=== PATIENT | male | born 1940 | race Caucasian/White ===

== ENCOUNTER 2017-07-26 19:54 | Inpatient (IN) | payer MEDICARE, BC ==
[~2017-07-26] VITALS: Ht 175.3 cm; Wt 64.1 kg
[2017-07-26] VITALS (17 sets, daily range): BP systolic 80–191; BP diastolic 50–84; PULSE 71–106; RESP 16; TEMP 97.5–99.3; O2SAT 94–100
[2017-07-26] MEDS ORDERED: PROPOFOL 500 MG/50 ML INJ 50 ML ONE (19:59)
--- NOTE | 2017-07-26 20:20 | PD ---
HPI Chief Complaint: STEMI Alert Time Seen by Provider: 20:06 Travel History International Travel<30 days: No Contact w/Intl Traveler<30days: No Traveled to known affect area: No History of Present Illness HPI pt is a 76-year-old male with history of Parkinson's on Sinemet. Patient was eating at a restaurant stood up choking like behavior . Tried to pull a shrimp out of his throat according to his who arrives after his initial eval in the ER and the patient was choking stopped breathing was laid on the ground CPR was initiated by bystanders . hemlick maneuver done and then realized he was in Asystole and CPR started .. Patient was found to be without respiratory effort intubated in the field by the paramedics who then gave 4 mg of Ativan and 10 of etomidate patient arrives fully obtunded intubated with cardiac activity on the ultrasound done bedside by this M.Olivier. point of care ultrasound shows cardiac activity paramedics it called said this was a left bundle-branch new onset M most likely could be a STEMI they had called a STEMI from the field. Upon me seeing the left bundle-branch. I call Dr. Dr. Lane sustainability consultant and he feels it is not needed to activate STEMI patient remains obtunded intubated he is not fighting the tube dopamine discontinued that had been started by the paramedics I continue it at 10 mics per acute per minute [facility] Social History Tobacco Use: No Allergies-Medications (Allergen,Severity, Reaction): Coded Allergies: No Allergy Information Available (Unverified , 07/26/17) pt intubateed Review of Systems ROS Limitations: Unresponsive Physical Exam Narrative GENERAL: Patient is intubated obtunded nonresponsive no respiratory effort. He is not of breathing above the vent SKIN: Warm and dry. HEAD: Atraumatic. Normocephalic. EYES: Pupils equal and round. No scleral icterus. No injection or drainage. Pupils are 3 mm equal and round ENT: No nasal bleeding or discharge. Mucous membranes pink and moist. ET tube in place NECK: Trachea midline. No JVD. CARDIOVASCULAR: Regular rate and rhythm. RESPIRATORY: No accessory muscle use. Clear to auscultation. Breath sounds equal bilaterally. Auscultation of the axillary areas bilateral coarse breath sounds heard GASTROINTESTINAL: Abdomen soft, non-tender, nondistended. Hepatic and splenic margins not palpable. MUSCULOSKELETAL: Extremities without clubbing, cyanosis, or edema. No obvious deformities. NEUROLOGICAL: obtunded , was sedated in the feild etomidat and ativan continues sedated Data Data Last Documented VS Vital Signs Date Time Temp Pulse Resp B/P (MAP) Pulse Ox O2 Delivery O2 Flow Rate FiO2 07/26/17 21:39 99.0 100 16 122/50 (74) 99 Ventilator 45 07/26/17 19:53 15.00 Orders Orders Propofol 500 Mg/50 Ml Inj (Diprivan 500 (07/26/17 19:59) Echo 2d Limited (07/26/17 20:06) Complete Blood Count With Diff (07/26/17 20:11) Comprehensive Metabolic Panel (07/26/17 20:11) Ckmb (Isoenzyme) Profile (07/26/17 20:11) Troponin I (07/26/17 20:11) Lipase (07/26/17 20:11) Ua Includes Microscopic (07/26/17 20:11) Magnesium (Mg) (07/26/17 20:11) Chest, Single Ap (07/26/17 20:11) Urinary Catheter Management KEILY.Q8H (07/26/17 20:25) Oscar-Gastric Tube Insert/Mon (07/26/17 20:25) Propofol 500 Mg/50 Ml Inj (Diprivan 500 (07/26/17 20:30) Dopamine Inj Premix (Dopamine Inj Premix (07/26/17 20:30) I-Stat Profile (07/26/17 20:05) Restraints Non-Violent KEILY.Q3H (07/26/17 20:29) Norepinephrine-Dextrose Drip (Levophed-D (07/26/17 22:00) Electrocardiogram (07/26/17 19:59) Urine Culture (07/26/17 20:05) Arterial Blood Gas (Abg) (07/26/17 21:01) CKMB (07/26/17 20:05) CKMB% (07/26/17 20:05) Admit Order (Ed Use Only) (07/26/17 21:39) Labs Laboratory Tests Test 07/26/17 20:05 07/26/17 21:01 White Blood Count 5.5 TH/MM3 Red Blood Count 4.31 MIL/MM3 Hemoglobin 14.5 GM/DL Bedside Hemoglobin 14.6 G/DL Hematocrit 43.4 % Bedside Hematocrit 43.0 % Mean Corpuscular Volume 100.7 FL Mean Corpuscular Hemoglobin 33.6 PG Mean Corpuscular Hemoglobin Concent 33.4 % Red Cell Distribution Width 13.7 % Platelet Count 146 TH/MM3 Mean Platelet Volume 8.1 FL Neutrophils (%) (Auto) 44.5 % Lymphocytes (%) (Auto) 44.7 % Monocytes (%) (Auto) 8.8 % Eosinophils (%) (Auto) 1.4 % Basophils (%) (Auto) 0.6 % Neutrophils # (Auto) 2.4 TH/MM3 Lymphocytes # (Auto) 2.4 TH/MM3 Monocytes # (Auto) 0.5 TH/MM3 Eosinophils # (Auto) 0.1 TH/MM3 Basophils # (Auto) 0.0 TH/MM3 CBC Comment DIFF FINAL Differential Comment Urine Color YELLOW Urine Turbidity HAZY Urine pH 6.0 Urine Specific Dawson 1.018 Urine Protein 100 mg/dL Urine Glucose (UA) NEG mg/dL Urine Ketones TRACE mg/dL Urine Occult Blood TRACE Urine Nitrite NEG Urine Bilirubin NEG Urine Urobilinogen 2.0 MG/DL Urine Leukocyte Esterase NEG Urine RBC 6 /hpf Urine WBC 12 /hpf Urine Squamous Epithelial Cells <1 /hpf Urine Bacteria RARE /hpf Urine Hyaline Casts 20 /lpf Urine Mucus FEW /lpf Microscopic Urinalysis Comment CULTURE INDICATED Bedside Sodium 143 MMOL/L Blood Urea Nitrogen 20 MG/DL Creatinine 1.01 MG/DL Random Glucose 148 MG/DL Total Protein 6.9 GM/DL Albumin 3.6 GM/DL Calcium Level 8.7 MG/DL Magnesium Level 1.9 MG/DL Alkaline Phosphatase 208 U/L Aspartate Amino Transf (AST/SGOT) 134 U/L Alanine Aminotransferase (ALT/SGPT) 15 U/L Total Bilirubin 0.7 MG/DL Sodium Level 143 MEQ/L Potassium Level 4.3 MEQ/L Chloride Level 107 MEQ/L Carbon Dioxide Level 23.5 MEQ/L Bedside Potassium 4.3 MMOL/L Bedside Chloride 105 MMOL/L Anion Gap 13 MEQ/L Bedside Blood Urea Nitrogen 21 MG/DL Bedside Creatinine 0.9 MG/DL Estimat Glomerular Filtration Rate 72 ML/MIN Bedside Glucose 151 MG/DL Total Creatine Kinase 233 U/L Creatine Kinase MB 6.4 NG/ML Troponin I 0.04 NG/ML Lipase 179 U/L Blood Gas Puncture Site RT RADIAL Blood Gas Patient Temperature 98.6 Blood Gas HCO3 22 mmol/L Blood Gas Base Excess -2.8 mmol/L Blood Gas Oxygen Saturation 99 % Arterial Blood pH 7.38 Arterial Blood Partial Pressure CO2 37 mmHg Arterial Blood Partial Pressure O2 445 mmHG Arterial Blood Oxygen Content 21.6 Vol % Arterial Blood Carboxyhemoglobin 0.5 % Arterial Blood Methemoglobin 0.7 % Blood Gas Hemoglobin 14.8 G/DL Oxygen Delivery Device VENTILATOR Blood Gas Ventilator Setting PRVC / AC / Blood Gas Inspired Oxygen 100 % MDM Medical Decision Making Medical Screen Exam Complete: Yes Emergency Medical Condition: Yes Medical Record Reviewed: Yes Differential Diagnosis Cardiac arrest secondary to respiratory arrest secondary to asystole secondary to acute coronary syndrome secondary to V. fib Narrative Course Patient spontaneous cardiac activity returns after CPR in the field and airway oxygenation is procured by paramedics in the field. Patient's dopamine is started his blood pressure registers at 114/60 and dopamine is 10-20 mics. Per minute his BP then increases and we're able to turn the dopamine down to 5 and then off and he maintains his own blood pressure ultrasound bedside shows good cardiac activity spoke with Dr. Lane he wanted a bedside echo nuclear reactor technician of the echo shows no areas of hypokinesis of the cardiac muscle which does not show any signs of an acute injury causing a left bundle block on the EKG Critical Care Narrative Critical care is 30 minutes on this patient I speak to Dr. Lane cardiology interventionalists I speak to Dr. Barnes to I manage medication and fluid recesses reassessing his cardiac activity the ultrasound reassessing his need for medications admitted ICU Diagnosis Primary Impression: Respiratory arrest Additional Impression: Cardiac arrest Nishant Munson MD Jul 26, 2017 20:20
--- NOTE | 2017-07-26 20:26 | RADRPT ---
EXAM DATE/TIME: 07/26/2017 20:03 [facility] COMPARISON: No previous studies available for comparison. INDICATIONS : Chest pain; Stemi alert; Post intubation. MEDICAL HISTORY : Unobtainable. SURGICAL HISTORY : Unobtainable. ENCOUNTER: Initial ACUITY: 1 day PAIN SCORE: Non-responsive. LOCATION: Bilateral chest FINDINGS: A single portable frontal view the chest shows the tip of the endotracheal tube 3 cm proximal to the abner. Nasogastric tube coiled in the fundus of the stomach. Lungs are clear. Heart is normal in siz e. Scoliotic and degenerative spine. Bilateral humeral head prostheses. CONCLUSION: No acute cardiopulmonary disease. Rocco Downey Jr., MD on July 26, 2017 at 20:23 Board Certified Radiologist. This report was verified electronically.
[2017-07-26] MEDS ORDERED: DOPamine INJ PREMIX 500 ML IV PRN (20:30)
[2017-07-26] MEDS ORDERED: PROPOFOL 500 MG/50 ML BTL IV ONE (20:30)
[2017-07-26 20:54] LABS: AUTOMATED NEUTROPHIL # 2.4 TH/MM3 (1.8-7.7); BASOPHIL % 0.6 % (0.0-2.0); EOSINOPHIL # 0.1 TH/MM3 (0-0.4); EOSINOPHIL % 1.4 % (0.0-4.0); HEMATOCRIT 43.4 % (39.0-51.0); HEMOGLOBIN 14.5 GM/DL (13.0-17.0); LYMPH % 44.7 % (9.0-44.0); LYMPHOCYTE # 2.4 TH/MM3 (1.0-4.8); MEAN CELL VOLUME 100.7 FL (80.0-100.0); MEAN CORPUSCULAR HEMOGLOBIN 33.6 PG (27.0-34.0); MEAN CORPUSCULAR HGB CONC 33.4 % (32.0-36.0); MEAN PLATELET VOLUME 8.1 FL (7.0-11.0); MONO % 8.8 % (0.0-8.0); MONOCYTE # 0.5 TH/MM3 (0-0.9); NEUT % 44.5 % (16.0-70.0); PLATELET COUNT 146 TH/MM3 (150-450); RED BLOOD COUNT 4.31 MIL/MM3 (4.50-5.90); RED CELL DISTRIBUTION WIDTH 13.7 % (11.6-17.2); WHITE BLOOD COUNT 5.5 TH/MM3 (4.0-11.0)
[2017-07-26 20:58] LABS: BACTERIA, URINE RARE /hpf; BILIRUBIN, URINE NEG (NEG); BLOOD, URINE TRACE (NEG); GLUCOSE,URINE NEG (NEG); HYALINE CAST, URINE 20 /lpf (RARE); KETONE, URINE TRACE mg/dL (NEG); MUCUS URINE FEW /lpf (OCC); NITRITE,URINE NEG (NEG); SQUAMOUS EPITHELIAL CELL URINE <1 /hpf (0-5); URINE COLOR YELLOW (YELLW/STRAW); URINE LEUKOCYTE ESTERASE NEG (NEG)
[2017-07-26 21:11] LABS: ALBUMIN 3.6 GM/DL (3.4-5.0); AST (GOT) 134 U/L (15-37); BICARBONATE 23.5 MEQ/L (21.0-32.0); BLOOD UREA NITROGEN 20 MG/DL (7-18); CALCIUM 8.7 MG/DL (8.5-10.1); CHLORIDE 107 MEQ/L (98-107); CREATININE 1.01 MG/DL (0.60-1.30); GLOMERULAR FILTRATION RATE 72 ML/MIN (>89); GLUCOSE,RANDOM 148 MG/DL (74-106); MAGNESIUM 1.9 MG/DL (1.5-2.5); SODIUM (NA) 143 MEQ/L (136-145)
[2017-07-26 21:12] LABS: ALT (GPT) 15 U/L (12-78)
[2017-07-26 21:16] LABS: ALKALINE PHOSPHATASE 208 U/L (45-117); TOTAL BILIRUBIN ADULT 0.7 MG/DL (0.2-1.0); TOTAL PROTEIN 6.9 GM/DL (6.4-8.2); TROPONIN I 0.04 NG/ML (0.02-0.05)
--- NOTE | 2017-07-26 21:50 | EKG ---
Date Performed: 07/26/2017 Time Performed: 19:59:07 PTAGE: 76 years EKG: Marked baseline artifact probable ATRIAL FIBRILLATION WITH ABERRANT CONDUCTION OR VENTRICUL AR PREMATURE COMPLEXES LEFT BUNDLE BRANCH BLOCK ABNORMAL ECG NO PREVIOUS TRACING DOCTOR: Duran Ortiz Interpretating Date/Time 07/26/2017 21:48:35
--- NOTE | 2017-07-26 21:52 | HHI.HP ---
HPI Service Critical Care Medicine Primary Care Physician Unknown Admission Diagnosis POST CARADIAC ARREST Diagnosis: Travel History International Travel<30 Days: No Contact w/Intl Traveler <30 Da: No Traveled to Known Affected Are: No History of Present Illness 76-year-old gentleman with unknown past medical history was eating at a restaurant stood up choking like behavior and fell to ground. Hemlick maneuver done by bystanders and then they realized he was in Asystole and CPR started. Patient is sedated and intubated and no further information is available. Review of Systems ROS Unobtainable patient is sedated and intubated Past Family Social History Allergies: Coded Allergies: No Allergy Information Available (Unverified , 07/26/17) pt intubateed Past Medical History Unobtainable Past Surgical History Unobtainable Reported Medications Unobtainable Active Ordered Medications Current Medications Medications (Trade) Dose Ordered Sig/Ventura Route PRN Reason Start Time Stop Time Status Last Admin Dose Admin Dopamine HCl/ Dextrose 500 ml @ 0 mls/hr TITRATE PRN IV Blood Pressure Management 07/26/17 20:30 07/26/17 20:02 Norepinephrine Bitartrate 250 ml @ 7.5 mls/hr TITRATE PRN IV Blood pressure management 07/26/17 22:00 Sodium Chloride 1,000 ml @ 84 mls/hr [id number] IV 07/26/17 21:52 07/26/17 23:19 Sodium Chloride (NS Flush) 2 ml UNSCH PRN IV FLUSH FLUSH AFTER USING IV ACCESS 07/26/17 22:00 Sodium Chloride (NS Flush) 2 ml BID IV FLUSH 07/27/17 09:00 Acetaminophen (Tylenol) 650 mg Q6H PRN PO PAIN 1-10 AND/OR FEVER >101F 07/26/17 22:00 Famotidine (Pepcid Inj) 20 mg Q12HR IV PUSH 07/27/17 09:00 Artificial Tears (Tears Naturale Opth Soln) 1 drop TID EACH EYE 07/27/17 09:00 Ondansetron HCl (Zofran Inj) 4 mg Q6H PRN IV PUSH NAUSEA OR VOMITING 07/26/17 22:00 Albuterol/ Ipratropium (Duoneb Neb) 1 ampule Q6HR NEB INH 07/26/17 22:00 07/26/17 22:43 Albuterol/ Ipratropium (Duoneb Neb) 1 ampule Q2HR NEB PRN INH WHEEZING 07/26/17 22:00 Heparin Sodium (Porcine) (Heparin Inj) 5,000 units Q12H SQ 07/26/17 22:00 07/26/17 22:48 Miscellaneous Information 1 [id number] XX 07/26/17 22:00 Chlorhexidine Gluconate (Chlorhexidine 2% Cloth) 3 pack Taper DAILY@04 TOP 07/27/17 04:00 07/23/18 03:59 Chlorhexidine Gluconate (Chlorhexidine 2% Cloth) 3 pack UNSCH PRN TOP HYGIENIC CARE 07/26/17 22:00 Senna/Docusate Sodium (Marcella-Colace) 1 tab BID PO 07/27/17 09:00 Magnesium Hydroxide (Milk Of Magnesia Liq) 30 ml Q12H PRN PO Mild constipation 07/26/17 22:00 Sennosides (Senokot) 17.2 mg Q12H PRN PO Moderate constipation 07/26/17 22:00 Bisacodyl (Dulcolax Supp) 10 mg DAILY PRN RECTAL SEVERE CONSITIPATION 07/26/17 22:00 Lactulose (Lactulose Liq) 30 ml DAILY PRN PO SEVERE CONSITIPATION 07/26/17 22:00 Chlorhexidine Gluconate (Peridex 0.12% Liq) 15 ml BID@08,20 MT 07/27/17 08:00 Propofol 100 ml @ 4.5 mls/hr TITRATE PRN IV Sedation 07/26/17 23:30 Labetalol HCl (Trandate Inj) 10 mg Q4H PRN IV PUSH SBP>160, DBP>90 07/27/17 02:30 07/27/17 02:31 Family History Unobtainable Social History Unobtainable Physical Exam Vital Signs Vital Signs Date Time Temp Pulse Resp B/P (MAP) Pulse Ox O2 Delivery O2 Flow Rate FiO2 07/26/17 21:14 100 45 07/26/17 21:03 102 174/80 07/26/17 20:55 92 142/64 07/26/17 20:54 99 Ventilator 100 07/26/17 20:48 94 129/82 07/26/17 20:43 94 107/65 07/26/17 20:36 90 160/66 07/26/17 20:33 88 161/124 07/26/17 20:21 97.5 87 16 114/55 (74) 100 Ventilator 100 07/26/17 20:19 100 07/26/17 20:15 87 114/55 07/26/17 20:02 88 80/60 07/26/17 20:00 98 100 07/26/17 19:59 78 16 80/60 (67) 98 07/26/17 19:53 98 15.00 100 Physical Exam GENERAL: Elderly gentleman sedated and intubated, unresponsive SKIN: Warm and dry. HEAD: Normocephalic. EYES: No scleral icterus. No injection or drainage. NECK: Supple, trachea midline. No JVD or lymphadenopathy. CARDIOVASCULAR: Regular rate and rhythm without murmurs, gallops, or rubs. RESPIRATORY: Breath sounds equal bilaterally. No accessory muscle use. GASTROINTESTINAL: Abdomen soft, non-tender, nondistended. MUSCULOSKELETAL: No cyanosis, or edema. BACK: Nontender without obvious deformity. NEURO EXAM: GCS: M 4 V t E 2 Mental Status: The patient is altered sedated and intubated. Pupils are 4 mm symmetrical and reactive to light. Laboratory Laboratory Tests Test 07/26/17 20:05 07/26/17 21:01 White Blood Count 5.5 Red Blood Count 4.31 Hemoglobin 14.5 Bedside Hemoglobin 14.6 Hematocrit 43.4 Bedside Hematocrit 43.0 Mean Corpuscular Volume 100.7 Mean Corpuscular Hemoglobin 33.6 Mean Corpuscular Hemoglobin Concent 33.4 Red Cell Distribution Width 13.7 Platelet Count 146 Mean Platelet Volume 8.1 Neutrophils (%) (Auto) 44.5 Lymphocytes (%) (Auto) 44.7 Monocytes (%) (Auto) 8.8 Eosinophils (%) (Auto) 1.4 Basophils (%) (Auto) 0.6 Neutrophils # (Auto) 2.4 Lymphocytes # (Auto) 2.4 Monocytes # (Auto) 0.5 Eosinophils # (Auto) 0.1 Basophils # (Auto) 0.0 CBC Comment DIFF FINAL Differential Comment Urine Color YELLOW Urine Turbidity HAZY Urine pH 6.0 Urine Specific Zillah 1.018 Urine Protein 100 Urine Glucose (UA) NEG Urine Ketones TRACE Urine Occult Blood TRACE Urine Nitrite NEG Urine Bilirubin NEG Urine Urobilinogen 2.0 Urine Leukocyte Esterase NEG Urine RBC 6 Urine WBC 12 Urine Squamous Epithelial Cells <1 Urine Bacteria RARE Urine Hyaline Casts 20 Urine Mucus FEW Microscopic Urinalysis Comment CULTURE INDICATED Bedside Sodium 143 Blood Urea Nitrogen 20 Creatinine 1.01 Random Glucose 148 Total Protein 6.9 Albumin 3.6 Calcium Level 8.7 Magnesium Level 1.9 Alkaline Phosphatase 208 Aspartate Amino Transf (AST/SGOT) 134 Alanine Aminotransferase (ALT/SGPT) 15 Total Bilirubin 0.7 Sodium Level 143 Potassium Level 4.3 Chloride Level 107 Carbon Dioxide Level 23.5 Bedside Potassium 4.3 Bedside Chloride 105 Anion Gap 13 Bedside Blood Urea Nitrogen 21 Bedside Creatinine 0.9 Estimat Glomerular Filtration Rate 72 Bedside Glucose 151 Total Creatine Kinase 233 Creatine Kinase MB 6.4 Troponin I 0.04 Lipase 179 Blood Gas Puncture Site RT RADIAL Blood Gas Patient Temperature 98.6 Blood Gas HCO3 22 Blood Gas Base Excess -2.8 Blood Gas Oxygen Saturation 99 Arterial Blood pH 7.38 Arterial Blood Partial Pressure CO2 37 Arterial Blood Partial Pressure O2 445 Arterial Blood Oxygen Content 21.6 Arterial Blood Carboxyhemoglobin 0.5 Arterial Blood Methemoglobin 0.7 Blood Gas Hemoglobin 14.8 Oxygen Delivery Device VENTILATOR Blood Gas Ventilator Setting PRVC / AC / Blood Gas Inspired Oxygen 100 Date/Time Source Procedure Growth Status 07/26/17 20:05 Urine Clean Catch Urine Culture Pending Received Result Diagram: 07/26/17200407/26/172004 Imaging Last 24 hours Impressions Chest X-Ray 07/26/172010 Signed Impressions: Service Date/Time: July 20:03 - CONCLUSION: No acute cardiopulmonary disease. Rocco Downey Jr., MD Septic Shock Reassessment Septic shock perfusion: reassessment completed Caprini VTE Risk Assessment Caprini VTE Risk Assessment: Mod/High Risk (score >= 2) Caprini Risk Assessment Model Point Value = 1 Point Value = 2 Point Value = 3 Point Value = 5 Age 41-60 Minor surgery BMI > 25 kg/m2 Swollen legs Varicose veins or History of unexplained or recurrent spontaneous Oral contraceptives or hormone replacement Sepsis (< 1 month) Serious lung disease, including pneumonia (< 1 month) Abnormal pulmonary function Acute myocardial infarction Congestive heart failure (< 1 month) History of inflammatory bowel disease Medical patient at bed rest Age 61-74 Arthroscopic surgery Major open surgery (> 45 min) Laparoscopic surgery (> 45 min) Malignancy Confined to bed (> 72 hours) Immobilizing plaster cast Central venous access Age >= 75 History of VTE Family history of VTE Factor V Leiden Prothrombin [id number] Lupus anticoagulant Anticardiolipin antibodies Elevated serum homocysteine Heparin-induced thrombocytopenia Other congenital or acquired thrombophilia Stroke (< 1 month) Elective arthroplasty Hip, pelvis, or leg fracture Acute spinal cord injury (< 1 month) Prophylaxis Regimen Total Risk Factor Score Risk Level Prophylaxis Regimen 0-1 Low Early ambulation 2 Moderate Order ONE of the following: *Sequential Compression Device (SCD) *Heparin 5000 units SQ BID 3-4 Higher Order ONE of the following medications: *Heparin 5000 units SQ TID *Enoxaparin/Lovenox 40 mg SQ daily (WT < 150 kg, CrCl > 30 mL/min) *Enoxaparin/Lovenox 30 mg SQ daily (WT < 150 kg, CrCl > 10-29 mL/min) *Enoxaparin/Lovenox 30 mg SQ BID (WT < 150 kg, CrCl > 30 mL/min) AND/OR *Sequential Compression Device (SCD) 5 or more Highest Order ONE of the following medications: *Heparin 5000 units SQ TID (Preferred with Epidurals) *Enoxaparin/Lovenox 40 mg SQ daily (WT < 150 kg, CrCl > 30 mL/min) *Enoxaparin/Lovenox 30 mg SQ daily (WT < 150 kg, CrCl > 10-29 mL/min) *Enoxaparin/Lovenox 30 mg SQ BID (WT < 150 kg, CrCl > 30 mL/min) AND *Sequential Compression Device (SCD) Assessment and Plan Assessment and Plan Respiratory failure - Intubated for airway protection - No weaning until neurologically improved - CXR and ABG daily Cardiac arrest - Non-ST elevation GA - Discussed with Dr. Lane/cardiology by ED attending - Normal echo, not a candidate for emergent cardiac catheterization - Heparin drip - Series of EKGs and troponins Altered mental status - Metabolic toxic - Status post cardiac arrest?? - EEG a.m. - Neurology consultation DVT GI prophylaxis - Teds SCDs - Heparin drip - Pepcid Critical Care: The total critical care time was 35 minutes. Time to perform other separately billable procedures was not included in the critical care time. Darren Infante MD Jul 26, 2017 9:52 pm
[2017-07-26] MEDS ORDERED: BISACODYL 10 MG SUPP RECTAL PRN (22:00)
[2017-07-26] MEDS ORDERED: NOREPINEPHRINE-DEXTROSE DRIP 250 ML IV PRN (22:00)
[2017-07-26] MEDS ORDERED: HEPARIN SODIUM - SQ 10,000 UNITS/ML VIAL SQ SCH (22:00)
[2017-07-26] MEDS ORDERED: SODIUM CHLORIDE 0.9% FLUSH 10 ML FLUSH IV FLUSH PRN (22:00)
[2017-07-26] MEDS ORDERED: LACTULOSE SYRUP 20 GM/30 ML CUP PO PRN (22:00)
[2017-07-26] MEDS ORDERED: MISCELLANEOUS NURSING INFORMATION XX SCH (22:00)
[2017-07-26] MEDS ORDERED: CHLORHEXIDINE GLUCONATE 2 % 1 PACK (2 CLOTHS) TOP PRN (22:00)
[2017-07-26] MEDS ORDERED: MAGNESIUM HYDROXIDE SUSP 30 ML CUP PO PRN (22:00)
[2017-07-26] MEDS ORDERED: ONDANSETRON HCL 4 MG/2 ML VIAL IV PUSH PRN (22:00)
[2017-07-26] MEDS ORDERED: ACETAMINOPHEN 325 MG TAB PO PRN (22:00)
[2017-07-26] MEDS ORDERED: SENNOSIDES 8.6 MG TAB PO PRN (22:00)
--- NOTE | 2017-07-26 22:10 | ECHRPT ---
Indication: S/P CARDIAC ARREST, ?PE CONCLUSIONS Poor echocardiographic windows Normal left ventricular size. Mild concentric left ventricular hypertrophy. The left ventricular systolic function is moderately reduced with an estimated ejection fraction in the range of 45%. There is abnormal septal motion consistent with an intraventricular conduction delay. The right ventriclar size is upper limits of normal. The left atrial size is mildly dilated. The right atrial size is mildly dilated. Trace mitral valve regurgitation. Mild mitral annular calcification. Aortic valve sclerosis is present. No tricuspid regurgitation. There is less than 50% respiratory change in dimension of the inferior vena cava (abnormal). There is no pericardial effusion. BP: 142 / 84 HR: Rhythm: Sinus MEASUREMENTS (Male / Female) Normal Values Technical Quality:Technically difficult study 2D ECHO LV Diastolic Diameter PLAX 3.5 cm 4.2 - 5.9 / 3.9 - 5.3 cm LV Systolic Diameter PLAX 3.0 cm IVS Diastolic Thickness 1.1 cm 0.6 - 1.0 / 0.6 - 0.9 cm LVPW Diastolic Thickness 1.1 cm 0.6 - 1.0 / 0.6 - 0.9 cm LV Relative Wall Thickness 0.6 RV Internal Dim ED PLAX 2.9 cm LVOT Diameter 2.0 cm Aortic Root Diameter 2.7 cm LA Systolic Diameter LX 3.4 cm 3.0 - 4.0 / 2.7 - 3.8 cm DOPPLER AV Peak Velocity 121.0 cm/s AV Peak Gradient 5.9 mmHg AV Mean Gradient 4.0 mmHg AV Velocity Time Integral 16.4 cm LVOT Peak Velocity 69.2 cm/s LVOT Peak Gradient 1.9 mmHg LVOT Velocity Time Integral 11.4 cm AV Area Cont Eq vti 2.2 cm AV Area Cont Eq pk 1.8 cm Mitral E Point Velocity 107.0 cm/s Mitral A Point Velocity 59.2 cm/s Mitral E to A Ratio 1.8 LV E' Lateral Velocity 7.3 cm/s Mitral E to LV E' Lateral Ratio 14.6 LV E' Septal Velocity 2.8 cm/s Mitral E to LV E' Septal Ratio 37.8 TR Peak Velocity 219.0 cm/s TR Peak Gradient 19.2 mmHg Right Atrial Pressure 10.0 mmHg Pulmonary Artery Systolic Pressu 29.2 mmHg Right Ventricular Systolic Press 29.2 mmHg FINDINGS LEFT VENTRICLE Normal left ventricular size. Mild concentric left ventricular hypertrophy. The left ventricular systolic function is moderately reduced with an estimated ejection fraction in the range of 40-45%. There is abnormal septal motion consistent with an intraventricular conduction delay. RIGHT VENTRICLE The right ventriclar size is upper limits of normal. LEFT ATRIUM The left atrial size is mildly dilated. RIGHT ATRIUM The right atrial size is mildly dilated. ATRIAL SEPTUM No atrial level shunt is demonstrated by color flow Doppler interrogation. AORTA The aortic root and proximal ascending aorta are normal in size on limited imaging. MITRAL VALVE Trace mitral valve regurgitation. Mild mitral annular calcification. AORTIC VALVE Aortic valve sclerosis is present. No aortic valve stenosis. TRICUSPID VALVE No tricuspid regurgitation. PULMONARY VALVE The pulmonary valve is not well visualized. VESSELS The inferior vena cava is normal in size. There is less than 50% respiratory change in dimension of the inferior vena cava (abnormal). PERICARDIUM There is no pericardial effusion. Manuel Martínez MD (Electronically Signed) Final Date:26 July 2017 22:09
[2017-07-26] MEDS: RESP: ALBUTEROL 2.5 MG/IPRATROPIUM 0.5 MG NEB (SCH) INH (22:43)
[2017-07-26] MEDS: SODIUM CHLOR 0.9% 1000 ML INJ 1,000 ML IV SCH (23:19)
[2017-07-26] MEDS ORDERED: PROPOFOL 1000 MG/100 ML IV PRN ×2 (23:30)
[2017-07-27] VITALS (21 sets, daily range): BP systolic 137–181; BP diastolic 67–104; PULSE 61–85; RESP 16–19; TEMP 98.9–99.7; O2SAT 94–100
[2017-07-27 02:22] LABS: AUTOMATED NEUTROPHIL # 6.1 TH/MM3 (1.8-7.7); BASOPHIL % 0.2 % (0.0-2.0); EOSINOPHIL % 0.3 % (0.0-4.0); HEMATOCRIT 40.3 % (39.0-51.0); HEMOGLOBIN 14.2 GM/DL (13.0-17.0); LYMPH % 15.5 % (9.0-44.0); LYMPHOCYTE # 1.3 TH/MM3 (1.0-4.8); MEAN CELL VOLUME 98.4 FL (80.0-100.0); MEAN CORPUSCULAR HEMOGLOBIN 34.6 PG (27.0-34.0); MEAN CORPUSCULAR HGB CONC 35.2 % (32.0-36.0); MEAN PLATELET VOLUME 8.1 FL (7.0-11.0); MONO % 12.1 % (0.0-8.0); NEUT % 71.9 % (16.0-70.0); PLATELET COUNT 164 TH/MM3 (150-450); RED CELL DISTRIBUTION WIDTH 13.5 % (11.6-17.2); WHITE BLOOD COUNT 8.6 TH/MM3 (4.0-11.0)
[2017-07-27] MEDS: LABETALOL HCL 100 MG/20 ML VIAL IV PUSH PRN ×2 (02:31→21:29)
[2017-07-27 02:34] LABS: INTERNATIONAL NORMALIZED RATIO 1.1 RATIO; PROTHROMBIN TIME - PATIENT 10.7 SEC (9.8-11.6)
[2017-07-27 02:36] LABS: ALBUMIN 3.6 GM/DL (3.4-5.0); AST (GOT) 110 U/L (15-37); BICARBONATE 24.9 MEQ/L (21.0-32.0); BLOOD UREA NITROGEN 22 MG/DL (7-18); CALCIUM 8.2 MG/DL (8.5-10.1); CHLORIDE 109 MEQ/L (98-107); CREATININE 0.72 MG/DL (0.60-1.30); GLOMERULAR FILTRATION RATE 106 ML/MIN (>89); GLUCOSE,RANDOM 107 MG/DL (74-106); SODIUM (NA) 144 MEQ/L (136-145)
[2017-07-27 02:43] LABS: ALKALINE PHOSPHATASE 195 U/L (45-117); ALT (GPT) 30 U/L (12-78); PHOSPHORUS 3.3 MG/DL (2.5-4.9); TOTAL BILIRUBIN ADULT 0.9 MG/DL (0.2-1.0); TOTAL PROTEIN 6.7 GM/DL (6.4-8.2)
[2017-07-27 02:45] LABS: TROPONIN I 2.19 NG/ML (0.02-0.05)
[2017-07-27] MEDS ORDERED: HEPARIN SODIUM - IV 10,000 UNITS/10 ML VIAL IV PUSH ONE (03:00)
[2017-07-27] MEDS: RESP: ALBUTEROL 2.5 MG/IPRATROPIUM 0.5 MG NEB (SCH) INH ×4 (03:29→19:38)
[2017-07-27] MEDS: HEPARIN-D5W 25,000 U/250 ML 250 ML IV PRN (03:38)
[2017-07-27] MEDS: CHLORHEXIDINE GLUCONATE 2 % 1 PACK (2 CLOTHS) TOP SCH (04:00)
--- NOTE | 2017-07-27 05:03 | RADRPT ---
EXAM DATE/TIME: 07/27/2017 03:25 [facility] COMPARISON: CHEST SINGLE AP, July 26, 2017, 20:03. INDICATIONS : Evaluate for respiratory failure. MEDICAL HISTORY : Unobtainable. SURGICAL HISTORY : Unobtainable. ENCOUNTER: Subsequent ACUITY: 2 days PAIN SCORE: Non-responsive. LOCATION: chest FINDINGS: Stable ETT, and NGT. No significant new focal pleural or parenchymal opacities. Cardiomediastinal con tours are stable. Remainder of the exam is unchanged. CONCLUSION: 1. No acute abnormality or significant interval change. Kanu Freitas MD on July 27, 2017 at 5:01 Board Certified Radiologist. This report was verified electronically.
[2017-07-27] MEDS: CHLORHEXIDINE 0.12% (ORAL KIT) 15 ML CUP MT SCH ×2 (08:00→20:00)
[2017-07-27] MEDS: DOCUSATE SODIUM 50 MG/SENNA 8.6 MG TAB PO SCH ×2 (08:56→21:28)
[2017-07-27] MEDS: ASPIRIN 300 MG SUPP RECTAL SCH (08:57)
[2017-07-27] MEDS: FAMOTIDINE 20 MG/2 ML VIAL IV PUSH SCH ×2 (08:57→21:28)
[2017-07-27] MEDS: SODIUM CHLORIDE 0.9% FLUSH 10 ML FLUSH IV FLUSH SCH ×2 (08:57→21:29)
[2017-07-27] MEDS ORDERED: HEPARIN SODIUM - IV 10,000 UNITS/10 ML VIAL IV PUSH PRN ×2 (09:00)
[2017-07-27] MEDS: SODIUM CHLOR 0.9% 1000 ML INJ 1,000 ML IV SCH ×3 (09:02→23:28)
--- NOTE | 2017-07-27 09:20 | MB ---
cc: YARELY GRANT M.D. DATE OF CONSULTATION 07/27/2017 REASON FOR CONSULTATION Abnormal cardiac enzymes. HISTORY OF PRESENT ILLNESS History is unobtainable from the patient who is intubated and unresponsive. History is obtained from the electronic medical records. He is a 76-year-old white male with a history of Parkinson's disease who while eating at a restaurant began choking. At some point he stopped breathing and lost pulse so CPR was administered by bystanders. At some point the Heimlich maneuver was also performed. Last night he apparently was felt not to be a candidate for emergency cardiac catheterization. He did demonstrate left bundle branch block on EKG. At the present time he is intubated and unresponsive, on Diprivan sedation. PAST MEDICAL HISTORY As above. No other details currently available. MEDICATIONS Medications at home: Unknown. ALLERGIES Unknown. FAMILY HISTORY/SOCIAL HISTORY/REVIEW OF SYSTEMS Currently unobtainable. PHYSICAL EXAMINATION VITAL SIGNS: On physical examination his blood pressure is 177/84 with a pulse 68, respirations 18. GENERAL: In general he is a well-developed, well-nourished white male, currently intubated and sedated. HEENT/NECK: Jugular venous pressure is normal. Carotid pulses are 2+ bilaterally and without bruits. CHEST: Examination of the chest reveals clear lung medley anteriorly. CARDIAC: On cardiac examination he has a regular rhythm and rate without S3, S4, or murmur. ABDOMEN: On abdominal examination he has a soft abdomen. Bowel sounds are present. There is no definite hepatosplenomegaly. EXTREMITIES: Examination of the extremities reveals no clubbing, cyanosis or edema. EKG EKG shows probable sinus rhythm with premature atrial complexes, left bundle branch block. LABORATORY Laboratory data includes WBC 8.6, hemoglobin 14.2, platelets 164, potassium 3.9, BUN 22, creatinine 0.72, CK 233, CK-MB 6.4, troponin 2.19. IMAGING Chest x-ray shows no acute disease. IMPRESSION Possible acute myocardial infarction in this 76-year-old white male with a history of Parkinson's disease. The second troponin level is more consistent with acute myocardial infarction. Apparently he was not felt to be a candidate for emergency cardiac catheterization last night. He has remained hemodynamically stable overnight. A repeat EKG is pending. Echocardiogram reportedly shows mildly reduced ejection fraction of 45%. RECOMMENDATIONS 1. Continued supportive care; will await his repeat EKG. 2. Continue serial cardiac enzymes. If CK-MB percentages are more consistent with myocardial infarction and there is a continued rise in CK levels, consider cardiac catheterization today. 3. Beta iesha and MECHE inhibitor therapy as his blood pressures allow. 4. Daily aspirin. 5. Continue heparin drip. MD KANIKA Haddad/VANESSA /7:06 AM /9:07 AM ANDRES
[2017-07-27] MEDS ORDERED: VITA100064 PO (09:58)
[2017-07-27] MEDS ORDERED: CETI10 PO (09:58)
[2017-07-27] MEDS ORDERED: ASPI81CH7 CHEW (09:58)
[2017-07-27] MEDS ORDERED: ESOM0.1C PO (09:58)
[2017-07-27] MEDS ORDERED: CYAN100025 SL (09:58)
[2017-07-27] MEDS ORDERED: DIPY50TA PO (09:58)
[2017-07-27] MEDS ORDERED: HYDR-3516 PO (09:58)
[2017-07-27] MEDS ORDERED: CARB25TA9 PO (09:58)
--- NOTE | 2017-07-27 11:17 | EKG ---
Date Performed: 07/27/2017 Time Performed: 07:43:04 PTAGE: 76 years EKG: Sinus rhythm MARKED LEFT AXIS DEVIATION LEFT BUNDLE BRANCH BLOCK ABNORMAL ECG No significant change from prior el ectrocardiogram. PREVIOUS TRACING : 07/27/2017 04.28 DOCTOR: Duran Ortiz Interpretating Date/Time 07/27/2017 11:17:23
[2017-07-27] MEDS: ARTIFICIAL TEARS OPTH SOLN 15 ML BTL EACH EYE SCH ×2 (13:00→16:52)
--- NOTE | 2017-07-27 14:00 | EKG ---
Date Performed: 07/27/2017 Time Performed: 04:28:06 PTAGE: 76 years EKG: Sinus rhythm . Left axis deviation Left bundle branch block Abnormal ECG Unfortunately, priority EKG has marked ar tifact and I cannot compare rhythm. PREVIOUS TRACING : 07/26/2017 19.59 DOCTOR: Duran Ortiz Interpretating Date/Time 07/27/2017 13:59:52
--- NOTE | 2017-07-27 14:37 | HHI.CCPN ---
Subjective Remarks/Hospital Course 76-year-old gentleman with unknown past medical history was eating at a restaurant stood up choking like behavior and fell to ground. Hemlick maneuver done by bystanders and then they realized he was in Asystole and CPR started. Patient is sedated and intubated and no further information is available. SUBJ remains intubated sedated with 20 mcg/m of propofol. Withdraws left upper extremity to pain. No purposeful movements noted. Troponin elevation to 2, now trending down to 0.9. Cardiology Dr. Charles. May need cardiac cath. Echo EF 45%. Off Dopamine, will start low-dose carvedilol Objective Vital Signs Date Time Temp Pulse Resp B/P (MAP) Pulse Ox O2 Delivery O2 Flow Rate FiO2 07/27/17 12:06 97 40 07/27/17 12:00 61 07/27/17 12:00 98.9 16 146/76 (99) 07/26/17 22:52 Ventilator 07/26/17 19:53 15.00 Intake and Output 07/27/17 07/27/17 07/28/17 08:00 16:00 00:00 Intake Total 375.0 ml 447 ml Output Total 840 ml 170 ml Balance -465.0 ml 277 ml Result Diagram: 07/27/17 0211 07/27/17 0211 Other Results Laboratory Tests Test 07/26/17 21:01 Blood Gas Puncture Site RT RADIAL Blood Gas Patient Temperature 98.6 Blood Gas HCO3 22 mmol/L (22-26) Blood Gas Base Excess -2.8 mmol/L (-2-2) Blood Gas Oxygen Saturation 99 % (90-100) Arterial Blood pH 7.38 (7.380-7.420) Arterial Blood Partial Pressure CO2 37 mmHg (38-42) Arterial Blood Partial Pressure O2 445 mmHG (61-120) Arterial Blood Oxygen Content 21.6 Vol % (12.0-20.0) Arterial Blood Carboxyhemoglobin 0.5 % (0-4) Arterial Blood Methemoglobin 0.7 % (0-2) Blood Gas Hemoglobin 14.8 G/DL (12.0-16.0) Oxygen Delivery Device VENTILATOR Blood Gas Ventilator Setting PRVC / AC / Blood Gas Inspired Oxygen 100 % Imaging Last 24 hours Impressions Chest X-Ray 07/26/172010 Signed Impressions: Service Date/Time: July 20:03 - CONCLUSION: No acute cardiopulmonary disease. Rocco Downey Jr., MD Objective Remarks GENERAL: Elderly gentleman sedated and intubated, unresponsive SKIN: Warm and dry. HEAD: Normocephalic. EYES: No scleral icterus. No injection or drainage. NECK: Supple, trachea midline. No JVD or lymphadenopathy. CARDIOVASCULAR: Regular rate and rhythm without murmurs, gallops, or rubs. RESPIRATORY: Breath sounds equal bilaterally. No accessory muscle use. GASTROINTESTINAL: Abdomen soft, non-tender, nondistended. MUSCULOSKELETAL: No cyanosis, or edema. BACK: Nontender without obvious deformity. NEURO EXAM: Mental Status: The patient is altered sedated and intubated. Pupils are 4 mm symmetrical and reactive to light. Withdraws right UE to pain while on sedation A/P Assessment and Plan Respiratory failure - Intubated for airway protection - No weaning until neurologically improved - CXR and ABG daily Cardiac arrest - Non-ST elevation [place] - Discussed with Dr. Lane/cardiology by ED attending. Normal echo, not a candidate for emergent cardiac catheterization - With troponin peaking at 2, EF 45%, Dr. Charles may cath - Heparin drip, aspirin - Series of EKGs and troponins - Coreg 3.25 ng PO BID Altered mental status - Metabolic toxic vs anoxic brain injury - EEG pending - Neurology consultation as needed DVT GI prophylaxis - Teds SCDs - Heparin drip - Pepcid Critical Care: The total critical care time was 35 minutes. Time to perform other separately billable procedures was not included in the critical care time. Jeremy Ribeiro MD Jul 27, 2017 14:37
[2017-07-27] MEDS: CARVEDILOL 3.125 MG TAB PO SCH ×2 (16:52→21:28)
--- NOTE | 2017-07-27 18:24 | MG ---
cc: JAMES CANALES M.D. Lab No: 18 Date: Age: Sex: M Race: Choked on a shrimp, asystole, obtunded, coded. Diffuse 6-7 Hz, 60 microvolt rhythm is noted. The recording overall is synchronous and symmetric. No hemisphere asymmetry is noted. No epileptiform or seizure activity is seen. Photic stimulation was performed without significant posterior driving. Hyperventilation was not performed. IMPRESSION: Mild diffuse theta slowing consistent with mild diffuse encephalopathy but no focal abnormality was noted. No seizure activity was seen. MD VIJAY Ferrari/KATYA /5:48 PM /6:00 PM
[2017-07-28] VITALS (22 sets, daily range): BP systolic 122–198; BP diastolic 63–101; PULSE 61–85; RESP 13–30; TEMP 99.7–100.5; O2SAT 98–100
[2017-07-28] MEDS: LABETALOL HCL 100 MG/20 ML VIAL IV PUSH PRN ×3 (00:31→20:13)
[2017-07-28] MEDS: RESP: ALBUTEROL 2.5 MG/IPRATROPIUM 0.5 MG NEB (SCH) INH ×4 (03:12→20:20)
[2017-07-28] MEDS: CHLORHEXIDINE GLUCONATE 2 % 1 PACK (2 CLOTHS) TOP SCH (04:00)
[2017-07-28] MEDS: HEPARIN-D5W 25,000 U/250 ML 250 ML IV PRN (05:06)
[2017-07-28] MEDS: FAMOTIDINE 20 MG/2 ML VIAL IV PUSH SCH ×2 (07:55→19:49)
[2017-07-28] MEDS: DOCUSATE SODIUM 50 MG/SENNA 8.6 MG TAB PO SCH ×2 (07:56→19:49)
[2017-07-28] MEDS: SODIUM CHLORIDE 0.9% FLUSH 10 ML FLUSH IV FLUSH SCH ×2 (07:56→19:49)
[2017-07-28] MEDS: ASPIRIN 300 MG SUPP RECTAL SCH (07:56)
[2017-07-28] MEDS: CARVEDILOL 3.125 MG TAB PO SCH ×2 (07:56→19:48)
[2017-07-28] MEDS: ARTIFICIAL TEARS OPTH SOLN 15 ML BTL EACH EYE SCH ×3 (07:57→17:20)
[2017-07-28] MEDS: CHLORHEXIDINE 0.12% (ORAL KIT) 15 ML CUP MT SCH ×2 (08:00→19:48)
--- NOTE | 2017-07-28 08:53 | PD.CARD.PN ---
Subjective Subjective Remarks Intubated. Sedated. Opens eyes slightly and briefly, seems to deny CP, SOB. Objective Medications Item Value Date Time Carvedilol 3.125 mg 07/27/17 1445 (Coreg) Q12HR/PO 07/28/17 0756 Aspirin 300 mg 07/27/17 0900 (Aspirin Supp) DAILY/RECTAL 07/28/17 0756 Heparin Sodium/ 250 ml @ 9 mls/hr 07/27/17 0300 Dextrose TITRATE PRN/IV 07/28/17 0506 Current Medications Medications (Trade) Dose Ordered Sig/Ventura Route Start Time Stop Time Status Last Admin Sodium Chloride 1,000 ml @ 84 mls/hr [id number] IV 07/26/17 21:52 07/27/17 23:28 (NS Flush) 2 ml UNSCH PRN IV FLUSH 07/26/17 22:00 (NS Flush) 2 ml BID IV FLUSH 07/27/17 09:00 07/28/17 07:56 (Tylenol) 650 mg Q6H PRN PO 07/26/17 22:00 (Pepcid Inj) 20 mg Q12HR IV PUSH 07/27/17 09:00 07/28/17 07:55 (Tears Naturale Opth Soln) 1 drop TID EACH EYE 07/27/17 09:00 (Zofran Inj) 4 mg Q6H PRN IV PUSH 07/26/17 22:00 (Duoneb Neb) 1 ampule Q6HR NEB INH 07/26/17 22:00 07/28/17 08:25 (Duoneb Neb) 1 ampule Q2HR NEB PRN INH 07/26/17 22:00 Miscellaneous Information 1 Q361D XX 07/26/17 22:00 07/26/17 22:00 (Chlorhexidine 2% Cloth) 3 pack Taper DAILY@04 TOP 07/27/17 04:00 07/23/18 03:59 07/28/17 04:00 (Chlorhexidine 2% Cloth) 3 pack UNSCH PRN TOP 07/26/17 22:00 (Marcella-Colace) 1 tab BID PO 07/27/17 09:00 07/28/17 07:56 (Milk Of Magnesia Liq) 30 ml Q12H PRN PO 07/26/17 22:00 (Senokot) 17.2 mg Q12H PRN PO 07/26/17 22:00 (Dulcolax Supp) 10 mg DAILY PRN RECTAL 07/26/17 22:00 (Lactulose Liq) 30 ml DAILY PRN PO 07/26/17 22:00 (Peridex 0.12% Liq) 15 ml BID@08,20 MT 07/27/17 08:00 07/27/17 08:00 Propofol 100 ml @ 4.5 mls/hr TITRATE PRN IV 07/26/17 23:30 07/27/17 05:00 (Trandate Inj) 10 mg Q4H PRN IV PUSH 07/27/17 02:30 07/28/17 00:31 (Heparin Inj) 5,000 units UNSCH PRN IV PUSH 07/27/17 09:00 (Heparin Inj) 2,500 units UNSCH PRN IV PUSH 07/27/17 09:00 Heparin Sodium/ Dextrose 250 ml @ 9 mls/hr TITRATE PRN IV 07/27/17 03:00 07/28/17 05:06 (Aspirin Supp) 300 mg DAILY RECTAL 07/27/17 09:00 07/28/17 07:56 (Coreg) 3.125 mg Q12HR PO 07/27/17 14:45 07/28/17 07:56 Vital Signs / I&O Vital Signs Date Time Temp Pulse Resp B/P (MAP) Pulse Ox O2 Delivery O2 Flow Rate FiO2 07/28/17 08:00 100.6 68 17 142/77 (98) 100 07/28/17 08:00 35 07/28/17 07:35 100 35 07/28/17 06:00 65 07/28/17 04:15 100 35 07/28/17 04:00 82 07/28/17 04:00 100.0 82 24 142/90 (107) 99 07/28/17 04:00 35 07/28/17 02:00 66 07/28/17 01:09 100 40 07/28/17 00:00 40 07/28/17 00:00 100.5 65 15 147/79 (101) 100 07/28/17 00:00 65 07/27/17 22:04 100 40 07/27/17 22:00 76 07/27/17 20:00 100.6 85 16 137/67 (90) 100 07/27/17 20:00 85 07/27/17 20:00 40 07/27/17 19:12 96 40 07/27/17 18:00 78 07/27/17 17:15 97 40 07/27/17 16:00 75 07/27/17 16:00 99.7 75 19 150/81 (104) 98 07/27/17 16:00 40 07/27/17 15:04 40 07/27/17 15:00 40 07/27/17 14:00 75 07/27/17 12:06 97 40 07/27/17 12:00 61 07/27/17 12:00 40 07/27/17 12:00 98.9 61 16 146/76 (99) 98 07/27/17 10:00 68 I/O 07/27/1718 07/27/17 07/28/17 07/28/17 07/28/17 07:00 15:00 23:00 07:00 15:00 23:00 Intake Total 375.0 ml 447 ml 1250 ml Output Total 800 ml 290 ml 660 ml 355 ml 60 ml Balance -425.0 ml 157 ml -660 ml 895 ml -60 ml Intake IV Total 375.0 ml 447 ml 1250 ml Output Urine Total 800 ml 290 ml 660 ml 355 ml 60 ml # Bowel Movements 0 0 0 Physical Exam GENERAL: Well developed, well nourished. Intubated. Sedated. HEENT: Jugular venous pressure is normal. CHEST: Lungs clear to auscultation anteriorly. CARDIAC: Regular rate and rhythm without S3, S4. I-II/ systolic murmur apex. ABDOMEN: Soft, nontender, no hepatosplenomegaly. Bowel sounds present. EXTREMITIES: No clubbing, cyanosis, or edema. Laboratory Laboratory Tests Test 07/27/17 12:20 07/27/17 12:51 07/27/17 17:06 07/27/17 18:30 Total Creatine Kinase 475 U/L 486 U/L Creatine Kinase MB 12.5 NG/ML Creatine Kinase MB % 2.6 % Activated Partial Thromboplast Time 67.2 SEC 51.9 SEC Troponin I 0.88 NG/ML 0.53 NG/ML Blood Gas Puncture Site RT RADIAL Blood Gas Patient Temperature 98.6 Blood Gas HCO3 21 mmol/L Blood Gas Base Excess -2.5 mmol/L Blood Gas Oxygen Saturation 97 % Arterial Blood pH 7.47 Arterial Blood Partial Pressure CO2 29 mmHg Arterial Blood Partial Pressure O2 186 mmHg Arterial Blood Oxygen Content 18.0 Vol % Arterial Blood Carboxyhemoglobin 0.7 % Arterial Blood Methemoglobin 1.4 % Blood Gas Hemoglobin 12.9 G/DL Oxygen Delivery Device VENTILATOR Blood Gas Ventilator Setting CPAP 5/5/40% Blood Gas Inspired Oxygen 40 % Test 07/28/17 04:50 Activated Partial Thromboplast Time 48.6 SEC Imaging Last 48 hours Impressions Chest X-Ray 07/27/17 0000 Signed Impressions: Service Date/Time: Thursday, July 27, 2017 03:25 - CONCLUSION: 1. No acute abnormality or significant interval change. Kanu Freitas MD Chest X-Ray 07/26/172010 Signed Impressions: Service Date/Time: July 20:03 - CONCLUSION: No acute cardiopulmonary disease. Rocco Downey Jr., MD Assessment and Plan Problem List: (1) Non-ST elevation [place] (NSTEMI) ICD Codes: I21.4 - Non-ST elevation (NSTEMI) myocardial infarction Status: Acute Plan: Stable overnight. Hemodynamically stable. Troponin levels trending downward. Echo reportedly shows EF 45%. No definite CHF. No arrhythmias so far. REC continue supportive care continue carvedilol, aspirin and heparin, add enalapril cath once extubated, awake and alert Code Status full code Alejandro Charles MD Jul 28, 2017 08:53
[2017-07-28] MEDS ORDERED: ASPIRIN 81 MG CHEW TAB CHEW SCH (09:45)
[2017-07-28] MEDS: CARBIDOPA/LEVODOPA 25 MG/100 MG TAB PO SCH ×5 (10:00→22:58)
--- NOTE | 2017-07-28 11:01 | HHI.CCPN ---
Subjective Remarks/Hospital Course 76-year-old gentleman with unknown past medical history was eating at a restaurant stood up choking like behavior and fell to ground. Hemlick maneuver done by bystanders and then they realized he was in Asystole and CPR started. Patient is sedated and intubated and no further information is available. SUBJ remains intubated sedated with 20 mcg/m of propofol. Withdraws left upper extremity to pain. No purposeful movements noted. Troponin elevation to 2, now trending down to 0.9. Cardiology Dr. Charles. May need cardiac cath. Echo EF 45%. Off Dopamine, will start low-dose carvedilol 07/28: Slightly more on the vent as follows commands still somnolent. Sinemet resumed. Possible cath Sunday per Dr. Charles. DC IV Heparin, and start Lovenox 40 qd Objective Vital Signs Date Time Temp Pulse Resp B/P (MAP) Pulse Ox O2 Delivery O2 Flow Rate FiO2 07/28/17 10:00 68 07/28/17 08:00 100.6 17 142/77 (98) 100 07/28/17 08:00 35 07/26/17 22:52 Ventilator 07/26/17 19:53 15.00 Intake and Output 07/28/17 07/28/17 07/29/17 08:00 16:00 00:00 Intake Total 250 ml Output Total 365 ml 50 ml Balance -115 ml -50 ml Result Diagram: 07/27/1721007/27/171 Other Results Laboratory Tests Test 07/27/17 17:06 Blood Gas Puncture Site RT RADIAL Blood Gas Patient Temperature 98.6 Blood Gas HCO3 21 mmol/L (22-26) Blood Gas Base Excess -2.5 mmol/L (-2-2) Blood Gas Oxygen Saturation 97 % (90-100) Arterial Blood pH 7.47 (7.380-7.420) Arterial Blood Partial Pressure CO2 29 mmHg (38-42) Arterial Blood Partial Pressure O2 186 mmHg (61-120) Arterial Blood Oxygen Content 18.0 Vol % (12.0-20.0) Arterial Blood Carboxyhemoglobin 0.7 % (0-4) Arterial Blood Methemoglobin 1.4 % (0-2) Blood Gas Hemoglobin 12.9 G/DL (12.0-16.0) Oxygen Delivery Device VENTILATOR Blood Gas Ventilator Setting CPAP 5/5/40% Blood Gas Inspired Oxygen 40 % Imaging Last 24 hours Impressions Chest X-Ray 07/26/172010 Signed Impressions: Service Date/Time: July 20:03 - CONCLUSION: No acute cardiopulmonary disease. Rocco Downey Jr., MD Objective Remarks GENERAL: Elderly gentleman intubated, somnolent, following commands SKIN: Warm and dry. HEAD: Normocephalic. EYES: No scleral icterus. No injection or drainage. NECK: Supple, trachea midline. No JVD or lymphadenopathy. CARDIOVASCULAR: Regular rate and rhythm without murmurs, gallops, or rubs. RESPIRATORY: Breath sounds equal bilaterally. No accessory muscle use. GASTROINTESTINAL: Abdomen soft, non-tender, nondistended. MUSCULOSKELETAL: No cyanosis, or edema. BACK: Nontender without obvious deformity. NEURO EXAM: The patient is somnolent, but wakes up easily follows commands. Pupils are 4 mm symmetrical and reactive to light. A/P Assessment and Plan Respiratory failure - Intubated for airway protection - SBT with possible extubation Cardiac arrest - Non-ST elevation [place] - Discussed with Dr. Cahrles, cardiac catheterization Sunday - With troponin peaking at 2, EF 45%, Dr. Charles may cath - Heparin drip, aspirin, coreg. DC IV heparin and start Lovenox 40 mg subcutaneous daily - Series of EKGs and troponins Altered mental status - Metabolic toxic -no evidence of significant anoxic injury - Sinemet restarted DVT GI prophylaxis - Teds SCDs - DC IV heparin and start Lovenox 40 mg subcutaneous daily - Pepcid Critical Care: level 3 Jeremy Ribeiro MD Jul 28, 2017 11:01
[2017-07-28] MEDS: SODIUM CHLOR 0.9% 1000 ML INJ 1,000 ML IV SCH ×2 (11:12→23:22)
[2017-07-28] MEDS ORDERED: DIPYRIDAMOLE 50 MG PO SCH (13:00)
[2017-07-28] MEDS: DIPYRIDAMOLE 25 MG TAB PO SCH ×3 (15:38→19:48)
[2017-07-28] MEDS: HALOPERIDOL LACTATE 5 MG/ML AMP IV PUSH PRN (16:30)
[2017-07-28] MEDS: LORazepam 2 MG/ML VIAL IV PUSH PRN (16:30)
[2017-07-29] VITALS (19 sets, daily range): BP systolic 122–168; BP diastolic 59–107; PULSE 59–72; RESP 18–32; TEMP 98–99.6; O2SAT 95–100
[2017-07-29] MEDS: LABETALOL HCL 100 MG/20 ML VIAL IV PUSH PRN ×3 (02:43→18:31)
[2017-07-29] MEDS: CARBIDOPA/LEVODOPA 25 MG/100 MG TAB PO SCH ×8 (02:43→22:28)
[2017-07-29] MEDS: HALOPERIDOL LACTATE 5 MG/ML AMP IV PUSH PRN ×4 (03:07→21:38)
[2017-07-29] MEDS: RESP: ALBUTEROL 2.5 MG/IPRATROPIUM 0.5 MG NEB (SCH) INH ×4 (03:29→19:57)
[2017-07-29] MEDS: CHLORHEXIDINE GLUCONATE 2 % 1 PACK (2 CLOTHS) TOP SCH (04:00)
[2017-07-29] MEDS: LORazepam 2 MG/ML VIAL IV PUSH PRN (07:06)
[2017-07-29] MEDS: DIPYRIDAMOLE 25 MG TAB PO SCH ×4 (07:32→19:59)
[2017-07-29] MEDS: SODIUM CHLORIDE 0.9% FLUSH 10 ML FLUSH IV FLUSH SCH ×2 (07:32→19:59)
[2017-07-29] MEDS: FAMOTIDINE 20 MG/2 ML VIAL IV PUSH SCH ×2 (07:32→19:59)
[2017-07-29] MEDS: CARVEDILOL 3.125 MG TAB PO SCH ×2 (07:32→19:59)
[2017-07-29] MEDS: ARTIFICIAL TEARS OPTH SOLN 15 ML BTL EACH EYE SCH ×3 (07:33→18:21)
[2017-07-29] MEDS: ASPIRIN 81 MG CHEW TAB CHEW SCH (07:33)
[2017-07-29] MEDS: CHLORHEXIDINE 0.12% (ORAL KIT) 15 ML CUP MT SCH ×2 (07:33→20:00)
[2017-07-29] MEDS: DOCUSATE SODIUM 50 MG/SENNA 8.6 MG TAB PO SCH ×2 (07:33→19:59)
--- NOTE | 2017-07-29 08:12 | PD.CARD.PN ---
Subjective Subjective Remarks Somnolent. Minimally responsive. Unable to answer any questions. Appears tachypneic. Objective Medications Item Value Date Time Aspirin 81 mg 07/29/17 0900 (Aspirin Chew) DAILY/CHEW 07/29/17 0733 Carvedilol 3.125 mg 07/27/17 1445 (Coreg) Q12HR/PO 07/29/17 0732 Current Medications Medications (Trade) Dose Ordered Sig/Ventura Route Start Time Stop Time Status Last Admin Sodium Chloride 1,000 ml @ 84 mls/hr [id number] IV 07/26/17 21:52 07/28/17 23:22 (NS Flush) 2 ml UNSCH PRN IV FLUSH 07/26/17 22:00 (NS Flush) 2 ml BID IV FLUSH 07/27/17 09:00 07/29/17 07:32 (Tylenol) 650 mg Q6H PRN PO 07/26/17 22:00 (Pepcid Inj) 20 mg Q12HR IV PUSH 07/27/17 09:00 07/29/17 07:32 (Tears Naturale Opth Soln) 1 drop TID EACH EYE 07/27/17 09:00 07/29/17 07:33 (Zofran Inj) 4 mg Q6H PRN IV PUSH 07/26/17 22:00 (Duoneb Neb) 1 ampule Q6HR NEB INH 07/26/17 22:00 07/29/17 08:03 (Duoneb Neb) 1 ampule Q2HR NEB PRN INH 07/26/17 22:00 Miscellaneous Information 1 Q361D XX 07/26/17 22:00 07/26/17 22:00 (Chlorhexidine 2% Cloth) 3 pack Taper DAILY@04 TOP 07/27/17 04:00 07/23/18 03:59 07/29/17 04:00 (Chlorhexidine 2% Cloth) 3 pack UNSCH PRN TOP 07/26/17 22:00 (Marcella-Colace) 1 tab BID PO 07/27/17 09:00 07/28/17 07:56 (Milk Of Magnesia Liq) 30 ml Q12H PRN PO 07/26/17 22:00 07/28/17 15:39 (Senokot) 17.2 mg Q12H PRN PO 07/26/17 22:00 (Dulcolax Supp) 10 mg DAILY PRN RECTAL 07/26/17 22:00 (Lactulose Liq) 30 ml DAILY PRN PO 07/26/17 22:00 (Peridex 0.12% Liq) 15 ml BID@08,20 MT 07/27/17 08:00 07/29/17 07:33 Propofol 100 ml @ 4.5 mls/hr TITRATE PRN IV 07/26/17 23:30 07/27/17 05:00 (Trandate Inj) 10 mg Q4H PRN IV PUSH 07/27/17 02:30 07/29/17 02:43 (Coreg) 3.125 mg Q12HR PO 07/27/17 14:45 07/29/17 07:32 (Sinemet 25-100 Mg) 1 tab Q3HR PO 07/28/17 11:00 07/29/17 07:33 (Aspirin Chew) 81 mg DAILY CHEW 07/29/17 09:00 07/29/17 07:33 (Persantine) 50 mg QID PO 07/28/17 13:00 07/29/17 07:32 (Ativan Inj) 2 mg Q2H PRN IV PUSH 07/28/17 16:30 07/29/17 07:06 (Haldol Inj) 4 mg Q4H PRN IV PUSH 07/28/17 16:30 07/29/17 03:07 Vital Signs / I&O Vital Signs Date Time Temp Pulse Resp B/P (MAP) Pulse Ox O2 Delivery O2 Flow Rate FiO2 07/29/17 08:06 97 Nasal Cannula 4.00 07/29/17 06:00 64 07/29/17 04:00 62 07/29/17 04:00 99.6 62 18 157/72 (100) 100 07/29/17 02:00 67 07/29/17 00:00 63 07/29/17 00:00 98.0 63 21 145/70 (95) 97 07/28/17 22:00 61 07/28/17 20:21 99 Nasal Cannula 4.00 07/28/17 20:00 99.7 65 21 167/84 (111) 100 07/28/17 20:00 65 07/28/17 18:00 73 07/28/17 16:00 99.3 81 21 198/92 (127) 98 07/28/17 16:00 81 07/28/17 15:00 99.3 75 20 178/101 (126) 100 07/28/17 14:00 67 07/28/17 14:00 99.3 67 15 175/89 (117) 99 07/28/17 13:00 99.5 72 18 166/83 (110) 99 07/28/17 12:00 99.9 65 18 146/78 (100) 100 07/28/17 12:00 65 07/28/17 11:11 100 Nasal Cannula 3.00 07/28/17 11:10 100 Nasal Cannula 3 07/28/17 11:00 100.0 65 30 122/70 (87) 100 07/28/17 10:00 68 07/28/17 10:00 100.2 68 17 126/63 (84) 100 07/28/17 09:00 100.4 85 13 130/67 (88) 100 I/O 07/28/17 07/28/17 07/28/17 07/29/17 07/29/17 07/29/17 07:00 15:00 23:00 07:00 15:00 23:00 Intake Total 1250 ml 900 ml 1000 ml Output Total 355 ml 315 ml 297 ml 315 ml Balance 895 ml 585 ml -297 ml 685 ml Intake IV Total 1250 ml 900 ml 1000 ml Output Urine Total 355 ml 315 ml 297 ml 315 ml # Bowel Movements 0 1 Physical Exam GENERAL: Well developed, well nourished. Tachypneic. HEENT: Jugular venous pressure is normal. CHEST: Diffuse rhonchi. No definite rales. CARDIAC: Regular rate and rhythm without S3, S4. ?I-II/ systolic murmur apex. ABDOMEN: Soft, nontender, no hepatosplenomegaly. Bowel sounds present. EXTREMITIES: No clubbing, cyanosis, or edema. Laboratory Laboratory Tests Test 07/29/17 04:40 Activated Partial Thromboplast Time 29.1 SEC Assessment and Plan Problem List: (1) Non-ST elevation [place] (NSTEMI) ICD Codes: I21.4 - Non-ST elevation (NSTEMI) myocardial infarction Status: Acute Plan: Stable overnight. Hemodynamically stable. Troponin levels trending downward. Echo reportedly shows EF 45%. No arrhythmias so far. Appears to be in increased respiratory distress this morning. REC continue current medical regimen cath when awake, alert, out of ICU repeat CXR Code Status full code Alejandro Charles MD Jul 29, 2017 08:12
--- NOTE | 2017-07-29 08:42 | RADRPT ---
EXAM DATE/TIME: 07/29/2017 08:14 [facility] COMPARISON: CHEST SINGLE AP, July 27, 2017, 3:25. INDICATIONS : Short of breath. MEDICAL HISTORY : Unobtinable. SURGICAL HISTORY : Unobtainable. ENCOUNTER: Subsequent ACUITY: 3 days PAIN SCORE: Non-responsive. LOCATION: Bilateral chest FINDINGS: NG tube is present with tip in the stomach. There is slight cardiomegaly and perivascular pulmonary e sabrina. Focal consolidation is not seen. The rest of the examination has not significantly changed. CONCLUSION: Slight CHF. K. Durga Estevez MD on July 29, 2017 at 8:39 Board Certified Radiologist. This report was verified electronically.
[2017-07-29] MEDS: ENALAPRIL MALEATE 10 MG TAB PO SCH ×2 (08:52→19:59)
--- NOTE | 2017-07-29 14:23 | HHI.CCPN ---
Subjective Remarks/Hospital Course 76-year-old gentleman with unknown past medical history was eating at a restaurant stood up choking like behavior and fell to ground. Hemlick maneuver done by bystanders and then they realized he was in Asystole and CPR started. Patient is sedated and intubated and no further information is available. SUBJ remains intubated sedated with 20 mcg/m of propofol. Withdraws left upper extremity to pain. No purposeful movements noted. Troponin elevation to 2, now trending down to 0.9. Cardiology Dr. Charles. May need cardiac cath. Echo EF 45%. Off Dopamine, will start low-dose carvedilol 07/28: Slightly more on the vent as follows commands still somnolent. Sinemet resumed. Possible cath Sunday per Dr. Charles. DC IV Heparin, and start Lovenox 40 qd 07/29: Extubated yesterday, became agitated in afternoon. Started on when necessary Ativan and Haldol. Currently sedated from members of Ativan and Haldol. Somnolent but protecting airway. Agitation is multifactorial. Confirms that he drinks 2 drinks of vodka daily (she does not know how much he pours into each drink). IV Thiamine also started. I will also start him on Precedex in case he needs it Objective Vital Signs Date Time Temp Pulse Resp B/P (MAP) Pulse Ox O2 Delivery O2 Flow Rate FiO2 07/29/17 12:00 59 07/29/17 12:00 18 124/74 (91) 96 07/29/17 08:06 Nasal Cannula 4.00 07/29/17 08:00 98.4 07/28/17 08:00 35 Intake and Output 07/29/17 07/29/17 07/30/17 08:00 16:00 00:00 Output Total 330 ml 285 ml Balance -330 ml -285 ml Result Diagram: 07/27/17 0211 07/27/17 0211 Other Results Microbiology Date/Time Source Procedure Growth Status 07/26/17 20:05 Urine Clean Catch Urine Culture - Final NO GROWTH IN 48 HOURS. Complete Imaging Last 24 hours Impressions Chest X-Ray 07/26/172010 Signed Impressions: Service Date/Time: July 20:03 - CONCLUSION: No acute cardiopulmonary disease. Rocco Downey Jr., MD Objective Remarks GENERAL: Elderly gentleman somnolent from Ativan and Haldol. Mumbles few words SKIN: Warm and dry. HEAD: Normocephalic. EYES: No scleral icterus. No injection or drainage. NECK: Supple, trachea midline. No JVD or lymphadenopathy. CARDIOVASCULAR: Regular rate and rhythm without murmurs, gallops, or rubs. RESPIRATORY: Breath sounds equal bilaterally. No accessory muscle use. Few conducted upper airway sounds GASTROINTESTINAL: Abdomen soft, non-tender, nondistended. MUSCULOSKELETAL: No cyanosis, or edema. NEURO EXAM: The patient is somnolent, mumbles words. Spontaneously moves extremities A/P Assessment and Plan Cardiac arrest secondary to choking Non-ST elevation [place] - Discussed with Dr. Charles, cardiac catheterization Sunday if clinically stable - With troponin peaking at 2, EF 45% - Heparin drip, aspirin, coreg. DCd IV heparin and start Lovenox 40 mg subcutaneous daily 07/29 - Series of EKGs and troponins Respiratory failure - Intubated for airway protection - Extubated 07/29/17 - Continue breathing treatments, aggressive pulmonary toilet Delirium/metabolic encephalopathy Alcohol withdrawal - Delirium is multifactorial - Use Tylenol and Ativan when necessary's, supplement thiamine - >2 vodka Daily - Sinemet restarted DVT GI prophylaxis - Teds SCDs - Start Lovenox 40 mg subcutaneous daily - Pepcid Critical Care: 32 MIN Extubated yesterday but later developed severe agitation requiring restraints, Ativan, Haldol when necessary. Severe delirium secondary to metabolic encephalopathy and possibly alcohol withdrawal also. Patient is at risk of decompensation and respiratory failure due to acute onset delirium and treatment with sedatives. Continue ICU monitoring Jeremy Ribeiro MD Jul 29, 2017 14:23
[2017-07-29] MEDS ORDERED: FUROSEMIDE 20 MG/2 ML VIAL IV PUSH ONE (14:30)
[2017-07-29] MEDS: ENOXAPARIN SODIUM 40 MG/0.4 ML SYRINGE SQ SCH (14:52)
[2017-07-29] MEDS: THIAMINE INJ 100 MG in SODIUM CHLORIDE 0.9% INJ 100 ML IV SCH (16:11)
[2017-07-29] MEDS: DEXMEDETOMIDINE INJ 200 MCG in SODIUM CHLORIDE 0.9% INJ 50 ML IV PRN (18:29)
[2017-07-29] MEDS ORDERED: hydrALAZINE HCL 20 MG/ML VIAL ONE (21:08)
[2017-07-30] VITALS (33 sets, daily range): BP systolic 97–172; BP diastolic 54–90; PULSE 61–96; RESP 16–36; TEMP 98.2–98.7; O2SAT 74–100
[2017-07-30] MEDS: CARBIDOPA/LEVODOPA 25 MG/100 MG TAB PO SCH ×8 (02:56→23:30)
[2017-07-30] MEDS: HALOPERIDOL LACTATE 5 MG/ML AMP IV PUSH PRN ×2 (02:56→11:13)
[2017-07-30] MEDS: CHLORHEXIDINE GLUCONATE 2 % 1 PACK (2 CLOTHS) TOP SCH (04:00)
[2017-07-30] MEDS: RESP: ALBUTEROL 2.5 MG/IPRATROPIUM 0.5 MG NEB (SCH) INH ×4 (04:31→20:19)
--- NOTE | 2017-07-30 05:31 | RADRPT ---
EXAM DATE/TIME: 07/30/2017 03:02 [facility] COMPARISON: CHEST SINGLE AP, July 29, 2017, 8:14. INDICATIONS : Shortness of breath, possible pulmonary disease. MEDICAL HISTORY : None. SURGICAL HISTORY : None. ENCOUNTER: Subsequent ACUITY: 4 - 6 days PAIN SCORE: Non-responsive. LOCATION: Bilateral chest FINDINGS: Mild hazy opacity in the right mid and lower lungs suggests possible pleural effusion. No focal area s of consolidation. Gastric tube tip and side-port project within the stomach. The heart is normal size. CONCLUSION: Possible right pleural effusion. Rocco Hurd MD on July 30, 2017 at 5:29 Board Certified Radiologist. This report was verified electronically.
[2017-07-30] MEDS: CHLORHEXIDINE 0.12% (ORAL KIT) 15 ML CUP MT SCH ×2 (08:00→20:00)
[2017-07-30] MEDS: THIAMINE INJ 100 MG in SODIUM CHLORIDE 0.9% INJ 100 ML IV SCH (08:20)
[2017-07-30] MEDS: DEXMEDETOMIDINE INJ 200 MCG in SODIUM CHLORIDE 0.9% INJ 50 ML IV PRN (08:20)
[2017-07-30] MEDS: CARVEDILOL 3.125 MG TAB PO SCH ×2 (08:20→20:16)
[2017-07-30] MEDS: DOCUSATE SODIUM 50 MG/SENNA 8.6 MG TAB PO SCH ×2 (08:21→20:17)
[2017-07-30] MEDS: ASPIRIN 81 MG CHEW TAB CHEW SCH (08:21)
[2017-07-30] MEDS: ENALAPRIL MALEATE 10 MG TAB PO SCH ×2 (08:21→20:16)
[2017-07-30] MEDS: DIPYRIDAMOLE 25 MG TAB PO SCH ×4 (08:21→20:16)
[2017-07-30] MEDS: FAMOTIDINE 20 MG/2 ML VIAL IV PUSH SCH ×2 (08:21→20:16)
[2017-07-30] MEDS: ARTIFICIAL TEARS OPTH SOLN 15 ML BTL EACH EYE SCH ×3 (08:21→17:27)
[2017-07-30] MEDS: SODIUM CHLORIDE 0.9% FLUSH 10 ML FLUSH IV FLUSH SCH ×2 (08:22→20:17)
--- NOTE | 2017-07-30 08:30 | PD.CARD.PN ---
Subjective Subjective Remarks Awake. Seems to deny CP, dyspnea, abdominal pain, nausea, dizziness. Objective Medications Item Value Date Time Hydralazine HCl 20 mg 07/29/172114 (Apresoline Inj) Q4H PRN/IV Enoxaparin Sodium 40 mg 07/29/17 1500 (Lovenox Inj) Q24H/SQ 07/29/17 1452 Aspirin 81 mg 07/29/17 0900 (Aspirin Chew) DAILY/CHEW 07/29/17 0733 Enalapril Maleate 10 mg 07/29/17 0900 (Vasotec) BID/PO 07/29/171958 Carvedilol 3.125 mg 07/27/17 1445 (Coreg) Q12HR/PO 07/29/171958 Current Medications Medications (Trade) Dose Ordered Sig/Ventura Route Start Time Stop Time Status Last Admin (NS Flush) 2 ml UNSCH PRN IV FLUSH 07/26/17 22:00 (NS Flush) 2 ml BID IV FLUSH 07/27/17 09:00 07/30/17 08:22 (Tylenol) 650 mg Q6H PRN PO 07/26/17 22:00 (Pepcid Inj) 20 mg Q12HR IV PUSH 07/27/17 09:00 07/30/17 08:21 (Tears Naturale Opth Soln) 1 drop TID EACH EYE 07/27/17 09:00 07/30/17 08:21 (Zofran Inj) 4 mg Q6H PRN IV PUSH 07/26/17 22:00 (Duoneb Neb) 1 ampule Q6HR NEB INH 07/26/17 22:00 07/30/17 07:48 (Duoneb Neb) 1 ampule Q2HR NEB PRN INH 07/26/17 22:00 Miscellaneous Information 1 Q361D XX 07/26/17 22:00 07/26/17 22:00 (Chlorhexidine 2% Cloth) 3 pack Taper DAILY@04 TOP 07/27/17 04:00 07/23/18 03:59 07/29/17 04:00 (Chlorhexidine 2% Cloth) 3 pack UNSCH PRN TOP 07/26/17 22:00 (Marcella-Colace) 1 tab BID PO 07/27/17 09:00 07/28/17 07:56 (Milk Of Magnesia Liq) 30 ml Q12H PRN PO 07/26/17 22:00 07/28/17 15:39 (Senokot) 17.2 mg Q12H PRN PO 07/26/17 22:00 (Dulcolax Supp) 10 mg DAILY PRN RECTAL 07/26/17 22:00 (Lactulose Liq) 30 ml DAILY PRN PO 07/26/17 22:00 (Peridex 0.12% Liq) 15 ml BID@08,20 MT 07/27/17 08:00 07/30/17 08:00 (Trandate Inj) 10 mg Q4H PRN IV PUSH 07/27/17 02:30 07/29/17 18:31 (Coreg) 3.125 mg Q12HR PO 07/27/17 14:45 07/30/17 08:20 (Sinemet 25-100 Mg) 1 tab Q3HR PO 07/28/17 11:00 07/30/17 08:21 (Aspirin Chew) 81 mg DAILY CHEW 07/29/17 09:00 07/30/17 08:21 (Persantine) 50 mg QID PO 07/28/17 13:00 07/30/17 08:21 (Vasotec) 10 mg BID PO 07/29/17 09:00 07/30/17 08:21 (Haldol Inj) 2 mg Q4H PRN IV PUSH 07/29/17 16:30 07/30/17 02:56 (Ativan Inj) 0.5 mg Q2H PRN IV PUSH 07/29/17 14:30 Thiamine HCl 100 mg/Sodium Chloride 101 ml @ 101 mls/hr DAILY IV 07/29/17 14:15 07/30/17 08:20 Dexmedetomidine HCl 200 mcg/ Sodium Chloride 52 ml @ 3.27 mls/hr TITRATE PRN IV 07/29/17 14:15 07/30/17 08:20 (Lovenox Inj) 40 mg Q24H SQ 07/29/17 15:00 07/29/17 14:52 (Apresoline Inj) 20 mg Q4H PRN IV 07/29/17 21:15 Vital Signs / I&O Vital Signs Date Time Temp Pulse Resp B/P (MAP) Pulse Ox O2 Delivery O2 Flow Rate FiO2 07/30/17 07:48 99 Nasal Cannula 3.00 07/30/17 06:00 70 07/30/17 04:33 96 Nasal Cannula 3.00 07/30/17 04:00 98.2 69 25 172/80 (110) 98 07/30/17 04:00 69 07/30/17 02:00 71 07/30/17 00:00 74 07/30/17 00:00 98.5 74 22 156/74 (101) 98 07/29/17 22:00 72 07/29/17 20:00 99.0 66 22 139/65 (89) 100 07/29/17 20:00 66 07/29/17 19:58 100 Nasal Cannula 3.00 07/29/17 18:00 60 07/29/17 17:00 66 23 122/62 (82) 100 07/29/17 16:00 98.7 69 32 166/77 (106) 100 07/29/17 16:00 69 07/29/17 15:00 72 26 148/107 (121) 100 07/29/17 14:00 67 21 168/86 (113) 99 07/29/17 14:00 67 07/29/17 13:00 67 19 143/82 (102) 100 07/29/17 12:00 59 07/29/17 12:00 59 18 124/74 (91) 96 07/29/17 11:00 60 24 122/59 (80) 100 07/29/17 10:00 63 07/29/17 10:00 63 21 137/71 (93) 95 07/29/17 09:00 62 18 149/67 (94) 99 I/O 07/29/17 07/29/17 07/29/17 07/30/17 07/30/17 07/30/17 07:00 15:00 23:00 07:00 15:00 23:00 Intake Total 1000 ml 750 ml 458 ml 401 ml Output Total 315 ml 500 ml 910 ml 520 ml Balance 685 ml 250 ml -452 ml -119 ml Intake IV Total 1000 ml 750 ml 101 ml Tube Feeding 57 ml 401 ml Other 300 ml Output Urine Total 315 ml 500 ml 910 ml 520 ml # Bowel Movements 1 1 Physical Exam GENERAL: Well developed, well nourished. Tachypneic. HEENT: Jugular venous pressure is normal. CHEST: Diffuse rhonchi. CARDIAC: Regular rate and rhythm without S3, S4. ?I-II/ systolic murmur apex. ABDOMEN: Soft, nontender, no hepatosplenomegaly. Bowel sounds present. EXTREMITIES: No clubbing, cyanosis, or edema. Imaging Last 24 hours Impressions Chest X-Ray 07/30/17 0600 Signed Impressions: Service Date/Time: Sunday, July 30, 2017 03:02 - CONCLUSION: Possible right pleural effusion. Rocco Hurd MD Assessment and Plan Problem List: (1) Non-ST elevation [place] (NSTEMI) ICD Codes: I21.4 - Non-ST elevation (NSTEMI) myocardial infarction Status: Acute Plan: (+) troponin levels suggestive of NSTEMI. Stable overnight. Hemodynamically stable. Echo reportedly shows EF 45%. No arrhythmias so far. Possible slight CHF by chest x-ray. REC continue current medical regimen, add amlodipine, oral nitrate to consider cath vs. check nuclear stress test to assess for extent of residual ischemia (2) Hypertension ICD Codes: I10 - Essential (primary) hypertension Status: Chronic Plan: Mostly hypertensive. Rec add amlodipine to beta iesha, MECHE-I. Code Status full code Discussed Condition With patient Problem Qualifiers (1) Hypertension: Qualified Codes: I10 - Essential (primary) hypertension Alejandro Charles MD Jul 30, 2017 08:29
[2017-07-30 08:39] LABS: AUTOMATED NEUTROPHIL # 5.3 TH/MM3 (1.8-7.7); BASOPHIL % 0.1 % (0.0-2.0); EOSINOPHIL % 0.3 % (0.0-4.0); HEMATOCRIT 40.5 % (39.0-51.0); HEMOGLOBIN 13.8 GM/DL (13.0-17.0); LYMPH % 15.3 % (9.0-44.0); LYMPHOCYTE # 1.2 TH/MM3 (1.0-4.8); MEAN CELL VOLUME 99.4 FL (80.0-100.0); MEAN CORPUSCULAR HEMOGLOBIN 33.8 PG (27.0-34.0); MEAN PLATELET VOLUME 8.5 FL (7.0-11.0); MONO % 15.7 % (0.0-8.0); MONOCYTE # 1.2 TH/MM3 (0-0.9); NEUT % 68.6 % (16.0-70.0); PLATELET COUNT 165 TH/MM3 (150-450); RED BLOOD COUNT 4.07 MIL/MM3 (4.50-5.90); RED CELL DISTRIBUTION WIDTH 13.2 % (11.6-17.2); WHITE BLOOD COUNT 7.7 TH/MM3 (4.0-11.0)
[2017-07-30] MEDS: ISOSORBIDE MONONITRATE 60 MG TAB PO SCH (09:00)
[2017-07-30] MEDS ORDERED: FUROSEMIDE 20 MG/2 ML VIAL IV PUSH ONE (09:45)
[2017-07-30] MEDS: amLODIPine BESYLATE 5 MG TAB PO SCH (10:02)
[2017-07-30 10:29] LABS: ALBUMIN 2.8 GM/DL (3.4-5.0); ALKALINE PHOSPHATASE 106 U/L (45-117); ALT (GPT) 16 U/L (12-78); AST (GOT) 44 U/L (15-37); BICARBONATE 27.2 MEQ/L (21.0-32.0); BLOOD UREA NITROGEN 22 MG/DL (7-18); CALCIUM 8.2 MG/DL (8.5-10.1); CHLORIDE 107 MEQ/L (98-107); CREATININE 0.47 MG/DL (0.60-1.30); GLOMERULAR FILTRATION RATE 174 ML/MIN (>89); GLUCOSE,RANDOM 138 MG/DL (74-106); MAGNESIUM 1.9 MG/DL (1.5-2.5); SODIUM (NA) 142 MEQ/L (136-145); TOTAL BILIRUBIN ADULT 0.7 MG/DL (0.2-1.0); TOTAL PROTEIN 6.4 GM/DL (6.4-8.2)
--- NOTE | 2017-07-30 10:31 | HHI.CCPN ---
Subjective Remarks/Hospital Course 76-year-old gentleman with unknown past medical history was eating at a restaurant stood up choking like behavior and fell to ground. Hemlick maneuver done by bystanders and then they realized he was in Asystole and CPR started. Patient is sedated and intubated and no further information is available. SUBJ remains intubated sedated with 20 mcg/m of propofol. Withdraws left upper extremity to pain. No purposeful movements noted. Troponin elevation to 2, now trending down to 0.9. Cardiology Dr. Charles. May need cardiac cath. Echo EF 45%. Off Dopamine, will start low-dose carvedilol 07/28: Slightly more on the vent as follows commands still somnolent. Sinemet resumed. Possible cath Sunday per Dr. Charles. DC IV Heparin, and start Lovenox 40 qd 07/29: Extubated yesterday, became agitated in afternoon. Started on when necessary Ativan and Haldol. Currently sedated from members of Ativan and Haldol. Somnolent but protecting airway. Agitation is multifactorial. Confirms that he drinks 2 drinks of vodka daily (she does not know how much he pours into each drink). IV Thiamine also started. I will also start him on Precedex in case he needs it 07/30: Requiring Precedex and intermittent Haldol for agitation, and possible alcohol withdrawal. Chest x-ray remains unchanged with mild pleural effusion on the right. No evidence of aspiration Objective Vital Signs Date Time Temp Pulse Resp B/P (MAP) Pulse Ox O2 Delivery O2 Flow Rate FiO2 07/30/17 09:00 61 26 117/56 (76) 100 07/30/17 08:00 98.5 07/30/17 07:48 Nasal Cannula 3.00 07/28/17 08:00 35 Intake and Output 07/30/17 07/30/17 07/31/17 08:00 16:00 00:00 Intake Total 401 ml 101 ml Output Total 490 ml 75 ml Balance -89 ml 26 ml Result Diagram: 07/30/17 0806 07/27/17 0211 Imaging Last 24 hours Impressions Chest X-Ray 07/26/172010 Signed Impressions: Service Date/Time: July 20:03 - CONCLUSION: No acute cardiopulmonary disease. Rocco Downey Jr., MD Objective Remarks GENERAL: Elderly gentleman slightly somnolent on Precedex. Wakes up and follows some commands SKIN: Warm and dry. HEAD: Normocephalic. EYES: No scleral icterus. No injection or drainage. NECK: Supple, trachea midline. No JVD or lymphadenopathy. CARDIOVASCULAR: Regular rate and rhythm without murmurs, gallops, or rubs. RESPIRATORY: Breath sounds equal bilaterally. No accessory muscle use. Few conducted upper airway sounds GASTROINTESTINAL: Abdomen soft, non-tender, nondistended. MUSCULOSKELETAL: No cyanosis, or edema. NEURO EXAM: The patient is somnolent. Spontaneously moves extremities. Following some commands Urinary Catheter: Yes Assessment to: Continue A/P Assessment and Plan Cardiac arrest secondary to choking Non-ST elevation [place] - Discussed with Dr. Charles, cardiac catheterization once clinically stable - Troponin peaked at 2, EF 45% - Aspirin, coreg. Lovenox 40 mg subcutaneous daily 07/29 - EKGs and troponins as needed Respiratory failure - Intubated for airway protection - Extubated 07/29/17 - Continue breathing treatments, aggressive pulmonary toilet Delirium/metabolic encephalopathy Alcohol withdrawal - Delirium is multifactorial - Use Haldol and Ativan when necessary's, supplement thiamine - Precedex started now on 0.2 g per KG per hour - Consumes >2 vodka Daily - Continue Sinemet DVT GI prophylaxis - Teds SCDs - Start Lovenox 40 mg subcutaneous daily - Pepcid - On tube feeds Critical Care: Level 3 Extubated 07/28/17 but later developed severe agitation requiring restraints, Ativan, Haldol when necessary. Severe delirium secondary to metabolic encephalopathy and possibly alcohol withdrawal also. Patient is at risk of decompensation and respiratory failure due to acute onset delirium and treatment with sedatives. Continue ICU monitoring Jeremy Ribeiro MD Jul 30, 2017 10:31
[2017-07-30] MEDS: ENOXAPARIN SODIUM 40 MG/0.4 ML SYRINGE SQ SCH (13:16)
[2017-07-30] MEDS ORDERED: POTASSIUM CHLORIDE 20 MEQ PWD PACKET NG ONE (14:15)
[2017-07-31] VITALS (20 sets, daily range): BP systolic 111–185; BP diastolic 56–108; PULSE 62–87; RESP 19–47; TEMP 97.6–98.5; O2SAT 90–100
[2017-07-31] MEDS: CARBIDOPA/LEVODOPA 25 MG/100 MG TAB PO SCH ×7 (03:41→18:00)
[2017-07-31] MEDS: CHLORHEXIDINE GLUCONATE 2 % 1 PACK (2 CLOTHS) TOP SCH (03:41)
--- NOTE | 2017-07-31 05:55 | RADRPT ---
EXAM DATE/TIME: 07/31/2017 04:27 [facility] COMPARISON: CHEST SINGLE AP, July 30, 2017, 3:02. INDICATIONS : Short of breath. MEDICAL HISTORY : None. SURGICAL HISTORY : None. ENCOUNTER: Subsequent ACUITY: 1 week PAIN SCORE: 0/10 LOCATION: Bilateral chest FINDINGS: Gastric tube tip and side-port project within the stomach. Persistent consolidation right infrahilar region. The right hemidiaphragm is well delineated and there is no blunting of the right costophren ic angle. Left lung is clear. CONCLUSION: Right infrahilar consolidation. No evidence of pleural effusion. Rocco Hurd MD on July 31, 2017 at 5:52 Board Certified Radiologist. This report was verified electronically.
[2017-07-31] MEDS: ISOSORBIDE MONONITRATE 60 MG TAB PO SCH (06:17)
[2017-07-31 06:23] LABS: ALBUMIN 2.7 GM/DL (3.4-5.0); ALT (GPT) 16 U/L (12-78); AST (GOT) 26 U/L (15-37); BICARBONATE 29.7 MEQ/L (21.0-32.0); BLOOD UREA NITROGEN 20 MG/DL (7-18); CALCIUM 8.4 MG/DL (8.5-10.1); CHLORIDE 107 MEQ/L (98-107); CREATININE 0.46 MG/DL (0.60-1.30); GLOMERULAR FILTRATION RATE 178 ML/MIN (>89); GLUCOSE,RANDOM 184 MG/DL (74-106); SODIUM (NA) 142 MEQ/L (136-145)
[2017-07-31 06:25] LABS: ALKALINE PHOSPHATASE 99 U/L (45-117); TOTAL BILIRUBIN ADULT 0.7 MG/DL (0.2-1.0); TOTAL PROTEIN 6.4 GM/DL (6.4-8.2)
[2017-07-31] MEDS: CHLORHEXIDINE 0.12% (ORAL KIT) 15 ML CUP MT SCH ×2 (08:00→20:00)
--- NOTE | 2017-07-31 08:19 | PD.CARD.PN ---
Subjective Subjective Remarks Awake. Denies CP, dyspnea, abdominal pain, nausea, dizziness. Objective Medications Item Value Date Time Isosorbide 60 mg 07/30/17 0900 Mononitrate DAILY@0700/PO (Imdur) Amlodipine 5 mg 07/30/17 0900 Besylate DAILY/PO 07/30/17 1002 (Norvasc) Enoxaparin Sodium 40 mg 07/29/17 1500 (Lovenox Inj) Q24H/SQ 07/30/17 1316 Hydralazine HCl 20 mg 07/29/17 2115 (Apresoline Inj) Q4H PRN/IV Aspirin 81 mg 07/29/17 0900 (Aspirin Chew) DAILY/CHEW 07/30/17 0821 Enalapril Maleate 10 mg 07/29/17 0900 (Vasotec) BID/PO 07/30/172015 Carvedilol 3.125 mg 07/27/17 1445 (Coreg) Q12HR/PO 07/30/172015 Labetalol HCl 10 mg 07/27/17 0230 (Trandate Inj) Q4H PRN/IV PUSH 07/29/17 1831 Current Medications Medications (Trade) Dose Ordered Sig/Ventura Route Start Time Stop Time Status Last Admin (NS Flush) 2 ml UNSCH PRN IV FLUSH 07/26/17 22:00 (NS Flush) 2 ml BID IV FLUSH 07/27/17 09:00 07/30/17 20:17 (Tylenol) 650 mg Q6H PRN PO 07/26/17 22:00 (Pepcid Inj) 20 mg Q12HR IV PUSH 07/27/17 09:00 07/30/17 20:16 (Tears Naturale Opth Soln) 1 drop TID EACH EYE 07/27/17 09:00 07/30/17 17:27 (Zofran Inj) 4 mg Q6H PRN IV PUSH 07/26/17 22:00 (Duoneb Neb) 1 ampule Q2HR NEB PRN INH 07/26/17 22:00 Miscellaneous Information 1 Q361D XX 07/26/17 22:00 07/26/17 22:00 (Chlorhexidine 2% Cloth) 3 pack Taper DAILY@04 TOP 07/27/17 04:00 07/23/18 03:59 07/31/17 03:41 (Chlorhexidine 2% Cloth) 3 pack UNSCH PRN TOP 07/26/17 22:00 (Marcella-Colace) 1 tab BID PO 07/27/17 09:00 07/28/17 07:56 (Milk Of Magnesia Liq) 30 ml Q12H PRN PO 07/26/17 22:00 07/28/17 15:39 (Senokot) 17.2 mg Q12H PRN PO 07/26/17 22:00 (Dulcolax Supp) 10 mg DAILY PRN RECTAL 07/26/17 22:00 (Lactulose Liq) 30 ml DAILY PRN PO 07/26/17 22:00 (Peridex 0.12% Liq) 15 ml BID@08,20 MT 07/27/17 08:00 07/30/17 08:00 (Trandate Inj) 10 mg Q4H PRN IV PUSH 07/27/17 02:30 07/29/17 18:31 (Coreg) 3.125 mg Q12HR PO 07/27/17 14:45 07/30/17 20:16 (Sinemet 25-100 Mg) 1 tab Q3HR PO 07/28/17 11:00 07/31/17 06:17 (Aspirin Chew) 81 mg DAILY CHEW 07/29/17 09:00 07/30/17 08:21 (Persantine) 50 mg QID PO 07/28/17 13:00 07/30/17 20:16 (Vasotec) 10 mg BID PO 07/29/17 09:00 07/30/17 20:16 (Haldol Inj) 2 mg Q4H PRN IV PUSH 07/29/17 16:30 07/30/17 11:13 (Ativan Inj) 0.5 mg Q2H PRN IV PUSH 07/29/17 14:30 Thiamine HCl 100 mg/Sodium Chloride 101 ml @ 101 mls/hr DAILY IV 07/29/17 14:15 07/30/17 08:20 Dexmedetomidine HCl 200 mcg/ Sodium Chloride 52 ml @ 3.27 mls/hr TITRATE PRN IV 07/29/17 14:15 07/30/17 08:20 (Lovenox Inj) 40 mg Q24H SQ 07/29/17 15:00 1/22/18 13:16 (Apresoline Inj) 20 mg Q4H PRN IV 07/29/17 21:15 (Imdur) 60 mg DAILY@0700 PO 07/30/17 09:00 (Norvasc) 5 mg DAILY PO 07/30/17 09:00 07/30/17 10:02 Vital Signs / I&O Vital Signs Date Time Temp Pulse Resp B/P (MAP) Pulse Ox O2 Delivery O2 Flow Rate FiO2 07/31/17 06:00 74 07/31/17 04:00 97.9 82 22 154/96 (115) 98 07/31/17 04:00 82 07/31/17 02:00 62 07/31/17 00:00 78 07/31/17 00:00 98.5 78 20 121/77 (92) 97 07/30/17 22:00 70 07/30/17 20:20 97 Nasal Cannula 3.00 07/30/17 20:00 70 07/30/17 20:00 98.2 70 21 148/81 (103) 97 07/30/17 18:00 94 07/30/17 16:00 66 19 97/54 (68) 95 07/30/17 16:00 66 07/30/17 14:00 79 07/30/17 13:00 63 21 164/74 (104) 97 07/30/17 12:00 98.7 67 21 149/82 (104) 07/30/17 12:00 67 07/30/17 11:00 91 22 153/84 (107) 74 07/30/17 10:01 64 20 136/64 (88) 100 07/30/17 10:00 61 07/30/17 09:00 61 26 117/56 (76) 100 07/30/17 08:45 65 20 150/81 (104) 100 07/30/17 08:30 66 22 155/77 (103) 100 I/O 07/30/17 07/30/17 07/30/17 07/31/17 07/31/17 07/31/17 07:00 15:00 23:00 07:00 15:00 23:00 Intake Total 401 ml 171 ml 434 ml 601 ml Output Total 520 ml 75 ml 1400 ml 425 ml Balance -119 ml 96 ml -966 ml 176 ml Intake IV Total 171 ml Tube Feeding 401 ml 434 ml 481 ml Tube Irrigant 120 ml Output Urine Total 520 ml 75 ml 1400 ml 425 ml # Bowel Movements 2 1 Physical Exam GENERAL: Well developed, well nourished. Tachypneic. HEENT: Jugular venous pressure is normal. CHEST: Diffuse rhonchi. CARDIAC: Regular rate and rhythm without S3, S4. ?I-II/ systolic murmur apex. ABDOMEN: Soft, nontender, no hepatosplenomegaly. Bowel sounds present. EXTREMITIES: No clubbing, cyanosis, or edema. Laboratory Laboratory Tests Test 07/31/17 04:17 Blood Urea Nitrogen 20 MG/DL Creatinine 0.46 MG/DL Random Glucose 184 MG/DL Total Protein 6.4 GM/DL Albumin 2.7 GM/DL Calcium Level 8.4 MG/DL Alkaline Phosphatase 99 U/L Aspartate Amino Transf (AST/SGOT) 26 U/L Alanine Aminotransferase (ALT/SGPT) 16 U/L Total Bilirubin 0.7 MG/DL Sodium Level 142 MEQ/L Potassium Level 3.6 MEQ/L Chloride Level 107 MEQ/L Carbon Dioxide Level 29.7 MEQ/L Anion Gap 5 MEQ/L Estimat Glomerular Filtration Rate 178 ML/MIN Imaging Last 24 hours Impressions Chest X-Ray 07/31/17 0600 Signed Impressions: Service Date/Time: Monday, July 31, 2017 04:27 - CONCLUSION: Right infrahilar consolidation. No evidence of pleural effusion. Rocco Hurd MD Assessment and Plan Problem List: (1) Non-ST elevation [place] (NSTEMI) ICD Codes: I21.4 - Non-ST elevation (NSTEMI) myocardial infarction Status: Acute Plan: (+) troponin levels suggestive of NSTEMI. Stable cardiac status. Hemodynamically stable. Echo reviewed. EF 60-65%, not 45% as reported. REC continue current medical regimen when out of ICU, check nuclear stress test to assess for extent of residual ischemia (2) Hypertension ICD Codes: I10 - Essential (primary) hypertension Status: Chronic Plan: Widely fluctuating BP's. Continue to monitor. Code Status full ocde Discussed Condition With patient Problem Qualifiers (1) Hypertension: Qualified Codes: I10 - Essential (primary) hypertension Alejandro Charles MD Jul 31, 2017 08:19
[2017-07-31] MEDS: DOCUSATE SODIUM 50 MG/SENNA 8.6 MG TAB PO SCH ×2 (09:00→21:00)
[2017-07-31] MEDS: ASPIRIN 81 MG CHEW TAB CHEW SCH (09:01)
[2017-07-31] MEDS: DIPYRIDAMOLE 25 MG TAB PO SCH ×4 (09:01→21:39)
[2017-07-31] MEDS: THIAMINE INJ 100 MG in SODIUM CHLORIDE 0.9% INJ 100 ML IV SCH (09:02)
[2017-07-31] MEDS: SODIUM CHLORIDE 0.9% FLUSH 10 ML FLUSH IV FLUSH SCH ×2 (09:02→21:40)
[2017-07-31] MEDS: CARVEDILOL 3.125 MG TAB PO SCH ×2 (09:02→21:39)
[2017-07-31] MEDS: amLODIPine BESYLATE 5 MG TAB PO SCH (09:02)
[2017-07-31] MEDS: ARTIFICIAL TEARS OPTH SOLN 15 ML BTL EACH EYE SCH ×3 (09:03→18:00)
[2017-07-31] MEDS: ENALAPRIL MALEATE 10 MG TAB PO SCH ×2 (09:05→21:39)
[2017-07-31] MEDS: FAMOTIDINE 20 MG/2 ML VIAL IV PUSH SCH ×2 (10:35→21:40)
--- NOTE | 2017-07-31 10:44 | HHI.CCPN ---
Subjective Remarks/Hospital Course 76-year-old gentleman with unknown past medical history was eating at a restaurant stood up choking like behavior and fell to ground. Hemlick maneuver done by bystanders and then they realized he was in Asystole and CPR started. Patient is sedated and intubated and no further information is available. SUBJ remains intubated sedated with 20 mcg/m of propofol. Withdraws left upper extremity to pain. No purposeful movements noted. Troponin elevation to 2, now trending down to 0.9. Cardiology Dr. Charles. May need cardiac cath. Echo EF 45%. Off Dopamine, will start low-dose carvedilol 07/28: Slightly more on the vent as follows commands still somnolent. Sinemet resumed. Possible cath Sunday per Dr. Charles. DC IV Heparin, and start Lovenox 40 qd 07/29: Extubated yesterday, became agitated in afternoon. Started on when necessary Ativan and Haldol. Currently sedated from members of Ativan and Haldol. Somnolent but protecting airway. Agitation is multifactorial. Confirms that he drinks 2 drinks of vodka daily (she does not know how much he pours into each drink). IV Thiamine also started. I will also start him on Precedex in case he needs it 07/30: Requiring Precedex and intermittent Haldol for agitation, and possible alcohol withdrawal. Chest x-ray remains unchanged with mild pleural effusion on the right. No evidence of aspiration 07/31: Remains off Precedex slightly more awake alert. Did not require any Haldol overnight. Chest x-ray essentially clear with mild infrahilar infiltrate. Opens eyes and follows commands but lethargic Objective Vital Signs Date Time Temp Pulse Resp B/P (MAP) Pulse Ox O2 Delivery O2 Flow Rate FiO2 07/31/17 06:00 74 07/31/17 04:00 97.9 22 154/96 (115) 98 07/30/17 20:20 Nasal Cannula 3.00 07/28/17 08:00 35 Intake and Output 07/31/17 07/31/17 08/01/17 08:00 16:00 00:00 Intake Total 601 ml Output Total 425 ml Balance 176 ml Result Diagram: 07/30/17 0807/31/17 0417 Imaging Last 24 hours Impressions Chest X-Ray 07/26/172010 Signed Impressions: Service Date/Time: July 20:03 - CONCLUSION: No acute cardiopulmonary disease. Rocco Downey Jr., MD Objective Remarks GENERAL: Elderly gentleman slightly somnolent. Wakes up and follows some commands SKIN: Warm and dry. HEAD: Normocephalic. EYES: No scleral icterus. No injection or drainage. NECK: Supple, trachea midline. No JVD or lymphadenopathy. CARDIOVASCULAR: Regular rate and rhythm without murmurs, gallops, or rubs. RESPIRATORY: Breath sounds equal bilaterally. No accessory muscle use. GASTROINTESTINAL: Abdomen soft, non-tender, nondistended. MUSCULOSKELETAL: No cyanosis, or edema. NEURO EXAM: The patient is somnolent. Spontaneously moves extremities. Following some commands A/P Assessment and Plan Cardiac arrest secondary to choking Non-ST elevation [place] - Discussed with Dr. Charles, cardiac catheterization once clinically stable - Troponin peaked at 2, EF 45% - Aspirin, coreg. Lovenox 40 mg subcutaneous daily 07/29 - EKGs and troponins as needed Respiratory failure - Intubated for airway protection, Extubated 07/29/17 - Continue breathing treatments, aggressive pulmonary toilet Delirium/metabolic encephalopathy Alcohol withdrawal - Delirium is multifactorial.Consumes >2 vodka Daily - Use Haldol and Ativan when necessary's, supplement thiamine - DC Precedex - Continue Sinemet DVT GI prophylaxis - Teds SCDs - Lovenox 40 mg subcutaneous daily - Pepcid - On tube feeds. Speech following - PT OOB. OT Critical Care: Level 2 Extubated 07/28/17 but later developed severe agitation requiring restraints, Ativan, Haldol when necessary. Severe delirium secondary to metabolic encephalopathy and possibly alcohol withdrawal also. Patient is at risk of decompensation and respiratory failure due to acute onset delirium and treatment with sedatives. Continue ICU monitoring Jeremy Ribeiro MD Jul 31, 2017 10:44
[2017-07-31] MEDS: ENOXAPARIN SODIUM 40 MG/0.4 ML SYRINGE SQ SCH (13:46)
--- NOTE | 2017-07-31 16:23 | PD.CONS ---
History of Present Illness Service Neurology Consult Requested By [facility] Reason for Consult parkinsons, confusion Primary Care Physician Unknown History of Present Illness History of Present Illness 76-year-old m admitted for cardiac arrest occurring after choking on food. now extubated. episodes of confusion/agitation requiring sedatives. pt has a hx of pd x 10 years. takes sinemet 2 tabs po q4 hrs at home. has been having mild dysphagia per spouse at home. no hx of dementia. ambulates with walker. Review of Systems ROS Unobtainable 2/2 pt's confusion Past Family Social History Allergies: Coded Allergies: No Allergy Information Available (Unverified , 07/26/17) Past Medical History pd Past Surgical History Unobtainable Reported Medications per mar Family History n/c retired. lives with spouse. has 1-2 vodka/night no tob/illicit drug use Review of Systems All other ROS: Unable to obtain Past Family Social History Allergies: Coded Allergies: No Allergy Information Available (Unverified , 07/26/17) pt intubateed Active Ordered Medications Current Medications Medications (Trade) Dose Ordered Sig/Ventura Route Start Time Stop Time Status Last Admin (NS Flush) 2 ml UNSCH PRN IV FLUSH 07/26/17 22:00 (NS Flush) 2 ml BID IV FLUSH 07/27/17 09:00 07/31/17 09:02 (Tylenol) 650 mg Q6H PRN PO 07/26/17 22:00 (Pepcid Inj) 20 mg Q12HR IV PUSH 07/27/17 09:00 07/31/17 10:35 (Tears Naturale Opth Soln) 1 drop TID EACH EYE 07/27/17 09:00 07/31/17 13:46 (Zofran Inj) 4 mg Q6H PRN IV PUSH 07/26/17 22:00 (Duoneb Neb) 1 ampule Q2HR NEB PRN INH 07/26/17 22:00 Miscellaneous Information 1 Q361D XX 07/26/17 22:00 07/26/17 22:00 (Chlorhexidine 2% Cloth) 3 pack Taper DAILY@04 TOP 07/27/17 04:00 07/23/18 03:59 07/31/17 03:41 (Chlorhexidine 2% Cloth) 3 pack UNSCH PRN TOP 07/26/17 22:00 (Marcella-Colace) 1 tab BID PO 07/27/17 09:00 07/28/17 07:56 (Milk Of Magnesia Liq) 30 ml Q12H PRN PO 07/26/17 22:00 07/28/17 15:39 (Senokot) 17.2 mg Q12H PRN PO 07/26/17 22:00 (Dulcolax Supp) 10 mg DAILY PRN RECTAL 07/26/17 22:00 (Lactulose Liq) 30 ml DAILY PRN PO 07/26/17 22:00 (Peridex 0.12% Liq) 15 ml BID@08,20 MT 07/27/17 08:00 07/30/17 08:00 (Trandate Inj) 10 mg Q4H PRN IV PUSH 07/27/17 02:30 07/29/17 18:31 (Coreg) 3.125 mg Q12HR PO 07/27/17 14:45 07/31/17 09:02 (Sinemet 25-100 Mg) 1 tab Q3HR PO 07/28/17 11:00 07/31/17 13:47 (Aspirin Chew) 81 mg DAILY CHEW 07/29/17 09:00 07/31/17 09:01 (Persantine) 50 mg QID PO 07/28/17 13:00 07/31/17 13:45 (Vasotec) 10 mg BID PO 07/29/17 09:00 07/31/17 09:05 (Haldol Inj) 2 mg Q4H PRN IV PUSH 07/29/17 16:30 07/30/17 11:13 (Ativan Inj) 0.5 mg Q2H PRN IV PUSH 07/29/17 14:30 Thiamine HCl 100 mg/Sodium Chloride 101 ml @ 101 mls/hr DAILY IV 07/29/17 14:15 07/31/17 09:02 (Lovenox Inj) 40 mg Q24H SQ 07/29/17 15:00 07/31/17 13:46 (Apresoline Inj) 20 mg Q4H PRN IV 07/29/17 21:15 (Imdur) 60 mg DAILY@0700 PO 07/30/17 09:00 (Norvasc) 5 mg DAILY PO 07/30/17 09:00 07/31/17 09:02 Exam I&O / VS Vital Signs Date Time Temp Pulse Resp B/P (MAP) Pulse Ox O2 Delivery O2 Flow Rate FiO2 07/31/17 14:00 70 46 142/67 (92) 91 07/31/17 14:00 70 07/31/17 13:00 67 41 129/60 (83) 97 07/31/17 12:00 98.3 74 22 159/70 (99) 98 07/31/17 12:00 74 07/31/17 11:00 73 41 172/90 (117) 98 07/31/17 10:00 70 28 111/60 (77) 96 07/31/17 10:00 70 07/31/17 09:00 72 22 154/69 (97) 96 07/31/17 08:00 98.5 87 22 178/108 (131) 90 07/31/17 08:00 87 07/31/17 07:01 69 19 112/57 (75) 95 07/31/17 06:03 74 47 169/84 (112) 94 07/31/17 06:00 74 07/31/17 06:00 74 32 185/101 (129) 95 07/31/17 05:00 69 24 111/64 (80) 93 07/31/17 04:00 97.9 82 22 154/96 (115) 98 07/31/17 04:00 82 07/31/17 02:00 62 07/31/17 00:00 78 07/31/17 00:00 98.5 78 20 121/77 (92) 97 07/30/17 22:00 70 07/30/17 20:20 97 Nasal Cannula 3.00 07/30/17 20:00 70 07/30/17 20:00 98.2 70 21 148/81 (103) 97 07/30/17 18:00 94 Exam Comments alerts, open mouth breathing, dysarthric/dysphonic speech, was able to close eyes on request but difficulty with further requests, ou 4-3mm, eomi, mild accessory muscle use, gargles, no tremors, minimal left ue rigidty, localizes with all 4 ext, planterflexor Review/Management Diagnosis/Plan: (1) Encephalopathy, metabolic ICD Codes: G93.41 - Metabolic encephalopathy Status: Acute Plan: etiology: hypoxic brain injury, hypoxia. dt's a possibility, mild resp distress recs mri brain iv thiamine check tsh, nh3 low dose ativan 0.5mg prn agitation trial of provigil follow exam (2) Parkinsons disease ICD Codes: G20 - Parkinson's disease Status: Chronic Plan: will change to 2 tabs po 6hrs d/w pt's spouse possibility of peg tube if he fails swallow, in light of pre- existing dysphagia from PD (3) Cardiac arrest ICD Codes: I46.9 - Cardiac arrest, cause unspecified Status: Acute (4) Hypertension ICD Codes: I10 - Essential (primary) hypertension Status: Chronic Problem Qualifiers (1) Hypertension: Qualified Codes: I10 - Essential (primary) hypertension Russell Xiao MD Jul 31, 2017 16:23
[2017-08-01] VITALS (14 sets, daily range): BP systolic 98–150; BP diastolic 58–74; PULSE 64–83; RESP 19–24; TEMP 98.1–100.9; O2SAT 92–99
[2017-08-01] MEDS: CARBIDOPA/LEVODOPA 25 MG/100 MG TAB PO SCH ×4 (00:55→17:12)
[2017-08-01] MEDS: RESP: ALBUTEROL 2.5 MG/IPRATROPIUM 0.5 MG NEB (PRN) INH (03:22)
[2017-08-01] MEDS: CHLORHEXIDINE GLUCONATE 2 % 1 PACK (2 CLOTHS) TOP SCH (04:00)
[2017-08-01] MEDS: ISOSORBIDE MONONITRATE 60 MG TAB PO SCH (05:36)
[2017-08-01] MEDS: CHLORHEXIDINE 0.12% (ORAL KIT) 15 ML CUP MT SCH ×2 (08:00→20:00)
--- NOTE | 2017-08-01 08:09 | PD.CARD.PN ---
Subjective Subjective Remarks Awake. Denies CP, dyspnea, abdominal pain, nausea, dizziness. Objective Medications Item Value Date Time Isosorbide 60 mg 07/30/17 0900 Mononitrate DAILY@0700/PO (Imdur) Amlodipine 5 mg 07/30/17 0900 Besylate DAILY/PO 07/31/17 0902 (Norvasc) Enoxaparin Sodium 40 mg 07/29/17 1500 (Lovenox Inj) Q24H/SQ 07/31/17 1346 Hydralazine HCl 20 mg 07/29/17 2115 (Apresoline Inj) Q4H PRN/IV Aspirin 81 mg 07/29/17 0900 (Aspirin Chew) DAILY/CHEW 07/31/17 09 Enalapril Maleate 10 mg 07/29/17 0900 (Vasotec) BID/PO 07/31/172138 Carvedilol 3.125 mg 07/27/17 1445 (Coreg) Q12HR/PO 07/31/172138 Current Medications Medications (Trade) Dose Ordered Sig/Ventura Route Start Time Stop Time Status Last Admin (NS Flush) 2 ml UNSCH PRN IV FLUSH 07/26/17 22:00 (NS Flush) 2 ml BID IV FLUSH 07/27/17 09:00 07/31/17 21:40 (Tylenol) 650 mg Q6H PRN PO 07/26/17 22:00 (Pepcid Inj) 20 mg Q12HR IV PUSH 07/27/17 09:00 07/31/17 21:40 (Tears Naturale Opth Soln) 1 drop TID EACH EYE 07/27/17 09:00 07/31/17 18:00 (Zofran Inj) 4 mg Q6H PRN IV PUSH 07/26/17 22:00 (Duoneb Neb) 1 ampule Q2HR NEB PRN INH 07/26/17 22:00 08/01/17 03:22 Miscellaneous Information 1 Q361D XX 07/26/17 22:00 07/26/17 22:00 (Chlorhexidine 2% Cloth) Taper DAILY@04 TOP 07/27/17 04:00 07/23/18 03:59 08/01/17 04:00 (Chlorhexidine 2% Cloth) 3 pack UNSCH PRN TOP 07/26/17 22:00 (Marcella-Colace) 1 tab BID PO 07/27/17 09:00 07/28/17 07:56 (Milk Of Magnesia Liq) 30 ml Q12H PRN PO 07/26/17 22:00 07/28/17 15:39 (Senokot) 17.2 mg Q12H PRN PO 07/26/17 22:00 (Dulcolax Supp) 10 mg DAILY PRN RECTAL 07/26/17 22:00 (Lactulose Liq) 30 ml DAILY PRN PO 07/26/17 22:00 (Peridex 0.12% Liq) 15 ml BID@08,20 MT 07/27/17 08:00 07/30/17 08:00 (Trandate Inj) 10 mg Q4H PRN IV PUSH 07/27/17 02:30 07/29/17 18:31 (Coreg) 3.125 mg Q12HR PO 07/27/17 14:45 07/31/17 21:39 (Aspirin Chew) 81 mg DAILY CHEW 07/29/17 09:00 07/31/17 09:01 (Persantine) 50 mg QID PO 07/28/17 13:00 07/31/17 21:39 (Vasotec) 10 mg BID PO 07/29/17 09:00 07/31/17 21:39 (Haldol Inj) 2 mg Q4H PRN IV PUSH 07/29/17 16:30 07/30/17 11:13 (Ativan Inj) 0.5 mg Q2H PRN IV PUSH 07/29/17 14:30 Thiamine HCl 100 mg/Sodium Chloride 101 ml @ 101 mls/hr DAILY IV 07/29/17 14:15 07/31/17 09:02 (Lovenox Inj) 40 mg Q24H SQ 07/29/17 15:00 07/31/17 13:46 (Apresoline Inj) 20 mg Q4H PRN IV 07/29/17 21:15 (Imdur) 60 mg DAILY@0700 PO 07/30/17 09:00 (Norvasc) 5 mg DAILY PO 07/30/17 09:00 07/31/17 09:02 (Sinemet 25-100 Mg) 2 tab Q6HR PO 07/31/17 18:00 08/01/17 05:36 (Provigil) 100 mg DAILY PO 08/01/17 09:00 Vital Signs / I&O Vital Signs Date Time Temp Pulse Resp B/P (MAP) Pulse Ox O2 Delivery O2 Flow Rate FiO2 08/01/17 06:00 78 08/01/17 04:00 83 08/01/17 04:00 98.1 83 24 124/59 (80) 95 08/01/17 02:00 74 08/01/17 00:00 98.7 66 21 129/65 (86) 98 08/01/17 00:00 66 07/31/17 22:00 68 07/31/17 20:00 97.8 84 23 167/92 (117) 95 07/31/17 20:00 84 07/31/17 18:00 74 07/31/17 18:00 74 38 136/65 (88) 100 07/31/17 17:00 68 23 111/56 (74) 96 07/31/17 16:00 98.0 66 36 136/67 (90) 93 07/31/17 16:00 66 07/31/17 15:00 74 24 158/74 (102) 100 07/31/17 14:00 70 46 142/67 (92) 91 07/31/17 14:00 70 07/31/17 13:00 67 41 129/60 (83) 97 07/31/17 12:00 98.3 74 22 159/70 (99) 98 07/31/17 12:00 74 07/31/17 11:00 73 41 172/90 (117) 98 07/31/17 10:00 70 28 111/60 (77) 96 07/31/17 10:00 70 07/31/17 09:00 72 22 154/69 (97) 96 I/O 07/31/17 07/31/17 07/31/17 08/01/17 08/01/17 08/01/17 07:00 15:00 23:00 07:00 15:00 23:00 Intake Total 601 ml 542 ml 575 ml Output Total 425 ml 400 ml 650 ml Balance 176 ml 142 ml -75 ml Tube Feeding 481 ml 482 ml 455 ml Tube Irrigant 120 ml 60 ml 120 ml Output Urine Total 425 ml 400 ml 650 ml # Bowel Movements 1 0 1 Physical Exam GENERAL: Well developed, well nourished. Tachypneic. HEENT: Jugular venous pressure is normal. CHEST: Coarse upper airway sounds. CARDIAC: Regular rate and rhythm without S3, S4. I-II/ systolic murmur apex. ABDOMEN: Soft, nontender, no hepatosplenomegaly. Bowel sounds present. EXTREMITIES: No clubbing, cyanosis, or edema. Laboratory Laboratory Tests Test 07/31/17 18:20 07/31/17 19:07 Blood Gas Puncture Site RT RADIAL Blood Gas Patient Temperature 98.6 Blood Gas HCO3 29 mmol/L Blood Gas Base Excess 5.3 mmol/L Blood Gas Oxygen Saturation 94 % Arterial Blood pH 7.51 Arterial Blood Partial Pressure CO2 36 mmHg Arterial Blood Partial Pressure O2 82 mmHg Arterial Blood Oxygen Content 17.9 Vol % Arterial Blood Carboxyhemoglobin 1.1 % Arterial Blood Methemoglobin 1.2 % Blood Gas Hemoglobin 13.5 G/DL Oxygen Delivery Device NASAL CANNULA Blood Gas Liter Flow 4 L/M Erythrocyte Sedimentation Rate 42 mm/hr Ammonia 40 MCMOL/L Assessment and Plan Problem List: (1) Non-ST elevation [place] (NSTEMI) ICD Codes: I21.4 - Non-ST elevation (NSTEMI) myocardial infarction Status: Acute Plan: (+) troponin levels suggestive of NSTEMI. Stable cardiac status. Hemodynamically stable. Echo reviewed. EF 60-65%, not 45% as reported. REC continue current medical regimen when out of ICU, will order nuclear stress test to assess for extent of residual ischemia (2) Hypertension ICD Codes: I10 - Essential (primary) hypertension Status: Chronic Plan: Continued widely fluctuating BP's. Continue to monitor. Code Status full code Discussed Condition With patient Problem Qualifiers (1) Hypertension: Qualified Codes: I10 - Essential (primary) hypertension Alejandro Charles MD Aug 01, 2017 08:08
[2017-08-01] MEDS ORDERED: MODAFINIL 100 MG TAB PO SCH (09:00)
[2017-08-01] MEDS: CARVEDILOL 3.125 MG TAB PO SCH ×2 (09:56→21:26)
[2017-08-01] MEDS: amLODIPine BESYLATE 5 MG TAB PO SCH (09:56)
[2017-08-01] MEDS: DOCUSATE SODIUM 50 MG/SENNA 8.6 MG TAB PO SCH ×2 (09:56→21:26)
[2017-08-01] MEDS: ASPIRIN 81 MG CHEW TAB CHEW SCH (09:56)
[2017-08-01] MEDS: ENALAPRIL MALEATE 10 MG TAB PO SCH ×2 (09:56→21:26)
[2017-08-01] MEDS: FAMOTIDINE 20 MG/2 ML VIAL IV PUSH SCH (09:57)
[2017-08-01] MEDS: THIAMINE INJ 100 MG in SODIUM CHLORIDE 0.9% INJ 100 ML IV SCH (09:57)
[2017-08-01] MEDS: DIPYRIDAMOLE 25 MG TAB PO SCH ×4 (09:57→21:26)
[2017-08-01] MEDS: SODIUM CHLORIDE 0.9% FLUSH 10 ML FLUSH IV FLUSH SCH ×2 (09:57→21:28)
[2017-08-01] MEDS: ARTIFICIAL TEARS OPTH SOLN 15 ML BTL EACH EYE SCH ×3 (09:58→17:12)
[2017-08-01] MEDS ORDERED: PILL SPLITTER OTHER PRN (10:00)
[2017-08-01] MEDS: MODAFINIL 200 MG TAB PO SCH (11:12)
[2017-08-01] MEDS: ENOXAPARIN SODIUM 40 MG/0.4 ML SYRINGE SQ SCH (14:57)
--- NOTE | 2017-08-01 15:25 | HHI.CCPN ---
Subjective Remarks/Hospital Course 76-year-old gentleman with unknown past medical history was eating at a restaurant stood up choking like behavior and fell to ground. Hemlick maneuver done by bystanders and then they realized he was in Asystole and CPR started. Patient is sedated and intubated and no further information is available. SUBJ remains intubated sedated with 20 mcg/m of propofol. Withdraws left upper extremity to pain. No purposeful movements noted. Troponin elevation to 2, now trending down to 0.9. Cardiology Dr. Charles. May need cardiac cath. Echo EF 45%. Off Dopamine, will start low-dose carvedilol 07/28: Slightly more on the vent as follows commands still somnolent. Sinemet resumed. Possible cath Sunday per Dr. Charles. DC IV Heparin, and start Lovenox 40 qd 07/29: Extubated yesterday, became agitated in afternoon. Started on when necessary Ativan and Haldol. Currently sedated from members of Ativan and Haldol. Somnolent but protecting airway. Agitation is multifactorial. Confirms that he drinks 2 drinks of vodka daily (she does not know how much he pours into each drink). IV Thiamine also started. I will also start him on Precedex in case he needs it 07/30: Requiring Precedex and intermittent Haldol for agitation, and possible alcohol withdrawal. Chest x-ray remains unchanged with mild pleural effusion on the right. No evidence of aspiration 07/31: Remains off Precedex slightly more awake alert. Did not require any Haldol overnight. Chest x-ray essentially clear with mild infrahilar infiltrate. Opens eyes and follows commands but lethargic 08/01: Intermittently agitated requiring restraints but overall steadily improving mentation. Maintaining oxygen saturation. Receiving tube feeds Objective Vital Signs Date Time Temp Pulse Resp B/P (MAP) Pulse Ox O2 Delivery O2 Flow Rate FiO2 08/01/17 14:00 78 08/01/17 12:00 98.9 24 98/74 (82) 93 08/01/17 08:50 Nasal Cannula 4.00 07/28/17 08:00 35 Intake and Output 08/01/17 08/01/17 08/02/17 08:00 16:00 00:00 Intake Total 575 ml Output Total 650 ml Balance -75 ml Result Diagram: 07/30/17 0806 07/31/17 0417 Other Results Laboratory Tests Test 07/31/17 18:20 Blood Gas Puncture Site RT RADIAL Blood Gas Patient Temperature 98.6 Blood Gas HCO3 29 mmol/L (22-26) Blood Gas Base Excess 5.3 mmol/L (-2-2) Blood Gas Oxygen Saturation 94 % (90-100) Arterial Blood pH 7.51 (7.380-7.420) Arterial Blood Partial Pressure CO2 36 mmHg (38-42) Arterial Blood Partial Pressure O2 82 mmHg (61-120) Arterial Blood Oxygen Content 17.9 Vol % (12.0-20.0) Arterial Blood Carboxyhemoglobin 1.1 % (0-4) Arterial Blood Methemoglobin 1.2 % (0-2) Blood Gas Hemoglobin 13.5 G/DL (12.0-16.0) Oxygen Delivery Device NASAL CANNULA Blood Gas Liter Flow 4 L/M Imaging Last 24 hours Impressions Chest X-Ray 07/26/172010 Signed Impressions: Service Date/Time: July 20:03 - CONCLUSION: No acute cardiopulmonary disease. Rocco Downey Jr., MD Objective Remarks GENERAL: Elderly gentleman slightly somnolent. Wakes up and follows some commands SKIN: Warm and dry. HEAD: Normocephalic. EYES: No scleral icterus. No injection or drainage. NECK: Supple, trachea midline. No JVD or lymphadenopathy. CARDIOVASCULAR: Regular rate and rhythm without murmurs, gallops, or rubs. RESPIRATORY: Breath sounds equal bilaterally. No accessory muscle use. GASTROINTESTINAL: Abdomen soft, non-tender, nondistended. MUSCULOSKELETAL: No cyanosis, or edema. NEURO EXAM: The patient is somnolent, intermittently agitated to the nurse. Oriented to person. Spontaneously moves extremities. Following some commands A/P Assessment and Plan Cardiac arrest secondary to choking Non-ST elevation [place] - Discussed with Dr. Charles, cardiac catheterization once clinically stable - Troponin peaked at 2, EF 45% - Continue Aspirin, coreg. Lovenox 40 mg subcutaneous daily 07/29 - EKGs and troponins as needed Respiratory failure - Intubated for airway protection, Extubated 07/29/17 - Continue breathing treatments, aggressive pulmonary toilet Delirium/metabolic encephalopathy Alcohol withdrawal - Delirium is multifactorial. - Use Haldol and Ativan when necessary's, supplement thiamine - DCd Precedex - Continue Sinemet - Consumes >2 vodka Daily, supplement thiamine - Neuro Dr. Xiao DVT GI prophylaxis - Teds SCDs - Lovenox 40 mg subcutaneous daily - Pepcid - On tube feeds. Speech following - PT OOB. OT Critical Care: Level 2 Extubated 07/28/17 but later developed severe agitation requiring restraints, Ativan, Haldol when necessary. Severe delirium secondary to metabolic encephalopathy and possibly alcohol withdrawal also. Patient is at risk of decompensation and respiratory failure due to acute onset delirium and treatment with sedatives. Continue ICU monitoring Jeremy Ribeiro MD Aug 01, 2017 15:25
[2017-08-01] MEDS: FAMOTIDINE 20 MG TAB PO SCH (21:26)
[2017-08-02] VITALS (15 sets, daily range): BP systolic 113–165; BP diastolic 59–91; PULSE 61–72; RESP 21–25; TEMP 97.9–98.8; O2SAT 94–100
[2017-08-02] MEDS: CARBIDOPA/LEVODOPA 25 MG/100 MG TAB PO SCH ×5 (01:25→23:44)
[2017-08-02] MEDS: RESP: ALBUTEROL 2.5 MG/IPRATROPIUM 0.5 MG NEB (PRN) INH (02:52)
[2017-08-02] MEDS: CHLORHEXIDINE GLUCONATE 2 % 1 PACK (2 CLOTHS) TOP SCH (04:00)
--- NOTE | 2017-08-02 04:53 | RADRPT ---
EXAM DATE/TIME: 08/02/2017 03:04 [place] COMPARISON: CHEST SINGLE AP, July 31, 2017, 4:27. INDICATIONS : Shortness of breath, possible pulmonary disease. MEDICAL HISTORY : None. SURGICAL HISTORY : None. ENCOUNTER: Subsequent ACUITY: 1 week PAIN SCORE: Non-responsive. LOCATION: Bilateral chest FINDINGS: There is persisting consolidation in the right perihilar region, slightly smaller than on prior exam. Left lung is clear. Mild curvature of the thoracolumbar spine towards the left. The heart is norm al in size. Gastric tube tip and side-port project within the stomach. CONCLUSION: Persistent right medial lung consolidation. Rocco Hurd MD on August 02, 2017 at 4:50 Board Certified Radiologist. This report was verified electronically.
[2017-08-02 05:20] LABS: AUTOMATED NEUTROPHIL # 3.3 TH/MM3 (1.8-7.7); BASOPHIL % 0.4 % (0.0-2.0); EOSINOPHIL % 0.4 % (0.0-4.0); HEMATOCRIT 36.7 % (39.0-51.0); HEMOGLOBIN 12.6 GM/DL (13.0-17.0); LYMPH % 21.9 % (9.0-44.0); LYMPHOCYTE # 1.2 TH/MM3 (1.0-4.8); MEAN CELL VOLUME 99.2 FL (80.0-100.0); MEAN CORPUSCULAR HEMOGLOBIN 34.1 PG (27.0-34.0); MEAN CORPUSCULAR HGB CONC 34.4 % (32.0-36.0); MEAN PLATELET VOLUME 8.8 FL (7.0-11.0); MONO % 18.3 % (0.0-8.0); PLATELET COUNT 190 TH/MM3 (150-450); RED CELL DISTRIBUTION WIDTH 13.3 % (11.6-17.2); WHITE BLOOD COUNT 5.5 TH/MM3 (4.0-11.0)
[2017-08-02 05:42] LABS: ALBUMIN 2.4 GM/DL (3.4-5.0); AST (GOT) 16 U/L (15-37); BICARBONATE 32.4 MEQ/L (21.0-32.0); BLOOD UREA NITROGEN 24 MG/DL (7-18); CALCIUM 8.4 MG/DL (8.5-10.1); CHLORIDE 108 MEQ/L (98-107); CREATININE 0.48 MG/DL (0.60-1.30); GLOMERULAR FILTRATION RATE 170 ML/MIN (>89); GLUCOSE,RANDOM 123 MG/DL (74-106); MAGNESIUM 2.1 MG/DL (1.5-2.5); SODIUM (NA) 146 MEQ/L (136-145)
[2017-08-02 05:46] LABS: ALKALINE PHOSPHATASE 81 U/L (45-117); ALT (GPT) 9 U/L (12-78); TOTAL BILIRUBIN ADULT 0.5 MG/DL (0.2-1.0); TOTAL PROTEIN 6.4 GM/DL (6.4-8.2)
[2017-08-02] MEDS: ISOSORBIDE MONONITRATE 60 MG TAB PO SCH (06:05)
[2017-08-02] MEDS: ENALAPRIL MALEATE 10 MG TAB PO SCH ×2 (07:53→21:00)
[2017-08-02] MEDS: DOCUSATE SODIUM 50 MG/SENNA 8.6 MG TAB PO SCH ×2 (07:54→21:00)
[2017-08-02] MEDS: FAMOTIDINE 20 MG TAB PO SCH ×2 (07:54→21:00)
[2017-08-02] MEDS: ASPIRIN 81 MG CHEW TAB CHEW SCH (07:54)
[2017-08-02] MEDS: amLODIPine BESYLATE 5 MG TAB PO SCH (07:54)
[2017-08-02] MEDS: CARVEDILOL 3.125 MG TAB PO SCH ×2 (07:54→21:00)
[2017-08-02] MEDS: MODAFINIL 200 MG TAB PO SCH (07:54)
[2017-08-02] MEDS: CHLORHEXIDINE 0.12% (ORAL KIT) 15 ML CUP MT SCH ×2 (07:55→20:00)
[2017-08-02] MEDS: SODIUM CHLORIDE 0.9% FLUSH 10 ML FLUSH IV FLUSH SCH ×2 (07:55→22:11)
[2017-08-02] MEDS: THIAMINE INJ 100 MG in SODIUM CHLORIDE 0.9% INJ 100 ML IV SCH (07:55)
[2017-08-02] MEDS: ARTIFICIAL TEARS OPTH SOLN 15 ML BTL EACH EYE SCH ×3 (07:55→18:00)
--- NOTE | 2017-08-02 08:37 | PD.CARD.PN ---
Subjective Subjective Remarks Somnolent. Denies CP, dyspnea, abdominal pain, nausea, dizziness. Objective Medications Item Value Date Time Isosorbide 60 mg 07/30/17 0900 Mononitrate DAILY@0700/PO (Imdur) Amlodipine 5 mg 07/30/17 0900 Besylate DAILY/PO 08/02/17 0754 (Norvasc) Enoxaparin Sodium 40 mg 07/29/17 1500 (Lovenox Inj) Q24H/SQ 08/01/17 1457 Aspirin 81 mg 07/29/17 0900 (Aspirin Chew) DAILY/CHEW 08/02/17 0754 Enalapril Maleate 10 mg 07/29/17 0900 (Vasotec) BID/PO 08/02/17 0753 Carvedilol 3.125 mg 07/27/17 1445 (Coreg) Q12HR/PO 08/02/17 0754 Current Medications Medications (Trade) Dose Ordered Sig/Ventura Route Start Time Stop Time Status Last Admin (NS Flush) 2 ml UNSCH PRN IV FLUSH 07/26/17 22:00 (NS Flush) 2 ml BID IV FLUSH 07/27/17 09:00 08/02/17 07:55 (Tylenol) 650 mg Q6H PRN PO 07/26/17 22:00 (Tears Naturale Opth Soln) 1 drop TID EACH EYE 07/27/17 09:00 08/02/17 07:55 (Zofran Inj) 4 mg Q6H PRN IV PUSH 07/26/17 22:00 (Duoneb Neb) 1 ampule Q2HR NEB PRN INH 07/26/17 22:00 08/02/17 02:52 Miscellaneous Information 1 Q361D XX 07/26/17 22:00 07/26/17 22:00 (Chlorhexidine 2% Cloth) Taper DAILY@04 TOP 07/27/17 04:00 07/23/18 03:59 08/01/17 04:00 (Chlorhexidine 2% Cloth) 3 pack UNSCH PRN TOP 07/26/17 22:00 (Marcella-Colace) 1 tab BID PO 07/27/17 09:00 08/02/17 07:54 (Milk Of Magnesia Liq) 30 ml Q12H PRN PO 07/26/17 22:00 07/28/17 15:39 (Senokot) 17.2 mg Q12H PRN PO 07/26/17 22:00 (Dulcolax Supp) 10 mg DAILY PRN RECTAL 07/26/17 22:00 (Lactulose Liq) 30 ml DAILY PRN PO 07/26/17 22:00 (Peridex 0.12% Liq) 15 ml BID@08,20 MT 07/27/17 08:00 07/30/17 08:00 (Trandate Inj) 10 mg Q4H PRN IV PUSH 07/27/17 02:30 07/29/17 18:31 (Coreg) 3.125 mg Q12HR PO 07/27/17 14:45 08/02/17 07:54 (Aspirin Chew) 81 mg DAILY CHEW 07/29/17 09:00 08/02/17 07:54 (Persantine) 50 mg QID PO 07/28/17 13:00 08/01/17 21:26 (Vasotec) 10 mg BID PO 07/29/17 09:00 08/02/17 07:53 (Haldol Inj) 2 mg Q4H PRN IV PUSH 07/29/17 16:30 07/30/17 11:13 (Ativan Inj) 0.5 mg Q2H PRN IV PUSH 07/29/17 14:30 Thiamine HCl 100 mg/Sodium Chloride 101 ml @ 101 mls/hr DAILY IV 07/29/17 14:15 08/02/17 07:55 (Lovenox Inj) 40 mg Q24H SQ 07/29/17 15:00 08/01/17 14:57 (Apresoline Inj) 20 mg Q4H PRN IV 07/29/17 21:15 (Imdur) 60 mg DAILY@0700 PO 07/30/17 09:00 (Norvasc) 5 mg DAILY PO 07/30/17 09:00 08/02/17 07:54 (Sinemet 25-100 Mg) 2 tab Q6HR PO 07/31/17 18:00 08/02/17 06:04 (Provigil) 100 mg DAILY PO 08/01/17 10:00 08/02/17 07:54 (Pill Splitter) 1 ea UNSCH PRN OTHER 08/01/17 10:00 (Pepcid) 20 mg BID PO 08/01/17 21:00 08/02/17 07:54 Vital Signs / I&O Vital Signs Date Time Temp Pulse Resp B/P (MAP) Pulse Ox O2 Delivery O2 Flow Rate FiO2 08/02/17 08:00 98.2 62 25 133/67 (89) 99 08/02/17 08:00 62 08/02/17 06:00 61 08/02/17 04:00 65 08/02/17 04:00 98.1 65 23 126/78 (94) 96 08/02/17 02:53 100 Nasal Cannula 5.00 08/02/17 02:00 72 08/02/17 00:00 97.9 61 21 113/59 (77) 94 08/02/17 00:00 61 08/01/17 22:07 97 Nasal Cannula 5.00 08/01/17 22:00 68 08/01/17 20:00 98.4 67 19 150/73 (98) 99 08/01/17 20:00 67 08/01/17 18:00 76 08/01/17 16:00 64 08/01/17 16:00 98.4 64 19 114/58 (76) 92 08/01/17 16:00 64 19 114/58 (76) 92 08/01/17 14:00 78 08/01/17 12:00 98.9 70 24 98/74 (82) 93 08/01/17 12:00 70 08/01/17 10:00 67 08/01/17 10:00 67 08/01/17 08:50 97 Nasal Cannula 4.00 I/O 08/01/17 08/01/17 08/01/17 08/02/17 08/02/17 08/02/17 07:00 15:00 23:00 07:00 15:00 23:00 Intake Total 575 ml 101 ml 645 ml 523 ml Output Total 650 ml 400 ml 765 ml Balance -75 ml 101 ml 245 ml -242 ml Intake IV Total 101 ml Tube Feeding 455 ml 525 ml 363 ml Tube Irrigant 120 ml 160 ml Other 120 ml Output Urine Total 650 ml 400 ml 765 ml # Bowel Movements 1 1 2 Physical Exam GENERAL: Well developed, well nourished. Tachypneic. HEENT: Jugular venous pressure is normal. CHEST: Coarse upper airway sounds. CARDIAC: Regular rate and rhythm without S3, S4. I-II/ systolic murmur apex. ABDOMEN: Soft, nontender, no hepatosplenomegaly. Bowel sounds present. EXTREMITIES: No clubbing, cyanosis, or edema. Laboratory Laboratory Tests Test 08/02/17 03:23 White Blood Count 5.5 TH/MM3 Red Blood Count 3.70 MIL/MM3 Hemoglobin 12.6 GM/DL Hematocrit 36.7 % Mean Corpuscular Volume 99.2 FL Mean Corpuscular Hemoglobin 34.1 PG Mean Corpuscular Hemoglobin Concent 34.4 % Red Cell Distribution Width 13.3 % Platelet Count 190 TH/MM3 Mean Platelet Volume 8.8 FL Neutrophils (%) (Auto) 59.0 % Lymphocytes (%) (Auto) 21.9 % Monocytes (%) (Auto) 18.3 % Eosinophils (%) (Auto) 0.4 % Basophils (%) (Auto) 0.4 % Neutrophils # (Auto) 3.3 TH/MM3 Lymphocytes # (Auto) 1.2 TH/MM3 Monocytes # (Auto) 1.0 TH/MM3 Eosinophils # (Auto) 0.0 TH/MM3 Basophils # (Auto) 0.0 TH/MM3 CBC Comment DIFF FINAL Differential Comment Blood Urea Nitrogen 24 MG/DL Creatinine 0.48 MG/DL Random Glucose 123 MG/DL Total Protein 6.4 GM/DL Albumin 2.4 GM/DL Calcium Level 8.4 MG/DL Magnesium Level 2.1 MG/DL Alkaline Phosphatase 81 U/L Aspartate Amino Transf (AST/SGOT) 16 U/L Alanine Aminotransferase (ALT/SGPT) 9 U/L Total Bilirubin 0.5 MG/DL Sodium Level 146 MEQ/L Potassium Level 3.5 MEQ/L Chloride Level 108 MEQ/L Carbon Dioxide Level 32.4 MEQ/L Anion Gap 6 MEQ/L Estimat Glomerular Filtration Rate 170 ML/MIN Imaging Last 24 hours Impressions Chest X-Ray 08/02/17 0600 Signed Impressions: Service Date/Time: July 03:04 - CONCLUSION: Persistent right medial lung consolidation. Rocco Hurd MD Assessment and Plan Problem List: (1) Non-ST elevation [place] (NSTEMI) ICD Codes: I21.4 - Non-ST elevation (NSTEMI) myocardial infarction Status: Acute Plan: (+) Initial troponin levels suggestive of NSTEMI. Stable cardiac status. No definite angina or CHF. Hemodynamically stable. Echo reviewed. EF 60-65%, not 45% as reported. REC continue current medical regimen when out of ICU, rec order nuclear stress test to assess for extent of residual ischemia; unless large area of ischemia demonstrated, rec medical therapy will f/u periodically (2) Hypertension ICD Codes: I10 - Essential (primary) hypertension Status: Chronic Plan: Continued fluctuating BP's. Continue to monitor. Code Status full code Discussed Condition With patient Problem Qualifiers (1) Hypertension: Qualified Codes: I10 - Essential (primary) hypertension Alejandro Charles MD Aug 02, 2017 08:37
--- NOTE | 2017-08-02 09:17 | HHI.PR ---
Review/Management Diagnosis/Plan: (1) Encephalopathy, metabolic ICD Codes: G93.41 - Metabolic encephalopathy Status: Acute Plan: etiology: hypoxic brain injury, hypoxia. dt's a possibility, mild resp distress mri brain- declines nh3 slightly elevated recs alerts but difficulty with conversation/following. gargles will increase provigil to 200mg qam trial of lactulose ? peg iv thiamine follow exam (2) Parkinsons disease ICD Codes: G20 - Parkinson's disease Status: Chronic Plan: will change to 2 tabs po 6hrs d/w pt's spouse possibility of peg tube if he fails swallow, in light of pre- existing dysphagia from PD (3) Cardiac arrest ICD Codes: I46.9 - Cardiac arrest, cause unspecified Status: Acute (4) Hypertension ICD Codes: I10 - Essential (primary) hypertension Status: Chronic Subjective Subjective Comments No acute events reported Active Medications Current Medications Medications (Trade) Dose Ordered Sig/Ventura Route Start Time Stop Time Status Last Admin (NS Flush) 2 ml UNSCH PRN IV FLUSH 07/26/17 22:00 (NS Flush) 2 ml BID IV FLUSH 07/27/17 09:00 08/02/17 07:55 (Tylenol) 650 mg Q6H PRN PO 07/26/17 22:00 (Tears Naturale Opth Soln) 1 drop TID EACH EYE 07/27/17 09:00 08/02/17 07:55 (Zofran Inj) 4 mg Q6H PRN IV PUSH 07/26/17 22:00 (Duoneb Neb) 1 ampule Q2HR NEB PRN INH 07/26/17 22:00 08/02/17 02:52 Miscellaneous Information 1 Q361D XX 07/26/17 22:00 07/26/17 22:00 (Chlorhexidine 2% Cloth) Taper DAILY@04 TOP 07/27/17 04:00 07/23/18 03:59 08/01/17 04:00 (Chlorhexidine 2% Cloth) 3 pack UNSCH PRN TOP 07/26/17 22:00 (Marcella-Colace) 1 tab BID PO 07/27/17 09:00 08/02/17 07:54 (Milk Of Magnesia Liq) 30 ml Q12H PRN PO 07/26/17 22:00 07/28/17 15:39 (Senokot) 17.2 mg Q12H PRN PO 07/26/17 22:00 (Dulcolax Supp) 10 mg DAILY PRN RECTAL 07/26/17 22:00 (Lactulose Liq) 30 ml DAILY PRN PO 07/26/17 22:00 (Peridex 0.12% Liq) 15 ml BID@08,20 MT 07/27/17 08:00 07/30/17 08:00 (Trandate Inj) 10 mg Q4H PRN IV PUSH 07/27/17 02:30 07/29/17 18:31 (Coreg) 3.125 mg Q12HR PO 07/27/17 14:45 08/02/17 07:54 (Aspirin Chew) 81 mg DAILY CHEW 07/29/17 09:00 08/02/17 07:54 (Persantine) 50 mg QID PO 07/28/17 13:00 08/01/17 21:26 (Vasotec) 10 mg BID PO 07/29/17 09:00 08/02/17 07:53 (Haldol Inj) 2 mg Q4H PRN IV PUSH 07/29/17 16:30 07/30/17 11:13 (Ativan Inj) 0.5 mg Q2H PRN IV PUSH 07/29/17 14:30 Thiamine HCl 100 mg/Sodium Chloride 101 ml @ 101 mls/hr DAILY IV 07/29/17 14:15 08/02/17 07:55 (Lovenox Inj) 40 mg Q24H SQ 07/29/17 15:00 08/01/17 14:57 (Apresoline Inj) 20 mg Q4H PRN IV 07/29/17 21:15 (Imdur) 60 mg DAILY@0700 PO 07/30/17 09:00 (Norvasc) 5 mg DAILY PO 07/30/17 09:00 08/02/17 07:54 (Sinemet 25-100 Mg) 2 tab Q6HR PO 07/31/17 18:00 08/02/17 06:04 (Provigil) 100 mg DAILY PO 08/01/17 10:00 08/02/17 07:54 (Pill Splitter) 1 ea UNSCH PRN OTHER 08/01/17 10:00 (Pepcid) 20 mg BID PO 08/01/17 21:00 08/02/17 07:54 Allergies Allergies Coded Allergies No Allergy Information Available (Unverified07/26/17) Review of Systems All other ROS: Unable to obtain Exam I&O / VS Vital Signs Date Time Temp Pulse Resp B/P (MAP) Pulse Ox O2 Delivery O2 Flow Rate FiO2 08/02/17 08:00 98.2 62 25 133/67 (89) 99 08/02/17 08:00 62 08/02/17 06:00 61 08/02/17 04:00 65 08/02/17 04:00 98.1 65 23 126/78 (94) 96 08/02/17 02:53 100 Nasal Cannula 5.00 08/02/17 02:00 72 08/02/17 00:00 97.9 61 21 113/59 (77) 94 08/02/17 00:00 61 08/01/17 22:07 97 Nasal Cannula 5.00 08/01/17 22:00 68 08/01/17 20:00 98.4 67 19 150/73 (98) 99 08/01/17 20:00 67 08/01/17 18:00 76 08/01/17 16:00 64 08/01/17 16:00 98.4 64 19 114/58 (76) 92 08/01/17 16:00 64 19 114/58 (76) 92 08/01/17 14:00 78 08/01/17 12:00 98.9 70 24 98/74 (82) 93 08/01/17 12:00 70 08/01/17 10:00 67 08/01/17 10:00 67 Exam Comments alerts, open mouth breathing, dysarthric/dysphonic speech, gargles, was able to close eyes on request but difficulty with further requests, ou 4-3mm, eomi, no tremors, minimal left ue rigidty, localizes with all 4 ext, planterflexor Objective Micro and Labs Laboratory Tests Test 08/02/17 03:23 White Blood Count 5.5 Red Blood Count 3.70 Hemoglobin 12.6 Hematocrit 36.7 Mean Corpuscular Volume 99.2 Mean Corpuscular Hemoglobin 34.1 Mean Corpuscular Hemoglobin Concent 34.4 Red Cell Distribution Width 13.3 Platelet Count 190 Mean Platelet Volume 8.8 Neutrophils (%) (Auto) 59.0 Lymphocytes (%) (Auto) 21.9 Monocytes (%) (Auto) 18.3 Eosinophils (%) (Auto) 0.4 Basophils (%) (Auto) 0.4 Neutrophils # (Auto) 3.3 Lymphocytes # (Auto) 1.2 Monocytes # (Auto) 1.0 Eosinophils # (Auto) 0.0 Basophils # (Auto) 0.0 CBC Comment DIFF FINAL Differential Comment Blood Urea Nitrogen 24 Creatinine 0.48 Random Glucose 123 Total Protein 6.4 Albumin 2.4 Calcium Level 8.4 Magnesium Level 2.1 Alkaline Phosphatase 81 Aspartate Amino Transf (AST/SGOT) 16 Alanine Aminotransferase (ALT/SGPT) 9 Total Bilirubin 0.5 Sodium Level 146 Potassium Level 3.5 Chloride Level 108 Carbon Dioxide Level 32.4 Anion Gap 6 Estimat Glomerular Filtration Rate 170 Date/Time Source Procedure Growth Status 07/26/17 20:05 Urine Clean Catch Urine Culture - Final NO GROWTH IN 48 HOURS. Complete Problem Qualifiers (1) Hypertension: Qualified Codes: I10 - Essential (primary) hypertension Russell Xiao MD Aug 02, 2017 09:17
[2017-08-02] MEDS: DIPYRIDAMOLE 25 MG TAB PO SCH ×4 (10:24→21:00)
[2017-08-02] MEDS: FREE WATER NG SCH ×3 (12:30→21:42)
--- NOTE | 2017-08-02 13:39 | HHI.CCPN ---
Subjective Remarks/Hospital Course 76-year-old gentleman with unknown past medical history was eating at a restaurant stood up choking like behavior and fell to ground. Hemlick maneuver done by bystanders and then they realized he was in Asystole and CPR started. Patient is sedated and intubated and no further information is available. SUBJ remains intubated sedated with 20 mcg/m of propofol. Withdraws left upper extremity to pain. No purposeful movements noted. Troponin elevation to 2, now trending down to 0.9. Cardiology Dr. Charles. May need cardiac cath. Echo EF 45%. Off Dopamine, will start low-dose carvedilol 07/28: Slightly more on the vent as follows commands still somnolent. Sinemet resumed. Possible cath Sunday per Dr. Charles. DC IV Heparin, and start Lovenox 40 qd 07/29: Extubated yesterday, became agitated in afternoon. Started on when necessary Ativan and Haldol. Currently sedated from members of Ativan and Haldol. Somnolent but protecting airway. Agitation is multifactorial. Confirms that he drinks 2 drinks of vodka daily (she does not know how much he pours into each drink). IV Thiamine also started. I will also start him on Precedex in case he needs it 07/30: Requiring Precedex and intermittent Haldol for agitation, and possible alcohol withdrawal. Chest x-ray remains unchanged with mild pleural effusion on the right. No evidence of aspiration 07/31: Remains off Precedex slightly more awake alert. Did not require any Haldol overnight. Chest x-ray essentially clear with mild infrahilar infiltrate. Opens eyes and follows commands but lethargic 08/01: Intermittently agitated requiring restraints but overall steadily improving mentation. Maintaining oxygen saturation. Receiving tube feeds 08/02: Improved mentation today. Breathing comfortably maintaining oxygen saturation. Oriented to person and place. Chest x-ray shows persistent midlung infiltrate without evidence of fever or leukocytosis Objective Vital Signs Date Time Temp Pulse Resp B/P (MAP) Pulse Ox O2 Delivery O2 Flow Rate FiO2 08/02/17 10:00 68 08/02/17 08:00 98.2 25 133/67 (89) 99 08/02/17 02:53 Nasal Cannula 5.00 Intake and Output 1/08/02/17 08/03/17 08:00 16:00 00:00 Intake Total 523 ml Output Total 765 ml Balance -242 ml Result Diagram: 08/02/17 0323 08/02/17 0323 Imaging Last 24 hours Impressions Chest X-Ray 07/26/172010 Signed Impressions: Service Date/Time: July 20:03 - CONCLUSION: No acute cardiopulmonary disease. Rocco Downey Jr., MD Objective Remarks GENERAL: Elderly gentleman more awake and alert today. SKIN: Warm and dry. HEAD: Normocephalic. EYES: No scleral icterus. No injection or drainage. ENT: NGT in place w NECK: Supple, trachea midline. No JVD or lymphadenopathy. CARDIOVASCULAR: Regular rate and rhythm without murmurs, gallops, or rubs. RESPIRATORY: Breath sounds equal bilaterally. No accessory muscle use. GASTROINTESTINAL: Abdomen soft, non-tender, nondistended. MUSCULOSKELETAL: No cyanosis, or edema. NEURO EXAM: The patient is awake alert oriented to person and place. Spontaneously moves extremities. Following commands A/P Assessment and Plan Cardiac arrest secondary to choking Non-ST elevation OR - Troponin peaked at 2, EF 45% - Continue Aspirin, coreg. Lovenox 40 mg subcutaneous daily 07/29 - EKGs and troponins as needed - Dr. Charles planning cardiac catheterization once clinically stable Respiratory failure - Intubated for airway protection, Extubated 07/29/17 - Continue breathing treatments, aggressive pulmonary toilet Delirium/metabolic encephalopathy Alcohol withdrawal - Delirium is multifactorial. - Use Haldol and Ativan when necessary's, supplement thiamine - Continue Sinemet - Consumes >2 vodka Daily, supplement thiamine, watch for alcohol withdrawal - Neuro Dr. Xiao DVT GI prophylaxis - Teds SCDs - Lovenox 40 mg subcutaneous daily - Pepcid - On tube feeds. Speech following - PT OOB. OT Critical Care: Level 2 Clinically improving, transfer to Med surg, hospitalist to assume care in am Jeremy Ribeiro MD Aug 02, 2017 13:39
[2017-08-02] MEDS: ENOXAPARIN SODIUM 40 MG/0.4 ML SYRINGE SQ SCH (15:44)
[2017-08-02] MEDS: HALOPERIDOL LACTATE 5 MG/ML AMP IV PUSH PRN (16:22)
--- NOTE | 2017-08-02 18:21 | RADRPT ---
EXAM DATE/TIME: 08/02/2017 17:51 [facility] COMPARISON: No previous studies available for comparison. INDICATIONS : NG tube placement. MEDICAL HISTORY : None. SURGICAL HISTORY : Right shoulder. ENCOUNTER: Initial ACUITY: 1 day PAIN SCORE: Non-responsive. LOCATION: Bilateral chest FINDINGS: Nasogastric tube is coiled in the esophagus and the tip is directed cephalad, actually not included o n the study. Upper limits of normal caliber small and large bowel suggesting a mild ileus. No broke caliber change s are demonstrated. No free air. Surgical and degenerative changes are seen of the spine. There are old right lower rib fractures. CONCLUSION: The nasogastric tube is coiled in the esophagus. Quintin Ji MD on August 02, 2017 at 18:17 Board Certified Radiologist. This report was verified electronically.
[2017-08-02] MEDS: LACTULOSE SYRUP 20 GM/30 ML CUP PO SCH (21:00)
[2017-08-03] VITALS (20 sets, daily range): BP systolic 125–201; BP diastolic 64–96; PULSE 59–75; RESP 16–26; TEMP 98.1–99.1; O2SAT 84–100
[2017-08-03] MEDS: CHLORHEXIDINE GLUCONATE 2 % 1 PACK (2 CLOTHS) TOP SCH (03:18)
[2017-08-03] MEDS: FREE WATER NG SCH ×4 (03:57→19:29)
[2017-08-03] MEDS: CARBIDOPA/LEVODOPA 25 MG/100 MG TAB PO SCH ×3 (03:57→17:40)
[2017-08-03] MEDS: LABETALOL HCL 100 MG/20 ML VIAL IV PUSH PRN (04:48)
[2017-08-03] MEDS: ISOSORBIDE MONONITRATE 60 MG TAB PO SCH (06:50)
--- NOTE | 2017-08-03 07:52 | HHI.PR ---
Review/Management Diagnosis/Plan: (1) Encephalopathy, metabolic ICD Codes: G93.41 - Metabolic encephalopathy Status: Acute Plan: etiology: hypoxic brain injury, hypoxia. dt's a possibility, mild resp distress/pneumonia mri brain- declines nh3 slightly elevated no fever, no leukocytosis recs looks better this am continue provigil to 200mg qam continue lactulose 1-2 more days ? peg iv thiamine floor with tele once cleared by ccm follow exam (2) Parkinsons disease ICD Codes: G20 - Parkinson's disease Status: Chronic Plan: will change to 2 tabs po 6hrs d/w pt's spouse possibility of peg tube if he fails swallow, in light of pre- existing dysphagia from PD (3) Cardiac arrest ICD Codes: I46.9 - Cardiac arrest, cause unspecified Status: Acute (4) Hypertension ICD Codes: I10 - Essential (primary) hypertension Status: Chronic Subjective Subjective Comments No acute events reported No headache No chest pain No dyspnea Active Medications Current Medications Medications (Trade) Dose Ordered Sig/Ventura Route Start Time Stop Time Status Last Admin (NS Flush) 2 ml UNSCH PRN IV FLUSH 07/26/17 22:00 (NS Flush) 2 ml BID IV FLUSH 07/27/17 09:00 08/02/17 22:11 (Tylenol) 650 mg Q6H PRN PO 07/26/17 22:00 (Tears Naturale Opth Soln) 1 drop TID EACH EYE 07/27/17 09:00 08/02/17 18:00 (Zofran Inj) 4 mg Q6H PRN IV PUSH 07/26/17 22:00 (Duoneb Neb) 1 ampule Q2HR NEB PRN INH 07/26/17 22:00 08/02/17 02:52 Miscellaneous Information 1 Q361D XX 07/26/17 22:00 07/26/17 22:00 (Chlorhexidine 2% Cloth) Taper DAILY@04 TOP 07/27/17 04:00 07/23/18 03:59 08/03/17 03:18 (Chlorhexidine 2% Cloth) 3 pack UNSCH PRN TOP 07/26/17 22:00 (Marcella-Colace) 1 tab BID PO 07/27/17 09:00 08/02/17 07:54 (Milk Of Magnesia Liq) 30 ml Q12H PRN PO 07/26/17 22:00 07/28/17 15:39 (Senokot) 17.2 mg Q12H PRN PO 07/26/17 22:00 (Dulcolax Supp) 10 mg DAILY PRN RECTAL 07/26/17 22:00 (Peridex 0.12% Liq) 15 ml BID@08,20 MT 07/27/17 08:00 07/30/17 08:00 (Trandate Inj) 10 mg Q4H PRN IV PUSH 07/27/17 02:30 08/03/17 04:48 (Coreg) 3.125 mg Q12HR PO 07/27/17 14:45 08/02/17 07:54 (Aspirin Chew) 81 mg DAILY CHEW 07/29/17 09:00 08/02/17 07:54 (Persantine) 50 mg QID PO 07/28/17 13:00 08/02/17 13:14 (Vasotec) 10 mg BID PO 07/29/17 09:00 08/02/17 07:53 (Haldol Inj) 2 mg Q4H PRN IV PUSH 07/29/17 16:30 08/02/17 16:22 (Ativan Inj) 0.5 mg Q2H PRN IV PUSH 07/29/17 14:30 Thiamine HCl 100 mg/Sodium Chloride 101 ml @ 101 mls/hr DAILY IV 07/29/17 14:15 08/02/17 07:55 (Lovenox Inj) 40 mg Q24H SQ 07/29/17 15:00 08/02/17 15:44 (Apresoline Inj) 20 mg Q4H PRN IV 07/29/17 21:15 (Imdur) 60 mg DAILY@0700 PO 07/30/17 09:00 (Norvasc) 5 mg DAILY PO 07/30/17 09:00 08/02/17 07:54 (Sinemet 25-100 Mg) 2 tab Q6HR PO 07/31/17 18:00 08/02/17 13:14 (Pill Splitter) 1 ea UNSCH PRN OTHER 08/01/17 10:00 (Pepcid) 20 mg BID PO 08/01/17 21:00 08/02/17 07:54 (Provigil) 200 mg DAILY PO 08/03/17 09:00 (Lactulose Liq) 30 ml BID PO 08/02/17 21:00 08/05/17 20:59 (Free Water) 200 ml Q6HR NG 08/02/17 12:30 08/02/17 12:30 Allergies Allergies Coded Allergies No Allergy Information Available (Unverified07/26/17) Review of Systems All other ROS: Unable to obtain Exam I&O / VS Vital Signs Date Time Temp Pulse Resp B/P (MAP) Pulse Ox O2 Delivery O2 Flow Rate FiO2 08/03/17 06:00 67 08/03/17 04:00 98.1 75 19 161/76 (104) 100 08/03/17 04:00 75 08/03/17 02:00 59 08/03/17 00:00 98.7 66 23 153/72 (99) 100 08/03/17 00:00 66 08/02/17 22:00 66 08/02/17 20:00 98.8 68 21 160/91 (114) 100 08/02/17 20:00 68 08/02/17 19:10 100 Nasal Cannula 4.00 08/02/17 18:19 99 Nasal Cannula 4.00 08/02/17 18:00 67 08/02/17 16:00 98.0 70 24 165/82 (109) 99 08/02/17 16:00 70 08/02/17 14:00 63 08/02/17 12:00 66 08/02/17 12:00 98.8 66 22 138/71 (93) 100 08/02/17 10:00 68 08/02/17 08:00 98.2 62 25 133/67 (89) 99 08/02/17 08:00 62 Exam Comments alerts, breathing more comfortably, dysarthric/dysphonic speech, one word answers, following commands more appropriately, ou 4-3mm, eomi, no tremors, minimal left ue rigidty, localizes with all 4 ext, planterflexor Objective Micro and Labs Date/Time Source Procedure Growth Status 07/26/17 20:05 Urine Clean Catch Urine Culture - Final NO GROWTH IN 48 HOURS. Complete Problem Qualifiers (1) Hypertension: Qualified Codes: I10 - Essential (primary) hypertension Russell Xiao MD Aug 03, 2017 07:51
[2017-08-03] MEDS: CHLORHEXIDINE 0.12% (ORAL KIT) 15 ML CUP MT SCH ×2 (08:00→19:32)
[2017-08-03] MEDS: ASPIRIN 81 MG CHEW TAB CHEW SCH ×2 (08:42→10:59)
[2017-08-03] MEDS: ARTIFICIAL TEARS OPTH SOLN 15 ML BTL EACH EYE SCH ×3 (08:42→17:40)
[2017-08-03] MEDS: CARVEDILOL 3.125 MG TAB PO SCH ×3 (08:46→19:28)
[2017-08-03] MEDS: amLODIPine BESYLATE 5 MG TAB PO SCH ×2 (08:46→10:59)
[2017-08-03] MEDS: LACTULOSE SYRUP 20 GM/30 ML CUP PO SCH ×2 (08:46→19:28)
[2017-08-03] MEDS: SODIUM CHLORIDE 0.9% FLUSH 10 ML FLUSH IV FLUSH SCH ×2 (08:46→19:28)
[2017-08-03] MEDS: ENALAPRIL MALEATE 10 MG TAB PO SCH ×3 (08:47→19:28)
[2017-08-03] MEDS: DIPYRIDAMOLE 25 MG TAB PO SCH ×4 (08:47→19:28)
[2017-08-03] MEDS: MODAFINIL 200 MG TAB PO SCH ×2 (08:47→11:01)
[2017-08-03] MEDS: DOCUSATE SODIUM 50 MG/SENNA 8.6 MG TAB PO SCH ×3 (08:47→19:29)
[2017-08-03] MEDS: FAMOTIDINE 20 MG TAB PO SCH ×3 (08:47→19:28)
[2017-08-03] MEDS: THIAMINE INJ 100 MG in SODIUM CHLORIDE 0.9% INJ 100 ML IV SCH (09:09)
[2017-08-03] MEDS: ENOXAPARIN SODIUM 40 MG/0.4 ML SYRINGE SQ SCH (15:58)
--- NOTE | 2017-08-03 17:37 | HHI.CCPN ---
Subjective Remarks/Hospital Course 76-year-old gentleman with unknown past medical history was eating at a restaurant stood up choking like behavior and fell to ground. Hemlick maneuver done by bystanders and then they realized he was in Asystole and CPR started. Patient is sedated and intubated and no further information is available. SUBJ remains intubated sedated with 20 mcg/m of propofol. Withdraws left upper extremity to pain. No purposeful movements noted. Troponin elevation to 2, now trending down to 0.9. Cardiology Dr. Charles. May need cardiac cath. Echo EF 45%. Off Dopamine, will start low-dose carvedilol 07/28: Slightly more on the vent as follows commands still somnolent. Sinemet resumed. Possible cath Sunday per Dr. Charles. DC IV Heparin, and start Lovenox 40 qd 07/29: Extubated yesterday, became agitated in afternoon. Started on when necessary Ativan and Haldol. Currently sedated from members of Ativan and Haldol. Somnolent but protecting airway. Agitation is multifactorial. Confirms that he drinks 2 drinks of vodka daily (she does not know how much he pours into each drink). IV Thiamine also started. I will also start him on Precedex in case he needs it 07/30: Requiring Precedex and intermittent Haldol for agitation, and possible alcohol withdrawal. Chest x-ray remains unchanged with mild pleural effusion on the right. No evidence of aspiration 07/31: Remains off Precedex slightly more awake alert. Did not require any Haldol overnight. Chest x-ray essentially clear with mild infrahilar infiltrate. Opens eyes and follows commands but lethargic 08/01: Intermittently agitated requiring restraints but overall steadily improving mentation. Maintaining oxygen saturation. Receiving tube feeds 08/02: Improved mentation today. Breathing comfortably maintaining oxygen saturation. Oriented to person and place. Chest x-ray shows persistent midlung infiltrate without evidence of fever or leukocytosis 08/03: delirium almost completely resolved today. continues to want to eat, but failing speech eval for dysphagia. oriented x 3. room air. per cardiology notes , needs myocardial perfusion scan "when out of ICU"- will order today since now hemodynamically stable. Objective Vital Signs Date Time Temp Pulse Resp B/P (MAP) Pulse Ox O2 Delivery O2 Flow Rate FiO2 1/26/18 17:00 64 08/03/17 17:00 26 151/69 (96) 100 08/03/17 16:00 98.6 08/03/17 08:52 21 08/02/17 19:10 Nasal Cannula 4.00 Intake and Output 08/03/17 08/03/17 08/04/17 08:00 16:00 00:00 Intake Total 0 ml Output Total 550 ml Balance -550 ml Result Diagram: 08/02/17 0323 08/02/17 0323 Imaging Last 24 hours Impressions Chest X-Ray 07/26/172010 Signed Impressions: Service Date/Time: July 20:03 - CONCLUSION: No acute cardiopulmonary disease. Rocco Downey Jr., MD Objective Remarks GENERAL: Elderly gentleman more awake and alert today. SKIN: Warm and dry. HEAD: Normocephalic. EYES: No scleral icterus. No injection or drainage. ENT: NGT in place w NECK: Supple, trachea midline. CARDIOVASCULAR: Regular rate and rhythm. RESPIRATORY: unlabored. room air. GASTROINTESTINAL: Abdomen soft, non-tender, nondistended. MUSCULOSKELETAL: No cyanosis, or edema. NEURO EXAM: The patient is awake alert oriented x 3. Spontaneously moves extremities. Following commands A/P Assessment and Plan assessment: 76yM s/p [id number] cardiac arrest secondary to choking. no clinically improving. course was complicated by NSTEMI which needs further cardiac work-up, but should not delay discharge: MPS and further cardiac intervention can be worked-up in inpatient rehab. will order MPS. stable for transfer to floor, and medically stable for transfer to inpatient rehab. Dr. Charles continues to follow, and appreciate his input. Cardiac arrest secondary to choking Non-ST elevation CA - Troponin peaked at 2, EF 45% - Continue Aspirin, coreg. Lovenox 40 mg subcutaneous daily 07/29 - EKGs and troponins as needed - Dr. Charles recommends further work-up once stable. - patient is stable. will obtain MPS. remainder of work-up can be done in inpatient rehab. Acute hypoxic and hypercarbic Respiratory failure- resolved. - secondary to choking - Extubated 07/29/17 - Continue breathing treatments, aggressive pulmonary toilet Delirium/metabolic encephalopathy- improving. Alcohol withdrawal- improving. - Delirium is multifactorial. - Use Haldol and Ativan when necessary's, supplement thiamine - Continue Sinemet - Consumes >2 vodka Daily, supplement thiamine, watch for alcohol withdrawal - Neuro Dr. Xiao DVT GI prophylaxis - Teds SCDs - Lovenox 40 mg subcutaneous daily - Pepcid - patient removed NGT last night. will await speech recommendations before replacing. - PT OOB. OT Dispo: transfer to floor. stable for transfer to inpatient rehab. remainder of cardiology work-up can be done in rehab. Fernando Espino MD Aug 03, 2017 17:37
[2017-08-04] VITALS (9 sets, daily range): BP systolic 135–152; BP diastolic 66–88; PULSE 60–72; RESP 18–20; TEMP 97–98.3; O2SAT 92–97
[2017-08-04] MEDS: CARBIDOPA/LEVODOPA 25 MG/100 MG TAB PO SCH ×4 (00:18→17:18)
[2017-08-04] MEDS: LORazepam 2 MG/ML VIAL IV PUSH PRN ×3 (02:59→17:26)
[2017-08-04] MEDS: CHLORHEXIDINE GLUCONATE 2 % 1 PACK (2 CLOTHS) TOP SCH (04:00)
[2017-08-04] MEDS: FREE WATER NG SCH ×3 (06:00→17:27)
[2017-08-04] MEDS: ISOSORBIDE MONONITRATE 60 MG TAB PO SCH (06:44)
[2017-08-04] MEDS: CHLORHEXIDINE 0.12% (ORAL KIT) 15 ML CUP MT SCH ×2 (08:00→20:00)
--- NOTE | 2017-08-04 08:36 | HHI.PR ---
Subjective Remarks Inker notes: 76-year-old gentleman with unknown past medical history was eating at a restaurant stood up choking like behavior and fell to ground. Heimlich maneuver done by bystanders and then they realized he was in Asystole and CPR started. Patient is sedated and intubated and no further information is available. SUBJ remains intubated sedated with 20 mcg/m of propofol. Withdraws left upper extremity to pain. No purposeful movements noted. Troponin elevation to 2, now trending down to 0.9. Cardiology Dr. Charles. May need cardiac cath. Echo EF 45%. Off Dopamine, will start low-dose carvedilol 07/28: Slightly more on the vent as follows commands still somnolent. Sinemet resumed. Possible cath Sunday per Dr. Charles. DC IV Heparin, and start Lovenox 40 qd 07/29: Extubated yesterday, became agitated in afternoon. Started on when necessary Ativan and Haldol. Currently sedated from members of Ativan and Haldol. Somnolent but protecting airway. Agitation is multifactorial. Confirms that he drinks 2 drinks of vodka daily (she does not know how much he pours into each drink). IV Thiamine also started. I will also start him on Precedex in case he needs it 07/30: Requiring Precedex and intermittent Haldol for agitation, and possible alcohol withdrawal. Chest x-ray remains unchanged with mild pleural effusion on the right. No evidence of aspiration 07/31: Remains off Precedex slightly more awake alert. Did not require any Haldol overnight. Chest x-ray essentially clear with mild infrahilar infiltrate. Opens eyes and follows commands but lethargic 08/01: Intermittently agitated requiring restraints but overall steadily improving mentation. Maintaining oxygen saturation. Receiving tube feeds 08/02: Improved mentation today. Breathing comfortably maintaining oxygen saturation. Oriented to person and place. Chest x-ray shows persistent midlung infiltrate without evidence of fever or leukocytosis 08/03: delirium almost completely resolved today. continues to want to eat, but failing speech eval for dysphagia. oriented x 3. room air. per cardiology notes , needs myocardial perfusion scan "when out of ICU"- will order today since now hemodynamically stable. Hospitalist Notes: 08/04: with Diagnosis of NSTEMI followed by sales enablement specialist Echocardiogram EF 60-65%, When out of ICU will have Stress Test for the extent of residual ischemia, unless large area of ischemia demonstrated recommended medical therapy, seen in his bedroom in the presence of his discussed about nutrition will place a new NG tube to continue tube feedings, he failed today the Swallow test performed by Speech therapy continue Haldol 1 mg every six hours as needed to avoid somnolence, Restraints to both hands to improve safety at least today, discussed with Charge Nurse Miss Meyers to try to find a bed near the Nurse station to supervise the patient properly, continue Bronchodilator, Mucolytic and incentive spirometry, consulted Dietitian for tube feedings, following Electrolytes and Lactulose to get control of his Ammonia level. now with an NG tube will be done. Objective Vital Signs Date Time Temp Pulse Resp B/P (MAP) Pulse Ox O2 Delivery O2 Flow Rate FiO2 08/04/17 04:00 98.3 64 20 143/66 (91) 93 08/04/17 01:10 62 08/04/17 00:00 98.3 63 20 151/67 (95) 94 08/03/17 20:00 99.1 66 22 140/64 (89) 99 08/03/17 20:00 98.3 60 16 137/65 (89) 97 08/03/17 20:00 66 08/03/17 20:00 96 21 08/03/17 18:00 64 08/03/17 17:00 64 08/03/17 17:00 64 26 151/69 (96) 100 08/03/17 16:00 64 08/03/17 16:00 98.6 64 23 155/81 (105) 100 08/03/17 14:00 66 08/03/17 14:00 66 19 135/93 (107) 92 08/03/17 13:00 67 23 133/73 (93) 93 08/03/17 13:00 67 08/03/17 12:00 98.4 63 21 125/82 (96) 100 08/03/17 12:00 63 08/03/17 10:21 69 08/03/17 10:10 69 08/03/17 10:00 71 08/03/17 09:44 69 08/03/17 09:44 69 20 171/82 (111) 99 08/03/17 09:09 69 08/03/17 09:09 69 22 172/96 (121) 93 08/03/17 09:00 70 21 84 08/03/17 09:00 70 08/03/17 08:52 100 21 I/O 08/03/17 08/03/17 08/03/17 08/04/17 08/04/17 08/04/17 07:00 15:00 23:00 07:00 15:00 23:00 Intake Total 0 ml 581 ml Output Total 550 ml 850 ml 625 ml Balance -550 ml -269 ml -625 ml Intake Oral 0 ml 480 ml IV Total 101 ml Output Urine Total 550 ml 850 ml 625 ml # Bowel Movements 1 1 Result Diagram: 08/02/17 0323 08/02/17 0323 Imaging Last Impressions Chest X-Ray 08/02/17 0600 Signed Impressions: Service Date/Time: July 03:04 - CONCLUSION: Persistent right medial lung consolidation. Rocco Hurd MD Abdomen X-Ray 08/02/17 0000 Signed Impressions: Service Date/Time: July 17:51 - CONCLUSION: The nasogastric tube is coiled in the esophagus. Quintin Ji MD Procedures Endotracheal Intubation and extubation Other Results Laboratory Tests Test 07/26/17 20:05 07/27/17 00:30 07/27/17 02:11 07/27/17 12:20 Bedside Hemoglobin 14.6 G/DL Bedside Hematocrit 43.0 % Urine Color YELLOW Urine Turbidity HAZY Urine pH 6.0 Urine Specific [place] 1.018 Urine Protein 100 mg/dL Urine Glucose (UA) NEG mg/dL Urine Ketones TRACE mg/dL Urine Occult Blood TRACE Urine Nitrite NEG Urine Bilirubin NEG Urine Urobilinogen 2.0 MG/DL Urine Leukocyte Esterase NEG Urine RBC 6 /hpf Urine WBC 12 /hpf Urine Squamous Epithelial Cells <1 /hpf Urine Bacteria RARE /hpf Urine Hyaline Casts 20 /lpf Urine Mucus FEW /lpf Microscopic Urinalysis Comment CULTURE INDICATED Bedside Sodium 143 MMOL/L Bedside Potassium 4.3 MMOL/L Bedside Chloride 105 MMOL/L Bedside Blood Urea Nitrogen 21 MG/DL Bedside Creatinine 0.9 MG/DL Bedside Glucose 151 MG/DL Lipase 179 U/L Nasal Screen MRSA (PCR) MRSA NOT DETECTED Prothrombin Time 10.7 SEC Prothromb Time International Ratio 1.1 RATIO Lactic Acid Level 1.5 mmol/L Blood Urea Nitrogen 22 MG/DL Creatinine 0.72 MG/DL Random Glucose 107 MG/DL Total Protein 6.7 GM/DL Albumin 3.6 GM/DL Calcium Level 8.2 MG/DL Phosphorus Level 3.3 MG/DL Magnesium Level 2.0 MG/DL Alkaline Phosphatase 195 U/L Aspartate Amino Transf (AST/SGOT) 110 U/L Alanine Aminotransferase (ALT/SGPT) 30 U/L Total Bilirubin 0.9 MG/DL Sodium Level 144 MEQ/L Potassium Level 3.9 MEQ/L Chloride Level 109 MEQ/L Carbon Dioxide Level 24.9 MEQ/L Creatine Kinase MB 12.5 NG/ML Creatine Kinase MB % 2.6 % Test 07/27/17 12:51 07/27/17 17:06 07/27/17 18:30 07/29/17 04:40 Total Creatine Kinase 486 U/L Blood Gas Ventilator Setting CPAP 5/5/40% Blood Gas Inspired Oxygen 40 % Troponin I 0.53 NG/ML Activated Partial Thromboplast Time 29.1 SEC Test 07/31/17 04:17 07/31/17 18:20 07/31/17 19:07 08/02/17 03:23 Vitamin B12 Level 1930 PG/ML Thyroid Stimulating Hormone 3rd Gen 1.070 uIU/ML Blood Gas Puncture Site RT RADIAL Blood Gas Patient Temperature 98.6 Blood Gas HCO3 29 mmol/L Blood Gas Base Excess 5.3 mmol/L Blood Gas Oxygen Saturation 94 % Arterial Blood pH 7.51 Arterial Blood Partial Pressure CO2 36 mmHg Arterial Blood Partial Pressure O2 82 mmHg Arterial Blood Oxygen Content 17.9 Vol % Arterial Blood Carboxyhemoglobin 1.1 % Arterial Blood Methemoglobin 1.2 % Blood Gas Hemoglobin 13.5 G/DL Oxygen Delivery Device NASAL CANNULA Blood Gas Liter Flow 4 L/M Erythrocyte Sedimentation Rate 42 mm/hr Ammonia 40 MCMOL/L White Blood Count 5.5 TH/MM3 Red Blood Count 3.70 MIL/MM3 Hemoglobin 12.6 GM/DL Hematocrit 36.7 % Mean Corpuscular Volume 99.2 FL Mean Corpuscular Hemoglobin 34.1 PG Mean Corpuscular Hemoglobin Concent 34.4 % Red Cell Distribution Width 13.3 % Platelet Count 190 TH/MM3 Mean Platelet Volume 8.8 FL Neutrophils (%) (Auto) 59.0 % Lymphocytes (%) (Auto) 21.9 % Monocytes (%) (Auto) 18.3 % Eosinophils (%) (Auto) 0.4 % Basophils (%) (Auto) 0.4 % Neutrophils # (Auto) 3.3 TH/MM3 Lymphocytes # (Auto) 1.2 TH/MM3 Monocytes # (Auto) 1.0 TH/MM3 Eosinophils # (Auto) 0.0 TH/MM3 Basophils # (Auto) 0.0 TH/MM3 CBC Comment DIFF FINAL Differential Comment Blood Urea Nitrogen 24 MG/DL Creatinine 0.48 MG/DL Random Glucose 123 MG/DL Total Protein 6.4 GM/DL Albumin 2.4 GM/DL Calcium Level 8.4 MG/DL Magnesium Level 2.1 MG/DL Alkaline Phosphatase 81 U/L Aspartate Amino Transf (AST/SGOT) 16 U/L Alanine Aminotransferase (ALT/SGPT) 9 U/L Total Bilirubin 0.5 MG/DL Sodium Level 146 MEQ/L Potassium Level 3.5 MEQ/L Chloride Level 108 MEQ/L Carbon Dioxide Level 32.4 MEQ/L Anion Gap 6 MEQ/L Estimat Glomerular Filtration Rate 170 ML/MIN Objective Remarks GENERAL: somnolent received Haldol, but awake easy. SKIN: Warm and dry. HEAD: Normocephalic. EYES: No scleral icterus. No injection or drainage. ENT: NGT in place w NECK: Supple, trachea midline. CARDIOVASCULAR: Regular rate and rhythm. RESPIRATORY: unlabored. room air. GASTROINTESTINAL: Abdomen soft, non-tender, nondistended. MUSCULOSKELETAL: No cyanosis, or edema. NEURO EXAM: somnolent initially but then awakes easy and follow commands. a Medications and IVs Current Medications Medications (Trade) Dose Ordered Sig/Ventura Route Start Time Stop Time Status Last Admin (NS Flush) 2 ml UNSCH PRN IV FLUSH 07/26/17 22:00 (NS Flush) 2 ml BID IV FLUSH 07/27/17 09:00 08/03/17 19:28 (Tylenol) 650 mg Q6H PRN PO 07/26/17 22:00 (Tears Naturale Opth Soln) 1 drop TID EACH EYE 07/27/17 09:00 08/03/17 17:40 (Zofran Inj) 4 mg Q6H PRN IV PUSH 07/26/17 22:00 (Duoneb Neb) 1 ampule Q2HR NEB PRN INH 07/26/17 22:00 08/02/17 02:52 Miscellaneous Information 1 Q361D XX 07/26/17 22:00 07/26/17 22:00 (Chlorhexidine 2% Cloth) Taper DAILY@04 TOP 07/27/17 04:00 07/23/18 03:59 08/03/17 03:18 (Chlorhexidine 2% Cloth) 3 pack UNSCH PRN TOP 07/26/17 22:00 (Marcella-Colace) 1 tab BID PO 07/27/17 09:00 08/03/17 10:59 (Milk Of Magnesia Liq) 30 ml Q12H PRN PO 07/26/17 22:00 07/28/17 15:39 (Senokot) 17.2 mg Q12H PRN PO 07/26/17 22:00 (Dulcolax Supp) 10 mg DAILY PRN RECTAL 07/26/17 22:00 (Peridex 0.12% Liq) 15 ml BID@08,20 MT 07/27/17 08:00 08/03/17 08:00 (Trandate Inj) 10 mg Q4H PRN IV PUSH 07/27/17 02:30 08/03/17 04:48 (Coreg) 3.125 mg Q12HR PO 07/27/17 14:45 08/03/17 19:28 (Aspirin Chew) 81 mg DAILY CHEW 07/29/17 09:00 08/03/17 10:59 (Persantine) 50 mg QID PO 07/28/17 13:00 08/03/17 19:28 (Vasotec) 10 mg BID PO 07/29/17 09:00 08/03/17 19:28 (Haldol Inj) 2 mg Q4H PRN IV PUSH 07/29/17 16:30 08/02/17 16:22 (Ativan Inj) 0.5 mg Q2H PRN IV PUSH 07/29/17 14:30 08/04/17 02:59 Thiamine HCl 100 mg/Sodium Chloride 101 ml @ 101 mls/hr DAILY IV 07/29/17 14:15 08/03/17 09:09 (Lovenox Inj) 40 mg Q24H SQ 07/29/17 15:00 08/03/17 15:58 (Apresoline Inj) 20 mg Q4H PRN IV 07/29/17 21:15 (Imdur) 60 mg DAILY@0700 PO 07/30/17 09:00 (Norvasc) 5 mg DAILY PO 07/30/17 09:00 08/03/17 10:59 (Sinemet 25-100 Mg) 2 tab Q6HR PO 07/31/17 18:00 08/04/17 00:18 (Pill Splitter) 1 ea UNSCH PRN OTHER 08/01/17 10:00 (Pepcid) 20 mg BID PO 08/01/17 21:00 08/03/17 19:28 (Provigil) 200 mg DAILY PO 08/03/17 09:00 08/03/17 11:01 (Lactulose Liq) 30 ml BID PO 08/02/17 21:00 08/05/17 20:59 (Free Water) 200 ml Q6HR NG 08/02/17 12:30 08/03/17 17:40 A/P Assessment and Plan ssessment: 76yM s/p [id number] cardiac arrest secondary to choking. no clinically improving. course was complicated by NSTEMI which needs further cardiac work-up, but should not delay discharge: MPS and further cardiac intervention can be worked-up in inpatient rehab. will order MPS. stable for transfer to floor, and medically stable for transfer to inpatient rehab. Dr. Charles continues to follow, and appreciate his input. Cardiac arrest secondary to choking Non-ST elevation KS - Troponin peaked at 2, EF 45% - Continue Aspirin, Coreg. Lovenox 40 mg subcutaneous daily 07/29 - EKGs and troponin as needed - Dr. Charles recommends further work-up once stable. discussed with doctor Jean Machado he will follow the case during the weekend. - at this time not able to go to Rehab. Acute hypoxic and hypercarbic Respiratory failure- resolved. - secondary to choking - Extubated 07/29/17 - Continue breathing treatments, aggressive pulmonary toilet Delirium/metabolic encephalopathy- improving. Alcohol withdrawal- improving. - Delirium is multifactorial. - CIWA protocol, decrease dose of Haldol to 1 mg every six hours to avoid somnolence. - Continue Sinemet - Consumes >2 vodka Daily, supplement thiamine, watch for alcohol withdrawal - Neuro Dr. Xiao DVT GI prophylaxis - Teds SCDs - Lovenox 40 mg subcutaneous daily - Pepcid - PT OOB. OT Discussed on multidisciplinary Meeting Discussed with nurse Miss Bailey and his in the room NG tube placed now Haldol decreased to 1 mg Restraints to bilateral hands discussed with Charge Nurse Miss Meyers to try to get a room nearest to the nurse station Bronchodilator, Mucolytic and Incentive spirometry Failed Swallow test following electrolytes lactulose no need for ammonia level daily follow clinically. Discharge Planning Not yet for discharge. Shalom Spence MD Aug 04, 2017 08:36
[2017-08-04] MEDS: CARVEDILOL 3.125 MG TAB PO SCH ×2 (09:00→20:45)
[2017-08-04] MEDS: FAMOTIDINE 20 MG TAB PO SCH ×2 (09:00→20:45)
[2017-08-04] MEDS: ENALAPRIL MALEATE 10 MG TAB PO SCH ×2 (09:00→20:45)
[2017-08-04] MEDS: DIPYRIDAMOLE 25 MG TAB PO SCH ×2 (09:00→12:53)
[2017-08-04] MEDS: DOCUSATE SODIUM 50 MG/SENNA 8.6 MG TAB PO SCH ×2 (09:00→20:45)
[2017-08-04] MEDS: LACTULOSE SYRUP 20 GM/30 ML CUP PO SCH ×2 (09:00→17:18)
[2017-08-04] MEDS: SODIUM CHLORIDE 0.9% FLUSH 10 ML FLUSH IV FLUSH SCH ×2 (09:00→20:45)
[2017-08-04] MEDS: THIAMINE INJ 100 MG in SODIUM CHLORIDE 0.9% INJ 100 ML IV SCH (09:00)
[2017-08-04] MEDS: MODAFINIL 200 MG TAB PO SCH (09:00)
[2017-08-04] MEDS: amLODIPine BESYLATE 5 MG TAB PO SCH (09:00)
[2017-08-04] MEDS: ASPIRIN 81 MG CHEW TAB CHEW SCH (09:00)
[2017-08-04] MEDS: ARTIFICIAL TEARS OPTH SOLN 15 ML BTL EACH EYE SCH ×3 (09:31→17:27)
[2017-08-04] MEDS: RESP: ALBUTEROL 2.5 MG/IPRATROPIUM 0.5 MG NEB (SCH) NEB ×3 (12:00→21:36)
[2017-08-04] MEDS ORDERED: HALOPERIDOL LACTATE 5 MG/ML AMP IV PUSH PRN (12:30)
[2017-08-04] MEDS ORDERED: LACTULOSE LIQ 300 ML in WATER STERILE FOR IRR BTL 700 ML RECTAL ONE (13:00)
[2017-08-04] MEDS: ENOXAPARIN SODIUM 40 MG/0.4 ML SYRINGE SQ SCH (14:31)
--- NOTE | 2017-08-04 16:58 | PD.CARD.PN ---
Subjective Subjective Remarks Follow up for Dr. Charles Patient on Aggrenox from previous CVA, needs stress testing so asked to see for further recommendations Patient somewhat confused, no other problems Objective Medications Current Medications Medications (Trade) Dose Ordered Sig/Ventura Route Start Time Stop Time Status Last Admin (NS Flush) 2 ml UNSCH PRN IV FLUSH 07/26/17 22:00 (NS Flush) 2 ml BID IV FLUSH 07/27/17 09:00 08/04/17 09:00 (Tylenol) 650 mg Q6H PRN PO 07/26/17 22:00 (Tears Naturale Opth Soln) 1 drop TID EACH EYE 07/27/17 09:00 08/04/17 12:53 (Zofran Inj) 4 mg Q6H PRN IV PUSH 07/26/17 22:00 (Duoneb Neb) 1 ampule Q2HR NEB PRN INH 07/26/17 22:00 08/02/17 02:52 Miscellaneous Information 1 Q361D XX 07/26/17 22:00 07/26/17 22:00 (Chlorhexidine 2% Cloth) Taper DAILY@04 TOP 07/27/17 04:00 07/23/18 03:59 08/03/17 03:18 (Chlorhexidine 2% Cloth) 3 pack UNSCH PRN TOP 07/26/17 22:00 (Marcella-Colace) 1 tab BID PO 07/27/17 09:00 08/03/17 10:59 (Milk Of Magnesia Liq) 30 ml Q12H PRN PO 07/26/17 22:00 07/28/17 15:39 (Senokot) 17.2 mg Q12H PRN PO 07/26/17 22:00 (Dulcolax Supp) 10 mg DAILY PRN RECTAL 07/26/17 22:00 (Peridex 0.12% Liq) 15 ml BID@08,20 MT 07/27/17 08:00 08/03/17 08:00 (Trandate Inj) 10 mg Q4H PRN IV PUSH 07/27/17 02:30 08/03/17 04:48 (Coreg) 3.125 mg Q12HR PO 07/27/17 14:45 08/03/17 19:28 (Aspirin Chew) 81 mg DAILY CHEW 07/29/17 09:00 08/03/17 10:59 (Persantine) 50 mg QID PO 07/28/17 13:00 08/03/17 19:28 (Vasotec) 10 mg BID PO 07/29/17 09:00 08/03/17 19:28 (Ativan Inj) 0.5 mg Q2H PRN IV PUSH 07/29/17 14:30 08/04/17 14:33 Thiamine HCl 100 mg/Sodium Chloride 101 ml @ 101 mls/hr DAILY IV 07/29/17 14:15 08/04/17 09:00 (Lovenox Inj) 40 mg Q24H SQ 07/29/17 15:00 08/03/17 15:58 (Apresoline Inj) 20 mg Q4H PRN IV 07/29/17 21:15 (Imdur) 60 mg DAILY@0700 PO 07/30/17 09:00 (Norvasc) 5 mg DAILY PO 07/30/17 09:00 08/03/17 10:59 (Sinemet 25-100 Mg) 2 tab Q6HR PO 07/31/17 18:00 08/04/17 12:53 (Pill Splitter) 1 ea UNSCH PRN OTHER 08/01/17 10:00 (Pepcid) 20 mg BID PO 08/01/17 21:00 08/03/17 19:28 (Provigil) 200 mg DAILY PO 08/03/17 09:00 08/03/17 11:01 (Free Water) 200 ml Q6HR NG 08/02/17 12:30 08/04/17 12:00 (Haldol Inj) 1 mg Q4H PRN IV PUSH 08/04/17 12:30 08/04/17 15:51 (Duoneb Neb) 1 ampule Q4HR NEB NEB 08/04/17 12:00 (Mucinex Er) 600 mg BID PO 08/04/17 21:00 (Lactulose Liq) 30 ml TID PO 08/04/17 18:00 Vital Signs / I&O Vital Signs Date Time Temp Pulse Resp B/P (MAP) Pulse Ox O2 Delivery O2 Flow Rate FiO2 08/04/17 16:00 70 08/04/17 14:10 67 08/04/17 12:00 97.8 61 20 135/78 (97) 95 08/04/17 12:00 65 08/04/17 08:00 98.0 60 20 152/77 (102) 96 08/04/17 04:00 98.3 64 20 143/66 (91) 93 08/04/17 03:42 61 08/04/17 01:10 62 08/04/17 00:00 98.3 63 20 151/67 (95) 94 08/03/17 20:00 99.1 66 22 140/64 (89) 99 08/03/17 20:00 98.3 60 16 137/65 (89) 97 08/03/17 20:00 66 08/03/17 20:00 96 21 08/03/17 18:00 64 08/03/17 17:00 64 08/03/17 17:00 64 26 151/69 (96) 100 I/O 08/03/17 08/03/17 08/03/17 08/04/17 08/04/17 08/04/17 07:00 15:00 23:00 07:00 15:00 23:00 Intake Total 0 ml 581 ml Output Total 550 ml 850 ml 625 ml Balance -550 ml -269 ml -625 ml Intake Oral 0 ml 480 ml IV Total 101 ml Output Urine Total 550 ml 850 ml 625 ml # Bowel Movements 1 1 Physical Exam GENERAL: Confused SKIN: Warm and dry. HEAD: Atraumatic. Normocephalic. EYES: Pupils equal and round. No scleral icterus. No injection or drainage. ENT: No nasal bleeding or discharge. Mucous membranes pink and moist. NECK: Trachea midline. No JVD. CARDIOVASCULAR: Regular rate and rhythm. RESPIRATORY: No accessory muscle use. Decreased breath sounds bilaterally GASTROINTESTINAL: Abdomen soft, non-tender, nondistended. Hepatic and splenic margins not palpable. MUSCULOSKELETAL: Extremities without clubbing, cyanosis, or edema. No obvious deformities. NEUROLOGICAL: Confused Assessment and Plan Problem List: (1) Non-ST elevation [place] (NSTEMI) ICD Codes: I21.4 - Non-ST elevation (NSTEMI) myocardial infarction Status: Acute (2) Hypertension ICD Codes: I10 - Essential (primary) hypertension Status: Chronic (3) Cardiac arrest ICD Codes: I46.9 - Cardiac arrest, cause unspecified Status: Acute (4) Respiratory arrest ICD Codes: R09.2 - Respiratory arrest Status: Acute (5) Parkinsons disease ICD Codes: G20 - Parkinson's disease Status: Chronic (6) Encephalopathy, metabolic ICD Codes: G93.41 - Metabolic encephalopathy Status: Acute Assessment and Plan 1) Per Dr. Charles, recommend stress testing once out of the ICU and stable 2) Patient on Aggrenox for very remote CVA He's been off Aggrenox multiple times for procedures without complication 3) Hold Aggrenox Stress test can be done Sunday morning (post 48 hours after last dose of Aggrenox) 4) Will see PRN, further questions, Dr. Charles will return on Sunday Problem Qualifiers (1) Hypertension: Qualified Codes: I10 - Essential (primary) hypertension Jean Machado DO Aug 04, 2017 16:58
[2017-08-04] MEDS ORDERED: LACTULOSE SYRUP 20 GM/30 ML CUP PO SCH (18:00)
[2017-08-04] MEDS: guaiFENesin E.R. 600 MG TAB PO SCH (20:45)
[2017-08-05] VITALS (8 sets, daily range): BP systolic 105–136; BP diastolic 49–88; PULSE 64–72; RESP 18–20; TEMP 97–98.2; O2SAT 93–99
[2017-08-05] MEDS: CARBIDOPA/LEVODOPA 25 MG/100 MG TAB PO SCH ×4 (00:28→18:39)
[2017-08-05] MEDS: RESP: ALBUTEROL 2.5 MG/IPRATROPIUM 0.5 MG NEB (SCH) NEB ×7 (00:51→20:10)
[2017-08-05] MEDS: CHLORHEXIDINE GLUCONATE 2 % 1 PACK (2 CLOTHS) TOP SCH (04:00)
--- NOTE | 2017-08-05 05:01 | RADRPT ---
EXAM DATE/TIME: 08/05/2017 04:37 [facility] COMPARISON: No previous studies available for comparison. INDICATIONS : Nasogastric tube placement. MEDICAL HISTORY : Myocardial infarction. SURGICAL HISTORY : Fusion, lumbar. Left hip arthroplasty ENCOUNTER: Subsequent ACUITY: 1 week PAIN SCORE: Non-responsive. LOCATION: Bilateral abdomen FINDINGS: Supine view of the abdomen was performed. The NG tube tip is in the upper stomach. The abdominal bow el gas pattern is normal. No abnormal masses, calcifications, or organomegaly is seen. There is surg ical hardware throughout the lumbar spine. There is a left hip prosthesis. There is degenerative montez ge in the lower thoracic spine.. CONCLUSION: NG tube tip in the upper stomach. Quintin Velazquez MD on August 05, 2017 at 4:58 Board Certified Radiologist. This report was verified electronically.
[2017-08-05] MEDS: FREE WATER NG SCH ×4 (06:00→18:40)
[2017-08-05] MEDS: ISOSORBIDE MONONITRATE 60 MG TAB PO SCH (06:35)
[2017-08-05] MEDS: CHLORHEXIDINE 0.12% (ORAL KIT) 15 ML CUP MT SCH ×2 (08:00→20:00)
[2017-08-05] MEDS: ENALAPRIL MALEATE 10 MG TAB PO SCH ×3 (09:00→21:26)
[2017-08-05] MEDS: THIAMINE INJ 100 MG in SODIUM CHLORIDE 0.9% INJ 100 ML IV SCH (09:00)
--- NOTE | 2017-08-05 09:22 | HHI.PR ---
Subjective Remarks Ceo Na notes: 76-year-old gentleman with unknown past medical history was eating at a restaurant stood up choking like behavior and fell to ground. Heimlich maneuver done by bystanders and then they realized he was in Asystole and CPR started. Patient is sedated and intubated and no further information is available. SUBJ remains intubated sedated with 20 mcg/m of propofol. Withdraws left upper extremity to pain. No purposeful movements noted. Troponin elevation to 2, now trending down to 0.9. Cardiology Dr. Charles. May need cardiac cath. Echo EF 45%. Off Dopamine, will start low-dose carvedilol 07/28: Slightly more on the vent as follows commands still somnolent. Sinemet resumed. Possible cath Sunday per Dr. Charles. DC IV Heparin, and start Lovenox 40 qd 07/29: Extubated yesterday, became agitated in afternoon. Started on when necessary Ativan and Haldol. Currently sedated from members of Ativan and Haldol. Somnolent but protecting airway. Agitation is multifactorial. Confirms that he drinks 2 drinks of vodka daily (she does not know how much he pours into each drink). IV Thiamine also started. I will also start him on Precedex in case he needs it 07/30: Requiring Precedex and intermittent Haldol for agitation, and possible alcohol withdrawal. Chest x-ray remains unchanged with mild pleural effusion on the right. No evidence of aspiration 07/31: Remains off Precedex slightly more awake alert. Did not require any Haldol overnight. Chest x-ray essentially clear with mild infrahilar infiltrate. Opens eyes and follows commands but lethargic 08/01: Intermittently agitated requiring restraints but overall steadily improving mentation. Maintaining oxygen saturation. Receiving tube feeds 08/02: Improved mentation today. Breathing comfortably maintaining oxygen saturation. Oriented to person and place. Chest x-ray shows persistent midlung infiltrate without evidence of fever or leukocytosis 08/03: delirium almost completely resolved today. continues to want to eat, but failing speech eval for dysphagia. oriented x 3. room air. per cardiology notes , needs myocardial perfusion scan "when out of ICU"- will order today since now hemodynamically stable. Hospitalist Notes: 08/04: with Diagnosis of NSTEMI followed by lighting specialist Echocardiogram EF 60-65%, When out of ICU will have Stress Test for the extent of residual ischemia, unless large area of ischemia demonstrated recommended medical therapy, seen in his bedroom in the presence of his discussed about nutrition will place a new NG tube to continue tube feedings, he failed today the Swallow test performed by Speech therapy continue Haldol 1 mg every six hours as needed to avoid somnolence, Restraints to both hands to improve safety at least today, discussed with Charge Nurse Miss Meyers to try to find a bed near the Nurse station to supervise the patient properly, continue Bronchodilator, Mucolytic and incentive spirometry, consulted Dietitian for tube feedings, following Electrolytes and Lactulose to get control of his Ammonia level. now with an NG tube will be done. 08/05: Stable in his bedroom, no nausea, vomit or diarrhea, receiving tube feedings, alert and awake and oriented, in place and person, his by his side. Objective Vital Signs Date Time Temp Pulse Resp B/P (MAP) Pulse Ox O2 Delivery O2 Flow Rate FiO2 08/05/17 04:00 72 08/05/17 04:00 97.0 67 18 106/73 (84) 99 08/05/17 00:00 97.0 66 20 136/88 (104) 93 08/05/17 00:00 64 08/04/17 20:00 67 08/04/17 20:00 97.0 72 18 137/86 (103) 97 08/04/17 16:00 97.8 67 20 138/88 (105) 92 08/04/17 16:00 70 08/04/17 14:10 67 08/04/17 12:00 97.8 61 20 135/78 (97) 95 08/04/17 12:00 65 I/O 08/04/17 08/04/17 08/04/17 08/05/17 08/05/17 08/05/17 07:00 15:00 23:00 07:00 15:00 23:00 Intake Total 0 ml Output Total 625 ml 1000 ml 1600 ml Balance -625 ml -1000 ml -1600 ml Intake Oral 0 ml Output Urine Total 625 ml 1000 ml 1600 ml # Bowel Movements 0 Result Diagram: 08/02/17 0323 08/02/17 0323 Imaging Last Impressions Abdomen X-Ray 08/05/17 0000 Signed Impressions: Service Date/Time: Saturday, August 05, 2017 04:37 - CONCLUSION: NG tube tip in the upper stomach. Quintin Velazquez MD Chest X-Ray 08/02/17 0600 Signed Impressions: Service Date/Time: July 03:04 - CONCLUSION: Persistent right medial lung consolidation. Rocco Hurd MD Procedures Endotracheal Intubation and extubation Other Results Laboratory Tests Test 07/26/17 20:05 07/27/17 00:30 07/27/17 02:11 07/27/17 12:20 Bedside Hemoglobin 14.6 G/DL Bedside Hematocrit 43.0 % Urine Color YELLOW Urine Turbidity HAZY Urine pH 6.0 Urine Specific Mcgrew 1.018 Urine Protein 100 mg/dL Urine Glucose (UA) NEG mg/dL Urine Ketones TRACE mg/dL Urine Occult Blood TRACE Urine Nitrite NEG Urine Bilirubin NEG Urine Urobilinogen 2.0 MG/DL Urine Leukocyte Esterase NEG Urine RBC 6 /hpf Urine WBC 12 /hpf Urine Squamous Epithelial Cells <1 /hpf Urine Bacteria RARE /hpf Urine Hyaline Casts 20 /lpf Urine Mucus FEW /lpf Microscopic Urinalysis Comment CULTURE INDICATED Bedside Sodium 143 MMOL/L Bedside Potassium 4.3 MMOL/L Bedside Chloride 105 MMOL/L Bedside Blood Urea Nitrogen 21 MG/DL Bedside Creatinine 0.9 MG/DL Bedside Glucose 151 MG/DL Lipase 179 U/L Nasal Screen MRSA (PCR) MRSA NOT DETECTED Prothrombin Time 10.7 SEC Prothromb Time International Ratio 1.1 RATIO Lactic Acid Level 1.5 mmol/L Blood Urea Nitrogen 22 MG/DL Creatinine 0.72 MG/DL Random Glucose 107 MG/DL Total Protein 6.7 GM/DL Albumin 3.6 GM/DL Calcium Level 8.2 MG/DL Phosphorus Level 3.3 MG/DL Magnesium Level 2.0 MG/DL Alkaline Phosphatase 195 U/L Aspartate Amino Transf (AST/SGOT) 110 U/L Alanine Aminotransferase (ALT/SGPT) 30 U/L Total Bilirubin 0.9 MG/DL Sodium Level 144 MEQ/L Potassium Level 3.9 MEQ/L Chloride Level 109 MEQ/L Carbon Dioxide Level 24.9 MEQ/L Creatine Kinase MB 12.5 NG/ML Creatine Kinase MB % 2.6 % Test 07/27/17 12:51 07/27/17 17:06 07/27/17 18:30 07/29/17 04:40 Total Creatine Kinase 486 U/L Blood Gas Ventilator Setting CPAP 11/11/39% Blood Gas Inspired Oxygen 40 % Troponin I 0.53 NG/ML Activated Partial Thromboplast Time 29.1 SEC Test 07/31/17 04:17 07/31/17 18:20 07/31/17 19:07 08/02/17 03:23 Vitamin B12 Level 1930 PG/ML Thyroid Stimulating Hormone 3rd Gen 1.070 uIU/ML Blood Gas Puncture Site RT RADIAL Blood Gas Patient Temperature 98.6 Blood Gas HCO3 29 mmol/L Blood Gas Base Excess 5.3 mmol/L Blood Gas Oxygen Saturation 94 % Arterial Blood pH 7.51 Arterial Blood Partial Pressure CO2 36 mmHg Arterial Blood Partial Pressure O2 82 mmHg Arterial Blood Oxygen Content 17.9 Vol % Arterial Blood Carboxyhemoglobin 1.1 % Arterial Blood Methemoglobin 1.2 % Blood Gas Hemoglobin 13.5 G/DL Oxygen Delivery Device NASAL CANNULA Blood Gas Liter Flow 4 L/M Erythrocyte Sedimentation Rate 42 mm/hr Ammonia 40 MCMOL/L White Blood Count 5.5 TH/MM3 Red Blood Count 3.70 MIL/MM3 Hemoglobin 12.6 GM/DL Hematocrit 36.7 % Mean Corpuscular Volume 99.2 FL Mean Corpuscular Hemoglobin 34.1 PG Mean Corpuscular Hemoglobin Concent 34.4 % Red Cell Distribution Width 13.3 % Platelet Count 190 TH/MM3 Mean Platelet Volume 8.8 FL Neutrophils (%) (Auto) 59.0 % Lymphocytes (%) (Auto) 21.9 % Monocytes (%) (Auto) 18.3 % Eosinophils (%) (Auto) 0.4 % Basophils (%) (Auto) 0.4 % Neutrophils # (Auto) 3.3 TH/MM3 Lymphocytes # (Auto) 1.2 TH/MM3 Monocytes # (Auto) 1.0 TH/MM3 Eosinophils # (Auto) 0.0 TH/MM3 Basophils # (Auto) 0.0 TH/MM3 CBC Comment DIFF FINAL Differential Comment Blood Urea Nitrogen 24 MG/DL Creatinine 0.48 MG/DL Random Glucose 123 MG/DL Total Protein 6.4 GM/DL Albumin 2.4 GM/DL Calcium Level 8.4 MG/DL Magnesium Level 2.1 MG/DL Alkaline Phosphatase 81 U/L Aspartate Amino Transf (AST/SGOT) 16 U/L Alanine Aminotransferase (ALT/SGPT) 9 U/L Total Bilirubin 0.5 MG/DL Sodium Level 146 MEQ/L Potassium Level 3.5 MEQ/L Chloride Level 108 MEQ/L Carbon Dioxide Level 32.4 MEQ/L Anion Gap 6 MEQ/L Estimat Glomerular Filtration Rate 170 ML/MIN Objective Remarks GENERAL: Alert and awake and oriented in place and person. SKIN: Warm and dry. HEAD: Normocephalic. EYES: No scleral icterus. No injection or drainage. ENT: NGT in place w NECK: Supple, trachea midline. CARDIOVASCULAR: Regular rate and rhythm. RESPIRATORY: unlabored. room air. GASTROINTESTINAL: Abdomen soft, non-tender, nondistended. MUSCULOSKELETAL: No cyanosis, or edema. NEURO EXAM: awake and alert and oriented in place and person. Medications and IVs Current Medications Medications (Trade) Dose Ordered Sig/Ventura Route Start Time Stop Time Status Last Admin (NS Flush) 2 ml UNSCH PRN IV FLUSH 07/26/17 22:00 (NS Flush) 2 ml BID IV FLUSH 07/27/17 09:00 08/04/17 20:45 (Tylenol) 650 mg Q6H PRN PO 07/26/17 22:00 (Tears Naturale Opth Soln) 1 drop TID EACH EYE 07/27/17 09:00 08/04/17 17:27 (Zofran Inj) 4 mg Q6H PRN IV PUSH 07/26/17 22:00 (Duoneb Neb) 1 ampule Q2HR NEB PRN INH 07/26/17 22:00 08/02/17 02:52 Miscellaneous Information 1 Q361D XX 07/26/17 22:00 07/26/17 22:00 (Chlorhexidine 2% Cloth) Taper DAILY@04 TOP 07/27/17 04:00 07/23/18 03:59 08/03/17 03:18 (Chlorhexidine 2% Cloth) 3 pack UNSCH PRN TOP 07/26/17 22:00 (Marcella-Colace) 1 tab BID PO 07/27/17 09:00 08/04/17 20:45 (Milk Of Magnesia Liq) 30 ml Q12H PRN PO 07/26/17 22:00 07/28/17 15:39 (Senokot) 17.2 mg Q12H PRN PO 07/26/17 22:00 (Dulcolax Supp) 10 mg DAILY PRN RECTAL 07/26/17 22:00 (Peridex 0.12% Liq) 15 ml BID@08,20 MT 07/27/17 08:00 08/03/17 08:00 (Trandate Inj) 10 mg Q4H PRN IV PUSH 07/27/17 02:30 08/03/17 04:48 (Coreg) 3.125 mg Q12HR PO 07/27/17 14:45 08/04/17 20:45 (Aspirin Chew) 81 mg DAILY CHEW 07/29/17 09:00 08/03/17 10:59 (Persantine) 50 mg QID PO 07/28/17 13:00 Future Hold 08/03/17 19:28 (Vasotec) 10 mg BID PO 07/29/17 09:00 08/04/17 20:45 (Ativan Inj) 0.5 mg Q2H PRN IV PUSH 07/29/17 14:30 08/04/17 17:26 Thiamine HCl 100 mg/Sodium Chloride 101 ml @ 101 mls/hr DAILY IV 07/29/17 14:15 08/04/17 09:00 (Lovenox Inj) 40 mg Q24H SQ 07/29/17 15:00 08/03/17 15:58 (Apresoline Inj) 20 mg Q4H PRN IV 07/29/17 21:15 (Imdur) 60 mg DAILY@0700 PO 07/30/17 09:00 08/05/17 06:35 (Norvasc) 5 mg DAILY PO 07/30/17 09:00 08/03/17 10:59 (Sinemet 25-100 Mg) 2 tab Q6HR PO 07/31/17 18:00 08/05/17 06:35 (Pill Splitter) 1 ea UNSCH PRN OTHER 08/01/17 10:00 (Pepcid) 20 mg BID PO 08/01/17 21:00 08/04/17 20:45 (Provigil) 200 mg DAILY PO 08/03/17 09:00 08/03/17 11:01 (Free Water) 200 ml Q6HR NG 08/02/17 12:30 08/05/17 06:00 (Haldol Inj) 1 mg Q4H PRN IV PUSH 08/04/17 12:30 08/04/17 15:51 (Duoneb Neb) 1 ampule Q4HR NEB NEB 08/04/17 12:00 08/05/17 08:12 (Mucinex Er) 600 mg BID PO 08/04/17 21:00 08/04/17 20:45 (Lactulose Liq) 30 ml TID PO 08/04/17 18:00 08/04/17 17:18 A/P Assessment and Plan ssessment: 76yM s/p [id number] cardiac arrest secondary to choking. no clinically improving. course was complicated by NSTEMI which needs further cardiac work-up, but should not delay discharge: MPS and further cardiac intervention can be worked-up in inpatient rehab. will order MPS. stable for transfer to floor, and medically stable for transfer to inpatient rehab. Dr. Charles continues to follow, and appreciate his input. Cardiac arrest secondary to choking Non-ST elevation AL - Troponin peaked at 2, EF 45% - Continue Aspirin, Coreg. Lovenox 40 mg subcutaneous daily 07/29 - EKGs and troponin as needed - Stress test for Sunday08/06/17, Doctor Melvin following will follow tomorrow. - at this time not able to go to Rehab. Acute hypoxic and hypercarbic Respiratory failure- resolved. - secondary to choking - Extubated 07/29/17 - Continue breathing treatments, aggressive pulmonary toilet Delirium/metabolic encephalopathy- improving. Alcohol withdrawal- improving. - Delirium is multifactorial. improving at this time. - CIWA protocol, decrease dose of Haldol to 1 mg every six hours to avoid somnolence. - Continue Sinemet - Consumes >2 vodka Daily, supplement thiamine, watch for alcohol withdrawal - Neuro Dr. Xiao DVT GI prophylaxis - Teds SCDs - Lovenox 40 mg subcutaneous daily - Pepcid - PT OOB. OT Discharge Planning Not yet for discharge. Shalom Spence MD Aug 05, 2017 09:22
[2017-08-05] MEDS: guaiFENesin E.R. 600 MG TAB PO SCH ×2 (11:06→21:26)
[2017-08-05] MEDS: MODAFINIL 200 MG TAB PO SCH (11:06)
[2017-08-05] MEDS: CARVEDILOL 3.125 MG TAB PO SCH ×2 (11:06→21:25)
[2017-08-05] MEDS: LACTULOSE SYRUP 20 GM/30 ML CUP PO SCH ×3 (11:06→18:39)
[2017-08-05] MEDS: FAMOTIDINE 20 MG TAB PO SCH ×2 (11:07→21:26)
[2017-08-05] MEDS: DOCUSATE SODIUM 50 MG/SENNA 8.6 MG TAB PO SCH ×2 (11:07→21:26)
[2017-08-05] MEDS: ASPIRIN 81 MG CHEW TAB CHEW SCH (11:07)
[2017-08-05] MEDS: amLODIPine BESYLATE 5 MG TAB PO SCH (11:07)
[2017-08-05 11:46] LABS: HEMATOCRIT 40.1 % (39.0-51.0); HEMOGLOBIN 13.9 GM/DL (13.0-17.0); MEAN CELL VOLUME 96.8 FL (80.0-100.0); MEAN CORPUSCULAR HEMOGLOBIN 33.5 PG (27.0-34.0); MEAN CORPUSCULAR HGB CONC 34.7 % (32.0-36.0); MEAN PLATELET VOLUME 7.9 FL (7.0-11.0); PLATELET COUNT 316 TH/MM3 (150-450); RED BLOOD COUNT 4.14 MIL/MM3 (4.50-5.90); RED CELL DISTRIBUTION WIDTH 12.9 % (11.6-17.2); WHITE BLOOD COUNT 7.5 TH/MM3 (4.0-11.0)
[2017-08-05 12:03] LABS: ALBUMIN 2.8 GM/DL (3.4-5.0); ALT (GPT) 7 U/L (12-78); AST (GOT) 16 U/L (15-37); BICARBONATE 31.9 MEQ/L (21.0-32.0); BLOOD UREA NITROGEN 23 MG/DL (7-18); CALCIUM 8.7 MG/DL (8.5-10.1); CHLORIDE 104 MEQ/L (98-107); CREATININE 0.61 MG/DL (0.60-1.30); GLOMERULAR FILTRATION RATE 129 ML/MIN (>89); GLUCOSE,RANDOM 112 MG/DL (74-106); MAGNESIUM 2.2 MG/DL (1.5-2.5); PHOSPHORUS 2.9 MG/DL (2.5-4.9); SODIUM (NA) 144 MEQ/L (136-145)
[2017-08-05 12:16] LABS: ALKALINE PHOSPHATASE 99 U/L (45-117); TOTAL BILIRUBIN ADULT 0.6 MG/DL (0.2-1.0); TOTAL PROTEIN 6.6 GM/DL (6.4-8.2)
[2017-08-05] MEDS: ARTIFICIAL TEARS OPTH SOLN 15 ML BTL EACH EYE SCH ×3 (13:12→18:55)
[2017-08-05] MEDS: SODIUM CHLORIDE 0.9% FLUSH 10 ML FLUSH IV FLUSH SCH ×2 (13:13→21:27)
[2017-08-05] MEDS ORDERED: POTASSIUM CHLORIDE 20 MEQ PWD PACKET NG ONE (16:00)
[2017-08-05] MEDS: ENOXAPARIN SODIUM 40 MG/0.4 ML SYRINGE SQ SCH (18:55)
[2017-08-06] VITALS (10 sets, daily range): BP systolic 129–174; BP diastolic 56–99; PULSE 64–70; RESP 18–22; TEMP 97.4–98.3; O2SAT 93–100
[2017-08-06] MEDS: RESP: ALBUTEROL 2.5 MG/IPRATROPIUM 0.5 MG NEB (SCH) NEB ×6 (00:10→23:37)
[2017-08-06] MEDS: CHLORHEXIDINE GLUCONATE 2 % 1 PACK (2 CLOTHS) TOP SCH (03:29)
--- NOTE | 2017-08-06 05:05 | RADRPT ---
EXAM DATE/TIME: 08/06/2017 03:45 [facility] COMPARISON: ABDOMEN KUB ONLY, August 05, 2017, 4:37. INDICATIONS : NG tube placement. MEDICAL HISTORY : Myocardial infarction. SURGICAL HISTORY : Fusion, lumbar. Left hip arthroplasty ENCOUNTER: Subsequent ACUITY: 1 week PAIN SCORE: 0/10 LOCATION: Bilateral chest FINDINGS: Supine view of the abdomen was performed. NG tip is in the stomach. Mild ileus. Previous fusion lumba r spine and previous left hip replacement. No free air. CONCLUSION: 1. Mild ileus. No free air. NG tip in stomach. Delta Lane MD on August 06, 2017 at 5:01 Board Certified Radiologist. This report was verified electronically.
[2017-08-06] MEDS: FREE WATER NG SCH ×5 (06:00→23:23)
[2017-08-06] MEDS: CARBIDOPA/LEVODOPA 25 MG/100 MG TAB PO SCH ×5 (06:00→23:23)
[2017-08-06] MEDS: ISOSORBIDE MONONITRATE 60 MG TAB PO SCH (07:00)
[2017-08-06] MEDS: CHLORHEXIDINE 0.12% (ORAL KIT) 15 ML CUP MT SCH ×2 (08:00→20:00)
--- NOTE | 2017-08-06 08:09 | PD.CARD.PN ---
Subjective Subjective Remarks Unintelligible speech. Seems to deny CP, dyspnea, abdominal pain, nausea, dizziness. Objective Medications Item Value Date Time Isosorbide 60 mg 07/30/17 0900 Mononitrate DAILY@0700/PO 08/05/17 0635 (Imdur) Amlodipine 5 mg 07/30/17 0900 Besylate DAILY/PO 08/05/17 1107 (Norvasc) Enoxaparin Sodium 40 mg 07/29/17 1500 (Lovenox Inj) Q24H/SQ 08/05/17 1855 Aspirin 81 mg 07/29/17 0900 (Aspirin Chew) DAILY/CHEW 08/05/17 1107 Enalapril Maleate 10 mg 07/29/17 0900 (Vasotec) BID/PO 08/05/172125 Carvedilol 3.125 mg 07/27/17 1445 (Coreg) Q12HR/PO 08/05/172124 Current Medications Medications (Trade) Dose Ordered Sig/Ventura Route Start Time Stop Time Status Last Admin (NS Flush) 2 ml UNSCH PRN IV FLUSH 07/26/17 22:00 (NS Flush) 2 ml BID IV FLUSH 07/27/17 09:00 08/05/17 21:27 (Tylenol) 650 mg Q6H PRN PO 07/26/17 22:00 (Tears Naturale Opth Soln) 1 drop TID EACH EYE 07/27/17 09:00 08/05/17 18:55 (Zofran Inj) 4 mg Q6H PRN IV PUSH 07/26/17 22:00 (Duoneb Neb) 1 ampule Q2HR NEB PRN INH 07/26/17 22:00 08/02/17 02:52 Miscellaneous Information 1 Q361D XX 07/26/17 22:00 07/26/17 22:00 (Chlorhexidine 2% Cloth) Taper DAILY@04 TOP 07/27/17 04:00 07/23/18 03:59 08/03/17 03:18 (Chlorhexidine 2% Cloth) 3 pack UNSCH PRN TOP 07/26/17 22:00 (Marcella-Colace) 1 tab BID PO 07/27/17 09:00 08/05/17 21:26 (Milk Of Magnesia Liq) 30 ml Q12H PRN PO 07/26/17 22:00 07/28/17 15:39 (Senokot) 17.2 mg Q12H PRN PO 07/26/17 22:00 (Dulcolax Supp) 10 mg DAILY PRN RECTAL 07/26/17 22:00 (Peridex 0.12% Liq) 15 ml BID@08,20 MT 07/27/17 08:00 08/03/17 08:00 (Trandate Inj) 10 mg Q4H PRN IV PUSH 07/27/17 02:30 08/03/17 04:48 (Coreg) 3.125 mg Q12HR PO 07/27/17 14:45 08/05/17 21:25 (Aspirin Chew) 81 mg DAILY CHEW 07/29/17 09:00 08/05/17 11:07 (Persantine) 50 mg QID PO 07/28/17 13:00 Future Hold 08/03/17 19:28 (Vasotec) 10 mg BID PO 07/29/17 09:00 08/05/17 21:26 (Ativan Inj) 0.5 mg Q2H PRN IV PUSH 07/29/17 14:30 08/04/17 17:26 Thiamine HCl 100 mg/Sodium Chloride 101 ml @ 101 mls/hr DAILY IV 07/29/17 14:15 08/04/17 09:00 (Lovenox Inj) 40 mg Q24H SQ 07/29/17 15:00 08/05/17 18:55 (Apresoline Inj) 20 mg Q4H PRN IV 07/29/17 21:15 (Imdur) 60 mg DAILY@0700 PO 07/30/17 09:00 08/05/17 06:35 (Norvasc) 5 mg DAILY PO 07/30/17 09:00 08/05/17 11:07 (Sinemet 25-100 Mg) 2 tab Q6HR PO 07/31/17 18:00 08/06/17 06:00 (Pill Splitter) 1 ea UNSCH PRN OTHER 08/01/17 10:00 (Pepcid) 20 mg BID PO 08/01/17 21:00 08/05/17 21:26 (Provigil) 200 mg DAILY PO 08/03/17 09:00 08/05/17 11:06 (Free Water) 200 ml Q6HR NG 08/02/17 12:30 08/06/17 06:00 (Haldol Inj) 1 mg Q4H PRN IV PUSH 08/04/17 12:30 08/04/17 15:51 (Duoneb Neb) 1 ampule Q4HR NEB NEB 08/04/17 12:00 08/06/17 03:42 (Mucinex Er) 600 mg BID PO 08/04/17 21:00 08/05/17 21:26 (Lactulose Liq) 30 ml TID PO 08/04/17 18:00 08/05/17 18:39 Vital Signs / I&O Vital Signs Date Time Temp Pulse Resp B/P (MAP) Pulse Ox O2 Delivery O2 Flow Rate FiO2 08/06/17 04:00 Room Air 08/06/17 04:00 98.3 66 22 170/74 (106) 95 08/06/17 00:10 98 21 08/06/17 00:00 64 08/06/17 00:00 98.2 68 18 137/56 (83) 93 08/05/17 20:12 98 21 08/05/17 20:00 67 08/05/17 16:01 98.0 64 20 109/65 (80) 96 08/05/17 12:00 69 08/05/17 12:00 97.6 69 20 105/49 (67) 95 08/05/17 11:21 69 105/49 (67) I/O 08/05/17 08/05/17 08/05/17 08/06/17 08/06/17 08/06/17 07:00 15:00 23:00 07:00 15:00 23:00 Intake Total 1140 ml Output Total 1600 ml 375 ml 400 ml Balance -1600 ml 765 ml -400 ml Intake Oral 0 ml Tube Feeding 540 ml Other 600 ml Output Urine Total 1600 ml 375 ml 400 ml # Bowel Movements 1 2 Physical Exam GENERAL: Well developed, well nourished. No acute distress. HEENT: Jugular venous pressure is normal. CHEST: Coarse upper airway sounds. CARDIAC: Regular rate and rhythm without S3, S4. I-II/ systolic murmur apex. ABDOMEN: Soft, nontender, no hepatosplenomegaly. Bowel sounds present. EXTREMITIES: No clubbing, cyanosis, or edema. Laboratory Laboratory Tests Test 1/28/18 09:54 White Blood Count 7.5 TH/MM3 Red Blood Count 4.14 MIL/MM3 Hemoglobin 13.9 GM/DL Hematocrit 40.1 % Mean Corpuscular Volume 96.8 FL Mean Corpuscular Hemoglobin 33.5 PG Mean Corpuscular Hemoglobin Concent 34.7 % Red Cell Distribution Width 12.9 % Platelet Count 316 TH/MM3 Mean Platelet Volume 7.9 FL Blood Urea Nitrogen 23 MG/DL Creatinine 0.61 MG/DL Random Glucose 112 MG/DL Total Protein 6.6 GM/DL Albumin 2.8 GM/DL Calcium Level 8.7 MG/DL Phosphorus Level 2.9 MG/DL Magnesium Level 2.2 MG/DL Alkaline Phosphatase 99 U/L Aspartate Amino Transf (AST/SGOT) 16 U/L Alanine Aminotransferase (ALT/SGPT) 7 U/L Total Bilirubin 0.6 MG/DL Sodium Level 144 MEQ/L Potassium Level 3.5 MEQ/L Chloride Level 104 MEQ/L Carbon Dioxide Level 31.9 MEQ/L Anion Gap 8 MEQ/L Estimat Glomerular Filtration Rate 129 ML/MIN Imaging Last 24 hours Impressions Abdomen X-Ray 08/06/17 0000 Signed Impressions: Service Date/Time: Sunday, August 06, 2017 03:45 - CONCLUSION: 1. Mild ileus. No free air. NG tip in stomach. Delta Lane MD Assessment and Plan Problem List: (1) Non-ST elevation ND (NSTEMI) ICD Codes: I21.4 - Non-ST elevation (NSTEMI) myocardial infarction Status: Acute Plan: (+) Initial troponin levels suggestive of NSTEMI. Stable cardiac status. No definite angina or CHF. Hemodynamically stable. Echo reviewed. EF 60-65%, not 45% as reported. REC medical therapy of CAD; patient at this point likely would not be able to lie still for nuclear stress testing continue current medical regimen, will f/u as needed (2) Hypertension ICD Codes: I10 - Essential (primary) hypertension Status: Chronic Plan: Still with fluctuating BP's. Rec no changes. Code Status full code Problem Qualifiers (1) Hypertension: Qualified Codes: I10 - Essential (primary) hypertension Alejandro Charles MD Aug 06, 2017 08:09
[2017-08-06] MEDS: LACTULOSE SYRUP 20 GM/30 ML CUP PO SCH ×3 (09:00→17:39)
[2017-08-06] MEDS: THIAMINE INJ 100 MG in SODIUM CHLORIDE 0.9% INJ 100 ML IV SCH (09:00)
[2017-08-06] MEDS: ENALAPRIL MALEATE 10 MG TAB PO SCH ×2 (09:00→21:00)
[2017-08-06] MEDS: FAMOTIDINE 20 MG TAB PO SCH (09:00)
[2017-08-06] MEDS: SODIUM CHLORIDE 0.9% FLUSH 10 ML FLUSH IV FLUSH SCH ×2 (09:00→21:00)
[2017-08-06] MEDS: DOCUSATE SODIUM 50 MG/SENNA 8.6 MG TAB PO SCH ×2 (09:00→21:00)
[2017-08-06] MEDS: ASPIRIN 81 MG CHEW TAB CHEW SCH (09:00)
[2017-08-06] MEDS: amLODIPine BESYLATE 5 MG TAB PO SCH (09:00)
[2017-08-06] MEDS: ARTIFICIAL TEARS OPTH SOLN 15 ML BTL EACH EYE SCH ×3 (09:00→17:39)
[2017-08-06] MEDS: guaiFENesin E.R. 600 MG TAB PO SCH ×2 (09:00→21:00)
[2017-08-06] MEDS: CARVEDILOL 3.125 MG TAB PO SCH ×2 (09:00→21:00)
[2017-08-06] MEDS: MODAFINIL 200 MG TAB PO SCH (09:00)
--- NOTE | 2017-08-06 09:24 | HHI.PR ---
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 Heimlich maneuver done by bystanders and then they realized he was in Asystole and CPR started. Patient is sedated and intubated and no further information is available. SUBJ remains intubated sedated with 20 mcg/m of propofol. Withdraws left upper extremity to pain. No purposeful movements noted. Troponin elevation to 2, now trending down to 0.9. Cardiology Dr. Charles. May need cardiac cath. Echo EF 45%. Off Dopamine, will start low-dose carvedilol 07/28: Slightly more on the vent as follows commands still somnolent. Sinemet resumed. Possible cath Sunday per Dr. Charles. DC IV Heparin, and start Lovenox 40 qd 07/29: Extubated yesterday, became agitated in afternoon. Started on when necessary Ativan and Haldol. Currently sedated from members of Ativan and Haldol. Somnolent but protecting airway. Agitation is multifactorial. Confirms that he drinks 2 drinks of vodka daily (she does not know how much he pours into each drink). IV Thiamine also started. I will also start him on Precedex in case he needs it 07/30: Requiring Precedex and intermittent Haldol for agitation, and possible alcohol withdrawal. Chest x-ray remains unchanged with mild pleural effusion on the right. No evidence of aspiration 07/31: Remains off Precedex slightly more awake alert. Did not require any Haldol overnight. Chest x-ray essentially clear with mild infrahilar infiltrate. Opens eyes and follows commands but lethargic 08/01: Intermittently agitated requiring restraints but overall steadily improving mentation. Maintaining oxygen saturation. Receiving tube feeds 08/02: Improved mentation today. Breathing comfortably maintaining oxygen saturation. Oriented to person and place. Chest x-ray shows persistent midlung infiltrate without evidence of fever or leukocytosis 08/03: delirium almost completely resolved today. continues to want to eat, but failing speech eval for dysphagia. oriented x 3. room air. per cardiology notes , needs myocardial perfusion scan "when out of ICU"- will order today since now hemodynamically stable. Hospitalist Notes: 08/04: with Diagnosis of NSTEMI followed by documentation specialist Echocardiogram EF 60-65%, When out of ICU will have Stress Test for the extent of residual ischemia, unless large area of ischemia demonstrated recommended medical therapy, seen in his bedroom in the presence of his discussed about nutrition will place a new NG tube to continue tube feedings, he failed today the Swallow test performed by Speech therapy continue Haldol 1 mg every six hours as needed to avoid somnolence, Restraints to both hands to improve safety at least today, discussed with Charge Nurse Miss Meyers to try to find a bed near the Nurse station to supervise the patient properly, continue Bronchodilator, Mucolytic and incentive spirometry, consulted Dietitian for tube feedings, following Electrolytes and Lactulose to get control of his Ammonia level. now with an NG tube will be done. 08/05: Stable in his bedroom, no nausea, vomit or diarrhea, receiving tube feedings, alert and awake and oriented, in place and person, his by his side. 08/06: Discussed with nurse Miss Shelley, with patient and his in the room, the patient dislodged his NG tube, and has some blood in his mouth, she is asking for PEG tube I agree will be the next step asked for GI specialist consult, I think his blood came from his nose and that preclude NG tubes placement through his nasal windows, no nausea, vomit or diarrhea, but failed swallow test, Objective Vital Signs Date Time Temp Pulse Resp B/P (MAP) Pulse Ox O2 Delivery O2 Flow Rate FiO2 08/06/17 08:25 95 21 08/06/17 08:08 97.8 68 18 129/79 (96) 100 08/06/17 04:00 Room Air 08/06/17 04:00 98.3 66 22 170/74 (106) 95 08/06/17 00:10 98 21 08/06/17 00:00 64 08/06/17 00:00 98.2 68 18 137/56 (83) 93 08/05/17 20:12 98 21 08/05/17 20:00 67 08/05/17 16:01 98.0 64 20 109/65 (80) 96 08/05/17 12:00 69 08/05/17 12:00 97.6 69 20 105/49 (67) 95 08/05/17 11:21 69 105/49 (67) I/O 08/05/17 08/05/17 08/05/17 08/06/17 08/06/17 08/06/17 07:00 15:00 23:00 07:00 15:00 23:00 Intake Total 1140 ml Output Total 1600 ml 375 ml 400 ml Balance -1600 ml 765 ml -400 ml Intake Oral 0 ml Tube Feeding 540 ml Other 600 ml Output Urine Total 1600 ml 375 ml 400 ml # Bowel Movements 1 2 Result Diagram: 08/05/17 0954 08/05/17 0954 Imaging Last Impressions Abdomen X-Ray 08/06/17 0000 Signed Impressions: Service Date/Time: Sunday, August 06, 2017 03:45 - CONCLUSION: 1. Mild ileus. No free air. NG tip in stomach. Delta Lane MD Chest X-Ray 08/02/17 0600 Signed Impressions: Service Date/Time: July 03:04 - CONCLUSION: Persistent right medial lung consolidation. Rocco Hurd MD Procedures Endotracheal Intubation and extubation Other Results Laboratory Tests Test 07/26/17 20:05 07/27/17 00:30 07/27/17 02:11 07/27/17 12:20 Bedside Hemoglobin 14.6 G/DL Bedside Hematocrit 43.0 % Urine Color YELLOW Urine Turbidity HAZY Urine pH 6.0 Urine Specific [place] 1.018 Urine Protein 100 mg/dL Urine Glucose (UA) NEG mg/dL Urine Ketones TRACE mg/dL Urine Occult Blood TRACE Urine Nitrite NEG Urine Bilirubin NEG Urine Urobilinogen 2.0 MG/DL Urine Leukocyte Esterase NEG Urine RBC 6 /hpf Urine WBC 12 /hpf Urine Squamous Epithelial Cells <1 /hpf Urine Bacteria RARE /hpf Urine Hyaline Casts 20 /lpf Urine Mucus FEW /lpf Microscopic Urinalysis Comment CULTURE INDICATED Bedside Sodium 143 MMOL/L Bedside Potassium 4.3 MMOL/L Bedside Chloride 105 MMOL/L Bedside Blood Urea Nitrogen 21 MG/DL Bedside Creatinine 0.9 MG/DL Bedside Glucose 151 MG/DL Lipase 179 U/L Nasal Screen MRSA (PCR) MRSA NOT DETECTED Prothrombin Time 10.7 SEC Prothromb Time International Ratio 1.1 RATIO Lactic Acid Level 1.5 mmol/L Creatine Kinase MB 12.5 NG/ML Creatine Kinase MB % 2.6 % Test 07/27/17 12:51 07/27/17 17:06 07/27/17 18:30 07/29/17 04:40 Total Creatine Kinase 486 U/L Blood Gas Ventilator Setting CPAP 11/11/39% Blood Gas Inspired Oxygen 40 % Troponin I 0.53 NG/ML Activated Partial Thromboplast Time 29.1 SEC Test 07/31/17 04:17 07/31/17 18:20 07/31/17 19:07 08/02/17 03:23 Vitamin B12 Level 1930 PG/ML Thyroid Stimulating Hormone 3rd Gen 1.070 uIU/ML Blood Gas Puncture Site RT RADIAL Blood Gas Patient Temperature 98.6 Blood Gas HCO3 29 mmol/L Blood Gas Base Excess 5.3 mmol/L Blood Gas Oxygen Saturation 94 % Arterial Blood pH 7.51 Arterial Blood Partial Pressure CO2 36 mmHg Arterial Blood Partial Pressure O2 82 mmHg Arterial Blood Oxygen Content 17.9 Vol % Arterial Blood Carboxyhemoglobin 1.1 % Arterial Blood Methemoglobin 1.2 % Blood Gas Hemoglobin 13.5 G/DL Oxygen Delivery Device NASAL CANNULA Blood Gas Liter Flow 4 L/M Erythrocyte Sedimentation Rate 42 mm/hr Ammonia 40 MCMOL/L Neutrophils (%) (Auto) 59.0 % Lymphocytes (%) (Auto) 21.9 % Monocytes (%) (Auto) 18.3 % Eosinophils (%) (Auto) 0.4 % Basophils (%) (Auto) 0.4 % Neutrophils # (Auto) 3.3 TH/MM3 Lymphocytes # (Auto) 1.2 TH/MM3 Monocytes # (Auto) 1.0 TH/MM3 Eosinophils # (Auto) 0.0 TH/MM3 Basophils # (Auto) 0.0 TH/MM3 CBC Comment DIFF FINAL Differential Comment Test 08/05/17 09:54 White Blood Count 7.5 TH/MM3 Red Blood Count 4.14 MIL/MM3 Hemoglobin 13.9 GM/DL Hematocrit 40.1 % Mean Corpuscular Volume 96.8 FL Mean Corpuscular Hemoglobin 33.5 PG Mean Corpuscular Hemoglobin Concent 34.7 % Red Cell Distribution Width 12.9 % Platelet Count 316 TH/MM3 Mean Platelet Volume 7.9 FL Blood Urea Nitrogen 23 MG/DL Creatinine 0.61 MG/DL Random Glucose 112 MG/DL Total Protein 6.6 GM/DL Albumin 2.8 GM/DL Calcium Level 8.7 MG/DL Phosphorus Level 2.9 MG/DL Magnesium Level 2.2 MG/DL Alkaline Phosphatase 99 U/L Aspartate Amino Transf (AST/SGOT) 16 U/L Alanine Aminotransferase (ALT/SGPT) 7 U/L Total Bilirubin 0.6 MG/DL Sodium Level 144 MEQ/L Potassium Level 3.5 MEQ/L Chloride Level 104 MEQ/L Carbon Dioxide Level 31.9 MEQ/L Anion Gap 8 MEQ/L Estimat Glomerular Filtration Rate 129 ML/MIN Objective Remarks GENERAL: Alert and awake, confused at this time. SKIN: Warm and dry. HEAD: Normocephalic. EYES: No scleral icterus. No injection or drainage. ENT: supple, no JVD no lymphadenopathy. NECK: Supple, trachea midline. CARDIOVASCULAR: Regular rate and rhythm. RESPIRATORY: unlabored. room air. GASTROINTESTINAL: Abdomen soft, non-tender, nondistended. MUSCULOSKELETAL: No cyanosis, or edema. NEURO EXAM: awake and alert, confused at this time. Medications and IVs Current Medications Medications (Trade) Dose Ordered Sig/Ventura Route Start Time Stop Time Status Last Admin (NS Flush) 2 ml UNSCH PRN IV FLUSH 07/26/17 22:00 (NS Flush) 2 ml BID IV FLUSH 07/27/17 09:00 08/05/17 21:27 (Tylenol) 650 mg Q6H PRN PO 07/26/17 22:00 (Tears Naturale Opth Soln) 1 drop TID EACH EYE 07/27/17 09:00 08/05/17 18:55 (Zofran Inj) 4 mg Q6H PRN IV PUSH 07/26/17 22:00 (Duoneb Neb) 1 ampule Q2HR NEB PRN INH 07/26/17 22:00 08/02/17 02:52 Miscellaneous Information 1 Q361D XX 07/26/17 22:00 07/26/17 22:00 (Chlorhexidine 2% Cloth) Taper DAILY@04 TOP 07/27/17 04:00 07/23/18 03:59 08/03/17 03:18 (Chlorhexidine 2% Cloth) 3 pack UNSCH PRN TOP 07/26/17 22:00 (Marcella-Colace) 1 tab BID PO 07/27/17 09:00 08/05/17 21:26 (Milk Of Magnesia Liq) 30 ml Q12H PRN PO 07/26/17 22:00 07/28/17 15:39 (Senokot) 17.2 mg Q12H PRN PO 07/26/17 22:00 (Dulcolax Supp) 10 mg DAILY PRN RECTAL 07/26/17 22:00 (Peridex 0.12% Liq) 15 ml BID@08,20 MT 07/27/17 08:00 08/03/17 08:00 (Trandate Inj) 10 mg Q4H PRN IV PUSH 07/27/17 02:30 08/03/17 04:48 (Coreg) 3.125 mg Q12HR PO 07/27/17 14:45 08/05/17 21:25 (Aspirin Chew) 81 mg DAILY CHEW 07/29/17 09:00 08/05/17 11:07 (Persantine) 50 mg QID PO 07/28/17 13:00 Future Hold 08/03/17 19:28 (Vasotec) 10 mg BID PO 07/29/17 09:00 08/05/17 21:26 (Ativan Inj) 0.5 mg Q2H PRN IV PUSH 07/29/17 14:30 08/04/17 17:26 Thiamine HCl 100 mg/Sodium Chloride 101 ml @ 101 mls/hr DAILY IV 07/29/17 14:15 08/04/17 09:00 (Lovenox Inj) 40 mg Q24H SQ 07/29/17 15:00 08/05/17 18:55 (Apresoline Inj) 20 mg Q4H PRN IV 07/29/17 21:15 (Imdur) 60 mg DAILY@0700 PO 07/30/17 09:00 08/05/17 06:35 (Norvasc) 5 mg DAILY PO 07/30/17 09:00 08/05/17 11:07 (Sinemet 25-100 Mg) 2 tab Q6HR PO 07/31/17 18:00 08/06/17 06:00 (Pill Splitter) 1 ea UNSCH PRN OTHER 08/01/17 10:00 (Pepcid) 20 mg BID PO 08/01/17 21:00 08/05/17 21:26 (Provigil) 200 mg DAILY PO 08/03/17 09:00 08/05/17 11:06 (Free Water) 200 ml Q6HR NG 08/02/17 12:30 08/06/17 06:00 (Haldol Inj) 1 mg Q4H PRN IV PUSH 08/04/17 12:30 08/04/17 15:51 (Duoneb Neb) 1 ampule Q4HR NEB NEB 08/04/17 12:00 08/06/17 08:25 (Mucinex Er) 600 mg BID PO 08/04/17 21:00 08/05/17 21:26 (Lactulose Liq) 30 ml TID PO 08/04/17 18:00 08/05/17 18:39 A/P Assessment and Plan 76yM s/p [id number] cardiac arrest secondary to choking. no clinically improving. course was complicated by NSTEMI which needs further cardiac work-up , but should not delay discharge: MPS and further cardiac intervention can be worked-up in inpatient rehab. will order MPS. stable for transfer to floor, and medically stable for transfer to inpatient rehab. Dr. Charles continues to follow, and appreciate his input. Cardiac arrest secondary to choking Non-ST elevation CO - Troponin peaked at 2, EF 45% - Continue Aspirin, Coreg. Lovenox 40 mg subcutaneous daily 07/29 - EKGs and troponin as needed - Stress test for Sunday08/06/17, Doctor Melvin saw the patient today, not possible to perform Stress test to follow PRN. Acute hypoxic and hypercarbic Respiratory failure- resolved. - secondary to choking - Extubated 07/29/17 - Continue breathing treatments, aggressive pulmonary toilet Delirium/metabolic encephalopathy- improving. Alcohol withdrawal- improving. - Delirium is multifactorial. improving at this time. - CIWA protocol, decrease dose of Haldol to 1 mg every six hours to avoid somnolence. - Continue Sinemet - Consumes >2 vodka Daily, supplement thiamine, watch for alcohol withdrawal - Neuro Dr. Xiao, stable his laboratory and electrolytes Dysphagia asked for NG tube but the patient had traumatic dislodge of his NG tube asked for PEG tube GI specialist consult. DVT GI prophylaxis - Teds SCDs - Lovenox 40 mg subcutaneous daily - Pepcid - PT OOB. OT Discharge Planning Not yet for discharge. Shalom Spence MD Aug 06, 2017 09:24
[2017-08-06] MEDS ORDERED: PROPOFOL 200 MG/20 ML AMP IV ONE (12:00)
[2017-08-06] MEDS ORDERED: LIDOCAINE HCL 1% PF 5 ML SYRINGE OTHER ONE (12:00)
[2017-08-06] MEDS: ENOXAPARIN SODIUM 40 MG/0.4 ML SYRINGE SQ SCH (15:00)
[2017-08-06] MEDS ORDERED: VANCOMYCIN HCL 1000 MG VIAL ONE (16:06)
[2017-08-06] MEDS ORDERED: METOPROLOL TARTRATE 25 MG TAB PO PRN (16:15)
[2017-08-06] MEDS ORDERED: SODIUM CHLORID 0.9% 500 ML IV PRN (16:15)
[2017-08-06] MEDS ORDERED: LACTATED RINGER'S 1000 ML IV PRN (16:15)
[2017-08-06] MEDS ORDERED: POVIDONE IODINE 5% (ANTISEPSIS KIT) 4 APPLICATIONS EACH NARE PRN (16:15)
[2017-08-06] MEDS ORDERED: CHLORHEXIDINE GLUCONATE 2 % 1 PACK (2 CLOTHS) TOPICAL PRN (16:15)
[2017-08-06] MEDS ORDERED: *RESP: ALBUTEROL 2.5 MG/3 ML NEB (PRN) PERIprocedural Use ONLY NEB ONE (16:32)
[2017-08-06] MEDS ORDERED: DO NOT ADM ANY ANTICOAGULANT DRUGS PRN (17:15)
--- NOTE | 2017-08-06 17:27 | PD.PROCEDR ---
GI Procedure PROCEDURE PERFORMED Endoscopy with biopsy, attempted PEG tube placement INDICATION FOR PROCEDURE Dysphagia PROCEDURE: The procedure, risks and benefits were discussed with Mr. Campoverde and informed consent was obtained. Anesthesia sedated him with Diprivan. He was placed in the left lateral decubitus position. EGD: The Pentax videoscope was introduced through the oropharynx and advanced to the second portion of the duodenum under direct visualization. Retroflexion was performed in the stomach. Biopsy from the antrum, I was not able to find a clear area where I have cleared indentation or illumination to place the PEG tube I tried with left upper quadrant with sterilization with Betadine and injected with lidocaine but there was no clear window so the procedure was terminated at that time without attempting to pass the catheter a cause of fear of possible perforation or damage to internal organs FINDINGS: Severe gastritis Small hiatal hernia PEG tube was not placed ESTIMATED BLOOD LOSS: None SPECIMENS REMOVED: Antrum COMPLICATIONS: None IMPRESSION: Severe gastritis Small hiatal hernia PEG tube was not placed PLAN: Follow up biopsy Protonix 40 mg daily PEG tube per interventional radiology Chris Cuello MD Aug 06, 2017 17:27
[2017-08-06] MEDS ORDERED: HALOPERIDOL LACTATE 5 MG/ML AMP IV PUSH PRN (22:00)
[2017-08-06] MEDS ORDERED: diphenhydrAMINE HCL 50 MG/ML VIAL IV PUSH ONE (22:30)
--- NOTE | 2017-08-06 23:08 | MB ---
cc: CHRIS CUELLO DATE OF CONSULTATION: 08/06/2017 DATE OF : 1940 REASON FOR REFERRAL Dysphagia. Thank you for the consultation. HISTORY OF PRESENT ILLNESS: The patient is a 76-year-old gentleman who had choking while he was sitting in the restaurant ended up with CPR. The patient had been resusciated. He had since then some confusion and he had swallowing evaluation where he was not able to swallow without aspiration. Recommendation was requested for PEG tube. ALLERGIES PENICILLIN. SULFA PAST MEDICAL HISTORY Reviewed in the chart. SOCIAL HISTORY Unable to obtain from the patient. REVIEW OF SYSTEMS Unobtainable. PHYSICAL EXAMINATION The patient is alert and oriented to place and person only. HEENT: Pupils are round, reactive to light. Neck: Supple. Chest: Bilateral crackles. Cardiac: Regular rate and rhythm. Abdomen: Soft, nondistended. Large surgical scar in the mid abdomen. Extremities: No clubbing, cyanosis or edema. Neurologic: Alert, oriented x2. LABORATORY DATA White count 7.5, hemoglobin 13.9, platelet 360, INR 1.1, about a week ago. Liver function tests normal yesterday. Abdominal x-ray, mild ileus. ASSESSMENT/PLAN 76-year-old gentleman with dysphagia, failed swallow evaluation, needs PEG tube placement. The patient has midline surgical scar and we will give the patient vancomycin because the patient is ALLERGIC TO SULFA AND PENICILLIN. Consent was obtained. Will proceed with the procedure today. Chris Cuello MD /STUART /5:28 PM /10:59 PM
[2017-08-07] VITALS (11 sets, daily range): BP systolic 137–189; BP diastolic 60–88; PULSE 66–80; RESP 18–23; TEMP 97.6–98.6; O2SAT 92–100
[2017-08-07] MEDS: SODIUM CHLOR 0.9% 1000 ML INJ 1,000 ML IV SCH ×3 (01:33→15:30)
[2017-08-07] MEDS: hydrALAZINE HCL 20 MG/ML VIAL IV PRN ×2 (01:56→16:12)
[2017-08-07] MEDS: RESP: ALBUTEROL 2.5 MG/IPRATROPIUM 0.5 MG NEB (SCH) NEB ×6 (03:34→23:26)
[2017-08-07] MEDS: CHLORHEXIDINE GLUCONATE 2 % 1 PACK (2 CLOTHS) TOP SCH (04:00)
[2017-08-07] MEDS: FREE WATER NG SCH ×4 (06:00→23:19)
[2017-08-07] MEDS: CARBIDOPA/LEVODOPA 25 MG/100 MG TAB PO SCH ×4 (06:00→23:19)
[2017-08-07] MEDS: ISOSORBIDE MONONITRATE 60 MG TAB PO SCH (06:43)
[2017-08-07] MEDS: CHLORHEXIDINE 0.12% (ORAL KIT) 15 ML CUP MT SCH ×2 (08:00→20:00)
--- NOTE | 2017-08-07 08:20 | HHI.PR ---
Subjective Remarks Turner Machine notes: 76-year-old gentleman with unknown past medical history was eating at a restaurant stood up choking like behavior and fell to ground. Heimlich maneuver done by bystanders and then they realized he was in Asystole and CPR started. Patient is sedated and intubated and no further information is available. SUBJ remains intubated sedated with 20 mcg/m of propofol. Withdraws left upper extremity to pain. No purposeful movements noted. Troponin elevation to 2, now trending down to 0.9. Cardiology Dr. Charles. May need cardiac cath. Echo EF 45%. Off Dopamine, will start low-dose carvedilol 07/28: Slightly more on the vent as follows commands still somnolent. Sinemet resumed. Possible cath Sunday per Dr. Charles. DC IV Heparin, and start Lovenox 40 qd 07/29: Extubated yesterday, became agitated in afternoon. Started on when necessary Ativan and Haldol. Currently sedated from members of Ativan and Haldol. Somnolent but protecting airway. Agitation is multifactorial. Confirms that he drinks 2 drinks of vodka daily (she does not know how much he pours into each drink). IV Thiamine also started. I will also start him on Precedex in case he needs it 07/30: Requiring Precedex and intermittent Haldol for agitation, and possible alcohol withdrawal. Chest x-ray remains unchanged with mild pleural effusion on the right. No evidence of aspiration 07/31: Remains off Precedex slightly more awake alert. Did not require any Haldol overnight. Chest x-ray essentially clear with mild infrahilar infiltrate. Opens eyes and follows commands but lethargic 08/01: Intermittently agitated requiring restraints but overall steadily improving mentation. Maintaining oxygen saturation. Receiving tube feeds 08/02: Improved mentation today. Breathing comfortably maintaining oxygen saturation. Oriented to person and place. Chest x-ray shows persistent midlung infiltrate without evidence of fever or leukocytosis 08/03: delirium almost completely resolved today. continues to want to eat, but failing speech eval for dysphagia. oriented x 3. room air. per cardiology notes , needs myocardial perfusion scan "when out of ICU"- will order today since now hemodynamically stable. Hospitalist Notes: 08/04: with Diagnosis of NSTEMI followed by instructional design specialist Echocardiogram EF 60-65%, When out of ICU will have Stress Test for the extent of residual ischemia, unless large area of ischemia demonstrated recommended medical therapy, seen in his bedroom in the presence of his discussed about nutrition will place a new NG tube to continue tube feedings, he failed today the Swallow test performed by Speech therapy continue Haldol 1 mg every six hours as needed to avoid somnolence, Restraints to both hands to improve safety at least today, discussed with Charge Nurse Miss Meyers to try to find a bed near the Nurse station to supervise the patient properly, continue Bronchodilator, Mucolytic and incentive spirometry, consulted Dietitian for tube feedings, following Electrolytes and Lactulose to get control of his Ammonia level. now with an NG tube will be done. 08/05: Stable in his bedroom, no nausea, vomit or diarrhea, receiving tube feedings, alert and awake and oriented, in place and person, his by his side. 08/06: Discussed with nurse Karsten, with patient and his in the room, the patient dislodged his NG tube, and has some blood in his mouth, she is asking for PEG tube I agree will be the next step asked for GI specialist consult, I think his blood came from his nose and that preclude NG tubes placement through his nasal windows, but failed swallow test. 08/07: Seen in his bedroom in the presence of nurse, speech therapy and his , patient failed swallow test he is been followed by Neurology specialist recommended Provigil to 200 mg, continue Lactulose for 1 to 2 more days, the patient is improving mentation with actual management, had Dysphagia previous to actual admission, for PEG tube will be placed tomorrow, for today asked for TPN versus PPN to be evaluated by [employer], he will have PEG tomorrow by Interventional Radiology. No Nausea, vomit or diarrhea. Objective Vital Signs Date Time Temp Pulse Resp B/P (MAP) Pulse Ox O2 Delivery O2 Flow Rate FiO2 08/07/17 04:00 97.6 77 23 161/75 (103) 100 08/07/17 04:00 69 08/07/17 00:00 66 08/07/17 00:00 97.8 74 22 189/86 (120) 97 08/06/17 20:00 Room Air 08/06/17 20:00 97.4 66 22 153/99 (117) 96 08/06/17 20:00 66 08/06/17 18:54 65 08/06/17 17:15 98.0 65 20 156/73 (100) 97 Nasal Cannula 2 08/06/17 17:00 69 23 164/76 (105) 97 Nasal Cannula 2 08/06/17 16:45 65 23 166/70 (102) 99 Simple Mask 8 08/06/17 16:41 98.1 66 21 132/68 (89) 100 Simple Mask 8 08/06/17 15:58 94 Room Air 08/06/17 12:26 98.1 66 18 174/85 (114) 98 08/06/17 12:00 66 08/06/17 08:25 95 21 I/O 08/06/17 08/06/17 08/06/17 08/07/17 08/07/17 08/07/17 07:00 15:00 23:00 07:00 15:00 23:00 Intake Total 100 ml 0 ml Output Total 400 ml 100 ml Balance -400 ml 0 ml 0 ml Intake Oral 0 ml IV Total 0 ml Other 100 ml Output Urine Total 400 ml 100 ml # Voids 2 3 # Bowel Movements 2 1 1 Result Diagram: 08/05/17 0954 08/05/17 0954 Imaging Last Impressions Abdomen X-Ray 08/06/17 0000 Signed Impressions: Service Date/Time: Sunday, August 06, 2017 03:45 - CONCLUSION: 1. Mild ileus. No free air. NG tip in stomach. Delta Lane MD Chest X-Ray 08/02/17 0600 Signed Impressions: Service Date/Time: July 03:04 - CONCLUSION: Persistent right medial lung consolidation. Rocco Hurd MD Procedures Endotracheal Intubation and extubation Other Results Laboratory Tests Test 07/26/17 20:05 07/27/17 00:30 07/27/17 02:11 07/27/17 12:20 Bedside Hemoglobin 14.6 G/DL Bedside Hematocrit 43.0 % Urine Color YELLOW Urine Turbidity HAZY Urine pH 6.0 Urine Specific [place] 1.018 Urine Protein 100 mg/dL Urine Glucose (UA) NEG mg/dL Urine Ketones TRACE mg/dL Urine Occult Blood TRACE Urine Nitrite NEG Urine Bilirubin NEG Urine Urobilinogen 2.0 MG/DL Urine Leukocyte Esterase NEG Urine RBC 6 /hpf Urine WBC 12 /hpf Urine Squamous Epithelial Cells <1 /hpf Urine Bacteria RARE /hpf Urine Hyaline Casts 20 /lpf Urine Mucus FEW /lpf Microscopic Urinalysis Comment CULTURE INDICATED Bedside Sodium 143 MMOL/L Bedside Potassium 4.3 MMOL/L Bedside Chloride 105 MMOL/L Bedside Blood Urea Nitrogen 21 MG/DL Bedside Creatinine 0.9 MG/DL Bedside Glucose 151 MG/DL Lipase 179 U/L Nasal Screen MRSA (PCR) MRSA NOT DETECTED Prothrombin Time 10.7 SEC Prothromb Time International Ratio 1.1 RATIO Lactic Acid Level 1.5 mmol/L Creatine Kinase MB 12.5 NG/ML Creatine Kinase MB % 2.6 % Test 07/27/17 12:51 07/27/17 17:06 07/27/17 18:30 07/29/17 04:40 Total Creatine Kinase 486 U/L Blood Gas Ventilator Setting CPAP 5/5/40% Blood Gas Inspired Oxygen 40 % Troponin I 0.53 NG/ML Activated Partial Thromboplast Time 29.1 SEC Test 07/31/17 04:17 07/31/17 18:20 07/31/17 19:07 08/02/17 03:23 Vitamin B12 Level 1930 PG/ML Thyroid Stimulating Hormone 3rd Gen 1.070 uIU/ML Blood Gas Puncture Site RT RADIAL Blood Gas Patient Temperature 98.6 Blood Gas HCO3 29 mmol/L Blood Gas Base Excess 5.3 mmol/L Blood Gas Oxygen Saturation 94 % Arterial Blood pH 7.51 Arterial Blood Partial Pressure CO2 36 mmHg Arterial Blood Partial Pressure O2 82 mmHg Arterial Blood Oxygen Content 17.9 Vol % Arterial Blood Carboxyhemoglobin 1.1 % Arterial Blood Methemoglobin 1.2 % Blood Gas Hemoglobin 13.5 G/DL Oxygen Delivery Device NASAL CANNULA Blood Gas Liter Flow 4 L/M Erythrocyte Sedimentation Rate 42 mm/hr Ammonia 40 MCMOL/L Neutrophils (%) (Auto) 59.0 % Lymphocytes (%) (Auto) 21.9 % Monocytes (%) (Auto) 18.3 % Eosinophils (%) (Auto) 0.4 % Basophils (%) (Auto) 0.4 % Neutrophils # (Auto) 3.3 TH/MM3 Lymphocytes # (Auto) 1.2 TH/MM3 Monocytes # (Auto) 1.0 TH/MM3 Eosinophils # (Auto) 0.0 TH/MM3 Basophils # (Auto) 0.0 TH/MM3 CBC Comment DIFF FINAL Differential Comment Test 08/05/17 09:54 White Blood Count 7.5 TH/MM3 Red Blood Count 4.14 MIL/MM3 Hemoglobin 13.9 GM/DL Hematocrit 40.1 % Mean Corpuscular Volume 96.8 FL Mean Corpuscular Hemoglobin 33.5 PG Mean Corpuscular Hemoglobin Concent 34.7 % Red Cell Distribution Width 12.9 % Platelet Count 316 TH/MM3 Mean Platelet Volume 7.9 FL Blood Urea Nitrogen 23 MG/DL Creatinine 0.61 MG/DL Random Glucose 112 MG/DL Total Protein 6.6 GM/DL Albumin 2.8 GM/DL Calcium Level 8.7 MG/DL Phosphorus Level 2.9 MG/DL Magnesium Level 2.2 MG/DL Alkaline Phosphatase 99 U/L Aspartate Amino Transf (AST/SGOT) 16 U/L Alanine Aminotransferase (ALT/SGPT) 7 U/L Total Bilirubin 0.6 MG/DL Sodium Level 144 MEQ/L Potassium Level 3.5 MEQ/L Chloride Level 104 MEQ/L Carbon Dioxide Level 31.9 MEQ/L Anion Gap 8 MEQ/L Estimat Glomerular Filtration Rate 129 ML/MIN Objective Remarks GENERAL: Alert and awake, oriented in place and person. SKIN: Warm and dry. HEAD: Normocephalic. EYES: No scleral icterus. No injection or drainage. ENT: supple, no JVD no lymphadenopathy. NECK: Supple, trachea midline. CARDIOVASCULAR: Regular rate and rhythm. RESPIRATORY: unlabored. room air. GASTROINTESTINAL: Abdomen soft, non-tender, nondistended. MUSCULOSKELETAL: No cyanosis, or edema. NEURO EXAM: awake and alert, oriented in place and person. Medications and IVs Current Medications Medications (Trade) Dose Ordered Sig/Ventura Route Start Time Stop Time Status Last Admin (NS Flush) 2 ml UNSCH PRN IV FLUSH 07/26/17 22:00 (NS Flush) 2 ml BID IV FLUSH 07/27/17 09:00 08/06/17 09:00 (Tylenol) 650 mg Q6H PRN PO 07/26/17 22:00 (Tears Naturale Opth Soln) 1 drop TID EACH EYE 07/27/17 09:00 08/06/17 17:39 (Zofran Inj) 4 mg Q6H PRN IV PUSH 07/26/17 22:00 (Duoneb Neb) 1 ampule Q2HR NEB PRN INH 07/26/17 22:00 08/02/17 02:52 Miscellaneous Information 1 Q361D XX 07/26/17 22:00 07/26/17 22:00 (Chlorhexidine 2% Cloth) Taper DAILY@04 TOP 07/27/17 04:00 07/23/18 03:59 08/03/17 03:18 (Chlorhexidine 2% Cloth) 3 pack UNSCH PRN TOP 07/26/17 22:00 (Marcella-Colace) 1 tab BID PO 07/27/17 09:00 08/05/17 21:26 (Milk Of Magnesia Liq) 30 ml Q12H PRN PO 07/26/17 22:00 07/28/17 15:39 (Senokot) 17.2 mg Q12H PRN PO 07/26/17 22:00 (Dulcolax Supp) 10 mg DAILY PRN RECTAL 07/26/17 22:00 (Peridex 0.12% Liq) 15 ml BID@08,20 MT 07/27/17 08:00 08/06/17 08:00 (Trandate Inj) 10 mg Q4H PRN IV PUSH 07/27/17 02:30 08/03/17 04:48 (Coreg) 3.125 mg Q12HR PO 07/27/17 14:45 08/05/17 21:25 (Aspirin Chew) 81 mg DAILY CHEW 07/29/17 09:00 08/05/17 11:07 (Persantine) 50 mg QID PO 07/28/17 13:00 Future Hold 08/03/17 19:28 (Vasotec) 10 mg BID PO 07/29/17 09:00 08/05/17 21:26 (Ativan Inj) 0.5 mg Q2H PRN IV PUSH 07/29/17 14:30 08/04/17 17:26 Thiamine HCl 100 mg/Sodium Chloride 101 ml @ 101 mls/hr DAILY IV 07/29/17 14:15 08/06/17 09:00 (Lovenox Inj) 40 mg Q24H SQ 07/29/17 15:00 08/05/17 18:55 (Apresoline Inj) 20 mg Q4H PRN IV 07/29/17 21:15 08/07/17 01:56 (Imdur) 60 mg DAILY@0700 PO 07/30/17 09:00 08/05/17 06:35 (Norvasc) 5 mg DAILY PO 07/30/17 09:00 08/05/17 11:07 (Sinemet 25-100 Mg) 2 tab Q6HR PO 07/31/17 18:00 08/06/17 06:00 (Pill Splitter) 1 ea UNSCH PRN OTHER 08/01/17 10:00 (Provigil) 200 mg DAILY PO 08/03/17 09:00 08/05/17 11:06 (Free Water) 200 ml Q6HR NG 08/02/17 12:30 08/06/17 06:00 (Duoneb Neb) 1 ampule Q4HR NEB NEB 08/04/17 12:00 08/06/17 23:37 (Mucinex Er) 600 mg BID PO 08/04/17 21:00 08/05/17 21:26 (Lactulose Liq) 30 ml TID PO 08/04/17 18:00 08/05/17 18:39 (Haldol Inj) 1 mg Q6HR PRN IV PUSH 08/06/17 22:00 09/05/17 21:59 Miscellaneous Information ALL NURSING DEPARTME... UNSCH PRN .XX 08/06/17 17:15 08/07/17 17:14 (Protonix Inj) 40 mg Q24H IV PUSH 08/06/17 18:00 Sodium Chloride 1,000 ml @ 100 mls/hr Q10H IV 08/06/17 19:30 08/07/17 06:42 A/P Assessment and Plan 76yM s/p [id number] cardiac arrest secondary to choking. no clinically improving. course was complicated by NSTEMI which needs further cardiac work-up , but should not delay discharge: MPS and further cardiac intervention can be worked-up in inpatient rehab. will order MPS. stable for transfer to floor, and medically stable for transfer to inpatient rehab. Dr. Charles continues to follow, and appreciate his input. Cardiac arrest secondary to choking Non-ST elevation WA - Troponin peaked at 2, EF 45% - Continue Aspirin, Coreg. Lovenox 40 mg subcutaneous daily 07/29 - EKGs and troponin as needed - not possible to perform Stress test to follow PRN by Cardiology no further recommendations. Acute hypoxic and hypercarbic Respiratory failure- resolved. - secondary to choking - Extubated 07/29/17 - Continue breathing treatments, aggressive pulmonary toilet, stable Delirium/metabolic encephalopathy- improving. Alcohol withdrawal- improving. - Delirium is multifactorial. improving at this time. - CIWA protocol, decrease dose of Haldol to 1 mg every six hours to avoid somnolence. - Continue Sinemet, Provigil increased to 200 mg - Consumes >2 vodka Daily, supplement thiamine, watch for alcohol withdrawal - Neurology specialist following, appreciated. Dysphagia asked for NG tube but the patient had traumatic dislodge of his NG tube asked for PEG tube as per Neurology his Dysphagia was previous to this admission, he had GI specialist consult and was performed an attempt to place PEG tube, was not possible, seen Severe Gastritis, Small Hiatal Hernia, recommended PPIs and Pepcid, PEG tube by interventional Radiology to be done tomorrow. DVT GI prophylaxis - Teds SCDs - Lovenox 40 mg subcutaneous daily - Pepcid - PT OOB. OT Discharge Planning Not yet for discharge. Shaolm Spence MD Aug 07, 2017 08:20
[2017-08-07] MEDS: THIAMINE INJ 100 MG in SODIUM CHLORIDE 0.9% INJ 100 ML IV SCH (08:55)
[2017-08-07] MEDS: CARVEDILOL 3.125 MG TAB PO SCH ×2 (09:00→20:05)
[2017-08-07] MEDS: DOCUSATE SODIUM 50 MG/SENNA 8.6 MG TAB PO SCH ×2 (09:00→20:05)
[2017-08-07] MEDS: LACTULOSE SYRUP 20 GM/30 ML CUP PO SCH ×3 (09:00→17:11)
[2017-08-07] MEDS: guaiFENesin E.R. 600 MG TAB PO SCH ×2 (09:00→20:05)
[2017-08-07] MEDS: ENALAPRIL MALEATE 10 MG TAB PO SCH ×2 (09:00→20:05)
[2017-08-07] MEDS: MODAFINIL 200 MG TAB PO SCH (09:00)
[2017-08-07] MEDS: amLODIPine BESYLATE 5 MG TAB PO SCH (09:00)
[2017-08-07] MEDS: ASPIRIN 81 MG CHEW TAB CHEW SCH (09:00)
[2017-08-07] MEDS: ARTIFICIAL TEARS OPTH SOLN 15 ML BTL EACH EYE SCH ×3 (09:00→17:10)
[2017-08-07] MEDS: SODIUM CHLORIDE 0.9% FLUSH 10 ML FLUSH IV FLUSH SCH ×2 (09:00→20:05)
--- NOTE | 2017-08-07 09:57 | HHI.PR ---
Review/Management Diagnosis/Plan: (1) Encephalopathy, metabolic ICD Codes: G93.41 - Metabolic encephalopathy Status: Acute Plan: etiology: hypoxic brain injury, hypoxia. dt's a possibility, mild resp distress/pneumonia nh3 slightly elevated last week no fever, no leukocytosis recs neuro stable continue provigil to 200mg qam recheck ammonia level and consider d/c lactulose pending peg tomorrow iv thiamine follow exam (2) Parkinsons disease ICD Codes: G20 - Parkinson's disease Status: Chronic Plan: 2 tabs po 6hrs when possible peg tube pending due to pre-existing dysphagia from PD (3) Cardiac arrest ICD Codes: I46.9 - Cardiac arrest, cause unspecified Status: Acute (4) Hypertension ICD Codes: I10 - Essential (primary) hypertension Status: Chronic Subjective Subjective Comments No acute events reported No headache No chest pain No dyspnea Still with difficulty swallowing Active Medications Current Medications Medications (Trade) Dose Ordered Sig/Ventura Route Start Time Stop Time Status Last Admin (NS Flush) 2 ml UNSCH PRN IV FLUSH 07/26/17 22:00 (NS Flush) 2 ml BID IV FLUSH 07/27/17 09:00 08/07/17 09:00 (Tylenol) 650 mg Q6H PRN PO 07/26/17 22:00 (Tears Naturale Opth Soln) 1 drop TID EACH EYE 07/27/17 09:00 08/07/17 09:00 (Zofran Inj) 4 mg Q6H PRN IV PUSH 07/26/17 22:00 (Duoneb Neb) 1 ampule Q2HR NEB PRN INH 07/26/17 22:00 08/02/17 02:52 Miscellaneous Information 1 Q361D XX 07/26/17 22:00 07/26/17 22:00 (Chlorhexidine 2% Cloth) Taper DAILY@04 TOP 07/27/17 04:00 07/23/18 03:59 08/03/17 03:18 (Chlorhexidine 2% Cloth) 3 pack UNSCH PRN TOP 07/26/17 22:00 (Marcella-Colace) 1 tab BID PO 07/27/17 09:00 08/05/17 21:26 (Milk Of Magnesia Liq) 30 ml Q12H PRN PO 07/26/17 22:00 07/28/17 15:39 (Senokot) 17.2 mg Q12H PRN PO 07/26/17 22:00 (Dulcolax Supp) 10 mg DAILY PRN RECTAL 07/26/17 22:00 (Peridex 0.12% Liq) 15 ml BID@08,20 MT 07/27/17 08:00 08/07/17 08:00 (Trandate Inj) 10 mg Q4H PRN IV PUSH 07/27/17 02:30 08/03/17 04:48 (Coreg) 3.125 mg Q12HR PO 07/27/17 14:45 08/05/17 21:25 (Aspirin Chew) 81 mg DAILY CHEW 07/29/17 09:00 08/05/17 11:07 (Persantine) 50 mg QID PO 07/28/17 13:00 Future Hold 08/03/17 19:28 (Vasotec) 10 mg BID PO 07/29/17 09:00 08/05/17 21:26 (Ativan Inj) 0.5 mg Q2H PRN IV PUSH 07/29/17 14:30 08/04/17 17:26 Thiamine HCl 100 mg/Sodium Chloride 101 ml @ 101 mls/hr DAILY IV 07/29/17 14:15 08/07/17 08:55 (Lovenox Inj) 40 mg Q24H SQ 07/29/17 15:00 08/05/17 18:55 (Apresoline Inj) 20 mg Q4H PRN IV 07/29/17 21:15 08/07/17 01:56 (Imdur) 60 mg DAILY@0700 PO 07/30/17 09:00 08/05/17 06:35 (Norvasc) 5 mg DAILY PO 07/30/17 09:00 08/05/17 11:07 (Sinemet 25-100 Mg) 2 tab Q6HR PO 07/31/17 18:00 08/06/17 06:00 (Pill Splitter) 1 ea UNSCH PRN OTHER 08/01/17 10:00 (Provigil) 200 mg DAILY PO 08/03/17 09:00 08/05/17 11:06 (Free Water) 200 ml Q6HR NG 08/02/17 12:30 08/06/17 06:00 (Duoneb Neb) 1 ampule Q4HR NEB NEB 08/04/17 12:00 08/06/17 23:37 (Mucinex Er) 600 mg BID PO 08/04/17 21:00 08/05/17 21:26 (Lactulose Liq) 30 ml TID PO 08/04/17 18:00 08/05/17 18:39 (Haldol Inj) 1 mg Q6HR PRN IV PUSH 08/06/17 22:00 09/05/17 21:59 Miscellaneous Information ALL NURSING DEPARTME... UNSCH PRN .XX 08/06/17 17:15 08/07/17 17:14 (Protonix Inj) 40 mg Q24H IV PUSH 08/06/17 18:00 Sodium Chloride 1,000 ml @ 100 mls/hr Q10H IV 08/06/17 19:30 08/07/17 06:42 Allergies Allergies Coded Allergies penicillin G (Verified Allergy, Severe, ANAPHILAXIS, 08/06/17) Sulfa (Sulfonamide Antibiotics) (Verified Allergy, Intermediate, UNKNOWN, 08/06) Review of Systems All other ROS: ROS reviewed as documented in chart Exam I&O / VS Vital Signs Date Time Temp Pulse Resp B/P (MAP) Pulse Ox O2 Delivery O2 Flow Rate FiO2 08/07/17 09:15 98.6 73 20 137/67 (90) 95 08/07/17 04:00 97.6 77 23 161/75 (103) 100 08/07/17 04:00 69 08/07/17 00:00 66 08/07/17 00:00 97.8 74 22 189/86 (120) 97 08/06/17 20:00 Room Air 08/06/17 20:00 97.4 66 22 153/99 (117) 96 08/06/17 20:00 66 08/06/17 18:54 65 08/06/17 17:15 98.0 65 20 156/73 (100) 97 Nasal Cannula 2 08/06/17 17:00 69 23 164/76 (105) 97 Nasal Cannula 2 08/06/17 16:45 65 23 166/70 (102) 99 Simple Mask 8 08/06/17 16:41 98.1 66 21 132/68 (89) 100 Simple Mask 8 08/06/17 15:58 94 Room Air 08/06/17 12:26 98.1 66 18 174/85 (114) 98 08/06/17 12:00 66 Exam Comments alerts, breathing comfortably, dysarthric/dysphonic speech, one word answers, following commands, ou 3mm, eomi, no tremors, minimal left ue rigidty, localizes with all 4 ext, plantar flexor Objective Micro and Labs Date/Time Source Procedure Growth Status 07/26/17 20:05 Urine Clean Catch Urine Culture - Final NO GROWTH IN 48 HOURS. Complete Problem Qualifiers (1) Hypertension: Qualified Codes: I10 - Essential (primary) hypertension Jose Alejandro El Aug 07, 2017 09:57
[2017-08-07] MEDS ORDERED: POTASSIUM CHLORIDE 20 MEQ CONTROLLED RELEASE TAB PO ONE (12:15)
[2017-08-07] MEDS: PANTOPRAZOLE SODIUM 40 MG VIAL IV PUSH SCH (16:02)
[2017-08-07] MEDS: ENOXAPARIN SODIUM 40 MG/0.4 ML SYRINGE SQ SCH (16:06)
[2017-08-08] VITALS (10 sets, daily range): BP systolic 140–176; BP diastolic 70–98; PULSE 70–83; RESP 16–22; TEMP 97.2–98.5; O2SAT 96–98
[2017-08-08] MEDS: RESP: ALBUTEROL 2.5 MG/IPRATROPIUM 0.5 MG NEB (SCH) NEB ×2 (03:23→07:43)
[2017-08-08] MEDS: CHLORHEXIDINE GLUCONATE 2 % 1 PACK (2 CLOTHS) TOP SCH (03:48)
[2017-08-08] MEDS: SODIUM CHLOR 0.9% 1000 ML INJ 1,000 ML IV SCH ×2 (03:48→15:19)
[2017-08-08] MEDS: CARBIDOPA/LEVODOPA 25 MG/100 MG TAB PO SCH ×4 (05:45→23:43)
[2017-08-08] MEDS: ISOSORBIDE MONONITRATE 60 MG TAB PO SCH (05:45)
[2017-08-08] MEDS: FREE WATER NG SCH ×2 (05:45→12:00)
[2017-08-08] MEDS: CHLORHEXIDINE 0.12% (ORAL KIT) 15 ML CUP MT SCH ×2 (08:00→20:00)
--- NOTE | 2017-08-08 08:36 | HHI.PR ---
Review/Management Diagnosis/Plan: (1) Encephalopathy, metabolic ICD Codes: G93.41 - Metabolic encephalopathy Status: Acute Plan: etiology: hypoxic brain injury, hypoxia. dt's a possibility, mild resp distress/pneumonia improved recs neuro status improved plans for peg continue sinemet rehab placement d/w pt and spouse at bedside (2) Parkinsons disease ICD Codes: G20 - Parkinson's disease Status: Chronic Plan: 2 tabs po 6hrs when possible peg tube pending due to pre-existing dysphagia from PD (3) Cardiac arrest ICD Codes: I46.9 - Cardiac arrest, cause unspecified Status: Acute (4) Hypertension ICD Codes: I10 - Essential (primary) hypertension Status: Chronic Subjective Subjective Comments No acute events reported No headache No chest pain No dyspnea Active Medications Current Medications Medications (Trade) Dose Ordered Sig/Ventura Route Start Time Stop Time Status Last Admin (NS Flush) 2 ml UNSCH PRN IV FLUSH 07/26/17 22:00 (NS Flush) 2 ml BID IV FLUSH 07/27/17 09:00 08/07/17 09:00 (Tylenol) 650 mg Q6H PRN PO 07/26/17 22:00 (Tears Naturale Opth Soln) 1 drop TID EACH EYE 07/27/17 09:00 08/07/17 17:10 (Zofran Inj) 4 mg Q6H PRN IV PUSH 07/26/17 22:00 (Duoneb Neb) 1 ampule Q2HR NEB PRN INH 07/26/17 22:00 08/02/17 02:52 Miscellaneous Information 1 Q361D XX 07/26/17 22:00 07/26/17 22:00 (Chlorhexidine 2% Cloth) Taper DAILY@04 TOP 07/27/17 04:00 07/23/18 03:59 08/03/17 03:18 (Chlorhexidine 2% Cloth) 3 pack UNSCH PRN TOP 07/26/17 22:00 (Marcella-Colace) 1 tab BID PO 07/27/17 09:00 08/05/17 21:26 (Milk Of Magnesia Liq) 30 ml Q12H PRN PO 07/26/17 22:00 07/28/17 15:39 (Senokot) 17.2 mg Q12H PRN PO 07/26/17 22:00 (Dulcolax Supp) 10 mg DAILY PRN RECTAL 07/26/17 22:00 (Peridex 0.12% Liq) 15 ml BID@08,20 MT 07/27/17 08:00 08/07/17 20:00 (Trandate Inj) 10 mg Q4H PRN IV PUSH 07/27/17 02:30 08/03/17 04:48 (Coreg) 3.125 mg Q12HR PO 07/27/17 14:45 08/05/17 21:25 (Aspirin Chew) 81 mg DAILY CHEW 07/29/17 09:00 08/05/17 11:07 (Persantine) 50 mg QID PO 07/28/17 13:00 Future Hold 08/03/17 19:28 (Vasotec) 10 mg BID PO 07/29/17 09:00 08/05/17 21:26 (Ativan Inj) 0.5 mg Q2H PRN IV PUSH 07/29/17 14:30 08/04/17 17:26 Thiamine HCl 100 mg/Sodium Chloride 101 ml @ 101 mls/hr DAILY IV 07/29/17 14:15 08/07/17 08:55 (Lovenox Inj) 40 mg Q24H SQ 07/29/17 15:00 08/07/17 16:06 (Apresoline Inj) 20 mg Q4H PRN IV 07/29/17 21:15 08/07/17 16:12 (Imdur) 60 mg DAILY@0700 PO 07/30/17 09:00 08/05/17 06:35 (Norvasc) 5 mg DAILY PO 07/30/17 09:00 08/05/17 11:07 (Sinemet 25-100 Mg) 2 tab Q6HR PO 07/31/17 18:00 08/06/17 06:00 (Pill Splitter) 1 ea UNSCH PRN OTHER 08/01/17 10:00 (Provigil) 200 mg DAILY PO 08/03/17 09:00 08/05/17 11:06 (Free Water) 200 ml Q6HR NG 08/02/17 12:30 08/06/17 06:00 (Duoneb Neb) 1 ampule Q4HR NEB NEB 08/04/17 12:00 08/06/17 23:37 (Mucinex Er) 600 mg BID PO 08/04/17 21:00 08/05/17 21:26 (Lactulose Liq) 30 ml TID PO 08/04/17 18:00 08/05/17 18:39 (Haldol Inj) 1 mg Q6HR PRN IV PUSH 08/06/17 22:00 09/05/17 21:59 (Protonix Inj) 40 mg Q24H IV PUSH 08/06/17 18:00 08/07/17 16:02 Sodium Chloride 1,000 ml @ 100 mls/hr Q10H IV 08/06/17 19:30 08/08/17 03:48 Allergies Allergies Coded Allergies penicillin G (Verified Allergy, Severe, ANAPHILAXIS, 08/06/17) Sulfa (Sulfonamide Antibiotics) (Verified Allergy, Intermediate, UNKNOWN, 08/06) Review of Systems All other ROS: ROS reviewed as documented in chart Exam I&O / VS Vital Signs Date Time Temp Pulse Resp B/P (MAP) Pulse Ox O2 Delivery O2 Flow Rate FiO2 08/08/17 08:00 97.5 78 18 176/98 (124) 98 08/08/17 04:00 97.5 80 17 150/89 (109) 98 08/08/17 03:58 76 08/08/17 00:00 83 08/08/17 00:00 98.5 70 17 140/70 (93) 98 08/07/17 22:00 98.5 77 18 137/60 (85) 98 08/07/17 20:06 Room Air 08/07/17 19:55 80 08/07/17 17:07 98.5 75 20 167/80 (109) 92 08/07/17 16:23 72 08/07/17 12:59 97.6 72 20 159/88 (111) 97 08/07/17 12:00 77 08/07/17 11:39 Room Air 08/07/17 11:39 72 08/07/17 09:15 98.6 73 20 137/67 (90) 95 Exam Comments alert, ox 2, not to date, speech improved but still hypophonic, facial hypomimia , follows, no tremors, minimal rigidity, marquez to gravity Objective Micro and Labs Laboratory Tests Test 08/07/17 15:01 Ammonia 26 Date/Time Source Procedure Growth Status 07/26/17 20:05 Urine Clean Catch Urine Culture - Final NO GROWTH IN 48 HOURS. Complete Problem Qualifiers (1) Hypertension: Qualified Codes: I10 - Essential (primary) hypertension Russell Xiao MD Aug 08, 2017 08:36
[2017-08-08] MEDS: ASPIRIN 81 MG CHEW TAB CHEW SCH (09:00)
[2017-08-08] MEDS: amLODIPine BESYLATE 5 MG TAB PO SCH (09:00)
[2017-08-08] MEDS: DOCUSATE SODIUM 50 MG/SENNA 8.6 MG TAB PO SCH ×2 (09:00→21:32)
[2017-08-08] MEDS: LACTULOSE SYRUP 20 GM/30 ML CUP PO SCH ×3 (09:00→18:35)
[2017-08-08] MEDS: guaiFENesin E.R. 600 MG TAB PO SCH ×2 (09:00→21:32)
[2017-08-08] MEDS: MODAFINIL 200 MG TAB PO SCH (09:00)
[2017-08-08] MEDS: SODIUM CHLORIDE 0.9% FLUSH 10 ML FLUSH IV FLUSH SCH ×2 (09:00→21:00)
[2017-08-08] MEDS: CARVEDILOL 3.125 MG TAB PO SCH ×2 (09:00→21:32)
[2017-08-08] MEDS: ARTIFICIAL TEARS OPTH SOLN 15 ML BTL EACH EYE SCH ×3 (09:00→17:21)
[2017-08-08] MEDS: ENALAPRIL MALEATE 10 MG TAB PO SCH ×2 (09:00→21:31)
[2017-08-08] MEDS ORDERED: fentaNYL CITRATE 250 MCG/5 ML AMP ONE (12:18)
[2017-08-08] MEDS ORDERED: MIDAZOLAM HCL 2 MG/2 ML VIAL ONE (12:18)
[2017-08-08] MEDS ORDERED: GLUCAGON 1 MG/ML VIAL ONE ×2 (12:54→12:59)
--- NOTE | 2017-08-08 13:30 | PD.RAD ---
Post Procedure Progress Note Pre Procedure Diagnosis: (1) Parkinsons disease Post Procedure Diagnosis: (1) Parkinsons disease Procedure Date: Aug 08, 2017 Supervising Radiologist: Kanu Freitas Proceduralist/Assist: RT Joanna(R), RT Kaye(R) Anesthesia: Conscious Sedation Plan of Activity Patient to Unit: ROPU Patient Condition: Good See PACS Report for procedural detail/treatment Kanu Freitas MD Aug 08, 2017 13:30
[2017-08-08] MEDS ORDERED: IOHEXOL 350 MG/ML 50 ML BTL (for RAD DIAG) G-TUBE ONE (13:37)
[2017-08-08] MEDS: THIAMINE INJ 100 MG in SODIUM CHLORIDE 0.9% INJ 100 ML IV SCH (15:19)
--- NOTE | 2017-08-08 15:56 | RADRPT ---
EXAM DATE/TIME: 08/08/2017 12:15 [facility] COMPARISON: No previous studies available for comparison. INDICATIONS : Patient with dysphagia in need of G-tube placement for nutrition. MEDICAL HISTORY : Unknown SURGICAL HISTORY : Unknown ENCOUNTER: Initial ACUITY: 2 weeks PAIN SCORE: 0/10 FLUORO TIME: 5.9 minutes IMAGE SERIES: 0 SEDATION TIME: 30 minutes CONTRAST: 15 cc Omnipaque (iohexol) 350 MEDICATION(S): 1.) 2 mg midazolam (Versed) IV 2.) 100 mcg Fentanyl (Sublimaze) IV DEVICE(S): 1.) 18 Fr gastrostomy tube PROCEDURE : 1. Limited abdominal ultrasound. 2. Fluoroscopically guided gastrostomy tube placement. 3. Conscious sedation with continuous EKG and oximetry monitoring. The risks, benefits and alternatives to the procedure were explained and verbal and written consent w as obtained. The site was prepped in sterile fashion. Full sterile technique was used, including ca p, mask, sterile gloves and gown and a large sterile sheet. Hand hygiene and 2% chlorhexidine and/or betadine/alcohol prep was utilized per protocol for cutaneous antisepsis. The skin and subcutaneous tissues were infiltrated with local anesthetic solution. Sterile gel and sterile probe cover were u tilized for ultrasound guidance. Ultrasound was used to kizzy the position of the liver. The stomach was insufflated with room air. Th ree percutaneous fasteners were placed to secure the anterior gastric wall. A small incision was made between the fasteners. The stomach was accessed with an 18 gauge needle. A n 0.035 wire was advanced into the small bowel. The tract was dilated. The gastrostomy tube was int roduced through a peel-away sheath. The position was confirmed with an injection of contrast. Conscious sedation was performed with the prescribed dosages and duration as above in the presence of an independent trained radiology nurse to assist in the monitoring of the patient. EKG and oximetry remained stable throughout the procedure. The patient tolerated the procedure well and there were n o complications. The patient was sent to post anesthesia recovery in stable condition. CONCLUSION: Uncomplicated gastrostomy tube placement as above. Kanu Freitas MD on August 08, 2017 at 15:53 Board Certified Radiologist. This report was verified electronically.
--- NOTE | 2017-08-08 15:58 | HHI.PR ---
Subjective Remarks The pt was seen following PEG tube placement. The pt requested soda. Discussed with at the bedside. She was hopeful the pt would go to [place] upon discharge. Discussed with nursing. Objective Vitals Vital Signs Date Time Temp Pulse Resp B/P (MAP) Pulse Ox O2 Delivery O2 Flow Rate FiO2 08/08/17 13:40 97.9 74 16 155/89 (111) 97 08/08/17 08:00 97.5 78 18 176/98 (124) 98 08/08/17 08:00 76 08/08/17 04:00 97.5 80 17 150/89 (109) 98 08/08/17 03:58 76 08/08/17 00:00 83 08/08/17 00:00 98.5 70 17 140/70 (93) 98 08/07/17 22:00 98.5 77 18 137/60 (85) 98 08/07/17 20:06 Room Air 08/07/17 19:55 80 08/07/17 17:07 98.5 75 20 167/80 (109) 92 08/07/17 16:23 72 I/O 08/07/17 08/07/17 08/07/17 08/08/17 08/08/17 08/08/17 07:00 15:00 23:00 07:00 15:00 23:00 Intake Total 0 ml 101 ml 1000 ml 256 ml Output Total 200 ml Balance 0 ml -99 ml 1000 ml 256 ml Intake Oral 0 ml 0 ml IV Total 101 ml 1000 ml 256 ml Output Urine Total 200 ml # Voids 3 1 1 1 # Bowel Movements 1 1 Result Diagram: 08/05/17 0954 08/05/17 0954 Imaging Last Impressions Gastrostomy Tube Placement 08/08/17 0000 Signed Impressions: Service Date/Time: Tuesday, August 08, 2017 12:15 - CONCLUSION: Uncomplicated gastrostomy tube placement as above. Kanu Freitas MD Abdomen X-Ray 08/06/17 0000 Signed Impressions: Service Date/Time: Sunday, August 06, 2017 03:45 - CONCLUSION: 1. Mild ileus. No free air. NG tip in stomach. Delta Lane MD Chest X-Ray 08/02/17 0600 Signed Impressions: Service Date/Time: July 03:04 - CONCLUSION: Persistent right medial lung consolidation. Rocco Hurd MD Objective Remarks GENERAL: Appears comfortable. SKIN: Warm and dry. HEAD: Normocephalic. EYES: No scleral icterus. No injection or drainage. ENT: supple, no JVD no lymphadenopathy. NECK: Supple, trachea midline. CARDIOVASCULAR: Regular rate and rhythm. RESPIRATORY: unlabored, breathing comfortably. GASTROINTESTINAL: Abdomen soft, non-tender, nondistended. Binder in place. MUSCULOSKELETAL: No cyanosis, or edema. NEURO EXAM: awake and alert, oriented in place and person. Procedures PEG tube placement Medications and IVs Current Medications Medications (Trade) Dose Ordered Sig/Ventura Route Start Time Stop Time Status Last Admin (NS Flush) 2 ml UNSCH PRN IV FLUSH 07/26/17 22:00 (NS Flush) 2 ml BID IV FLUSH 07/27/17 09:00 08/07/17 09:00 (Tylenol) 650 mg Q6H PRN PO 07/26/17 22:00 (Tears Naturale Opth Soln) 1 drop TID EACH EYE 07/27/17 09:00 08/07/17 17:10 (Zofran Inj) 4 mg Q6H PRN IV PUSH 07/26/17 22:00 (Duoneb Neb) 1 ampule Q2HR NEB PRN INH 07/26/17 22:00 08/02/17 02:52 Miscellaneous Information 1 Q361D XX 07/26/17 22:00 07/26/17 22:00 (Chlorhexidine 2% Cloth) Taper DAILY@04 TOP 07/27/17 04:00 07/23/18 03:59 08/03/17 03:18 (Chlorhexidine 2% Cloth) 3 pack UNSCH PRN TOP 07/26/17 22:00 (Marcella-Colace) 1 tab BID PO 07/27/17 09:00 08/05/17 21:26 (Milk Of Magnesia Liq) 30 ml Q12H PRN PO 07/26/17 22:00 07/28/17 15:39 (Senokot) 17.2 mg Q12H PRN PO 07/26/17 22:00 (Dulcolax Supp) 10 mg DAILY PRN RECTAL 07/26/17 22:00 (Peridex 0.12% Liq) 15 ml BID@08,20 MT 07/27/17 08:00 08/07/17 20:00 (Trandate Inj) 10 mg Q4H PRN IV PUSH 07/27/17 02:30 08/03/17 04:48 (Coreg) 3.125 mg Q12HR PO 07/27/17 14:45 08/05/17 21:25 (Aspirin Chew) 81 mg DAILY CHEW 07/29/17 09:00 08/05/17 11:07 (Persantine) 50 mg QID PO 07/28/17 13:00 Future hold 08/03/17 19:28 (Vasotec) 10 mg BID PO 07/29/17 09:00 08/05/17 21:26 (Ativan Inj) 0.5 mg Q2H PRN IV PUSH 07/29/17 14:30 08/04/17 17:26 Thiamine HCl 100 mg/Sodium Chloride 101 ml @ 101 mls/hr DAILY IV 07/29/17 14:15 08/08/17 15:19 (Lovenox Inj) 40 mg Q24H SQ 07/29/17 15:00 08/07/17 16:06 (Apresoline Inj) 20 mg Q4H PRN IV 07/29/17 21:15 08/07/17 16:12 (Imdur) 60 mg DAILY@0700 PO 07/30/17 09:00 08/05/17 06:35 (Norvasc) 5 mg DAILY PO 07/30/17 09:00 08/05/17 11:07 (Sinemet 25-100 Mg) 2 tab Q6HR PO 07/31/17 18:00 08/06/17 06:00 (Pill Splitter) 1 ea UNSCH PRN OTHER 08/01/17 10:00 (Provigil) 200 mg DAILY PO 08/03/17 09:00 08/05/17 11:06 (Free Water) 200 ml Q6HR NG 08/02/17 12:30 08/06/17 06:00 (Mucinex Er) 600 mg BID PO 08/04/17 21:00 08/05/17 21:26 (Lactulose Liq) 30 ml TID PO 08/04/17 18:00 08/05/17 18:39 (Haldol Inj) 1 mg Q6HR PRN IV PUSH 08/06/17 22:00 09/05/17 21:59 (Protonix Inj) 40 mg Q24H IV PUSH 08/06/17 18:00 08/07/17 16:02 (Morphine Inj) 2 mg Q4H PRN IV PUSH 08/08/17 16:00 A/P Assessment and Plan 76yM s/p [id number] cardiac arrest secondary to choking. Course was complicated by NSTEMI which needs further cardiac work-up, but should not delay discharge. MPS and further cardiac intervention can be worked-up in inpatient rehab. Cardiac arrest secondary to choking Non-ST elevation GA. Troponin peaked at 2, EF 45%. - Continue Aspirin, Coreg. Lovenox 40 mg subcutaneous daily. - - outpt follow-up with cardiology. Medical management recommended. Acute hypoxic and hypercarbic respiratory failure Secondary to choking. Extubated 07/29/17. - Continue breathing treatments, aggressive pulmonary toilet. Delirium/ metabolic encephalopathy/ Alcohol withdrawal Delirium is multifactorial. improving at this time. Neurology consult appreciated. - [facility] protocol, decrease dose of Haldol to 1 mg every six hours to avoid somnolence. - Continue Sinemet, Provigil increased to 200 mg - Consumes >2 vodka Daily, supplement thiamine. - PT/ OT. Dysphagia GI specialist consulted and attempted to place PEG tube, was not possible. Severe Gastritis, Small Hiatal Hernia were noted. - PEG tube by Interventional Radiology 08/08. - PPI. - free water. Parkinson's/ Deconditioning The pt is weak. - continue home meds. - inpt rehab recommended. - PT/ OT/ ST. PPx: Alfredo Luciano DO Aug 08, 2017 15:58
[2017-08-08] MEDS: ENOXAPARIN SODIUM 40 MG/0.4 ML SYRINGE SQ SCH (17:21)
[2017-08-08] MEDS: PANTOPRAZOLE SODIUM 40 MG VIAL IV PUSH SCH (17:22)
[2017-08-08] MEDS: FREE WATER G-TUBE SCH ×2 (18:34→23:43)
[2017-08-08] MEDS: MORPHINE SULFATE 2 MG/ML INJ IV PUSH PRN (19:07)
[2017-08-08] MEDS ORDERED: IBUPROFEN 400 MG TAB PO PRN (21:00)
[2017-08-08 21:29] LABS: HEMATOCRIT 41.6 % (39.0-51.0); HEMOGLOBIN 14.1 GM/DL (13.0-17.0); MEAN CORPUSCULAR HEMOGLOBIN 32.9 PG (27.0-34.0); MEAN CORPUSCULAR HGB CONC 33.9 % (32.0-36.0); MEAN PLATELET VOLUME 7.9 FL (7.0-11.0); PLATELET COUNT 341 TH/MM3 (150-450); RED BLOOD COUNT 4.29 MIL/MM3 (4.50-5.90); WHITE BLOOD COUNT 13.3 TH/MM3 (4.0-11.0)
[2017-08-09] VITALS (11 sets, daily range): BP systolic 84–161; BP diastolic 54–88; PULSE 67–90; RESP 18–27; TEMP 97.3–99.7; O2SAT 93–96
[2017-08-09] MEDS: MORPHINE SULFATE 2 MG/ML INJ IV PUSH PRN (00:25)
[2017-08-09] MEDS ORDERED: ACETAMINOPHEN/HYDROcodone 325 MG/5 MG TAB PO ONE (03:30)
[2017-08-09] MEDS: CHLORHEXIDINE GLUCONATE 2 % 1 PACK (2 CLOTHS) TOP SCH (04:00)
[2017-08-09] MEDS: CARBIDOPA/LEVODOPA 25 MG/100 MG TAB PO SCH ×4 (06:00→23:37)
[2017-08-09] MEDS: FREE WATER G-TUBE SCH ×4 (06:00→22:00)
[2017-08-09] MEDS: ISOSORBIDE MONONITRATE 60 MG TAB PO SCH (06:17)
[2017-08-09] MEDS: CHLORHEXIDINE 0.12% (ORAL KIT) 15 ML CUP MT SCH ×2 (08:00→19:46)
--- NOTE | 2017-08-09 08:09 | HHI.PR ---
Review/Management Diagnosis/Plan: (1) Encephalopathy, metabolic ICD Codes: G93.41 - Metabolic encephalopathy Status: Acute Plan: etiology: hypoxic brain injury, hypoxia. dt's a possibility, mild resp distress/pneumonia s/p peg tube a little lethargic this am- possibly 2/2 mso4 recs d/c morphine. start norco 5/326 prn pain continue sinemet rehab placement d/w pt and spouse at bedside (2) Parkinsons disease ICD Codes: G20 - Parkinson's disease Status: Chronic Plan: 2 tabs po 6hrs when possible peg tube pending due to pre-existing dysphagia from PD (3) Cardiac arrest ICD Codes: I46.9 - Cardiac arrest, cause unspecified Status: Acute (4) Hypertension ICD Codes: I10 - Essential (primary) hypertension Status: Chronic Subjective Subjective Comments No acute events reported No headache No chest pain No dyspnea Active Medications Current Medications Medications (Trade) Dose Ordered Sig/Ventura Route Start Time Stop Time Status Last Admin (NS Flush) 2 ml UNSCH PRN IV FLUSH 07/26/17 22:00 (NS Flush) 2 ml BID IV FLUSH 07/27/17 09:00 08/08/17 21:00 (Tylenol) 650 mg Q6H PRN PO 07/26/17 22:00 (Tears Naturale Opth Soln) 1 drop TID EACH EYE 07/27/17 09:00 08/08/17 17:21 (Zofran Inj) 4 mg Q6H PRN IV PUSH 07/26/17 22:00 (Duoneb Neb) 1 ampule Q2HR NEB PRN INH 07/26/17 22:00 08/02/17 02:52 Miscellaneous Information 1 Q361D XX 07/26/17 22:00 07/26/17 22:00 (Chlorhexidine 2% Cloth) Taper DAILY@04 TOP 07/27/17 04:00 07/23/18 03:59 08/03/17 03:18 (Chlorhexidine 2% Cloth) 3 pack UNSCH PRN TOP 07/26/17 22:00 (Marcella-Colace) 1 tab BID PO 07/27/17 09:00 08/08/17 21:32 (Milk Of Magnesia Liq) 30 ml Q12H PRN PO 07/26/17 22:00 07/28/17 15:39 (Senokot) 17.2 mg Q12H PRN PO 07/26/17 22:00 (Dulcolax Supp) 10 mg DAILY PRN RECTAL 07/26/17 22:00 (Peridex 0.12% Liq) 15 ml BID@08,20 MT 07/27/17 08:00 08/08/17 20:00 (Trandate Inj) 10 mg Q4H PRN IV PUSH 07/27/17 02:30 08/03/17 04:48 (Coreg) 3.125 mg Q12HR PO 07/27/17 14:45 08/08/17 21:32 (Aspirin Chew) 81 mg DAILY CHEW 07/29/17 09:00 08/05/17 11:07 (Persantine) 50 mg QID PO 07/28/17 13:00 Future hold 08/03/17 19:28 (Vasotec) 10 mg BID PO 07/29/17 09:00 08/08/17 21:31 (Ativan Inj) 0.5 mg Q2H PRN IV PUSH 07/29/17 14:30 08/04/17 17:26 Thiamine HCl 100 mg/Sodium Chloride 101 ml @ 101 mls/hr DAILY IV 07/29/17 14:15 08/08/17 15:19 (Lovenox Inj) 40 mg Q24H SQ 07/29/17 15:00 08/08/17 17:21 (Apresoline Inj) 20 mg Q4H PRN IV 07/29/17 21:15 08/07/17 16:12 (Imdur) 60 mg DAILY@0700 PO 07/30/17 09:00 08/09/17 06:17 (Norvasc) 5 mg DAILY PO 07/30/17 09:00 08/05/17 11:07 (Sinemet 25-100 Mg) 2 tab Q6HR PO 07/31/17 18:00 08/09/17 06:00 (Pill Splitter) 1 ea UNSCH PRN OTHER 08/01/17 10:00 (Provigil) 200 mg DAILY PO 08/03/17 09:00 08/05/17 11:06 (Mucinex Er) 600 mg BID PO 08/04/17 21:00 08/08/17 21:32 (Lactulose Liq) 30 ml TID PO 08/04/17 18:00 08/08/17 18:35 (Haldol Inj) 1 mg Q6HR PRN IV PUSH 08/06/17 22:00 09/05/17 21:59 (Protonix Inj) 40 mg Q24H IV PUSH 08/06/17 18:00 08/08/17 17:22 (Morphine Inj) 2 mg Q4H PRN IV PUSH 08/08/17 16:00 08/09/17 00:25 (Free Water) 200 ml Q6HR G-TUBE 08/08/17 18:00 08/09/17 06:00 (Motrin) 400 mg Q6HR PRN PO 08/08/17 21:00 08/08/17 21:32 Allergies Allergies Coded Allergies penicillin G (Verified Allergy, Severe, ANAPHILAXIS, 08/06/17) Sulfa (Sulfonamide Antibiotics) (Verified Allergy, Intermediate, UNKNOWN, 08/06) Review of Systems All other ROS: ROS reviewed as documented in chart Exam I&O / VS Vital Signs Date Time Temp Pulse Resp B/P (MAP) Pulse Ox O2 Delivery O2 Flow Rate FiO2 08/09/17 04:00 98.6 70 18 124/71 (88) 95 08/09/17 00:00 98.0 73 18 137/77 (97) 94 08/09/17 00:00 67 08/08/17 20:49 Room Air 08/08/17 20:24 98.1 75 20 159/72 (101) 97 08/08/17 16:16 97.2 72 22 152/74 (100) 96 08/08/17 14:25 70 18 147/76 (99) 97 08/08/17 14:10 72 16 160/96 (117) 97 08/08/17 13:55 71 16 148/89 (108) 96 08/08/17 13:40 97.9 74 16 155/89 (111) 97 Exam Comments drowsy, but alerts, severe hypophonic speech, facial hypomimia, follows, no tremors, minimal rigidity, marquez to gravity, withdraws to tactile Objective Micro and Labs Laboratory Tests Test 08/08/17 20:33 White Blood Count 13.3 Red Blood Count 4.29 Hemoglobin 14.1 Hematocrit 41.6 Mean Corpuscular Volume 97.0 Mean Corpuscular Hemoglobin 32.9 Mean Corpuscular Hemoglobin Concent 33.9 Red Cell Distribution Width 13.0 Platelet Count 341 Mean Platelet Volume 7.9 Date/Time Source Procedure Growth Status 07/26/17 20:05 Urine Clean Catch Urine Culture - Final NO GROWTH IN 48 HOURS. Complete Problem Qualifiers (1) Hypertension: Qualified Codes: I10 - Essential (primary) hypertension Russell Xiao MD Aug 09, 2017 08:09
[2017-08-09 08:27] LABS: HEMATOCRIT 45.3 % (39.0-51.0); HEMOGLOBIN 15.3 GM/DL (13.0-17.0); MEAN CELL VOLUME 97.5 FL (80.0-100.0); MEAN CORPUSCULAR HEMOGLOBIN 32.8 PG (27.0-34.0); MEAN CORPUSCULAR HGB CONC 33.6 % (32.0-36.0); MEAN PLATELET VOLUME 8.5 FL (7.0-11.0); PLATELET COUNT 321 TH/MM3 (150-450); RED BLOOD COUNT 4.65 MIL/MM3 (4.50-5.90); RED CELL DISTRIBUTION WIDTH 13.2 % (11.6-17.2); WHITE BLOOD COUNT 19.5 TH/MM3 (4.0-11.0)
[2017-08-09 09:00] LABS: BICARBONATE 25.6 MEQ/L (21.0-32.0); CALCIUM 8.6 MG/DL (8.5-10.1); CREATININE 0.55 MG/DL (0.60-1.30)
[2017-08-09] MEDS: ARTIFICIAL TEARS OPTH SOLN 15 ML BTL EACH EYE SCH ×2 (09:00→19:00)
[2017-08-09] MEDS: SODIUM CHLORIDE 0.9% FLUSH 10 ML FLUSH IV FLUSH SCH ×2 (09:00→20:29)
[2017-08-09] MEDS: DIPYRIDAMOLE 25 MG TAB PO SCH ×4 (09:00→22:00)
[2017-08-09] MEDS: CARVEDILOL 3.125 MG TAB PO SCH ×2 (09:46→22:00)
[2017-08-09] MEDS: MODAFINIL 200 MG TAB PO SCH (09:46)
[2017-08-09] MEDS: guaiFENesin E.R. 600 MG TAB PO SCH ×2 (09:46→22:00)
[2017-08-09] MEDS: amLODIPine BESYLATE 5 MG TAB PO SCH (09:46)
[2017-08-09] MEDS: DOCUSATE SODIUM 50 MG/SENNA 8.6 MG TAB PO SCH ×2 (09:46→22:07)
[2017-08-09] MEDS: LACTULOSE SYRUP 20 GM/30 ML CUP PO SCH ×3 (09:47→18:34)
[2017-08-09] MEDS: ENALAPRIL MALEATE 10 MG TAB PO SCH ×2 (09:47→22:00)
[2017-08-09] MEDS: ASPIRIN 81 MG CHEW TAB CHEW SCH (09:48)
[2017-08-09] MEDS: THIAMINE INJ 100 MG in SODIUM CHLORIDE 0.9% INJ 100 ML IV SCH (09:48)
--- NOTE | 2017-08-09 11:43 | HHI.PR ---
Subjective Remarks The pt was complaining of abdominal pain. He mentioned that he wanted to drink some water. He complained of mid to upper back pain. Discussed with nursing and family at the bedside. Objective Vitals Vital Signs Date Time Temp Pulse Resp B/P (MAP) Pulse Ox O2 Delivery O2 Flow Rate FiO2 08/09/17 08:00 97.3 90 18 161/83 (109) 93 08/09/17 08:00 82 08/09/17 04:00 98.6 70 18 124/71 (88) 95 08/09/17 00:00 98.0 73 18 137/77 (97) 94 08/09/17 00:00 67 08/08/17 20:49 Room Air 08/08/17 20:24 98.1 75 20 159/72 (101) 97 08/08/17 16:16 97.2 72 22 152/74 (100) 96 08/08/17 14:25 70 18 147/76 (99) 97 08/08/17 14:10 72 16 160/96 (117) 97 08/08/17 13:55 71 16 148/89 (108) 96 08/08/17 13:40 97.9 74 16 155/89 (111) 97 I/O 08/08/17 08/08/17 08/08/17 08/09/17 08/09/17 08/09/17 07:00 15:00 23:00 07:00 15:00 23:00 Intake Total 256 ml 475 ml Output Total 300 ml 400 ml Balance 256 ml -300 ml 75 ml Intake Oral 0 ml 240 ml IV Total 256 ml Tube Feeding 235 ml Output Urine Total 300 ml 400 ml # Voids 1 2 # Bowel Movements 0 Result Diagram: 08/09/17 0748 08/09/17 0748 Imaging Last Impressions Gastrostomy Tube Placement 08/08/17 0000 Signed Impressions: Service Date/Time: Tuesday, August 08, 2017 12:15 - CONCLUSION: Uncomplicated gastrostomy tube placement as above. Kanu Freitas MD Abdomen X-Ray 08/06/17 0000 Signed Impressions: Service Date/Time: Sunday, August 06, 2017 03:45 - CONCLUSION: 1. Mild ileus. No free air. NG tip in stomach. Delta Lane MD Chest X-Ray 08/02/17 0600 Signed Impressions: Service Date/Time: July 03:04 - CONCLUSION: Persistent right medial lung consolidation. Rocco Hurd MD Objective Remarks GENERAL: Appears uncomfortable. SKIN: Warm and dry. HEAD: Normocephalic. EYES: No scleral icterus. No injection or drainage. ENT: supple, no JVD no lymphadenopathy. NECK: Supple, trachea midline. CARDIOVASCULAR: Tachycardic. RESPIRATORY: Poor respiratory effort. GASTROINTESTINAL: Abdomen soft, tender in the lower quadrants, nondistended. PEG tube site looks clean. MUSCULOSKELETAL: No cyanosis, or edema. NEURO EXAM: Awake and alert, oriented to place and person. Procedures PEG tube placement Medications and IVs Current Medications Medications (Trade) Dose Ordered Sig/Ventura Route Start Time Stop Time Status Last Admin (NS Flush) 2 ml UNSCH PRN IV FLUSH 07/26/17 22:00 (NS Flush) 2 ml BID IV FLUSH 07/27/17 09:00 08/08/17 21:00 (Tylenol) 650 mg Q6H PRN PO 07/26/17 22:00 (Tears Naturale Opth Soln) 1 drop TID EACH EYE 07/27/17 09:00 08/08/17 17:21 (Zofran Inj) 4 mg Q6H PRN IV PUSH 07/26/17 22:00 (Duoneb Neb) 1 ampule Q2HR NEB PRN INH 07/26/17 22:00 08/02/17 02:52 Miscellaneous Information 1 Q361D XX 07/26/17 22:00 07/26/17 22:00 (Chlorhexidine 2% Cloth) Taper DAILY@04 TOP 07/27/17 04:00 07/23/18 03:59 08/03/17 03:18 (Chlorhexidine 2% Cloth) 3 pack UNSCH PRN TOP 07/26/17 22:00 (Marcella-Colace) 1 tab BID PO 07/27/17 09:00 08/09/17 09:46 (Milk Of Magnesia Liq) 30 ml Q12H PRN PO 07/26/17 22:00 07/28/17 15:39 (Senokot) 17.2 mg Q12H PRN PO 07/26/17 22:00 (Dulcolax Supp) 10 mg DAILY PRN RECTAL 07/26/17 22:00 (Peridex 0.12% Liq) 15 ml BID@08,20 MT 07/27/17 08:00 08/08/17 20:00 (Trandate Inj) 10 mg Q4H PRN IV PUSH 07/27/17 02:30 08/03/17 04:48 (Coreg) 3.125 mg Q12HR PO 07/27/17 14:45 08/09/17 09:46 (Aspirin Chew) 81 mg DAILY CHEW 07/29/17 09:00 08/09/17 09:48 (Persantine) 50 mg QID PO 07/28/17 13:00 Future hold 08/03/17 19:28 (Vasotec) 10 mg BID PO 07/29/17 09:00 08/09/17 09:47 (Ativan Inj) 0.5 mg Q2H PRN IV PUSH 07/29/17 14:30 08/04/17 17:26 Thiamine HCl 100 mg/Sodium Chloride 101 ml @ 101 mls/hr DAILY IV 07/29/17 14:15 08/09/17 09:48 (Lovenox Inj) 40 mg Q24H SQ 07/29/17 15:00 08/08/17 17:21 (Apresoline Inj) 20 mg Q4H PRN IV 07/29/17 21:15 08/07/17 16:12 (Imdur) 60 mg DAILY@0700 PO 07/30/17 09:00 08/09/17 06:17 (Norvasc) 5 mg DAILY PO 07/30/17 09:00 08/09/17 09:46 (Sinemet 25-100 Mg) 2 tab Q6HR PO 07/31/17 18:00 08/09/17 06:00 (Pill Splitter) 1 ea UNSCH PRN OTHER 08/01/17 10:00 (Provigil) 200 mg DAILY PO 08/03/17 09:00 08/09/17 09:46 (Mucinex Er) 600 mg BID PO 08/04/17 21:00 08/09/17 09:46 (Lactulose Liq) 30 ml TID PO 08/04/17 18:00 08/09/17 09:47 (Haldol Inj) 1 mg Q6HR PRN IV PUSH 08/06/17 22:00 09/05/17 21:59 (Protonix Inj) 40 mg Q24H IV PUSH 08/06/17 18:00 08/08/17 17:22 (Free Water) 200 ml Q6HR G-TUBE 08/08/17 18:00 08/09/17 06:00 (Motrin) 400 mg Q6HR PRN PO 08/08/17 21:00 08/08/17 21:32 (Eugene 5-325 Mg) 1 tab Q6H PRN PO 08/09/17 08:45 Levofloxacin/ Dextrose 150 ml @ 100 mls/hr Q24H IV 08/09/17 12:00 Metronidazole 100 ml @ 100 mls/hr Q8H IV 08/09/17 12:00 A/P Assessment and Plan 76yM s/p [id number] cardiac arrest secondary to choking. Course was complicated by NSTEMI which needs further cardiac work-up, but should not delay discharge. MPS and further cardiac intervention can be worked-up in inpatient rehab. Sepsis The pt has been hypotensive, tachycardic, has had low grade fever and with leukocytosis. Suspect abdominal infection. - 1L NS bolus. - start IV Levaquin and IV Flagyl. - CT abdomen pending. - check CXR, UA, blood cultures, sputum culture. Cardiac arrest secondary to choking Non-ST elevation IN. Troponin peaked at 2, EF 45%. - Continue Aspirin, Coreg. Lovenox 40 mg subcutaneous daily. - outpt follow-up with cardiology. Medical management recommended. Acute hypoxic and hypercarbic respiratory failure Secondary to choking. Extubated 07/29/17. - Continue breathing treatments, aggressive pulmonary toilet. - repeat CXR. Delirium/ metabolic encephalopathy/ Alcohol withdrawal Delirium is multifactorial. improving at this time. Neurology consult appreciated. - [facility] protocol. - Continue Sinemet, Provigil increased to 200 mg - Consumes >2 vodka Daily, supplement thiamine. - PT/ OT. Dysphagia GI specialist consulted and attempted to place PEG tube, was not possible. Severe Gastritis, Small Hiatal Hernia were noted. - PEG tube by Interventional Radiology 08/08. - PPI. - free water. Tube feeds. Parkinson's/ Deconditioning The pt is weak. - continue home meds. - inpt rehab recommended. - PT/ OT/ ST. PPx: Alfredo Luciano DO Aug 09, 2017 11:43
[2017-08-09] MEDS ORDERED: LEVOFLOXACIN 750 MG PREMIX INJ 150 ML IV SCH (12:00)
[2017-08-09] MEDS ORDERED: DIATRIZOATE MEGLUM/DIATRIZOATE SOD 9 ML CUP PO ONE (12:30)
--- NOTE | 2017-08-09 12:35 | RADRPT ---
EXAM DATE/TIME: 08/09/2017 12:00 [facility] COMPARISON: CHEST SINGLE AP, August 02, 2017, 3:04. INDICATIONS : Dyspena. MEDICAL HISTORY : Myocardial infarction. Parkinson's SURGICAL HISTORY : Fusion, lumbar. ENCOUNTER: Subsequent ACUITY: 2 weeks PAIN SCORE: 0/10 LOCATION: Bilateral chest FINDINGS: There appears to be free air in the left upper quadrant inferior to left hemidiaphragm. The heart size is normal. The lungs are grossly clear. There are bilateral shoulder prostheses in tia ce. Surgical hardware is seen in the lumbar spine. CONCLUSION: 1. Suspected pneumoperitoneum with air in the left upper quadrant. The patient is scheduled for CT of the abdomen and pelvis. 2. No acute abnormality is seen within the chest. Quintin Velazquez MD on August 09, 2017 at 12:24 Board Certified Radiologist. This report was verified electronically.
[2017-08-09] MEDS ORDERED: IOHEXOL 350 MG/ML 10 ML VIAL (for RAD DIAG) IVCONTRAST ONE (13:16)
--- NOTE | 2017-08-09 13:38 | RADRPT ---
EXAM DATE/TIME: 08/09/2017 13:08 [facility] COMPARISON: GASTROSTOMY TUBE PLCMT W/US, August 08, 2017, 12:15. CHEST SINGLE AP, August 09, 2017, 12:00. INDICATIONS : Abdominal pain Abnormal chest x-ray demonstrating pneumoperitoneum. By report the patient is status p ost gastrostomy tube placement on 08/08/2017. IV CONTRAST: 94 cc Omnipaque 350 (iohexol) IV ORAL CONTRAST: No oral contrast ingested. RADIATION DOSE: 9.78 CTDIvol (mGy) MEDICAL HISTORY : Cardiovascular disease. SURGICAL HISTORY : Non-responsive. ENCOUNTER: Initial ACUITY: 1 day PAIN SCALE: 5/10 LOCATION: abdomen TECHNIQUE: Volumetric scanning of the abdomen and pelvis was performed. Using automated exposure control and ad justment of the mA and/or kV according to patient size, radiation dose was kept as low as reasonably achievable to obtain optimal diagnostic quality images. DICOM format image data is available electro nically for review and comparison. FINDINGS: The study is degraded by motion artifact and streak artifact from metallic hardware in the spine. LOWER LUNGS: There are small bilateral pleural effusions. There is mild consolidation in the posterior lung base o n the right. LIVER: Homogeneous density with a simple cyst noted in the right lobe of the liver. There is no dilation of the biliary tree. No calcified gallstones. SPLEEN: Normal size without lesion. PANCREAS: Within normal limits. KIDNEYS: Normal in size and shape. There is no mass, stone or hydronephrosis. ADRENAL GLANDS: Within normal limits. VASCULAR: There is no aortic aneurysm. BOWEL/MESENTERY: There is a moderate amount of free air noted in the upper abdomen. A gastrostomy tube is present in t he upper abdomen but it is unclear to the exact location since no oral contrast was given. This likel y is located in the stomach. There are multiple loops of nondilated small bowel with several small ai r-fluid levels. No definite free fluid is identified. Residual contrast is noted in the distal small bowel and portions of the colon. There is a moderate amount of stool throughout the colon with mild g aseous distention of portions of the transverse colon ABDOMINAL WALL: Within normal limits. RETROPERITONEUM: There is no lymphadenopathy. BLADDER: No wall thickening or mass. REPRODUCTIVE: Within normal limits. INGUINAL: There is no lymphadenopathy or hernia. MUSCULOSKELETAL: Osteopenia, degenerative change and scoliosis are noted with postsurgical changes in the spine and le ft hip streak artifact. CONCLUSION: 1. Moderate amount of free air in the upper abdomen. Patient appears status post recent gastrostomy p lacement which could account for this. 2. Gastrostomy tube in the upper abdomen the exact location is not certain since no oral contrast was given a likely resides in the stomach. 3. Nonspecific, nonobstructive bowel gas pattern likely representing an ileus. 4. Small pleural effusions with consolidation in the right lower lobe. 5. Simple appearing cyst in the liver. Alfredo Booth MD on August 09, 2017 at 13:29 Board Certified Radiologist. This report was verified electronically.
[2017-08-09] MEDS ORDERED: ceFAZolin INJ 1,000 MG VIAL ONE (13:52)
[2017-08-09 14:10] LABS: AMORPHOUS SEDIMENT, URINE FEW; BACTERIA, URINE MOD /hpf; BILIRUBIN, URINE NEG (NEG); BLOOD, URINE NEG (NEG); GLUCOSE,URINE NEG (NEG); HYALINE CAST, URINE 2 /lpf (RARE); KETONE, URINE TRACE mg/dL (NEG); MUCUS URINE MANY /lpf (OCC); NITRITE,URINE NEG (NEG); TRANSITIONAL EPI CELLS, URINE <1 /hpf; URINE COLOR DARK-YELLOW (YELLW/STRAW); URINE LEUKOCYTE ESTERASE NEG (NEG)
[2017-08-09 15:19] LABS: ALBUMIN 2.7 GM/DL (3.4-5.0); DIRECT BILIRUBIN ADULT 0.2 MG/DL (0.0-0.2)
[2017-08-09 15:21] LABS: INDIRECT BILIRUBIN 0.5 MG/DL (0.0-0.8); TOTAL BILIRUBIN ADULT 0.7 MG/DL (0.2-1.0); TOTAL PROTEIN 6.4 GM/DL (6.4-8.2)
[2017-08-09] MEDS ORDERED: IOHEXOL 350 MG/ML 50 ML BTL (for RAD DIAG) G-TUBE ONE (15:31)
[2017-08-09] MEDS ORDERED: SODIUM CHLOR 0.45% 500 ML INJ 500 ML IV ONE (16:00)
--- NOTE | 2017-08-09 16:08 | RADRPT ---
EXAM DATE/TIME: 08/09/2017 14:29 [facility] COMPARISON: No previous studies available for comparison. INDICATIONS : Status post gastrostomy catheter replacement. There is clinical concern for possible catheter dislodg ment. MEDICAL HISTORY : Unknown SURGICAL HISTORY : Unknown ENCOUNTER: Subsequent ACUITY: 1 day PAIN SCORE: 0/10 LOCATION: N/A FLUORO TIME: 0.5 minutes IMAGE SERIES: CONTRAST: 16 cc Omnipaque (iohexol) 350 PROCEDURE : 1. Fluoroscopically guided tube injection. The risks, benefits and alternatives to the procedure were explained and verbal and written consent w as obtained. The site was prepped in sterile fashion. Full sterile technique was used, including ca p, mask, sterile gloves and gown and a large sterile sheet. Hand hygiene and 2% chlorhexidine and/or betadine/alcohol prep was utilized per protocol for cutaneous antisepsis. With fluoroscopic guidance the previously placed tube was injected demonstrating well-positioned good rostomy catheter. No evidence for contrast extravasation. CONCLUSION: 1. Gastrostomy catheter is well positioned in the stomach. No evidence for extravasation. Kanu Freitas MD on August 09, 2017 at 16:04 Board Certified Radiologist. This report was verified electronically.
[2017-08-09] MEDS: metroNIDAZOLE 500 MG INJ 100 ML IV SCH ×2 (16:15→22:00)
[2017-08-09] MEDS: LEVOFLOXACIN 750 MG PREMIX INJ 150 ML IV SCH (16:15)
[2017-08-09] MEDS: ACETAMINOPHEN/HYDROcodone 325 MG/5 MG TAB PO PRN ×2 (17:18→23:37)
[2017-08-09] MEDS: SODIUM CHLOR 0.45% 1000 ML INJ 1,000 ML IV SCH ×2 (17:19→21:59)
[2017-08-09] MEDS: PANTOPRAZOLE SODIUM 40 MG VIAL IV PUSH SCH (18:34)
--- NOTE | 2017-08-09 18:57 | MB ---
cc: CARLOS PECK MD DATE OF CONSULTATION 08/09/2017 REASON FOR CONSULTATION Pneumoperitoneum HISTORY OF PRESENT ILLNESS The patient is a 76-year-old gentleman who had a choking episode when he was in a restaurant and had cardiac arrest. The patient was in Intensive Care and had elevated troponin, but he had recovered, was extubated and was improving. The patient underwent gastrostomy tube placement in radiology yesterday and today was noted to be hypotensive. Plain film demonstrated pneumoperitoneum and the undersigned was called emergently. The patient was declined by gastroenterology as it was considered in a difficult location and procedure was terminated. The patient received fluid bolus and, at the time of dictation, his vital signs are now stable. Baseline vitals demonstrate systolic pressure in the 140s to 160s with diastolic in the 90s. The patient had pressure of 84/54 at noon today. PAST MEDICAL HISTORY Extensive and includes 1. Parkinson's disease. 2. Cardiac arrest with non-ST elevation AL. The patient's EF was 45% and he was extubated. ALLERGIES SULFA PENICILLIN G MEDICATIONS Current include 1. Levaquin q. 24. 2. Metronidazole q.8 h. 3. Protonix 40 mg IV q.24 h, 4. Lactulose 30 mg p.o. t.i.d. 5. Modafinil 200 mg p.o. q. day. 6. Carbidopa/levodopa 25/100 2 tablets q.6 h. 7. Imdur 60 mg p.o. q. day. 8. Norvasc 5 mg p.o. q. day. 9. Hydralazine q.4 h p.r.n. 10. Ativan p.r.n. 11. Aspirin 81 mg p.o. q. day. 12. Coreg 3.125 mg p.o. q.12 h. D13. Dipyridamole 50 mg p.o. q.i.d. PHYSICAL EXAMINATION GENERAL: A thin male who is not overly uncomfortable VITAL SIGNS: Current BP is 92/54, pulse 108, respirations 24, 95% saturation on room air. HEENT: Sclerae anicteric. CHEST: Clear to auscultation. CARDIAC: Exam reveals tachycardia. ABDOMEN: Distended and minimally to moderately tender without guarding or rebound. There is a gastrostomy tube just near the midline. There is no drainage around the tube. The patient has obvious scoliosis and is complaining of some back pain periodically. LABORATORY DATA WBCs of 19.5, hemoglobin is 15.3, platelets 321,000. Chemistries demonstrate sodium 147, chloride 113. Potassium 3.6, BUN and creatinine 25 and 0.55, carbon dioxide is 26 and glucose 85. LFTs are within normal limits except for ALT which is low. ASSESSMENT Pneumoperitoneum secondary to procedure yesterday. The patient underwent CT scanning which demonstrates no free fluid and the patient has just returned from interventional radiology where contrast placed through the gastrostomy tube demonstrates no leakage around the tube and the tube appears to be secure in the stomach. We will follow along. I have written for maintenance IV fluids for tonight and would recommend that the feeding tube not be used until tomorrow. We will follow with you. He does not need surgery at this time. MD LACEY Peralta/ /4:07 PM /6:33 PM
[2017-08-10] VITALS (14 sets, daily range): BP systolic 103–139; BP diastolic 55–71; PULSE 60–75; RESP 15–25; TEMP 97.5–99.8; O2SAT 93–97
[2017-08-10] MEDS: CHLORHEXIDINE GLUCONATE 2 % 1 PACK (2 CLOTHS) TOP SCH (02:00)
[2017-08-10] MEDS: FREE WATER G-TUBE SCH ×6 (02:00→22:00)
[2017-08-10] MEDS: metroNIDAZOLE 500 MG INJ 100 ML IV SCH ×3 (04:15→22:48)
[2017-08-10 04:52] LABS: HEMATOCRIT 36.7 % (39.0-51.0); HEMOGLOBIN 12.5 GM/DL (13.0-17.0); MEAN PLATELET VOLUME 8.5 FL (7.0-11.0); PLATELET COUNT 258 TH/MM3 (150-450); RED BLOOD COUNT 3.79 MIL/MM3 (4.50-5.90); WHITE BLOOD COUNT 23.4 TH/MM3 (4.0-11.0)
[2017-08-10 05:15] LABS: ALBUMIN 2.3 GM/DL (3.4-5.0); AST (GOT) 20 U/L (15-37); BICARBONATE 23.1 MEQ/L (21.0-32.0); BLOOD UREA NITROGEN 18 MG/DL (7-18); CALCIUM 8.6 MG/DL (8.5-10.1); CHLORIDE 106 MEQ/L (98-107); CREATININE 0.57 MG/DL (0.60-1.30); GLOMERULAR FILTRATION RATE 139 ML/MIN (>89); GLUCOSE,RANDOM 86 MG/DL (74-106); MAGNESIUM 1.8 MG/DL (1.5-2.5); SODIUM (NA) 139 MEQ/L (136-145)
[2017-08-10 05:17] LABS: DIRECT BILIRUBIN ADULT 0.2 MG/DL (0.0-0.2)
[2017-08-10 05:19] LABS: ALKALINE PHOSPHATASE 93 U/L (45-117); ALT (GPT) LESS THAN 6 U/L (12-78); INDIRECT BILIRUBIN 0.6 MG/DL (0.0-0.8); TOTAL BILIRUBIN ADULT 0.8 MG/DL (0.2-1.0); TOTAL PROTEIN 5.8 GM/DL (6.4-8.2)
[2017-08-10] MEDS: ACETAMINOPHEN/HYDROcodone 325 MG/5 MG TAB PO PRN (05:19)
[2017-08-10] MEDS: CARBIDOPA/LEVODOPA 25 MG/100 MG TAB PO SCH ×4 (05:19→22:39)
[2017-08-10] MEDS: ISOSORBIDE MONONITRATE 60 MG TAB PO SCH (05:29)
[2017-08-10] MEDS ORDERED: POTASSIUM CHLORIDE 25 MEQ EFFERVESCENT TAB G-TUBE ONE (06:00)
[2017-08-10] MEDS: CHLORHEXIDINE 0.12% (ORAL KIT) 15 ML CUP MT SCH ×2 (08:00→20:00)
[2017-08-10] MEDS ORDERED: VANCOMYCIN INJ 1,000 MG in SODIUM CHLOR 0.9% 250 ML INJ 250 ML IV SCH (08:45)
[2017-08-10] MEDS ORDERED: Vancomycin Consult Pharmacy 1 EA OTHER SCH (08:45)
[2017-08-10] MEDS: ARTIFICIAL TEARS OPTH SOLN 15 ML BTL EACH EYE SCH ×3 (09:00→17:51)
[2017-08-10] MEDS: amLODIPine BESYLATE 5 MG TAB PO SCH (09:00)
[2017-08-10] MEDS: DIPYRIDAMOLE 25 MG TAB PO SCH ×4 (09:00→21:00)
[2017-08-10] MEDS: guaiFENesin E.R. 600 MG TAB PO SCH ×2 (09:00→22:26)
[2017-08-10] MEDS: LACTULOSE SYRUP 20 GM/30 ML CUP PO SCH ×3 (09:00→17:52)
[2017-08-10] MEDS: DOCUSATE SODIUM 50 MG/SENNA 8.6 MG TAB PO SCH ×2 (09:00→22:26)
[2017-08-10] MEDS: ENALAPRIL MALEATE 10 MG TAB PO SCH ×2 (09:00→21:00)
[2017-08-10] MEDS: RESP: ALBUTEROL 2.5 MG/IPRATROPIUM 0.5 MG NEB (SCH) NEB ×3 (09:45→21:50)
--- NOTE | 2017-08-10 09:46 | HHI.PR ---
Subjective Remarks The patient appeared comfortable. He said he had to have a bowel movement. He had no other acute complaints. Discussed with nursing at the bedside. Objective Vitals Vital Signs Date Time Temp Pulse Resp B/P (MAP) Pulse Ox O2 Delivery O2 Flow Rate FiO2 08/10/17 06:00 70 08/10/17 04:00 72 08/10/17 04:00 98.5 72 25 131/60 (83) 95 08/10/17 02:00 75 08/10/17 00:00 99.8 66 21 131/67 (88) 94 08/10/17 00:00 66 08/09/17 22:00 80 08/09/17 21:53 94 08/09/17 20:00 73 08/09/17 20:00 99.7 73 27 122/88 (99) 94 08/09/17 19:00 93 Room Air 08/09/17 18:41 18 08/09/17 18:00 77 08/09/17 16:00 86 08/09/17 16:00 97.9 86 18 113/75 (88) 96 08/09/17 14:00 98.1 74 18 109/58 (75) 96 08/09/17 14:00 74 08/09/17 12:15 100/80 (87) Automatic Cuff 08/09/17 12:00 Room Air 08/09/17 11:54 99.0 74 18 84/54 (64) 95 I/O 08/09/17 08/09/17 08/09/17 08/10/17 08/10/17 08/10/17 07:00 15:00 23:00 07:00 15:00 23:00 Intake Total 475 ml 1850 ml 600 ml Output Total 400 ml 30 ml 275 ml Balance 75 ml 1820 ml 325 ml Intake Oral 240 ml 0 ml IV Total 1850 ml Tube Feeding 235 ml Tube Irrigant 600 ml Output Urine Total 400 ml 30 ml 275 ml # Voids 2 2 # Bowel Movements 3 Result Diagram: 08/10/17 0343 08/10/17 0343 Imaging Last Impressions Gastrostomy Tube Placement 08/09/17 0000 Signed Impressions: Service Date/Time: August 14:29 - CONCLUSION: 1. Gastrostomy catheter is well positioned in the stomach. No evidence for extravasation. Kanu Freitas MD Chest X-Ray 08/09/17 0000 Signed Impressions: Service Date/Time: August 12:00 - CONCLUSION: 1. Suspected pneumoperitoneum with air in the left upper quadrant. The patient is scheduled for CT of the abdomen and pelvis. 2. No acute abnormality is seen within the chest. Quintin Velazquez MD Abdomen/Pelvis CT 08/09/17 0000 Signed Impressions: Service Date/Time: August 13:08 - CONCLUSION: 1. Moderate amount of free air in the upper abdomen. Patient appears status post recent gastrostomy placement which could account for this. 2. Gastrostomy tube in the upper abdomen the exact location is not certain since no oral contrast was given a likely resides in the stomach. 3. Nonspecific, nonobstructive bowel gas pattern likely representing an ileus. 4. Small pleural effusions with consolidation in the right lower lobe. 5. Simple appearing cyst in the liver. Aflredo Booth MD Abdomen X-Ray 08/06/17 0000 Signed Impressions: Service Date/Time: Sunday, August 06, 2017 03:45 - CONCLUSION: 1. Mild ileus. No free air. NG tip in stomach. Delta Lane MD Objective Remarks GENERAL: NAD. SKIN: Warm and dry. HEAD: Normocephalic. EYES: No scleral icterus. No injection or drainage. ENT: supple, no JVD no lymphadenopathy. NECK: Supple, trachea midline. CARDIOVASCULAR: Regular rate and rhythm. RESPIRATORY: Diffuse rhonchi. GASTROINTESTINAL: Abdomen soft, tender in the lower quadrants, nondistended. PEG tube site looks clean. MUSCULOSKELETAL: No cyanosis, or edema. NEURO EXAM: Awake and alert, moving upper and lower extremities. Procedures PEG tube placement Medications and IVs Current Medications Medications (Trade) Dose Ordered Sig/Ventura Route Start Time Stop Time Status Last Admin (NS Flush) 2 ml UNSCH PRN IV FLUSH 07/26/17 22:00 (NS Flush) 2 ml BID IV FLUSH 07/27/17 09:00 08/08/17 21:00 (Tylenol) 650 mg Q6H PRN PO 07/26/17 22:00 (Tears Naturale Opth Soln) 1 drop TID EACH EYE 1/19/18 09:00 08/08/17 17:21 (Zofran Inj) 4 mg Q6H PRN IV PUSH 07/26/17 22:00 (Duoneb Neb) 1 ampule Q2HR NEB PRN INH 07/26/17 22:00 08/02/17 02:52 Miscellaneous Information 1 Q361D XX 07/26/17 22:00 07/26/17 22:00 (Chlorhexidine 2% Cloth) Taper DAILY@04 TOP 07/27/17 04:00 07/23/18 03:59 08/10/17 02:00 (Chlorhexidine 2% Cloth) 3 pack UNSCH PRN TOP 07/26/17 22:00 (Marcella-Colace) 1 tab BID PO 07/27/17 09:00 08/09/17 22:07 (Milk Of Magnesia Liq) 30 ml Q12H PRN PO 07/26/17 22:00 07/28/17 15:39 (Senokot) 17.2 mg Q12H PRN PO 07/26/17 22:00 (Dulcolax Supp) 10 mg DAILY PRN RECTAL 07/26/17 22:00 (Peridex 0.12% Liq) 15 ml BID@08,20 MT 07/27/17 08:00 08/08/17 20:00 (Trandate Inj) 10 mg Q4H PRN IV PUSH 07/27/17 02:30 08/03/17 04:48 (Coreg) 3.125 mg Q12HR PO 07/27/17 14:45 08/09/17 22:00 (Aspirin Chew) 81 mg DAILY CHEW 07/29/17 09:00 08/09/17 09:48 (Persantine) 50 mg QID PO 07/28/17 13:00 Future hold 08/09/17 22:00 (Vasotec) 10 mg BID PO 07/29/17 09:00 08/09/17 22:00 (Ativan Inj) 0.5 mg Q2H PRN IV PUSH 07/29/17 14:30 08/04/17 17:26 Thiamine HCl 100 mg/Sodium Chloride 101 ml @ 101 mls/hr DAILY IV 07/29/17 14:15 08/09/17 09:48 (Lovenox Inj) 40 mg Q24H SQ 07/29/17 15:00 Future Hold 08/08/17 17:21 (Apresoline Inj) 20 mg Q4H PRN IV 07/29/17 21:15 08/07/17 16:12 (Imdur) 60 mg DAILY@0700 PO 07/30/17 09:00 08/09/17 06:17 (Norvasc) 5 mg DAILY PO 07/30/17 09:00 08/09/17 09:46 (Sinemet 25-100 Mg) 2 tab Q6HR PO 07/31/17 18:00 08/10/17 05:19 (Pill Splitter) 1 ea UNSCH PRN OTHER 08/01/17 10:00 (Provigil) 200 mg DAILY PO 08/03/17 09:00 08/09/17 09:46 (Mucinex Er) 600 mg BID PO 08/04/17 21:00 08/09/17 22:00 (Lactulose Liq) 30 ml TID PO 08/04/17 18:00 08/09/17 18:34 (Protonix Inj) 40 mg Q24H IV PUSH 08/06/17 18:00 08/09/17 18:34 (Motrin) 400 mg Q6HR PRN PO 08/08/17 21:00 08/08/17 21:32 ([place] 5-325 Mg) 1 tab Q6H PRN PO 08/09/17 08:45 08/10/17 05:19 Metronidazole 100 ml @ 100 mls/hr Q8H IV 08/09/17 12:00 08/10/17 04:15 (Free Water) 200 ml Q4H G-TUBE 08/09/17 14:00 08/10/17 05:19 Levofloxacin/ Dextrose 150 ml @ 100 mls/hr Q24H IV 08/09/17 16:00 08/09/17 16:15 Vancomycin HCl 1000 mg/Sodium Chloride 250 ml @ 250 mls/hr Q12H IV 08/10/17 08:45 UNV Pharmacy Profile Note 0 ml @ 0 mls/hr UNSCH OTHER 08/10/17 08:45 Dextrose/Sodium Chloride 1,000 ml @ 75 mls/hr [id number] IV 08/10/17 09:30 UNV A/P Assessment and Plan Sepsis/ PNA/ UTI The pt has been hypotensive, tachycardic, has had low grade fever and with leukocytosis. CT abdomen with concern for consolidation of the right lower lobe. UA indicative of infection. - IVFs. - continue IV Levaquin and IV Flagyl. - check blood cultures, sputum culture, C diff PCR. - oxygen and nebs. Pneumoperitoneum Noted on CXR and confirmed on CT abdomen. GS consult appreciated. Likely normal s/t PEG tube placement. PEG study revealed functioning PEG tube. - follow up with surgery. - tube feeds on hold for now. Continue IVFs. Cardiac arrest Secondary to choking. Course was complicated by NSTEMI which needs further cardiac work-up. Troponin peaked at 2, EF 45%. - Continue Aspirin, Coreg. Lovenox 40 mg subcutaneous daily. - outpt follow-up with cardiology. Medical management recommended. MPS and further cardiac intervention can be worked-up in inpatient rehab. Acute hypoxic and hypercarbic respiratory failure Secondary to choking. Extubated 07/29/17. CT abdomen with evidence of RLL consolidation. - Continue breathing treatments, aggressive pulmonary toilet. - continue IV vancomycin and Levaquin. - standing nebs. Delirium/ metabolic encephalopathy/ Alcohol withdrawal Delirium is multifactorial. improving at this time. Neurology consult appreciated. - CIWA protocol. - Continue Sinemet, Provigil increased to 200 mg - Consumes >2 vodka Daily, supplement thiamine. - PT/ OT. Dysphagia GI specialist consulted and attempted to place PEG tube, was not possible. Severe Gastritis, Small Hiatal Hernia were noted. PEG tube placed by Interventional Radiology 08/08. - PPI. - free water. Tube feeds. On hold as above. - replete potassium. Parkinson's/ Deconditioning The pt is weak. - continue home meds. - inpt rehab recommended. - PT/ OT/ ST. PPx: Lovenox Discharge Planning Transfer to medical floor with telemetry Alfredo Rhoades DO Aug 10, 2017 09:46
[2017-08-10] MEDS: MODAFINIL 200 MG TAB PO SCH (10:05)
[2017-08-10] MEDS: ASPIRIN 81 MG CHEW TAB CHEW SCH (10:06)
[2017-08-10] MEDS: CARVEDILOL 3.125 MG TAB PO SCH ×2 (10:06→21:00)
[2017-08-10] MEDS: SODIUM CHLORIDE 0.9% FLUSH 10 ML FLUSH IV FLUSH SCH ×2 (10:06→22:34)
[2017-08-10] MEDS: THIAMINE INJ 100 MG in SODIUM CHLORIDE 0.9% INJ 100 ML IV SCH (10:06)
[2017-08-10] MEDS: DEXT 5%-NACL 0.45% 1000 ML INJ 1,000 ML IV SCH ×2 (10:30→22:49)
--- NOTE | 2017-08-10 13:45 | HHI.PR ---
Review/Management Diagnosis/Plan: (1) Encephalopathy, metabolic ICD Codes: G93.41 - Metabolic encephalopathy Status: Acute Plan: etiology: hypoxic brain injury, hypoxia. dt's a possibility, mild resp distress/pneumonia s/p peg tube still a little lethargic recs leukocytosis and hypotension, getting IV abx and IVF norco 5/326 prn pain continue sinemet rehab placement d/w pt and spouse at bedside (2) Parkinsons disease ICD Codes: G20 - Parkinson's disease Status: Chronic Plan: 2 tabs q 6hrs peg tube pending due to pre-existing dysphagia from PD (3) Cardiac arrest ICD Codes: I46.9 - Cardiac arrest, cause unspecified Status: Acute (4) Hypertension ICD Codes: I10 - Essential (primary) hypertension Status: Chronic Subjective Subjective Comments In ICU due to hypotension Resting but rouses easily Active Medications Current Medications Medications (Trade) Dose Ordered Sig/Ventura Route Start Time Stop Time Status Last Admin (NS Flush) 2 ml UNSCH PRN IV FLUSH 07/26/17 22:00 (NS Flush) 2 ml BID IV FLUSH 07/27/17 09:00 08/10/17 10:06 (Tylenol) 650 mg Q6H PRN PO 07/26/17 22:00 (Tears Naturale Opth Soln) 1 drop TID EACH EYE 07/27/17 09:00 08/08/17 17:21 (Zofran Inj) 4 mg Q6H PRN IV PUSH 07/26/17 22:00 (Duoneb Neb) 1 ampule Q2HR NEB PRN INH 07/26/17 22:00 08/02/17 02:52 Miscellaneous Information 1 Q361D XX 07/26/17 22:00 07/26/17 22:00 (Chlorhexidine 2% Cloth) Taper DAILY@04 TOP 07/27/17 04:00 07/23/18 03:59 08/10/17 02:00 (Chlorhexidine 2% Cloth) 3 pack UNSCH PRN TOP 07/26/17 22:00 (Marcella-Colace) 1 tab BID PO 07/27/17 09:00 08/09/17 22:07 (Milk Of Magnesia Liq) 30 ml Q12H PRN PO 07/26/17 22:00 07/28/17 15:39 (Senokot) 17.2 mg Q12H PRN PO 07/26/17 22:00 (Dulcolax Supp) 10 mg DAILY PRN RECTAL 07/26/17 22:00 (Peridex 0.12% Liq) 15 ml BID@08,20 MT 07/27/17 08:00 08/10/17 08:00 (Trandate Inj) 10 mg Q4H PRN IV PUSH 07/27/17 02:30 08/03/17 04:48 (Coreg) 3.125 mg Q12HR PO 07/27/17 14:45 08/10/17 10:06 (Aspirin Chew) 81 mg DAILY CHEW 07/29/17 09:00 08/10/17 10:06 (Persantine) 50 mg QID PO 07/28/17 13:00 Future hold 08/09/17 22:00 (Vasotec) 10 mg BID PO 07/29/17 09:00 08/09/17 22:00 (Ativan Inj) 0.5 mg Q2H PRN IV PUSH 07/29/17 14:30 08/04/17 17:26 Thiamine HCl 100 mg/Sodium Chloride 101 ml @ 101 mls/hr DAILY IV 07/29/17 14:15 08/10/17 10:06 (Lovenox Inj) 40 mg Q24H SQ 07/29/17 15:00 Future hold 08/08/17 17:21 (Apresoline Inj) 20 mg Q4H PRN IV 07/29/17 21:15 08/07/17 16:12 (Imdur) 60 mg DAILY@0700 PO 07/30/17 09:00 08/09/17 06:17 (Norvasc) 5 mg DAILY PO 07/30/17 09:00 08/09/17 09:46 (Sinemet 25-100 Mg) 2 tab Q6HR PO 07/31/17 18:00 08/10/17 13:20 (Pill Splitter) 1 ea UNSCH PRN OTHER 08/01/17 10:00 (Provigil) 200 mg DAILY PO 08/03/17 09:00 08/10/17 10:05 (Mucinex Er) 600 mg BID PO 08/04/17 21:00 08/09/17 22:00 (Lactulose Liq) 30 ml TID PO 08/04/17 18:00 08/10/17 13:20 (Protonix Inj) 40 mg Q24H IV PUSH 08/06/17 18:00 08/09/17 18:34 (Motrin) 400 mg Q6HR PRN PO 08/08/17 21:00 08/08/17 21:32 ([place] 5-325 Mg) 1 tab Q6H PRN PO 08/09/17 08:45 08/10/17 05:19 Metronidazole 100 ml @ 100 mls/hr Q8H IV 08/09/17 12:00 08/10/17 13:20 (Free Water) 200 ml Q4H G-TUBE 08/09/17 14:00 08/10/17 13:24 Levofloxacin/ Dextrose 150 ml @ 100 mls/hr Q24H IV 08/09/17 16:00 08/09/17 16:15 Pharmacy Profile Note 0 ml @ 0 mls/hr UNSCH OTHER 08/10/17 08:45 Dextrose/Sodium Chloride 1,000 ml @ 75 mls/hr [id number] IV 08/10/17 10:00 08/10/17 10:30 (Duoneb Neb) 1 ampule Q6HR WHILE AWAKE NEB NEB 08/10/17 09:45 Vancomycin/Sodium Chloride 200 ml @ 200 mls/hr Q18H IV 08/10/17 12:00 Miscellaneous Information SPECIFIC LAB TO BE [facility]... ONCE ONCE .XX 08/12/17 17:45 08/12/17 17:46 Allergies Allergies Coded Allergies penicillin G (Verified Allergy, Severe, ANAPHILAXIS, 08/06/17) Sulfa (Sulfonamide Antibiotics) (Verified Allergy, Intermediate, UNKNOWN, 08/06) Review of Systems All other ROS: ROS reviewed as documented in chart Exam I&O / VS Vital Signs Date Time Temp Pulse Resp B/P (MAP) Pulse Ox O2 Delivery O2 Flow Rate FiO2 08/10/17 10:30 95 21 08/10/17 06:00 70 08/10/17 04:00 72 08/10/17 04:00 98.5 72 25 131/60 (83) 95 08/10/17 02:00 75 08/10/17 00:00 99.8 66 21 131/67 (88) 94 08/10/17 00:00 66 08/09/17 22:00 80 08/09/17 21:53 94 08/09/17 20:00 73 08/09/17 20:00 99.7 73 27 122/88 (99) 94 08/09/17 19:00 93 Room Air 08/09/17 18:41 18 08/09/17 18:00 77 08/09/17 16:00 86 08/09/17 16:00 97.9 86 18 113/75 (88) 96 08/09/17 14:00 98.1 74 18 109/58 (75) 96 08/09/17 14:00 74 Exam Comments alerts but falls back to sleep, breathing comfortably, following commands, ou 3mm, eomi, no tremors, moves all extremities independently, plantar flexor Objective Micro and Labs Laboratory Tests Test 08/09/17 18:20 08/09/17 23:06 08/10/17 03:43 Lactic Acid Level 1.7 1.4 White Blood Count 23.4 Red Blood Count 3.79 Hemoglobin 12.5 Hematocrit 36.7 Mean Corpuscular Volume 97.0 Mean Corpuscular Hemoglobin 33.0 Mean Corpuscular Hemoglobin Concent 34.0 Red Cell Distribution Width 13.0 Platelet Count 258 Mean Platelet Volume 8.5 Blood Urea Nitrogen 18 Creatinine 0.57 Random Glucose 86 Total Protein 5.8 Albumin 2.3 Calcium Level 8.6 Magnesium Level 1.8 Alkaline Phosphatase 93 Aspartate Amino Transf (AST/SGOT) 20 Alanine Aminotransferase (ALT/SGPT) LESS THAN 6 Total Bilirubin 0.8 Direct Bilirubin 0.2 Sodium Level 139 Potassium Level 3.2 Chloride Level 106 Carbon Dioxide Level 23.1 Anion Gap 10 Estimat Glomerular Filtration Rate 139 Indirect Bilirubin 0.6 Date/Time Source Procedure Growth Status 08/09/17 12:48 Blood Peripheral Aerobic Blood Culture - Preliminary NO GROWTH IN 1 DAY Resulted 08/09/17 12:48 Blood Peripheral Anaerobic Blood Culture - Preliminary NO GROWTH IN 1 DAY Resulted 08/09/17 12:36 Urine Catheterized Urine Urine Culture Pending Received Problem Qualifiers (1) Hypertension: Qualified Codes: I10 - Essential (primary) hypertension Jose Alejandro El Aug 10, 2017 13:45
--- NOTE | 2017-08-10 14:13 | HHI.PR ---
cc: Alfredo Langston MD Subjective Subjective Notes Resting in bed at bedside Objective Vitals/I&O Vital Signs Date Time Temp Pulse Resp B/P (MAP) Pulse Ox O2 Delivery O2 Flow Rate FiO2 08/10/17 10:30 95 21 08/10/17 06:00 70 08/10/17 04:00 98.5 25 131/60 (83) 08/09/17 19:00 Room Air 08/06/17 17:15 2 Labs Laboratory Tests Test 08/09/17 18:20 08/09/17 23:06 08/10/17 03:43 Lactic Acid Level 1.7 1.4 White Blood Count 23.4 Red Blood Count 3.79 Hemoglobin 12.5 Hematocrit 36.7 Mean Corpuscular Volume 97.0 Mean Corpuscular Hemoglobin 33.0 Mean Corpuscular Hemoglobin Concent 34.0 Red Cell Distribution Width 13.0 Platelet Count 258 Mean Platelet Volume 8.5 Blood Urea Nitrogen 18 Creatinine 0.57 Random Glucose 86 Total Protein 5.8 Albumin 2.3 Calcium Level 8.6 Magnesium Level 1.8 Alkaline Phosphatase 93 Aspartate Amino Transf (AST/SGOT) 20 Alanine Aminotransferase (ALT/SGPT) LESS THAN 6 Total Bilirubin 0.8 Direct Bilirubin 0.2 Sodium Level 139 Potassium Level 3.2 Chloride Level 106 Carbon Dioxide Level 23.1 Anion Gap 10 Estimat Glomerular Filtration Rate 139 Indirect Bilirubin 0.6 Date/Time Source Procedure Growth Status 08/09/17 12:48 Blood Peripheral Aerobic Blood Culture - Preliminary NO GROWTH IN 1 DAY Resulted 08/09/17 12:48 Blood Peripheral Anaerobic Blood Culture - Preliminary NO GROWTH IN 1 DAY Resulted 08/09/17 12:36 Urine Catheterized Urine Urine Culture - Preliminary Gram Negative Ck Resulted Cardiovascular: Regular Lungs: Clear Abdomen: Non-distended, Other (PEG in place; tenderness around PEG insertion site ) Extremities: No edema A/P Assessment and Plan 76 year old male with Parkinson disease; s/p PEG tube with findings of free air -PEG has been studied--- in good position -Start trickle feed; advance as tolerated -Continue working with speech -If decompensates would recommend repeat CT abdomen/pelvis Attending Note - Dr. Langston Abdomen remains benign; appears more stable WBC's are more elevated today, however. Start trickle feeds The exam, history, and the medical decision-making described in the above note were completed with the assistance of the mid-level provider. I reviewed and agree with the findings presented. I attest that I had a [id number] encounter with the patient on the same day, and personally performed and documented my assessment and findings in the medical record. Ria Avila Aug 10, 2017 14:13 Alfredo Langston MD Aug 10, 2017 16:57
[2017-08-10] MEDS: POTASSIUM CHLOR 20 MEQ PREMIX 100 ML IV SCH ×2 (15:43→17:46)
[2017-08-10] MEDS: VANCOMYCIN 1 GM/200 ML PREMIX IV SCH (16:04)
[2017-08-10] MEDS: LEVOFLOXACIN 750 MG PREMIX INJ 150 ML IV SCH (17:51)
[2017-08-10] MEDS: PANTOPRAZOLE SODIUM 40 MG VIAL IV PUSH SCH (17:52)
[2017-08-10] MEDS: LORazepam 2 MG/ML VIAL IV PUSH PRN (22:38)
[2017-08-11] VITALS (8 sets, daily range): BP systolic 108–156; BP diastolic 58–84; PULSE 66–84; RESP 19–20; TEMP 98–99; O2SAT 94–97
[2017-08-11] MEDS ORDERED: HALOPERIDOL LACTATE 5 MG/ML AMP IV PUSH ONE (01:30)
[2017-08-11] MEDS: CHLORHEXIDINE GLUCONATE 2 % 1 PACK (2 CLOTHS) TOP SCH (01:55)
[2017-08-11] MEDS: FREE WATER G-TUBE SCH ×7 (02:00→22:58)
[2017-08-11] MEDS: metroNIDAZOLE 500 MG INJ 100 ML IV SCH ×3 (03:23→19:41)
[2017-08-11] MEDS: ISOSORBIDE MONONITRATE 60 MG TAB PO SCH (04:05)
[2017-08-11] MEDS: CARBIDOPA/LEVODOPA 25 MG/100 MG TAB PO SCH ×4 (05:01→22:57)
[2017-08-11] MEDS: VANCOMYCIN 1 GM/200 ML PREMIX IV SCH ×2 (05:01→22:57)
[2017-08-11] MEDS: RESP: ALBUTEROL 2.5 MG/IPRATROPIUM 0.5 MG NEB (SCH) NEB (08:00)
[2017-08-11 08:07] LABS: HEMOGLOBIN 12.2 GM/DL (13.0-17.0); MEAN CELL VOLUME 95.5 FL (80.0-100.0); MEAN CORPUSCULAR HEMOGLOBIN 33.4 PG (27.0-34.0); MEAN PLATELET VOLUME 8.4 FL (7.0-11.0); PLATELET COUNT 239 TH/MM3 (150-450); RED BLOOD COUNT 3.66 MIL/MM3 (4.50-5.90); RED CELL DISTRIBUTION WIDTH 13.1 % (11.6-17.2); WHITE BLOOD COUNT 14.9 TH/MM3 (4.0-11.0)
[2017-08-11] MEDS: LACTULOSE SYRUP 20 GM/30 ML CUP PO SCH ×2 (08:20→10:53)
[2017-08-11] MEDS: ASPIRIN 81 MG CHEW TAB CHEW SCH (08:21)
[2017-08-11] MEDS: guaiFENesin E.R. 600 MG TAB PO SCH (08:21)
[2017-08-11] MEDS: THIAMINE INJ 100 MG in SODIUM CHLORIDE 0.9% INJ 100 ML IV SCH (08:21)
[2017-08-11] MEDS: CARVEDILOL 3.125 MG TAB PO SCH ×2 (08:21→19:42)
[2017-08-11] MEDS: ENALAPRIL MALEATE 10 MG TAB PO SCH ×2 (08:21→19:42)
[2017-08-11] MEDS: amLODIPine BESYLATE 5 MG TAB PO SCH (08:21)
[2017-08-11] MEDS: SODIUM CHLORIDE 0.9% FLUSH 10 ML FLUSH IV FLUSH SCH ×2 (08:22→19:42)
[2017-08-11 08:26] LABS: BICARBONATE 22.8 MEQ/L (21.0-32.0); CREATININE 0.47 MG/DL (0.60-1.30); MAGNESIUM 1.6 MG/DL (1.5-2.5)
[2017-08-11] MEDS: DOCUSATE SODIUM 50 MG/SENNA 8.6 MG TAB PO SCH (08:27)
[2017-08-11] MEDS: MODAFINIL 200 MG TAB PO SCH (09:00)
[2017-08-11] MEDS: DIPYRIDAMOLE 25 MG TAB PO SCH ×4 (09:41→19:43)
--- NOTE | 2017-08-11 09:43 | HHI.PR ---
Subjective Subjective Notes lethargic in bed, daughter at bedside, reports he is having diarrhea Objective Vitals/I&O Vital Signs Date Time Temp Pulse Resp B/P (MAP) Pulse Ox O2 Delivery O2 Flow Rate FiO2 08/11/17 08:31 97 08/11/17 08:07 99.0 70 19 156/63 (94) 08/10/17 22:01 21 08/10/17 21:00 Room Air Labs Laboratory Tests Test 08/11/17 07:04 White Blood Count 14.9 Red Blood Count 3.66 Hemoglobin 12.2 Hematocrit 35.0 Mean Corpuscular Volume 95.5 Mean Corpuscular Hemoglobin 33.4 Mean Corpuscular Hemoglobin Concent 35.0 Red Cell Distribution Width 13.1 Platelet Count 239 Mean Platelet Volume 8.4 Blood Urea Nitrogen 14 Creatinine 0.47 Random Glucose 112 Calcium Level 8.0 Magnesium Level 1.6 Sodium Level 138 Potassium Level 3.2 Chloride Level 107 Carbon Dioxide Level 22.8 Anion Gap 8 Estimat Glomerular Filtration Rate 174 Date/Time Source Procedure Growth Status 08/09/17 12:48 Blood Peripheral Aerobic Blood Culture - Preliminary NO GROWTH IN 1 DAY Resulted 08/09/17 12:48 Blood Peripheral Anaerobic Blood Culture - Preliminary NO GROWTH IN 1 DAY Resulted 08/09/17 12:36 Urine Catheterized Urine Urine Culture - Final Complete Abdomen: Non-distended, Non-tender Narrative Exam PEG site clean, no drainage A/P Assessment and Plan S/P PEG abdomen is benign, free air noted likely from PEG placement ok to use PEG from surgical standpoint will sign off, please call with any concerns, will see Tom Castillo MD Aug 11, 2017 09:43
[2017-08-11] MEDS ORDERED: HYOSCYAMINE SOLN 0.125 MG/ML 15 ML BTL PO PRN (10:45)
[2017-08-11] MEDS ORDERED: ZIPRASIDONE MESYLATE 20 MG VIAL IM PRN (11:45)
--- NOTE | 2017-08-11 11:46 | HHI.PR ---
Review/Management Diagnosis/Plan: (1) Encephalopathy, metabolic ICD Codes: G93.41 - Metabolic encephalopathy Status: Acute Plan: etiology: hypoxic brain injury, hypoxia. dt's a possibility, mild resp distress/pneumonia s/p peg tube weakness from pd/poor oral intake/bedridden status disuse atrophy recs with dysphagia will be at continued high risk for aspiration suction catheter at bedside; keep hob elevated continue sinemet- pd controlled rehab placement d/w pt, [id number] (hospitalist) and spouse at bedside agree with trial of im geodon if needed for agitation they may consider palliative care (2) Parkinsons disease ICD Codes: G20 - Parkinson's disease Status: Chronic Plan: 2 tabs q 6hrs peg tube pending due to pre-existing dysphagia from PD (3) Cardiac arrest ICD Codes: I46.9 - Cardiac arrest, cause unspecified Status: Acute (4) Hypertension ICD Codes: I10 - Essential (primary) hypertension Status: Chronic Subjective Subjective Comments had episode of agitation last night; was given ativan but not sure if it worked d/w pt/ and [id number] (hospitalist from [place]) No headache No chest pain No dyspnea Active Medications Current Medications Medications (Trade) Dose Ordered Sig/Ventura Route Start Time Stop Time Status Last Admin (NS Flush) 2 ml UNSCH PRN IV FLUSH 07/26/17 22:00 (NS Flush) 2 ml BID IV FLUSH 07/27/17 09:00 08/11/17 08:22 (Tylenol) 650 mg Q6H PRN PO 07/26/17 22:00 (Tears Naturale Opth Soln) 1 drop TID EACH EYE 07/27/17 09:00 08/08/17 17:21 (Zofran Inj) 4 mg Q6H PRN IV PUSH 07/26/17 22:00 (Duoneb Neb) 1 ampule Q2HR NEB PRN INH 07/26/17 22:00 08/02/17 02:52 Miscellaneous Information 1 Q361D XX 07/26/17 22:00 07/26/17 22:00 (Chlorhexidine 2% Cloth) Taper DAILY@04 TOP 07/27/17 04:00 07/23/18 03:59 08/10/17 02:00 (Chlorhexidine 2% Cloth) 3 pack UNSCH PRN TOP 07/26/17 22:00 (Marcella-Colace) 1 tab BID PO 07/27/17 09:00 08/10/17 22:26 (Milk Of Magnesia Liq) 30 ml Q12H PRN PO 07/26/17 22:00 07/28/17 15:39 (Senokot) 17.2 mg Q12H PRN PO 07/26/17 22:00 (Dulcolax Supp) 10 mg DAILY PRN RECTAL 07/26/17 22:00 (Peridex 0.12% Liq) 15 ml BID@08,20 MT 07/27/17 08:00 08/10/17 08:00 (Trandate Inj) 10 mg Q4H PRN IV PUSH 07/27/17 02:30 08/03/17 04:48 (Coreg) 3.125 mg Q12HR PO 07/27/17 14:45 08/11/17 08:21 (Aspirin Chew) 81 mg DAILY CHEW 07/29/17 09:00 08/11/17 08:21 (Persantine) 50 mg QID PO 07/28/17 13:00 Future hold 08/11/17 09:41 (Vasotec) 10 mg BID PO 07/29/17 09:00 08/11/17 08:21 (Ativan Inj) 0.5 mg Q2H PRN IV PUSH 07/29/17 14:30 08/10/17 22:38 Thiamine HCl 100 mg/Sodium Chloride 101 ml @ 101 mls/hr DAILY IV 07/29/17 14:15 08/11/17 08:21 (Lovenox Inj) 40 mg Q24H SQ 07/29/17 15:00 Future hold 08/08/17 17:21 (Apresoline Inj) 20 mg Q4H PRN IV 07/29/17 21:15 08/07/17 16:12 (Imdur) 60 mg DAILY@0700 PO 07/30/17 09:00 08/09/17 06:17 (Norvasc) 5 mg DAILY PO 07/30/17 09:00 08/11/17 08:21 (Sinemet 25-100 Mg) 2 tab Q6HR PO 07/31/17 18:00 08/11/17 05:01 (Pill Splitter) 1 ea UNSCH PRN OTHER 08/01/17 10:00 (Provigil) 200 mg DAILY PO 08/03/17 09:00 08/10/17 10:05 (Lactulose Liq) 30 ml TID PO 08/04/17 18:00 08/11/17 08:20 (Protonix Inj) 40 mg Q24H IV PUSH 08/06/17 18:00 08/10/17 17:52 (Motrin) 400 mg Q6HR PRN PO 08/08/17 21:00 08/08/17 21:32 ([place] 5-325 Mg) 1 tab Q6H PRN PO 08/09/17 08:45 08/10/17 05:19 Metronidazole 100 ml @ 100 mls/hr Q8H IV 08/09/17 12:00 08/11/17 03:23 (Free Water) 200 ml Q4H G-TUBE 08/09/17 14:00 08/11/17 10:00 Levofloxacin/ Dextrose 150 ml @ 100 mls/hr Q24H IV 08/09/17 16:00 08/10/17 17:51 Pharmacy Profile Note 0 ml @ 0 mls/hr UNSCH OTHER 08/10/17 08:45 Dextrose/Sodium Chloride 1,000 ml @ 30 mls/hr Q24H IV 08/10/17 10:00 08/10/17 22:49 Vancomycin/Sodium Chloride 200 ml @ 200 mls/hr Q18H IV 08/10/17 12:00 08/11/17 05:01 Miscellaneous Information SPECIFIC LAB TO BE JUAN MANUEL... ONCE ONCE .XX 08/12/17 17:45 08/12/17 17:46 Potassium Chloride 100 ml @ 50 mls/hr Q2H IV 08/11/17 10:45 08/11/17 14:44 (Levsin Liq) 0.125 mg Q4H PRN PO 08/11/17 10:45 Allergies Allergies Coded Allergies penicillin G (Verified Allergy, Severe, ANAPHILAXIS, 08/06/17) Sulfa (Sulfonamide Antibiotics) (Verified Allergy, Intermediate, UNKNOWN, 08/06) Review of Systems All other ROS: ROS reviewed as documented in chart Exam I&O / VS Vital Signs Date Time Temp Pulse Resp B/P (MAP) Pulse Ox O2 Delivery O2 Flow Rate FiO2 08/11/17 08:31 97 2/3/18 08:07 99.0 70 19 156/63 (94) 95 08/11/17 04:00 67 08/11/17 00:00 80 08/10/17 22:01 97 21 08/10/17 21:00 Room Air 08/10/17 21:00 70 08/10/17 20:00 97.6 70 20 131/71 (91) 93 08/10/17 18:00 65 08/10/17 16:00 97.7 61 22 119/59 (79) 94 08/10/17 16:00 61 08/10/17 14:00 62 08/10/17 12:00 60 08/10/17 12:00 97.5 60 15 103/55 (71) 95 Exam Comments drowsy, but alerts, severe hypophonic speech, gargling, facial hypomimia, follows all 4 ext, , no tremors, minimal rigidity, marquez to gravity, withdraws to tactile Objective Micro and Labs Laboratory Tests Test 08/11/17 07:04 White Blood Count 14.9 Red Blood Count 3.66 Hemoglobin 12.2 Hematocrit 35.0 Mean Corpuscular Volume 95.5 Mean Corpuscular Hemoglobin 33.4 Mean Corpuscular Hemoglobin Concent 35.0 Red Cell Distribution Width 13.1 Platelet Count 239 Mean Platelet Volume 8.4 Blood Urea Nitrogen 14 Creatinine 0.47 Random Glucose 112 Calcium Level 8.0 Magnesium Level 1.6 Sodium Level 138 Potassium Level 3.2 Chloride Level 107 Carbon Dioxide Level 22.8 Anion Gap 8 Estimat Glomerular Filtration Rate 174 Date/Time Source Procedure Growth Status 08/09/17 12:48 Blood Peripheral Aerobic Blood Culture - Preliminary NO GROWTH IN 2 DAYS Resulted 08/09/17 12:48 Blood Peripheral Anaerobic Blood Culture - Preliminary NO GROWTH IN 2 DAYS Resulted 08/09/17 12:36 Urine Catheterized Urine Urine Culture - Final Complete Problem Qualifiers (1) Hypertension: Qualified Codes: I10 - Essential (primary) hypertension Russell Xiao MD Aug 11, 2017 11:46
--- NOTE | 2017-08-11 12:10 | HHI.PR ---
Subjective Remarks The patient was resting in bed. He had some difficulty with breathing and secretions. His family at the bedside had questions. They were interested in palliative care. Discussed with nursing. Objective Vitals Vital Signs Date Time Temp Pulse Resp B/P (MAP) Pulse Ox O2 Delivery O2 Flow Rate FiO2 08/11/17 08:31 97 08/11/17 08:07 99.0 70 19 156/63 (94) 95 08/11/17 04:00 67 08/11/17 00:00 80 08/10/17 22:01 97 21 08/10/17 21:00 Room Air 08/10/17 21:00 70 08/10/17 20:00 97.6 70 20 131/71 (91) 93 08/10/17 18:00 65 08/10/17 16:00 97.7 61 22 119/59 (79) 94 08/10/17 16:00 61 08/10/17 14:00 62 I/O 08/10/17 08/10/17 08/10/17 08/11/17 08/11/17 08/11/17 07:00 15:00 23:00 07:00 15:00 23:00 Intake Total 600 ml 285 ml 550 ml Output Total 275 ml 300 ml 200 ml Balance 325 ml -15 ml 550 ml -200 ml IV Total 285 ml 550 ml Tube Irrigant 600 ml Output Urine Total 275 ml 300 ml 200 ml # Voids 2 # Bowel Movements 3 1 2 3 Result Diagram: 08/11/17 0704 08/11/17 0704 Imaging Last Impressions Gastrostomy Tube Placement 08/09/17 0000 Signed Impressions: Service Date/Time: August 14:29 - CONCLUSION: 1. Gastrostomy catheter is well positioned in the stomach. No evidence for extravasation. Kanu Freitas MD Chest X-Ray 08/09/17 0000 Signed Impressions: Service Date/Time: August 12:00 - CONCLUSION: 1. Suspected pneumoperitoneum with air in the left upper quadrant. The patient is scheduled for CT of the abdomen and pelvis. 2. No acute abnormality is seen within the chest. Quintin Velazquez MD Abdomen/Pelvis CT 08/09/17 0000 Signed Impressions: Service Date/Time: August 13:08 - CONCLUSION: 1. Moderate amount of free air in the upper abdomen. Patient appears status post recent gastrostomy placement which could account for this. 2. Gastrostomy tube in the upper abdomen the exact location is not certain since no oral contrast was given a likely resides in the stomach. 3. Nonspecific, nonobstructive bowel gas pattern likely representing an ileus. 4. Small pleural effusions with consolidation in the right lower lobe. 5. Simple appearing cyst in the liver. Alfredo Booth MD Abdomen X-Ray 08/06/17 0000 Signed Impressions: Service Date/Time: Sunday, August 06, 2017 03:45 - CONCLUSION: 1. Mild ileus. No free air. NG tip in stomach. Delta Lane MD Objective Remarks GENERAL: NAD. SKIN: Warm and dry. HEAD: Normocephalic. EYES: No scleral icterus. No injection or drainage. ENT: supple, no JVD no lymphadenopathy. NECK: Supple, trachea midline. CARDIOVASCULAR: Regular rate and rhythm. RESPIRATORY: Diffuse rhonchi. GASTROINTESTINAL: Abdomen soft, tender in the lower quadrants, nondistended. PEG tube site looks clean. MUSCULOSKELETAL: No cyanosis, or edema. NEURO EXAM: Lethargic, moving upper and lower extremities. Procedures PEG tube placement Medications and IVs Current Medications Medications (Trade) Dose Ordered Sig/Ventura Route Start Time Stop Time Status Last Admin (NS Flush) 2 ml UNSCH PRN IV FLUSH 07/26/17 22:00 (NS Flush) 2 ml BID IV FLUSH 07/27/17 09:00 08/11/17 08:22 (Tylenol) 650 mg Q6H PRN PO 07/26/17 22:00 (Tears Naturale Opth Soln) 1 drop TID EACH EYE 07/27/17 09:00 08/08/17 17:21 (Zofran Inj) 4 mg Q6H PRN IV PUSH 07/26/17 22:00 (Duoneb Neb) 1 ampule Q2HR NEB PRN INH 07/26/17 22:00 08/02/17 02:52 Miscellaneous Information 1 Q361D XX 07/26/17 22:00 07/26/17 22:00 (Chlorhexidine 2% Cloth) Taper DAILY@04 TOP 07/27/17 04:00 07/23/18 03:59 08/10/17 02:00 (Chlorhexidine 2% Cloth) 3 pack UNSCH PRN TOP 07/26/17 22:00 (Marcella-Colace) 1 tab BID PO 07/27/17 09:00 08/10/17 22:26 (Milk Of Magnesia Liq) 30 ml Q12H PRN PO 07/26/17 22:00 07/28/17 15:39 (Senokot) 17.2 mg Q12H PRN PO 07/26/17 22:00 (Dulcolax Supp) 10 mg DAILY PRN RECTAL 07/26/17 22:00 (Peridex 0.12% Liq) 15 ml BID@08,20 MT 07/27/17 08:00 08/10/17 08:00 (Trandate Inj) 10 mg Q4H PRN IV PUSH 07/27/17 02:30 08/03/17 04:48 (Coreg) 3.125 mg Q12HR PO 07/27/17 14:45 08/11/17 08:21 (Aspirin Chew) 81 mg DAILY CHEW 07/29/17 09:00 08/11/17 08:21 (Persantine) 50 mg QID PO 07/28/17 13:00 Future hold 08/11/17 09:41 (Vasotec) 10 mg BID PO 07/29/17 09:00 08/11/17 08:21 (Ativan Inj) 0.5 mg Q2H PRN IV PUSH 07/29/17 14:30 08/10/17 22:38 Thiamine HCl 100 mg/Sodium Chloride 101 ml @ 101 mls/hr DAILY IV 07/29/17 14:15 08/11/17 08:21 (Lovenox Inj) 40 mg Q24H SQ 07/29/17 15:00 Future hold 08/08/17 17:21 (Apresoline Inj) 20 mg Q4H PRN IV 07/29/17 21:15 08/07/17 16:12 (Imdur) 60 mg DAILY@0700 PO 07/30/17 09:00 08/09/17 06:17 (Norvasc) 5 mg DAILY PO 07/30/17 09:00 08/11/17 08:21 (Sinemet 25-100 Mg) 2 tab Q6HR PO 07/31/17 18:00 08/11/17 05:01 (Pill Splitter) 1 ea UNSCH PRN OTHER 08/01/17 10:00 (Provigil) 200 mg DAILY PO 08/03/17 09:00 08/10/17 10:05 (Lactulose Liq) 30 ml TID PO 08/04/17 18:00 08/11/17 08:20 (Protonix Inj) 40 mg Q24H IV PUSH 08/06/17 18:00 08/10/17 17:52 (Motrin) 400 mg Q6HR PRN PO 08/08/17 21:00 08/08/17 21:32 ([place] 5-325 Mg) 1 tab Q6H PRN PO 08/09/17 08:45 08/10/17 05:19 Metronidazole 100 ml @ 100 mls/hr Q8H IV 08/09/17 12:00 08/11/17 11:32 (Free Water) 200 ml Q4H G-TUBE 08/09/17 14:00 08/11/17 10:00 Levofloxacin/ Dextrose 150 ml @ 100 mls/hr Q24H IV 08/09/17 16:00 08/10/17 17:51 Pharmacy Profile Note 0 ml @ 0 mls/hr UNSCH OTHER 08/10/17 08:45 Dextrose/Sodium Chloride 1,000 ml @ 30 mls/hr Q24H IV 08/10/17 10:00 08/10/17 22:49 Vancomycin/Sodium Chloride 200 ml @ 200 mls/hr Q18H IV 08/10/17 12:00 08/11/17 05:01 Miscellaneous Information SPECIFIC LAB TO BE JUAN MANUEL... ONCE ONCE .XX 08/12/17 17:45 08/12/17 17:46 Potassium Chloride 100 ml @ 50 mls/hr Q2H IV 08/11/17 10:45 08/11/17 14:44 (Levsin Liq) 0.125 mg Q4H PRN PO 08/11/17 10:45 (Geodon Inj) 10 mg Q12H PRN IM 08/11/17 11:45 UNV A/P Assessment and Plan Sepsis/ PNA/ UTI The pt has been hypotensive, tachycardic, has had low grade fever and with leukocytosis. CT abdomen with concern for consolidation of the right lower lobe. UA indicative of infection. Has diarrhea but has been receiving lactulose. - IVFs. - continue IV Levaquin and IV Flagyl. - check blood cultures, sputum culture, C diff PCR. - oxygen and nebs. - d/c lactulose, hold bowel regimen. Pneumoperitoneum Noted on CXR and confirmed on CT abdomen. GS consult appreciated. Likely normal s/t PEG tube placement. PEG study revealed functioning PEG tube. - follow up with surgery. Cleared to start tube feeds. Cardiac arrest Secondary to choking. Course was complicated by NSTEMI which needs further cardiac work-up. Troponin peaked at 2, EF 45%. - Continue Aspirin, Coreg. Lovenox 40 mg subcutaneous daily. - outpt follow-up with cardiology. Medical management recommended. MPS and further cardiac intervention can be worked-up in inpatient rehab. - palliative care consult requested. Acute hypoxic and hypercarbic respiratory failure Secondary to choking. Extubated 07/29/17. CT abdomen with evidence of RLL consolidation. - Continue breathing treatments, aggressive pulmonary toilet. - continue IV vancomycin and Levaquin. - nebs as needed. Delirium/ metabolic encephalopathy/ Alcohol withdrawal Delirium is multifactorial. improving at this time. Neurology consult appreciated. - [facility] protocol. - Continue Sinemet, Provigil increased to 200 mg - Consumes >2 vodka Daily, supplement thiamine. - PT/ OT. - Geodon IM as needed for agitation. Dysphagia GI specialist consulted and attempted to place PEG tube, was not possible. Severe Gastritis, Small Hiatal Hernia were noted. PEG tube placed by Interventional Radiology 08/08. - PPI. - free water. Tube feeds. - replete potassium. Parkinson's/ Deconditioning The pt is weak. - continue home meds. - inpt rehab recommended. - PT/ OT/ ST. PPx: Lovenox Discharge Planning Awaiting palliative care consult Alfredo Rhoades DO Aug 11, 2017 12:10
--- NOTE | 2017-08-11 12:48 | RADRPT ---
EXAM DATE/TIME: 08/11/2017 12:19 [place] COMPARISON: CHEST SINGLE AP, August 09, 2017, 12:00. INDICATIONS : Difficulty breathing MEDICAL HISTORY : Myocardial infarction. Parkinson's SURGICAL HISTORY : None. ENCOUNTER: Subsequent ACUITY: 2 weeks PAIN SCORE: Non-responsive. LOCATION: Bilateral chest FINDINGS: A single view of the chest demonstrates diminished lung volumes and left basilar atelectasis. Pneumop eritoneum on the left again seen The cardiomediastinal contours are unremarkable. Tortuous thoracic a sagrario. Bilateral humeral prostheses. CONCLUSION: 1. Left basilar atelectasis. 2. Pneumoperitoneum again seen. Ayush Waters MD on August 11, 2017 at 12:43 Board Certified Radiologist. This report was verified electronically.
[2017-08-11] MEDS: POTASSIUM CHLOR 20 MEQ PREMIX 100 ML IV SCH ×2 (13:06→18:09)
[2017-08-11] MEDS: ACETAMINOPHEN/HYDROcodone 325 MG/5 MG TAB PO PRN (14:23)
[2017-08-11] MEDS ORDERED: ACETAMINOPHEN/HYDROcodone 325 MG/5 MG TAB PO PRN (14:45)
[2017-08-11] MEDS: MORPHINE SULFATE 4 MG/ML INJ IV PUSH PRN ×3 (14:53→19:47)
[2017-08-11] MEDS: LEVOFLOXACIN 750 MG PREMIX INJ 150 ML IV SCH (15:30)
[2017-08-11] MEDS: LIDOCAINE HCL 5% PATCH T-DERMAL SCH (15:33)
[2017-08-11] MEDS: ARTIFICIAL TEARS OPTH SOLN 15 ML BTL EACH EYE SCH (18:00)
[2017-08-11] MEDS: PANTOPRAZOLE SODIUM 40 MG VIAL IV PUSH SCH (18:08)
[2017-08-11] MEDS: ENOXAPARIN SODIUM 40 MG/0.4 ML SYRINGE SQ SCH (18:09)
[2017-08-11] MEDS: REMOVE OLD LIDOCAINE PATCH T-DERMAL SCH (19:51)
[2017-08-11] MEDS: CHLORHEXIDINE 0.12% (ORAL KIT) 15 ML CUP MT SCH (20:00)
[2017-08-11] MEDS: DEXT 5%-NACL 0.45% 1000 ML INJ 1,000 ML IV SCH (22:57)
[2017-08-12] VITALS: BP 135/85; PULSE 107; PULSE 96; RESP 22; TEMP 97.1; O2SAT 94
[2017-08-12 04:00] VITALS: BP 145/102; PULSE 105; PULSE 107; RESP 25; TEMP 97.3; O2SAT 95
[2017-08-12] MEDS: CHLORHEXIDINE GLUCONATE 2 % 1 PACK (2 CLOTHS) TOP SCH (04:00)
[2017-08-12] MEDS: metroNIDAZOLE 500 MG INJ 100 ML IV SCH ×3 (04:59→20:14)
[2017-08-12] MEDS: ISOSORBIDE MONONITRATE 60 MG TAB PO SCH (05:00)
[2017-08-12] MEDS: CARBIDOPA/LEVODOPA 25 MG/100 MG TAB PO SCH ×4 (05:00→23:39)
[2017-08-12] MEDS: FREE WATER G-TUBE SCH ×5 (05:00→23:38)
[2017-08-12 07:15] LABS: HEMATOCRIT 32.7 % (39.0-51.0); HEMOGLOBIN 11.5 GM/DL (13.0-17.0); MEAN CORPUSCULAR HEMOGLOBIN 33.5 PG (27.0-34.0); MEAN CORPUSCULAR HGB CONC 35.3 % (32.0-36.0); MEAN PLATELET VOLUME 8.2 FL (7.0-11.0); PLATELET COUNT 241 TH/MM3 (150-450); RED BLOOD COUNT 3.45 MIL/MM3 (4.50-5.90); RED CELL DISTRIBUTION WIDTH 12.9 % (11.6-17.2); WHITE BLOOD COUNT 11.2 TH/MM3 (4.0-11.0)
[2017-08-12 07:37] LABS: BICARBONATE 24.3 MEQ/L (21.0-32.0); CALCIUM 7.6 MG/DL (8.5-10.1); CREATININE 0.43 MG/DL (0.60-1.30); MAGNESIUM 1.6 MG/DL (1.5-2.5)
[2017-08-12 08:00] VITALS: BP 156/123; PULSE 75; PULSE 79; RESP 22; TEMP 98.4; O2SAT 94
[2017-08-12] MEDS: DIPYRIDAMOLE 25 MG TAB PO SCH ×4 (08:44→20:15)
[2017-08-12] MEDS: amLODIPine BESYLATE 5 MG TAB PO SCH (08:44)
[2017-08-12] MEDS: CARVEDILOL 3.125 MG TAB PO SCH ×2 (08:44→20:14)
[2017-08-12] MEDS: ENALAPRIL MALEATE 10 MG TAB PO SCH ×2 (08:44→20:13)
[2017-08-12] MEDS: THIAMINE INJ 100 MG in SODIUM CHLORIDE 0.9% INJ 100 ML IV SCH (08:45)
[2017-08-12] MEDS: ASPIRIN 81 MG CHEW TAB CHEW SCH (08:45)
[2017-08-12] MEDS: MODAFINIL 200 MG TAB PO SCH (08:45)
[2017-08-12] MEDS: SODIUM CHLORIDE 0.9% FLUSH 10 ML FLUSH IV FLUSH SCH ×2 (08:45→20:14)
[2017-08-12] MEDS: CHLORHEXIDINE 0.12% (ORAL KIT) 15 ML CUP MT SCH ×2 (08:47→20:14)
[2017-08-12] MEDS: ARTIFICIAL TEARS OPTH SOLN 15 ML BTL EACH EYE SCH ×3 (08:47→17:05)
[2017-08-12] MEDS: LIDOCAINE HCL 5% PATCH T-DERMAL SCH (08:47)
[2017-08-12 12:00] VITALS: BP 107/60; PULSE 66; RESP 21; TEMP 99.2; O2SAT 95
[2017-08-12] MEDS ORDERED: GLYCOPYRROLATE 0.2 MG/ML VIAL IV PUSH PRN (12:15)
[2017-08-12] MEDS ORDERED: PHENOL 1.4% SOLN 180 ML BTL OROPHARYNG PRN (12:15)
[2017-08-12] MEDS ORDERED: GLYCOPYRROLATE 1 MG/5 ML VIAL IV PUSH ONE (12:15)
[2017-08-12] MEDS ORDERED: POTASSIUM CHLORIDE 25 MEQ EFFERVESCENT TAB PEG ONE (12:15)
--- NOTE | 2017-08-12 12:19 | HHI.PR ---
Subjective Remarks The patient's and [id number] were at the bedside. Their questions were answered. The patient appeared comfortable. Has been coughing up secretions. Discussed with nursing. Objective Vitals Vital Signs Date Time Temp Pulse Resp B/P (MAP) Pulse Ox O2 Delivery O2 Flow Rate FiO2 08/12/17 08:00 75 08/12/17 08:00 Room Air 08/12/17 08:00 98.4 79 22 156/123 (134) 94 08/12/17 04:00 97.3 107 25 145/102 (116) 95 08/12/17 04:00 105 08/12/17 00:00 107 08/12/17 00:00 97.1 96 22 135/85 (102) 94 08/11/17 20:00 80 08/11/17 20:00 96 Room Air 21 08/11/17 20:00 98.0 84 20 127/84 (98) 94 08/11/17 16:06 98.6 66 19 108/58 (75) 94 08/11/17 12:14 98.8 70 19 141/77 (98) 96 I/O 08/11/17 08/11/17 08/11/17 08/12/17 08/12/17 08/12/17 07:00 15:00 23:00 07:00 15:00 23:00 Intake Total 1100 ml 200 ml Output Total 200 ml 1000 ml Balance -200 ml 1100 ml -800 ml IV Total 1100 ml 200 ml Output Urine Total 200 ml 1000 ml # Bowel Movements 3 Result Diagram: 08/12/17 0615 08/12/17 0615 Imaging Last Impressions Chest X-Ray 08/11/17 0000 Signed Impressions: Service Date/Time: Friday, August 11, 2017 12:19 - CONCLUSION: 1. Left basilar atelectasis. 2. Pneumoperitoneum again seen. Aysuh Waters MD Gastrostomy Tube Placement 08/09/17 0000 Signed Impressions: Service Date/Time: August 14:29 - CONCLUSION: 1. Gastrostomy catheter is well positioned in the stomach. No evidence for extravasation. Kanu Freitas MD Abdomen/Pelvis CT 08/09/17 0000 Signed Impressions: Service Date/Time: August 13:08 - CONCLUSION: 1. Moderate amount of free air in the upper abdomen. Patient appears status post recent gastrostomy placement which could account for this. 2. Gastrostomy tube in the upper abdomen the exact location is not certain since no oral contrast was given a likely resides in the stomach. 3. Nonspecific, nonobstructive bowel gas pattern likely representing an ileus. 4. Small pleural effusions with consolidation in the right lower lobe. 5. Simple appearing cyst in the liver. Alfredo Booth MD Abdomen X-Ray 08/06/17 0000 Signed Impressions: Service Date/Time: Sunday, August 06, 2017 03:45 - CONCLUSION: 1. Mild ileus. No free air. NG tip in stomach. Delta Lane MD Objective Remarks GENERAL: NAD. SKIN: Warm and dry. Pale. HEAD: Normocephalic. EYES: No scleral icterus. No injection or drainage. ENT: supple, no JVD no lymphadenopathy. NECK: Supple, trachea midline. CARDIOVASCULAR: Regular rate and rhythm. RESPIRATORY: Diffuse rhonchi. GASTROINTESTINAL: Abdomen soft, nontender, mildly distended. PEG tube site looks clean. MUSCULOSKELETAL: No cyanosis, or edema. NEURO EXAM: Lethargic, moving upper and lower extremities. Procedures PEG tube placement Medications and IVs Current Medications Medications (Trade) Dose Ordered Sig/Ventura Route Start Time Stop Time Status Last Admin (NS Flush) 2 ml UNSCH PRN IV FLUSH 07/26/17 22:00 (NS Flush) 2 ml BID IV FLUSH 07/27/17 09:00 08/12/17 08:45 (Tylenol) 650 mg Q6H PRN PO 07/26/17 22:00 (Tears Naturale Opth Soln) 1 drop TID EACH EYE 07/27/17 09:00 08/08/17 17:21 (Zofran Inj) 4 mg Q6H PRN IV PUSH 07/26/17 22:00 (Duoneb Neb) 1 ampule Q2HR NEB PRN INH 07/26/17 22:00 08/02/17 02:52 Miscellaneous Information 1 Q361D XX 07/26/17 22:00 07/26/17 22:00 (Chlorhexidine 2% Cloth) Taper DAILY@04 TOP 07/27/17 04:00 1/15/19 03:59 08/10/17 02:00 (Chlorhexidine 2% Cloth) 3 pack UNSCH PRN TOP 07/26/17 22:00 (Marcella-Colace) 1 tab BID PO 07/27/17 09:00 Future Hold 08/10/17 22:26 (Milk Of Magnesia Liq) 30 ml Q12H PRN PO 07/26/17 22:00 07/28/17 15:39 (Senokot) 17.2 mg Q12H PRN PO 07/26/17 22:00 (Dulcolax Supp) 10 mg DAILY PRN RECTAL 07/26/17 22:00 (Peridex 0.12% Liq) 15 ml BID@08,20 MT 07/27/17 08:00 08/12/17 08:47 (Trandate Inj) 10 mg Q4H PRN IV PUSH 07/27/17 02:30 08/03/17 04:48 (Coreg) 3.125 mg Q12HR PO 07/27/17 14:45 08/12/17 08:44 (Aspirin Chew) 81 mg DAILY CHEW 07/29/17 09:00 08/12/17 08:45 (Persantine) 50 mg QID PO 07/28/17 13:00 Future hold 08/12/17 08:44 (Vasotec) 10 mg BID PO 07/29/17 09:00 08/12/17 08:44 (Ativan Inj) 0.5 mg Q2H PRN IV PUSH 07/29/17 14:30 08/10/17 22:38 Thiamine HCl 100 mg/Sodium Chloride 101 ml @ 101 mls/hr DAILY IV 07/29/17 14:15 08/12/17 08:45 (Lovenox Inj) 40 mg Q24H SQ 07/29/17 15:00 Future hold 08/11/17 18:09 (Apresoline Inj) 20 mg Q4H PRN IV 07/29/17 21:15 08/07/17 16:12 (Imdur) 60 mg DAILY@0700 PO 07/30/17 09:00 08/09/17 06:17 (Norvasc) 5 mg DAILY PO 07/30/17 09:00 08/12/17 08:44 (Sinemet 25-100 Mg) 2 tab Q6HR PO 07/31/17 18:00 08/12/17 05:00 (Pill Splitter) 1 ea UNSCH PRN OTHER 08/01/17 10:00 (Provigil) 200 mg DAILY PO 08/03/17 09:00 08/10/17 10:05 (Protonix Inj) 40 mg Q24H IV PUSH 08/06/17 18:00 08/11/17 18:08 (Motrin) 400 mg Q6HR PRN PO 08/08/17 21:00 08/08/17 21:32 Metronidazole 100 ml @ 100 mls/hr Q8H IV 08/09/17 12:00 08/12/17 04:59 (Free Water) 200 ml Q4H G-TUBE 08/09/17 14:00 08/12/17 10:06 Levofloxacin/ Dextrose 150 ml @ 100 mls/hr Q24H IV 08/09/17 16:00 08/11/17 15:30 Pharmacy Profile Note 0 ml @ 0 mls/hr UNSCH OTHER 08/10/17 08:45 Dextrose/Sodium Chloride 1,000 ml @ 30 mls/hr Q24H IV 08/10/17 10:00 08/11/17 22:57 Vancomycin/Sodium Chloride 200 ml @ 200 mls/hr Q18H IV 08/10/17 12:00 08/11/17 22:57 Miscellaneous Information SPECIFIC LAB TO BE JUAN MANUEL... ONCE ONCE .XX 08/12/17 17:45 08/12/17 17:46 (Levsin Liq) 0.125 mg Q4H PRN PO 08/11/17 10:45 08/11/17 12:55 ([place] 5-325 Mg) 1 tab Q4H PRN PO 08/11/17 14:45 (Morphine Inj) 4 mg Q2H PRN IV PUSH 08/11/17 14:30 08/11/17 19:47 (Lidoderm 5% Patch.12 Hr) 1 patch DAILY T-DERMAL 08/11/17 14:30 08/11/17 15:33 Miscellaneous Information 1 Q24H T-DERMAL 08/11/17 21:00 08/11/17 19:51 (SEROquel) 25 mg BID PO 08/12/17 12:15 UNV A/P Assessment and Plan Sepsis/ PNA/ UTI The pt has been hypotensive, tachycardic, has had low grade fever and with leukocytosis. CT abdomen with concern for consolidation of the right lower lobe. UA indicative of infection. Urine culture indicating contamination. Has diarrhea but has been receiving lactulose. - IVFs. - continue IV Levaquin and IV Flagyl. - check blood cultures, sputum culture, C diff PCR. - oxygen and nebs. Pneumoperitoneum Noted on CXR and confirmed on CT abdomen. GS consult appreciated. Likely normal s/t PEG tube placement. PEG study revealed functioning PEG tube. - follow up with surgery. Cleared to start tube feeds. Currently will hold that 35 mls per hour. Cardiac arrest Secondary to choking. Course was complicated by NSTEMI which needs further cardiac work-up. Troponin peaked at 2, EF 45%. - Continue Aspirin, Coreg. Lovenox 40 mg subcutaneous daily. - outpt follow-up with cardiology. Medical management recommended. MPS and further cardiac intervention can be worked-up in inpatient rehab. - palliative care consult requested. Acute hypoxic and hypercarbic respiratory failure Secondary to choking. Extubated 07/29/17. CT abdomen with evidence of RLL consolidation. - Continue breathing treatments, aggressive pulmonary toilet. - continue IV vancomycin and Levaquin. - nebs as needed. - Glycopyrrolate for secretions. - Chloraseptic spray for sore throat. Delirium/ metabolic encephalopathy/ Alcohol withdrawal Delirium is multifactorial. improving at this time. Neurology consult appreciated. - [facility] protocol. - Continue Sinemet, Provigil increased to 200 mg - Consumes >2 vodka Daily, supplement thiamine. - PT/ OT. - Seroquel 25 mg by mouth twice a day for agitation. Dysphagia GI specialist consulted and attempted to place PEG tube, was not possible. Severe Gastritis, Small Hiatal Hernia were noted. PEG tube placed by Interventional Radiology 08/08. - PPI. - free water. Tube feeds. - replete potassium. Parkinson's/ Deconditioning The pt is weak. - continue home meds. - inpt rehab recommended. - PT/ OT/ ST. - Palliative care consult pending. Consider hospice. PPx: Lovenox Discharge Planning Awaiting palliative care consult Alfredo Rhoades DO Aug 12, 2017 12:18
[2017-08-12] MEDS: QUEtiapine FUMARATE 25 MG TAB PO SCH ×2 (12:49→20:15)
--- NOTE | 2017-08-12 13:08 | HHI.PR ---
Review/Management Diagnosis/Plan: (1) Encephalopathy, metabolic ICD Codes: G93.41 - Metabolic encephalopathy Status: Acute Plan: etiology: hypoxic brain injury, hypoxia. dt's a possibility, mild resp distress/pneumonia s/p peg tube weakness from pd/poor oral intake/bedridden status disuse atrophy recs looks better today on seroquel; meño santiago'd rehab planning, [place] d/w pt/spouse (2) Parkinsons disease ICD Codes: G20 - Parkinson's disease Status: Chronic Plan: 2 tabs q 6hrs peg tube pending due to pre-existing dysphagia from PD (3) Cardiac arrest ICD Codes: I46.9 - Cardiac arrest, cause unspecified Status: Acute (4) Hypertension ICD Codes: I10 - Essential (primary) hypertension Status: Chronic Subjective Subjective Comments No acute events reported No headache No chest pain No dyspnea Active Medications Current Medications Medications (Trade) Dose Ordered Sig/Ventura Route Start Time Stop Time Status Last Admin (NS Flush) 2 ml UNSCH PRN IV FLUSH 07/26/17 22:00 (NS Flush) 2 ml BID IV FLUSH 07/27/17 09:00 08/12/17 08:45 (Tylenol) 650 mg Q6H PRN PO 07/26/17 22:00 (Tears Naturale Opth Soln) 1 drop TID EACH EYE 07/27/17 09:00 08/08/17 17:21 (Zofran Inj) 4 mg Q6H PRN IV PUSH 07/26/17 22:00 (Duoneb Neb) 1 ampule Q2HR NEB PRN INH 07/26/17 22:00 08/02/17 02:52 Miscellaneous Information 1 Q361D XX 07/26/17 22:00 07/26/17 22:00 (Chlorhexidine 2% Cloth) Taper DAILY@04 TOP 07/27/17 04:00 07/23/18 03:59 08/10/17 02:00 (Chlorhexidine 2% Cloth) 3 pack UNSCH PRN TOP 07/26/17 22:00 (Marcella-Colace) 1 tab BID PO 07/27/17 09:00 Future hold 08/10/17 22:26 (Milk Of Magnesia Liq) 30 ml Q12H PRN PO 07/26/17 22:00 07/28/17 15:39 (Senokot) 17.2 mg Q12H PRN PO 07/26/17 22:00 (Dulcolax Supp) 10 mg DAILY PRN RECTAL 07/26/17 22:00 (Peridex 0.12% Liq) 15 ml BID@08,20 MT 07/27/17 08:00 08/12/17 08:47 (Trandate Inj) 10 mg Q4H PRN IV PUSH 07/27/17 02:30 08/03/17 04:48 (Coreg) 3.125 mg Q12HR PO 07/27/17 14:45 08/12/17 08:44 (Aspirin Chew) 81 mg DAILY CHEW 07/29/17 09:00 08/12/17 08:45 (Persantine) 50 mg QID PO 07/28/17 13:00 Future hold 08/12/17 12:14 (Vasotec) 10 mg BID PO 07/29/17 09:00 08/12/17 08:44 (Ativan Inj) 0.5 mg Q2H PRN IV PUSH 07/29/17 14:30 08/10/17 22:38 Thiamine HCl 100 mg/Sodium Chloride 101 ml @ 101 mls/hr DAILY IV 07/29/17 14:15 08/12/17 08:45 (Lovenox Inj) 40 mg Q24H SQ 07/29/17 15:00 Future hold 08/11/17 18:09 (Apresoline Inj) 20 mg Q4H PRN IV 07/29/17 21:15 08/07/17 16:12 (Imdur) 60 mg DAILY@0700 PO 07/30/17 09:00 08/09/17 06:17 (Norvasc) 5 mg DAILY PO 07/30/17 09:00 08/12/17 08:44 (Sinemet 25-100 Mg) 2 tab Q6HR PO 07/31/17 18:00 08/12/17 12:14 (Pill Splitter) 1 ea UNSCH PRN OTHER 08/01/17 10:00 (Provigil) 200 mg DAILY PO 08/03/17 09:00 08/10/17 10:05 (Protonix Inj) 40 mg Q24H IV PUSH 08/06/17 18:00 08/11/17 18:08 (Motrin) 400 mg Q6HR PRN PO 08/08/17 21:00 08/08/17 21:32 Metronidazole 100 ml @ 100 mls/hr Q8H IV 08/09/17 12:00 08/12/17 12:14 (Free Water) 200 ml Q4H G-TUBE 08/09/17 14:00 08/12/17 13:01 Levofloxacin/ Dextrose 150 ml @ 100 mls/hr Q24H IV 08/09/17 16:00 08/11/17 15:30 Pharmacy Profile Note 0 ml @ 0 mls/hr UNSCH OTHER 08/10/17 08:45 Dextrose/Sodium Chloride 1,000 ml @ 30 mls/hr Q24H IV 08/10/17 10:00 08/11/17 22:57 Vancomycin/Sodium Chloride 200 ml @ 200 mls/hr Q18H IV 08/10/17 12:00 08/11/17 22:57 Miscellaneous Information SPECIFIC LAB TO BE JUAN MANUEL... ONCE ONCE .XX 08/12/17 17:45 08/12/17 17:46 (Lee 5-325 Mg) 1 tab Q4H PRN PO 08/11/17 14:45 (Morphine Inj) 4 mg Q2H PRN IV PUSH 08/11/17 14:30 08/11/17 19:47 (Lidoderm 5% Patch.12 Hr) 1 patch DAILY T-DERMAL 08/11/17 14:30 08/11/17 15:33 Miscellaneous Information 1 Q24H T-DERMAL 08/11/17 21:00 08/11/17 19:51 (SEROquel) 25 mg BID PO 08/12/17 12:15 08/12/17 12:49 (Robinul Inj) 0.2 mg Q8H PRN IV PUSH 08/12/17 12:15 UNV (Robinul Inj) 0.2 mg ONCE ONCE IV PUSH 08/12/17 12:15 08/12/17 12:16 UNV (Chloraseptic [place]) 2 spray Q2H PRN OROPHARYNG 08/12/17 12:15 UNV Allergies Allergies Coded Allergies penicillin G (Verified Allergy, Severe, ANAPHILAXIS, 08/06/17) Sulfa (Sulfonamide Antibiotics) (Verified Allergy, Intermediate, UNKNOWN, 08/06) Review of Systems All other ROS: ROS reviewed as documented in chart Exam I&O / VS Vital Signs Date Time Temp Pulse Resp B/P (MAP) Pulse Ox O2 Delivery O2 Flow Rate FiO2 08/12/17 08:00 75 08/12/17 08:00 Room Air 08/12/17 08:00 98.4 79 22 156/123 (134) 94 08/12/17 04:00 97.3 107 25 145/102 (116) 95 08/12/17 04:00 105 08/12/17 00:00 107 08/12/17 00:00 97.1 96 22 135/85 (102) 94 08/11/17 20:00 80 08/11/17 20:00 96 Room Air 21 08/11/17 20:00 98.0 84 20 127/84 (98) 94 08/11/17 16:06 98.6 66 19 108/58 (75) 94 Exam Comments alerts more quickly, severe hypophonic speech, breathing more comfortably, facial hypomimia, follows all 4 ext, no tremors, minimal rigidity, marquez to gravity, withdraws to tactile Objective Micro and Labs Laboratory Tests Test 08/12/17 06:15 White Blood Count 11.2 Red Blood Count 3.45 Hemoglobin 11.5 Hematocrit 32.7 Mean Corpuscular Volume 95.0 Mean Corpuscular Hemoglobin 33.5 Mean Corpuscular Hemoglobin Concent 35.3 Red Cell Distribution Width 12.9 Platelet Count 241 Mean Platelet Volume 8.2 Blood Urea Nitrogen 12 Creatinine 0.43 Random Glucose 115 Calcium Level 7.6 Magnesium Level 1.6 Sodium Level 139 Potassium Level 3.5 Chloride Level 107 Carbon Dioxide Level 24.3 Anion Gap 8 Estimat Glomerular Filtration Rate 193 Date/Time Source Procedure Growth Status 08/09/17 12:48 Blood Peripheral Aerobic Blood Culture - Preliminary NO GROWTH IN 3 DAYS Resulted 08/09/17 12:48 Blood Peripheral Anaerobic Blood Culture - Preliminary NO GROWTH IN 3 DAYS Resulted 08/09/17 12:36 Urine Catheterized Urine Urine Culture - Final Complete Problem Qualifiers (1) Hypertension: Qualified Codes: I10 - Essential (primary) hypertension Russell Xiao MD Aug 12, 2017 13:08
[2017-08-12] MEDS ORDERED: GLYCOPYRROLATE 0.2 MG/ML VIAL IV PUSH ONE (15:15)
[2017-08-12] MEDS: DEXT 5%-NACL 0.45% 1000 ML INJ 1,000 ML IV SCH (15:29)
[2017-08-12 16:00] VITALS: BP 90/64; PULSE 61; RESP 21; TEMP 98.5; O2SAT 94
[2017-08-12] MEDS: ENOXAPARIN SODIUM 40 MG/0.4 ML SYRINGE SQ SCH (16:31)
[2017-08-12] MEDS: LEVOFLOXACIN 750 MG PREMIX INJ 150 ML IV SCH (16:42)
[2017-08-12] MEDS: PANTOPRAZOLE SODIUM 40 MG VIAL IV PUSH SCH (16:42)
[2017-08-12] MEDS ORDERED: PHARMACY ORDERED LAB ONE (17:45)
[2017-08-12] MEDS: VANCOMYCIN 1 GM/200 ML PREMIX IV SCH (18:27)
[2017-08-12 20:00] VITALS: BP 92/64; PULSE 74; RESP 20; TEMP 98.2; O2SAT 94
[2017-08-12] MEDS: DOCUSATE SODIUM 50 MG/SENNA 8.6 MG TAB PO SCH (20:14)
[2017-08-12] MEDS: REMOVE OLD LIDOCAINE PATCH T-DERMAL SCH (20:15)
[2017-08-12] MEDS ORDERED: METOCLOPRAMIDE HCL 10 MG/2 ML VIAL IV PUSH ONE (22:45)
[2017-08-13] VITALS: PULSE 82; RESP 48; TEMP 97.3; O2SAT 93
[2017-08-13] MEDS: RESP: ALBUTEROL 2.5 MG/IPRATROPIUM 0.5 MG NEB (PRN) INH (01:21)
[2017-08-13 01:30] VITALS: O2SAT 94
[2017-08-13] MEDS ORDERED: SODIUM CHLOR 0.9% 1000 ML INJ 1,000 ML IV ONE (02:15)
[2017-08-13] MEDS: metroNIDAZOLE 500 MG INJ 100 ML IV SCH ×2 (03:01→13:20)
[2017-08-13] MEDS: CHLORHEXIDINE GLUCONATE 2 % 1 PACK (2 CLOTHS) TOP SCH (03:01)
[2017-08-13 04:00] VITALS: BP 93/61; PULSE 91; RESP 20; TEMP 98.6; O2SAT 94
--- NOTE | 2017-08-13 04:52 | HHI.PR ---
Addendum to Inpatient Note Addendum Reason: Additional Documentation Additional Information Called by RN at 2215, Pt with abdominal distention, and increased residuals. -Reglan 10mg IV ordered, and instructed to hold Tube feedings. Increased D51/ 2NS to 75ml/hr Called by RN around 0030, Pt using accessory muscles to breath and unable to get a BP. I assessed patient at bedside and pt was found to have a thready pulse and tachypnea. -ABG and 1 L NS bolus ordered, duoneb given and pt was placed on 3 L. -ABG shows Respiratory alkalosis due to increase work of breathing, Patient appears at baseline post breathing treatment. -Scheduled duonebs and Acapella ordered, incentive at bedside already At around 0115 patient vomited, high possibility of aspiration. -Reviewed record, patient is already on Levaquin, vancomycin and Flagyl Discussed with about possible need for bipap, she does not think he will keep it on and would rather try everything before using bipap. Goals of care are hard to clarify. would like to talk to her son and daughter who are both physicians. Palliative care has been consulted. Shiloh Vela Aug 13, 2017 04:52
[2017-08-13] MEDS ORDERED: SODIUM CHLORID 0.9% 500 ML INJ 500 ML IV ONE (05:30)
[2017-08-13] MEDS: FREE WATER G-TUBE SCH ×2 (05:44→12:00)
[2017-08-13] MEDS: ISOSORBIDE MONONITRATE 60 MG TAB PO SCH (05:44)
[2017-08-13] MEDS ORDERED: VANCOMYCIN INJ 1,250 MG in SODIUM CHLOR 0.9% 250 ML INJ 250 ML IV SCH (06:00)
[2017-08-13] MEDS: CARBIDOPA/LEVODOPA 25 MG/100 MG TAB PO SCH ×2 (06:00→13:21)
[2017-08-13] MEDS: RESP: ALBUTEROL 2.5 MG/IPRATROPIUM 0.5 MG NEB (SCH) NEB ×3 (07:46→16:00)
[2017-08-13 07:49] VITALS: O2SAT 94
[2017-08-13 08:00] VITALS: BP 93/62; PULSE 89; RESP 22; TEMP 98.4; O2SAT 94
[2017-08-13] MEDS: DIPYRIDAMOLE 25 MG TAB PO SCH ×2 (09:00→13:00)
[2017-08-13] MEDS ORDERED: ACETAMINOPHEN 1000 MG/100 ML 100 ML IV SCH (10:00)
[2017-08-13] MEDS: QUEtiapine FUMARATE 25 MG TAB PO SCH (10:01)
[2017-08-13] MEDS: MODAFINIL 200 MG TAB PO SCH (10:01)
[2017-08-13] MEDS: ASPIRIN 81 MG CHEW TAB CHEW SCH (10:02)
[2017-08-13] MEDS: DOCUSATE SODIUM 50 MG/SENNA 8.6 MG TAB PO SCH (10:02)
[2017-08-13] MEDS: DEXT 5%-NACL 0.45% 1000 ML INJ 1,000 ML IV SCH (10:22)
[2017-08-13] MEDS: LIDOCAINE HCL 5% PATCH T-DERMAL SCH (10:22)
--- NOTE | 2017-08-13 10:27 | HHI.PR ---
cc: Alfredo Langston MD Subjective Subjective Notes Moaning and sister at bedside Objective Vitals/I&O Vital Signs Date Time Temp Pulse Resp B/P (MAP) Pulse Ox O2 Delivery O2 Flow Rate FiO2 08/13/17 08:00 98.4 89 22 93/62 (72) 94 08/13/17 07:49 Nasal Cannula 2.00 08/11/17 20:00 21 Labs Laboratory Tests Test 08/12/17 17:00 08/13/17 01:54 Vancomycin Level Trough 5.1 Blood Gas Puncture Site RT BRACHIAL Blood Gas Patient Temperature 98.6 Blood Gas HCO3 17 Blood Gas Base Excess -6.2 Blood Gas Oxygen Saturation 93 Arterial Blood pH 7.48 Arterial Blood Partial Pressure CO2 23 Arterial Blood Partial Pressure O2 73 Arterial Blood Oxygen Content 17.7 Arterial Blood Carboxyhemoglobin 1.5 Arterial Blood Methemoglobin 0.8 Blood Gas Hemoglobin 13.5 Oxygen Delivery Device NASAL CANNULA Blood Gas Liter Flow 3 Date/Time Source Procedure Growth Status 08/09/17 12:48 Blood Peripheral Aerobic Blood Culture - Preliminary NO GROWTH IN 3 DAYS Resulted 08/09/17 12:48 Blood Peripheral Anaerobic Blood Culture - Preliminary NO GROWTH IN 3 DAYS Resulted 08/09/17 12:36 Urine Catheterized Urine Urine Culture - Final Complete Cardiovascular: Regular Lungs: Clear Abdomen: Other (distended; tender to palpation; PEG in place ---clamped ) Extremities: No edema A/P Assessment and Plan 76 year old male with Parkinson disease; s/p PEG tube with findings of free air -Started trickle feeds yesterday but unable to tolerate; PEG now clamped -Hold TF -CT abd/pelvis today to eval tube -Agree with Palliative Care consult to help and sister establish goals -Discussed with Dr. Rhoades Attending Note - Dr. Langston WBC's are near normal today Family has chosen hospice; will see as needed The exam, history, and the medical decision-making described in the above note were completed with the assistance of the mid-level provider. I reviewed and agree with the findings presented. I attest that I had a [id number] encounter with the patient on the same day, and personally performed and documented my assessment and findings in the medical record. Ria Avila Aug 13, 2017 10:27 Alfredo Langston MD Aug 13, 2017 17:54
[2017-08-13] MEDS ORDERED: DIATRIZOATE MEGLUM/DIATRIZOATE SOD 9 ML CUP PO ONE (10:45)
[2017-08-13 12:00] VITALS: BP 144/54; PULSE 70; RESP 22; TEMP 98.5; O2SAT 96
--- NOTE | 2017-08-13 13:13 | PD.CONS ---
Consult Service Palliative Care Consult Requested By dr. Rhoades . Primary Care Physician Unknown . Reason for Consultation a. To assist with evaluation and management of symptoms including: Dyspnea , agitation b. To assist medical decision maker(s) with: better understanding of current medical conditions; weighing benefits/burdens of medical treatment options; making medical treatment decisions. . HPI History of Present Illness This 76-year-old male, with a history of Parkinson's disease for at least 4 years, was in a restaurant with his for her birthday dinner when he apparently choked on food. From what I can tell from the records, this resulted in a respiratory arrest and possibly a cardiac arrest, as bystander CPR was initiated. The patient was intubated in the field and had spontaneous circulation when he arrived at the emergency department. Other findings there included: * Nearly unresponsive * Temp 99.0, pulse 100, respirations 16 on the ventilator, blood pressure 122/50 , oxygen saturation 99% on the ventilator * White count 5.5, hemoglobin 14.5 * Sodium 143, creatinine 1.01 * AST 134, ALT 15 * Initial troponin 0.04 * Chest x-ray without acute disease * EKG with left bundle branch block, uncertain if that was new * Follow-up troponin 2.19 The patient was admitted to intensive care, and he remained quite somnolent for the next couple days. He was a little more alert and was able to be extubated on 07/29/17, but then had significant difficulty with agitation over the subsequent 2 or 3 days. Restraints were required, Precedex and Haldol were used , and his agitation gradually improved. An echocardiogram was done that revealed an ejection fraction of 60-65%. On 08/02/17, the patient's mentation was improved, but on 08/03/17 he failed his swallow evaluation. A PEG tube was unable to be placed in the usual fashion by GI, and eventually was placed by interventional radiology on 08/08/17. On 08/09/17 , it was noted that the patient had muscle atrophy, was weak and bedbound, and quite debilitated. He had abdominal distention, and an abdomen/pelvis CT revealed the G-tube in place and pneumoperitoneum. He had some time of hypotension then, and he was evaluated by surgery who did not feel surgical intervention was warranted at that time. Over the last couple days, the patient had increasing residuals from his PEG tube artificial nutrition, and his abdomen remained distended. On the day of this consultation, the patient was noted last night to have vomited and was suspected to have aspirated. He had developed increasing dyspnea, and at the time I am seeing him he is lethargic, tachypneic, and profoundly weak. The patient's family has noted rather rapid decline over the past year. He sustained a fall and hip fracture several months ago and underwent ORIF, and his decline has been even more rapid since then. In recent weeks, he has been sleeping at least 18 hours per day, has been weaker, and "barely could get around" with his walker in the assistance of his . They noted that he had dysphagia now for a few months, and that he had previous "choking episodes," even a couple that required the Heimlich maneuver. Palliative Care was consulted to assist with symptom management, and to enter into discussions with the patient/family regarding his illnesses, the prognosis , and the benefits and burdens of the various treatment choices. . Function/Cognitive Trajectory Patient lives with his who has been his primary caregiver. He has declined rapidly in recent weeks and months, now becoming nonambulatory and profoundly weak. His dysphagia had been worsening, and it appears he now has aspiration pneumonia and respiratory failure. . Review of Systems ROS Limitations: Altered Mental Status Constitutional: COMPLAINS OF: Fever Endocrine: DENIES: Polyuria Eyes: DENIES: Eye inflammation Ears, nose, mouth, throat: DENIES: Epistaxis Respiratory: COMPLAINS OF: Shortness of breath, DENIES: Cough Cardiovascular: COMPLAINS OF: Dyspnea on Exertion, DENIES: Syncope Gastrointestinal: COMPLAINS OF: Vomiting, DENIES: Bloody stools, Constipation, Diarrhea, Vomiting blood Genitourinary: DENIES: Hematuria Musculoskeletal: DENIES: Joint Swelling Integumentary: DENIES: Abnormal pigmentation Hematologic/Lymphatics: DENIES: Bruising Immunologic/Allergic: DENIES: Urticaria Neurologic: COMPLAINS OF: Tremor (history of Parkinson's), DENIES: Localized weakness Psychiatric: COMPLAINS OF: Confusion, Agitation Past Family Social History Coded Allergies: penicillin G (Verified Allergy, Severe, ANAPHILAXIS, 08/06/17) Sulfa (Sulfonamide Antibiotics) (Verified Allergy, Intermediate, UNKNOWN, 08/06/17) Past Medical History * Respiratory failure, EXTUBATED on 07/29/17, but now with recurrent symptoms * Recent airway obstruction with respiratory arrest and possible cardiac arrest * Some hypoxic brain injury that seemed to be improving prior to the recent acute deterioration * Profound deconditioning * Dysphagia for several months with repeated "choking episodes" * Pneumoperitoneum status post PEG tube placement * Abdominal distention, ileus * End-stage Parkinson's disease . Past Surgical History * Hip fracture - ORIF 2017 * PEG tube 08/08/17 . Reported Medications Reported Meds & Active Scripts Active Reported B-12 (Cyanocobalamin) 1,000 Mcg Subl 1,000 Mcg SL DAILY Vitamin D3 (Cholecalciferol) 1,000 Unit Tab 1,000 Units PO DAILY Cetirizine (Cetirizine HCl) 10 Mg Tab 10 Mg PO DAILY Dipyridamole 50 Mg Tab 50 Mg PO QID Aspirin Children's (Aspirin) 81 Mg Chew 81 Mg CHEW DAILY Hydrocodone-Acetaminophen 5-325 mg Tab 1 Tab PO Q8HR PRN Esomeprazole DR 20 Mg Capdr 20 Mg PO DAILY Carbidopa-Levodopa 25-100 Mg Tab 1 Tab PO Q3HR . Current Medications Medications (Trade) Dose Ordered Sig/Ventura Route Start Time Stop Time Status Last Admin (NS Flush) 2 ml UNSCH PRN IV FLUSH 07/26/17 22:00 (NS Flush) 2 ml BID IV FLUSH 07/27/17 09:00 08/12/17 20:14 (Tears Naturale Opth Soln) 1 drop TID EACH EYE 07/27/17 09:00 08/08/17 17:21 (Zofran Inj) 4 mg Q6H PRN IV PUSH 07/26/17 22:00 08/13/17 02:37 (Duoneb Neb) 1 ampule Q2HR NEB PRN INH 07/26/17 22:00 08/13/17 01:21 Miscellaneous Information 1 Q361D XX 07/26/17 22:00 07/26/17 22:00 (Chlorhexidine 2% Cloth) Taper DAILY@04 TOP 07/27/17 04:00 07/23/18 03:59 08/10/17 02:00 (Chlorhexidine 2% Cloth) 3 pack UNSCH PRN TOP 07/26/17 22:00 (Marcella-Colace) 1 tab BID PO 07/27/17 09:00 Future hold 08/13/17 10:02 (Milk Of Magnesia Liq) 30 ml Q12H PRN PO 07/26/17 22:00 07/28/17 15:39 (Senokot) 17.2 mg Q12H PRN PO 07/26/17 22:00 (Dulcolax Supp) 10 mg DAILY PRN RECTAL 07/26/17 22:00 (Peridex 0.12% Liq) 15 ml BID@08,20 MT 07/27/17 08:00 08/12/17 20:14 (Aspirin Chew) 81 mg DAILY CHEW 07/29/17 09:00 08/13/17 10:02 (Persantine) 50 mg QID PO 07/28/17 13:00 Future hold 08/13/17 09:00 Thiamine HCl 100 mg/Sodium Chloride 101 ml @ 101 mls/hr DAILY IV 07/29/17 14:15 08/12/17 08:45 (Lovenox Inj) 40 mg Q24H SQ 07/29/17 15:00 Future hold 08/12/17 16:31 (Apresoline Inj) 20 mg Q4H PRN IV 07/29/17 21:15 08/07/17 16:12 (Sinemet 25-100 Mg) 2 tab Q6HR PO 07/31/17 18:00 08/13/17 06:00 (Pill Splitter) 1 ea UNSCH PRN OTHER 08/01/17 10:00 (Provigil) 200 mg DAILY PO 08/03/17 09:00 08/13/17 10:01 (Protonix Inj) 40 mg Q24H IV PUSH 08/06/17 18:00 08/12/17 16:42 (Motrin) 400 mg Q6HR PRN PO 08/08/17 21:00 08/08/17 21:32 Metronidazole 100 ml @ 100 mls/hr Q8H IV 08/09/17 12:00 08/13/17 03:01 Levofloxacin/ Dextrose 150 ml @ 100 mls/hr Q24H IV 08/09/17 16:00 08/12/17 16:42 Pharmacy Profile Note 0 ml @ 0 mls/hr UNSCH OTHER 08/10/17 08:45 Dextrose/Sodium Chloride 1,000 ml @ 75 mls/hr [id number] IV 08/10/17 10:00 08/13/17 10:22 (Morphine Inj) 4 mg Q2H PRN IV PUSH 08/11/17 14:30 08/11/17 19:47 (Lidoderm 5% Patch.12 Hr) 1 patch DAILY T-DERMAL 08/11/17 14:30 08/13/17 10:22 Miscellaneous Information 1 Q24H T-DERMAL 08/11/17 21:00 08/11/17 19:51 (SEROquel) 25 mg BID PO 08/12/17 12:15 08/13/17 10:01 (Robinul Inj) 0.2 mg Q8H PRN IV PUSH 08/12/17 12:15 (Chloraseptic [place]) 2 spray Q2H PRN OROPHARYNG 08/12/17 12:15 (Free Water) VOLUME OF WATER: ( 100 ) ML Q6HR G-TUBE 08/13/17 00:00 Vancomycin HCl 1250 mg/Sodium Chloride 262.5 ml @ 250 mls/hr Q12H IV 08/13/17 06:00 08/13/17 05:45 Miscellaneous Information SPECIFIC LAB TO BE [facility]... ONCE ONCE .XX 08/14/17 05:45 08/14/17 05:46 (Duoneb Neb) 1 ampule QID NEB NEB 08/13/17 08:00 08/13/17 11:37 Acetaminophen 100 ml @ 400 mls/hr Q6H IV 08/13/17 10:00 08/13/17 10:21 Family History There is no family history of Parkinson's disease. . Substance Use Tobacco: None Alcohol: Vodka about 2 per day Prescription med abuse: None Illicits: . Psychosocial History The patient was born and raised in [place], and moved with his to [place] about 15 years ago. He has been more than 51 years. 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 . Spiritual/Cultural Factors The patient is reportedly not spiritual or cheondoism. The patient's will decide if a ic designer gate [employer] visit is requested. . Living Will: Completed, but not made available Health Care Surrogate: Never completed Durable Power of Supervisor Communications And Signals: Never completed Today's verbally stated goals: The patient has a living will but I have been unable to view it. . Family/friends goals: I initially spoke with the patient's sons Luis (founder and chief executive officer) and Gurpreet. I then met with the patient's . They want to transition to comfort care and engage hospice services for end-of-life care at the [facility]. . . Ethical and Legal Issues There are no ethical issues that would impact his care were decision-making at this time. The patient lacks capacity for decision-making, and I do not think he will regain that capacity. His is his proxy decision-maker. . Physical Exam Vital Signs Date Time Temp Pulse Resp B/P (MAP) Pulse Ox O2 Delivery O2 Flow Rate FiO2 08/13/17 08:00 98.4 89 22 93/62 (72) 94 08/13/17 07:49 94 Nasal Cannula 2.00 08/13/17 04:00 98.6 91 20 93/61 (72) 94 08/13/17 01:50 Nasal Cannula 3.00 08/13/17 01:30 94 Nasal Cannula 3.00 08/13/17 00:00 97.3 82 48 93 08/12/17 20:00 96 Room Air 08/12/17 20:00 98.2 74 20 92/64 (73) 94 08/12/17 16:00 98.5 61 21 90/64 (73) 94 Exam CONSTITUTIONAL/GENERAL: This is a weak, deconditioned, elderly patient, in mild respiratory distress. TUBES/LINES/DRAINS: Mask oxygen, peripheral IV SKIN: No jaundice, rashes, or lesions. Ecchymoses on upper extremities. No wounds seen anteriorly. Skin temperature appropriate. Not diaphoretic. HEAD: Atraumatic. Normocephalic. EYES: Pupils equal and round and reactive. No scleral icterus. No injection or drainage. Fundi not examined. ENT: Hearing grossly normal. Nose without bleeding or purulent drainage. NECK: Trachea midline. Supple, nontender. No palpable thyroid enlargement or nodularity. CARDIOVASCULAR: Regular rate and rhythm without murmurs, gallops, or rubs. No JVD. Peripheral pulses symmetric. RESPIRATORY/CHEST: Symmetric, mildly labored respirations, and somewhat tachypneic. Scattered rales and rhonchi GASTROINTESTINAL: Abdomen soft, non-tender, nondistended. No hepato-splenomegaly , or palpable masses. No guarding. Bowel sounds present. GENITOURINARY: Without palpable bladder distension. Perez catheter in place. MUSCULOSKELETAL: Extremities without clubbing, cyanosis, or edema. No joint tenderness or effusion noted. No calf tenderness. No mottling or clubbing. LYMPHATICS: No palpable cervical or supraclavicular adenopathy. NEUROLOGICAL: Lethargic, does not follow simple commands PSYCHIATRIC: Was restless and agitated earlier . Diagnostic Tests Laboratory Laboratory Tests Test 08/11/17 07:04 08/12/17 06:15 08/12/17 17:00 08/13/17 01:54 White Blood Count 14.9 TH/MM3 (4.0-11.0) 11.2 TH/MM3 (4.0-11.0) Red Blood Count 3.66 MIL/MM3 (4.50-5.90) 3.45 MIL/MM3 (4.50-5.90) Hemoglobin 12.2 GM/DL (13.0-17.0) 11.5 GM/DL (13.0-17.0) Hematocrit 35.0 % (39.0-51.0) 32.7 % (39.0-51.0) Mean Corpuscular Volume 95.5 FL (80.0-100.0) 95.0 FL (80.0-100.0) Mean Corpuscular Hemoglobin 33.4 PG (27.0-34.0) 33.5 PG (27.0-34.0) Mean Corpuscular Hemoglobin Concent 35.0 % (32.0-36.0) 35.3 % (32.0-36.0) Red Cell Distribution Width 13.1 % (11.6-17.2) 12.9 % (11.6-17.2) Platelet Count 239 TH/MM3 (150-450) 241 TH/MM3 (150-450) Mean Platelet Volume 8.4 FL (7.0-11.0) 8.2 FL (7.0-11.0) Blood Urea Nitrogen 14 MG/DL (7-18) 12 MG/DL (7-18) Creatinine 0.47 MG/DL (0.60-1.30) 0.43 MG/DL (0.60-1.30) Random Glucose 112 MG/DL (74-106) 115 MG/DL (74-106) Calcium Level 8.0 MG/DL (8.5-10.1) 7.6 MG/DL (8.5-10.1) Magnesium Level 1.6 MG/DL (1.5-2.5) 1.6 MG/DL (1.5-2.5) Sodium Level 138 MEQ/L (136-145) 139 MEQ/L (136-145) Potassium Level 3.2 MEQ/L (3.5-5.1) 3.5 MEQ/L (3.5-5.1) Chloride Level 107 MEQ/L (98-107) 107 MEQ/L (98-107) Carbon Dioxide Level 22.8 MEQ/L (21.0-32.0) 24.3 MEQ/L (21.0-32.0) Anion Gap 8 MEQ/L (5-15) 8 MEQ/L (5-15) Estimat Glomerular Filtration Rate 174 ML/MIN (>89) 193 ML/MIN (>89) Vancomycin Level Trough 5.1 MCG/ML (5.0-10.0) Blood Gas Puncture Site RT BRACHIAL Blood Gas Patient Temperature 98.6 Blood Gas HCO3 17 mmol/L (22-26) Blood Gas Base Excess -6.2 mmol/L (-2-2) Blood Gas Oxygen Saturation 93 % (90-100) Arterial Blood pH 7.48 (7.380-7.420) Arterial Blood Partial Pressure CO2 23 mmHg (38-42) Arterial Blood Partial Pressure O2 73 mmHg (61-120) Arterial Blood Oxygen Content 17.7 Vol % (12.0-20.0) Arterial Blood Carboxyhemoglobin 1.5 % (0-4) Arterial Blood Methemoglobin 0.8 % (0-2) Blood Gas Hemoglobin 13.5 G/DL (12.0-16.0) Oxygen Delivery Device NASAL CANNULA Blood Gas Liter Flow 3 L/M Result Diagram: 08/12/17 0615 08/12/17 0615 Imaging Last Impressions Chest X-Ray 08/11/17 0000 Signed Impressions: Service Date/Time: Friday, August 11, 2017 12:19 - CONCLUSION: 1. Left basilar atelectasis. 2. Pneumoperitoneum again seen. Ayush Waters MD Gastrostomy Tube Placement 08/09/17 0000 Signed Impressions: Service Date/Time: August 14:29 - CONCLUSION: 1. Gastrostomy catheter is well positioned in the stomach. No evidence for extravasation. Kanu Freitas MD Abdomen/Pelvis CT 08/09/17 0000 Signed Impressions: Service Date/Time: August 13:08 - CONCLUSION: 1. Moderate amount of free air in the upper abdomen. Patient appears status post recent gastrostomy placement which could account for this. 2. Gastrostomy tube in the upper abdomen the exact location is not certain since no oral contrast was given a likely resides in the stomach. 3. Nonspecific, nonobstructive bowel gas pattern likely representing an ileus. 4. Small pleural effusions with consolidation in the right lower lobe. 5. Simple appearing cyst in the liver. Alfredo Booth MD Abdomen X-Ray 08/06/17 0000 Signed Impressions: Service Date/Time: Sunday, August 06, 2017 03:45 - CONCLUSION: 1. Mild ileus. No free air. NG tip in stomach. Delta Lane MD Procedures INTUBATION 07/26/17 EXTUBATION 07/29/17 PEG tube 08/08/17 . Patient/Family Conference Present at Family Conference: Initially patient's sons Luis and Gurpreet, then patient's . Family Conference Time (mins): 67 Family Conference Location: [facility] Issues Discussed: * Palliative care role, purpose, approach * Hospice care role, purpose, approach * Additional medical, psychosocial, and spiritual history * Patients general health, functional status, and cognitive changes in the months leading up to the current hospitalization * Patient/family understanding of the current medical problems * Patient/family understanding of prognosis * Patients goals of care as best understood from advance directives and/or conversations and/or values * Current medical treatment options and benefits/burdens of those options * Likely scenarios comparing ongoing aggressive care with a transition to comfort measures only * Questions answered to the best of my ability * Palliative care contact information provided . 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 Ethical issues impacting care: None . Important Contacts Spouse: Ivy Home: Son: Luis [phone] Son: Gurpreet [phone] . Prognosis This patient is terminal/end-stage and likely will in the upcoming day or days. He has end-stage Parkinson's, and now has respiratory failure again. . Code Status: No Code Plan * DO NOT RESUSCITATE, per request of and physician daughter a few days ago. * DECISION-MAKING: Patient lacks capacity for decision-making and I do not believe he will regain that capacity; his is the healthcare proxy decision- maker. * SYMPTOMS: The patient has significant dyspnea with his respiratory failure and he has been agitated/anxious. He would definitely benefit from opiates/ benzos. * GOALS: The patient's and sons have requested a transition to comfort measures, and would like to speak with hospice about transferring the patient to the [facility]. * Hospice consult placed. * Palliative Care will continue to follow the patient during this hospitalization. . Time Spent Total Floor Time (mins): 88 Face to Face Time (mins): 13 >50% Counseling/Coord of Care: Yes (d/w Dr. Rhoades) Thank you for the opportunity to participate in the care of Mr. Campoverde. Attestation To help prompt me to consider important information that might be impacting today's encounter and assessment, information from prior notes written by myself or my colleagues may have been "brought forward" into today's note. My signature on this note, however, is an attestation that I personally performed the exam, history, and/or decision-making noted today, and, unless otherwise indicated, the interactions with patient, family, and staff as well as the review of records all occurred today. I also attest that the listed assessment and stated plan reflect my best clinical judgment today based on the combination of historical information, prior notes, and today's exam/ interactions. When time spent is documented, it refers only to time spent today by the signer, or if indicated, combined time spent today by collaborating physician/nurse practitioner. Emily Schwab MD Aug 13, 2017 13:13
--- NOTE | 2017-08-13 14:45 | HHI.DCPOC ---
Discharge Care Plan Diagnosis: (1) respiratory failure, likely aspiration (2) pneumoperitoneum status post PEG tube placement ileus, abdominal distention (3) profound deconditioning (4) dyspnea (5) agitation (6) recent intubation/extubation after airway obstruction/respiratory arrest (7) end-stage Parkinson's disease (8) dysphagia for several months (9) Encephalopathy, metabolic (10) Non-ST elevation IA (NSTEMI) (11) Cardiac arrest (12) Respiratory arrest Goals to Promote Your Health * To prevent worsening of your condition and complications * To maintain your health at the optimal level Directions to Meet Your Goals Take your medications as prescribed Follow your dietary instruction Follow activity as directed Keep your appointments as scheduled Take your immunizations and boosters as scheduled If your symptoms worsen call your PCP, if no PCP go to Urgent Care Center or Emergency Room Smoking is Dangerous to Your Health. Avoid second hand smoke Call the 24-hour hour crisis hotline for domestic abuse at Alfredo Rhoades DO Aug 13, 2017 14:45
--- NOTE | 2017-08-13 14:55 | HHI.DS ---
Discharge Summary Admission Date Jul 26, 2017 at 21:41 Discharge Date: Aug 13, 2017 Admitting Diagnosis POST CARADIAC ARREST (1) respiratory failure, likely aspiration Diagnosis: Principal (2) pneumoperitoneum status post PEG tube placement ileus, abdominal distention (3) profound deconditioning Diagnosis: Principal (4) dyspnea (5) agitation (6) recent intubation/extubation after airway obstruction/respiratory arrest (7) end-stage Parkinson's disease Diagnosis: Principal (8) dysphagia for several months (9) Encephalopathy, metabolic ICD Code: G93.41 - Metabolic encephalopathy Diagnosis: Principal Status: Acute (10) Non-ST elevation [place] (NSTEMI) ICD Code: I21.4 - Non-ST elevation (NSTEMI) myocardial infarction Diagnosis: Principal Status: Acute (11) Cardiac arrest ICD Code: I46.9 - Cardiac arrest, cause unspecified Diagnosis: Principal Status: Acute (12) Respiratory arrest ICD Code: R09.2 - Respiratory arrest Diagnosis: Principal Status: Acute Procedures PEG tube placement Brief History - From Admission 76-year-old gentleman with unknown past medical history was eating at a restaurant stood up choking like behavior and fell to ground. Hemlick maneuver done by bystanders and then they realized he was in Asystole and CPR started. Patient is sedated and intubated and no further information is available. CBC/BMP: 08/12/17 0615 08/12/17 0615 Significant Findings Laboratory Tests Test 08/11/17 07:04 08/12/17 06:15 08/12/17 17:00 08/13/17 01:54 White Blood Count 14.9 TH/MM3 (4.0-11.0) 11.2 TH/MM3 (4.0-11.0) Red Blood Count 3.66 MIL/MM3 (4.50-5.90) 3.45 MIL/MM3 (4.50-5.90) Hemoglobin 12.2 GM/DL (13.0-17.0) 11.5 GM/DL (13.0-17.0) Hematocrit 35.0 % (39.0-51.0) 32.7 % (39.0-51.0) Creatinine 0.47 MG/DL (0.60-1.30) 0.43 MG/DL (0.60-1.30) Random Glucose 112 MG/DL (74-106) 115 MG/DL (74-106) Calcium Level 8.0 MG/DL (8.5-10.1) 7.6 MG/DL (8.5-10.1) Potassium Level 3.2 MEQ/L (3.5-5.1) Blood Gas HCO3 17 mmol/L (22-26) Blood Gas Base Excess -6.2 mmol/L (-2-2) Arterial Blood pH 7.48 (7.380-7.420) Arterial Blood Partial Pressure CO2 23 mmHg (38-42) Imaging Last Impressions Chest X-Ray 08/11/17 0000 Signed Impressions: Service Date/Time: Friday, August 11, 2017 12:19 - CONCLUSION: 1. Left basilar atelectasis. 2. Pneumoperitoneum again seen. Ayush Waters MD Gastrostomy Tube Placement 08/09/17 0000 Signed Impressions: Service Date/Time: August 14:29 - CONCLUSION: 1. Gastrostomy catheter is well positioned in the stomach. No evidence for extravasation. Kanu Freitas MD Abdomen/Pelvis CT 08/09/17 0000 Signed Impressions: Service Date/Time: August 13:08 - CONCLUSION: 1. Moderate amount of free air in the upper abdomen. Patient appears status post recent gastrostomy placement which could account for this. 2. Gastrostomy tube in the upper abdomen the exact location is not certain since no oral contrast was given a likely resides in the stomach. 3. Nonspecific, nonobstructive bowel gas pattern likely representing an ileus. 4. Small pleural effusions with consolidation in the right lower lobe. 5. Simple appearing cyst in the liver. Alfredo Booth MD Abdomen X-Ray 08/06/17 0000 Signed Impressions: Service Date/Time: Sunday, August 06, 2017 03:45 - CONCLUSION: 1. Mild ileus. No free air. NG tip in stomach. Delta Lane MD PE at Discharge GENERAL: NAD. SKIN: Warm and dry. Pale. HEAD: Normocephalic. EYES: No scleral icterus. No injection or drainage. ENT: supple, no JVD no lymphadenopathy. NECK: Supple, trachea midline. CARDIOVASCULAR: Regular rate and rhythm. RESPIRATORY: Diffuse rhonchi. GASTROINTESTINAL: Abdomen soft, nontender, mildly distended. PEG tube site looks clean. MUSCULOSKELETAL: No cyanosis, or edema. NEURO EXAM: Lethargic, moving upper and lower extremities. Pt update on day of discharge The patient and his family met with palliative care and then hospice. Family was agreeable with discharge to hospice care facility. Discussed with nursing. Hospital Course Acute hypoxic and hypercarbic respiratory failure Secondary to choking. Extubated 07/29/17. CT abdomen with evidence of RLL consolidation. He was continued on breathing treatments, aggressive pulmonary toilet. He was placed on IV vancomycin and Levaquin. He received nebs as needed as well as oxygen. He received glycopyrrolate for secretions. Cardiac arrest Secondary to choking. Course was complicated by NSTEMI. Troponin peaked at 2. EF 45%. He was placed on a cardiac regimen. Sepsis/ PNA/ UTI The pt has been hypotensive, tachycardic, has had low grade fever and with leukocytosis. CT abdomen with concern for consolidation of the right lower lobe. UA indicative of infection. Urine culture indicating contamination. He received IVFs. He was continued on IV Levaquin and IV Flagyl. Pneumoperitoneum Noted on CXR and confirmed on CT abdomen. General surgery was consulted. PEG study revealed functioning PEG tube. The pt did not tolerate tube feeds and received antiemetics as needed. Tube feeds were held and he was started on IVFs. Surgery recommended a repeat CT abdomen but that was canceled as the family decided to pursue comfort care. Delirium/ metabolic encephalopathy/ Alcohol withdrawal Neurology was consulted. He was placed on CIWA protocol. He was continued on Sinemet. Provigil was increased to 200 mg. He worked with PT/ OT. He was started on Seroquel 25 mg by mouth twice a day for agitation. Dysphagia GI specialist was consulted and attempted to place PEG tube, which was not possible. Severe Gastritis, Small Hiatal Hernia were noted. PEG tube placed by Interventional Radiology 08/08. He received a PPI. He was given free water. Tube feeds were held as above. Parkinson's/ Deconditioning The pt worked with PT/ OT/ ST. Palliative care was consulted and the family was interested in comfort care. Hospice was then consulted and the pt will be discharged to the hospice care center. Pt Condition on Discharge: Deteriorating Discharge Disposition: Hospice/Med Facility Discharge Time: > 30 minutes Discharge Instructions Speech Therapy-Diet Recommends: Other Continued Medications: Carbidopa-Levodopa (Carbidopa-Levodopa) 25-100 Mg Tab 1 TAB PO Q3HR for Parkinson Disease Mgmt, #90 TAB 0 Refills Discontinued Medications: Aspirin (Aspirin Children's) 81 Mg Chew 81 MG CHEW DAILY, TAB 0 Refills Cetirizine (Cetirizine) 10 Mg Tab 10 MG PO DAILY for Allergies, TAB 0 Refills Cholecalciferol (Vitamin D3) 1,000 Unit Tab 1000 UNITS PO DAILY for Nutritional Supplement, #1 BOTTLE 0 Refills Cyanocobalamin (B-12) 1,000 Mcg Subl 1000 MCG SL DAILY for Nutritional Supplement, TAB.SL 0 Refills Dipyridamole (Dipyridamole) 50 Mg Tab 50 MG PO QID for Prevent Blood Clot, #120 TAB [address] (Esomeprazole DR) 20 Mg Capdr 20 MG PO DAILY for Heartburn Management, #30 CAP 0 Refills Hydrocodone-Acetaminophen (Hydrocodone-Acetaminophen) 5-325 mg Tab 1 TAB PO Q8HR PRN for PAIN, TAB 0 Refills Alfredo Rhoades DO Aug 13, 2017 14:55
[2017-08-13] MEDS: MORPHINE SULFATE 4 MG/ML INJ IV PUSH PRN (17:28)
[2017-08-14] MEDS ORDERED: PHARMACY ORDERED LAB-VANCO TROUGH ONE (05:45)
== END 2017-08-13 18:33 | disposition hospice, inpatient (51) | DRG 280 ==
LOC: NEPE 19:54 → NEDA 21:41 → HIMW 23:50 → N04B 08-03 20:30 → N04A 08-06 18:21 → HIMW 08-09 13:26 → HIME 08-09 13:27 → N04B 08-10 20:18
PROVIDERS: ADMIT Internal Medicine; ATTEND Internal Medicine
PROC: 0T9B70Z Drainage of Bladder with Drainage Device, Via Natural or Artificial Opening (ICD-10-PCS; principal; 2017-07-26)
PROC: 5A1945Z Respiratory Ventilation, 24-96 Consecutive Hours (ICD-10-PCS; 2017-07-26)
PROC: 0DB78ZX Excision of Stomach, Pylorus, Via Natural or Artificial Opening Endoscopic, Diagnostic (ICD-10-PCS; 2017-08-06)
PROC: 0DH63UZ Insertion of Feeding Device into Stomach, Percutaneous Approach (ICD-10-PCS; 2017-08-08)
DX: I21.4 Non-ST elevation (NSTEMI) myocardial infarction (principal); I49.01 Ventricular fibrillation; J69.0 Pneumonitis due to inhalation of food and vomit; G93.41 Metabolic encephalopathy; A41.9 Sepsis, unspecified organism; G93.1 Anoxic brain damage, not elsewhere classified; J96.01 Acute respiratory failure with hypoxia; J96.02 Acute respiratory failure with hypercapnia; I95.9 Hypotension, unspecified; E87.3 Alkalosis; F10.231 Alcohol dependence with withdrawal delirium; K56.7 Ileus, unspecified; R13.10 Dysphagia, unspecified; G20 Parkinson's disease; I44.7 Left bundle-branch block, unspecified; Z78.1 Physical restraint status; I10 Essential (primary) hypertension; Z88.0 Allergy status to penicillin; Z88.2 Allergy status to sulfonamides; K29.70 Gastritis, unspecified, without bleeding; K44.9 Diaphragmatic hernia without obstruction or gangrene; I25.10 Atherosclerotic heart disease of native coronary artery without angina pectoris; Z51.5 Encounter for palliative care; Z66 Do not resuscitate; Z74.01 Bed confinement status; Z86.73 Personal history of transient ischemic attack (TIA), and cerebral infarction without residual deficits; R19.7 Diarrhea, unspecified
CPT/HCPCS: 36600; 49440; 49465; 51702; 71045; 74018; 74177; 80048; 80053; 80076; 80202; 81001; 82140; 82550; 82552; 82607; 82805; 83605; 83690; 83735; 84100; 84443; 84484; 85025; 85027; 85610; 85652; 85730; 87040; 87077; 87086; 87186; 87641; 88305; 88312; 93005; 93308; 94002; 94003; 94150; 94640; 94664; 95819; 96365; 99152; 99153; C1769; C1887; C1894; C9113; J0131; J0360; J0690; J1200; J1265; J1610; J1630; J1644; J1650; J1940; J1956; J2060; J2250; J2270; J2405; J2765; J3010; J3370; J3411; J3480; J3486; J7030; J7040; J7050; J7120; J7613; Q9967